=== PATIENT | female | born 1955 | race Caucasian/White ===

== ENCOUNTER 2018-06-09 14:01 | Outpatient (RCR) | payer OTHER, SELFPAY | END 2018-06-16 23:59 | LOC: NS 14:01 | PROVIDERS: Family Provider Family Medicine; PCP Family Medicine; Visit Provider Family Medicine | DX: E66.9 Obesity, unspecified (principal); Z68.33 Body mass index [BMI] 33.0-33.9, adult; Z71.3 Dietary counseling and surveillance | CPT/HCPCS: 97802 ==

== ENCOUNTER 2018-07-06 16:00 | Outpatient (RCR) | payer OTHER, SELFPAY ==
[2017-01-28 06:17] VITALS: BMI 34.3
== END 2018-07-14 23:59 ==
LOC: NS 16:00
PROVIDERS: Family Provider Family Medicine; PCP Family Medicine; Visit Provider Family Medicine
DX: E66.9 Obesity, unspecified (principal); Z68.33 Body mass index [BMI] 33.0-33.9, adult; Z71.3 Dietary counseling and surveillance
CPT/HCPCS: 97803

== ENCOUNTER → 2018-08-10 10:47 | Outpatient (CLI) | payer OTHER, SELFPAY ==
[2018-08-10 13:11] LABS: Vitamin B12 451 pg/mL (211-911); Vitamin D,25 Hydroxy 22.6 ng/mL (29.95-100.01)
[2018-08-10 13:13] LABS: Hemoglobin A1c 5.5 % (4.2-6.3)
== END ==
PROVIDERS: Family Provider Family Medicine; PCP Family Medicine; Referring Provider Family Medicine; Visit Provider Family Medicine
DX: E53.8 Deficiency of other specified B group vitamins (principal); E55.9 Vitamin D deficiency, unspecified; R73.9 Hyperglycemia, unspecified
CPT/HCPCS: 36415; 82306; 82607; 83036

== ENCOUNTER 2018-08-11 11:00 | Outpatient (RCR) | payer OTHER, SELFPAY ==
[2017-01-28 06:17] VITALS: BMI 34.3
== END 2018-08-14 23:59 ==
LOC: NS 11:00
PROVIDERS: Family Provider Family Medicine; PCP Family Medicine; Visit Provider Family Medicine
DX: E66.9 Obesity, unspecified (principal); Z68.33 Body mass index [BMI] 33.0-33.9, adult; Z71.3 Dietary counseling and surveillance
CPT/HCPCS: 97803

== ENCOUNTER 2018-08-31 10:02 | Outpatient (RCR) | payer OTHER, SELFPAY ==
[2017-01-28 06:17] VITALS: BMI 34.3
== END 2018-09-13 23:59 ==
LOC: NS 10:02
PROVIDERS: Family Provider Family Medicine; PCP Family Medicine; Visit Provider Family Medicine
DX: E66.9 Obesity, unspecified (principal); Z68.33 Body mass index [BMI] 33.0-33.9, adult; Z71.3 Dietary counseling and surveillance
CPT/HCPCS: 97803

== ENCOUNTER 2018-09-21 09:21 | Outpatient (RCR) | payer OTHER, SELFPAY ==
[2017-01-28 06:17] VITALS: BMI 34.3
== END 2018-10-14 23:59 ==
LOC: NS 09:21
PROVIDERS: Family Provider Family Medicine; PCP Family Medicine; Visit Provider Family Medicine
DX: E66.9 Obesity, unspecified (principal); Z68.33 Body mass index [BMI] 33.0-33.9, adult; Z71.3 Dietary counseling and surveillance
CPT/HCPCS: 97803

== ENCOUNTER 2018-10-26 09:27 | Outpatient (RCR) | payer OTHER, SELFPAY ==
[2017-01-28 06:17] VITALS: BMI 34.3
== END 2018-11-13 23:59 ==
LOC: NS 09:27
PROVIDERS: Family Provider Family Medicine; PCP Family Medicine; Visit Provider Family Medicine
DX: E66.9 Obesity, unspecified (principal); Z68.33 Body mass index [BMI] 33.0-33.9, adult; Z71.3 Dietary counseling and surveillance
CPT/HCPCS: 97803

== ENCOUNTER 2018-11-22 09:20 | Outpatient (RCR) | payer OTHER, SELFPAY ==
[2017-01-28 06:17] VITALS: BMI 34.3
== END 2018-12-14 23:59 ==
LOC: NS 09:20
PROVIDERS: Family Provider Family Medicine; PCP Family Medicine; Visit Provider Family Medicine
DX: E66.9 Obesity, unspecified (principal); Z68.33 Body mass index [BMI] 33.0-33.9, adult; Z71.3 Dietary counseling and surveillance
CPT/HCPCS: 97803

== ENCOUNTER 2018-12-20 08:57 | Outpatient (RCR) | payer OTHER, SELFPAY ==
[2017-01-28 06:17] VITALS: BMI 34.3
== END 2019-01-14 23:59 ==
LOC: NS 08:57
PROVIDERS: Family Provider Family Medicine; PCP Family Medicine; Visit Provider Family Medicine
DX: E66.9 Obesity, unspecified (principal); Z68.33 Body mass index [BMI] 33.0-33.9, adult; Z71.3 Dietary counseling and surveillance
CPT/HCPCS: 97803

== ENCOUNTER 2019-02-28 09:02 | Outpatient (RCR) | payer OTHER, SELFPAY ==
[2017-01-28 06:17] VITALS: BMI 34.3
== END 2019-02-28 23:59 | disposition home or self-care (01) ==
LOC: NS 09:02
PROVIDERS: Family Provider Family Medicine; PCP Family Medicine; Visit Provider Family Medicine
DX: Z71.3 Dietary counseling and surveillance (principal); E66.9 Obesity, unspecified; Z68.33 Body mass index [BMI] 33.0-33.9, adult
CPT/HCPCS: 97803

== ENCOUNTER → 2019-04-04 14:07 | Outpatient (CLI) | payer OTHER, SELFPAY ==
[2019-04-04 15:48] LABS: Vitamin D,25 Hydroxy 23.1 ng/mL (29.95-100.01)
== END ==
PROVIDERS: Family Provider Family Medicine; PCP Family Medicine; Visit Provider Family Medicine
DX: E55.9 Vitamin D deficiency, unspecified (principal)
CPT/HCPCS: 36415; 82306

== ENCOUNTER → 2020-02-07 13:21 | Outpatient (CLI) | payer OTHER, SELFPAY ==
--- NOTE | 2020-02-07 13:25 | BI_ITS ---
MAMMOGRAPHY - BILATERAL SCREENING REASON FOR EXAM: Female, 64 years old. Routine annual screening examination. PERTINENT HISTORY: Sister with breast cancer. Mother with breast cancer. TECHNIQUE: Digital bilateral breast erlinda (3D mammographic acquisition) in the CC and MLO projections. 2-D mediolateral oblique (MLO) and craniocaudad (CC) views of both breasts were obtained. CAD: Full Field Digital Mammography with Computer Added Detection was performed. COMPARISON: Comparison is made with prior outside examination dated 12/28/2016. FINDINGS: Breast Composition: There are scattered areas of fibroglandular density. There are no dominant masses or suspicious calcifications. Stable benign-appearing bilateral axillary lymph nodes. No other significant abnormalities are identified. There has been no significant change since the prior study. BI/SCREEN MAMM (CAD) W/ERLINDA BILAT IMPRESSION: Stable bilateral screening mammogram. Yearly follow-up mammogram recommended. (A) ASSESSMENT CATEGORY: BIRADS Category 2: Benign. A letter regarding these results will be sent to the patient by the facility within 30 days. Approximately 10% of breast cancers are not detected by mammography. A normal mammogram should not delay biopsy of a clinically suspicious abnormality. [id number] Electronically Signed: Conor Peacock, at 14:36 EDT , Service support ,
== END ==
PROVIDERS: PCP Family Medicine; Referring Provider Family Medicine; Visit Provider Family Medicine
DX: Z12.31 Encounter for screening mammogram for malignant neoplasm of breast (principal)
CPT/HCPCS: 77063; 77067

== ENCOUNTER → 2020-02-27 10:33 | Outpatient (CLI) | payer OTHER, SELFPAY ==
[2017-01-28 06:17] VITALS: BMI 34.3
[2020-02-27 12:41] LABS: Absolute Lymphocyte Count 1.45 X10^3/uL (0.83-4.51); Absolute Neutrophil Count 3.9 X10^3/uL (2.0-7.7); Basophil# 0.03 X10^3/uL; Basophil% 0.5 % (0-1); Eosinophil# 0.13 X10^3/uL; Eosinophils% 2.2 % (0-5); Hematocrit 46.7 % (37-47); Hemoglobin 14.8 g/dL (12.0-15.0); Lymphocyte # 1.45 X10^3/ul (4.0); Lymphocyte % 24.2 % (19-41); Mean Corp Hgb Conc 31.7 g/dL (32-36); Mean Corpuscular Hgb 29.6 pg (27.0-32.0); Mean Corpuscular Volume 93.4 fL (81-99); Mean Platelet Vol. 10.3 fl (6.2-12.0); Monocyte# 0.51 X10^3/uL; Monocyte% 8.5 % (0-10); NRBC Flagged by Analyzer 0 % (0-5); Neutrophil # 3.87 X10^3/uL (2.7-7.7); Neutrophil % 64.4 % (47-70); Platelet Count 243 K/mm3 (150-450); RBC Distribution Width CV 12.8 % (11.6-14.6); RBC Distribution Width SD 43.5 fl (35.1-43.9)
[2020-02-27 13:11] LABS: Vitamin B12 343 pg/mL (211-911); Vitamin D,25 Hydroxy 33.7 ng/mL
== END ==
PROVIDERS: PCP Family Medicine; Referring Provider Family Medicine; Visit Provider Family Medicine
DX: E55.9 Vitamin D deficiency, unspecified (principal); E53.8 Deficiency of other specified B group vitamins
CPT/HCPCS: 36415; 82306; 82607; 85025

== ENCOUNTER → 2020-05-21 10:24 | Outpatient (CLI) | payer BC, SELFPAY ==
[2017-01-28 06:17] VITALS: BMI 34.3
--- NOTE | 2020-05-21 10:27 | US_ITS ---
STUDY: THYROID ULTRASOUND REASON FOR EXAM: Female, 64 years old. NODULE FELT BY DOCTOR TECHNIQUE: Ultrasound evaluation of the thyroid was performed with real-time and static short-scale imaging. COMPARISON: None. FINDINGS: RIGHT LOBE: The right lobe of the thyroid gland measures 4.9 cm x 1.9 cm x 1.1 cm. There is a homogeneous echotexture. There is a 3 mm x 3 mm x 2 mm cyst in the lower pole of the right lobe. There are 3 hypoechoic solid nodules the largest measuring 8 mm x 8 mm x 10 mm. This is in the posterior lower pole. LEFT LOBE: The left lobe of the thyroid gland measures 4.6 cm x 1.5 cm x 1.1 cm. There is a homogeneous echotexture. 3 subcentimeters nodules are seen the largest measures 7 mm x 6 mm x 4 mm. There is also evidence of a 4 mm x 4 mm x 4 mm partially calcified nodule in the lower pole. ISTHMUS: The isthmus measures 3 mm. The regional lymph nodes are normal. US/Thyroid IMPRESSION: Several subcentimeter nodules in both lobes of the thyroid as described. Electronically Signed: Conor Peacock, at 15:09 EST , Service support ,
--- NOTE | 2020-05-21 10:30 | BD_ITS ---
STUDY: DUAL ENERGY X-RAY ABSORPTIOMETRY / DXA REASON FOR EXAM: Female, 64 years old. 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 COMPARISON: Comparison is made with prior study dated 09/09/2011. FINDINGS: Lumbar Spine (L1-L4): g/cm2 (1.231) / T-score (0.4) / Z-score (2.0) Findings are suggestive of normal bone density with a low fracture risk. Left Femur Total: g/cm2 (0.890) / T-score (-0.9) / Z-score (0.2) Left Femoral Neck: g/cm2 (0.930) / T-score (-0.8) / Z-score (0.7) Right Femur Total: g/cm2 (0.971) / T-score (-0.3) / Z-score (0.9) Right Femoral Neck: g/cm2 (1.017) / T-score (-0.1) / Z-score (1.3) The T-Scores on the most recent prior examination were: Lumbar Spine (L1-L4): There has been worsening of bone density since the previous examination. Left Femur Total: which represents a worsening of 10.8%. Right Femur Total: which represents a worsening of 14.1%. BD/Dexa Bone Density Study IMPRESSION: The patient is considered normal as outlined below according to World [employer] Organization (WHO) criteria with a low fracture risk. There has been worsening of bone density since the previous examination. Reference Information: The T-score is the number of standard deviations above or below the standard which is normal for young adults at their peak bone mineral density. The World Health Organization (WHO) interprets the T-scores as follows: Above -1 Normal bone density Between -1 and -2.5 Osteopenia Equal to / or below -2.5 Osteoporosis As a practical clinical guideline, osteopenia may be graded as follows: Mild -1 through -1.5 Moderate -1.6 through -2.0 Severe -2.1 through -2.4 The Z-score is the number of standard deviations above or below age-matched controls. A Z-score of less than -1.5 would be considered abnormal. References: 1. NIH Osteoporosis and Related Bone Diseases www osteo.org 2. International Society for Clinical Densitometry www iscd.org 3. National Osteoporosis Foundation www nof.org Electronically Signed: Conor Peacokc, at 15:01 EST , Service support ,
== END ==
PROVIDERS: PCP Family Medicine; Referring Provider Internal Medicine; Visit Provider Internal Medicine
DX: E04.1 Nontoxic single thyroid nodule (principal); Z78.0 Asymptomatic menopausal state
CPT/HCPCS: 76536; 77080

== ENCOUNTER → 2020-09-05 14:22 | Outpatient (CLI) | payer BC, SELFPAY ==
--- NOTE | 2020-09-05 14:25 | US_ITS ---
STUDY: ULTRASOUND BREAST - RIGHT REASON FOR EXAM: Female, 64 years old. Right axillary lump. The patient has had Covid vaccine. TECHNIQUE: Axial and longitudinal images of the RIGHT breast were performed with a high resolution ultrasound transducer. # OF IMAGES: 77 COMPARISON: Comparison is made with prior mammogram done earlier today. FINDINGS: RIGHT Breast: Multiple lymph nodes are seen in the right axilla. The largest measures 1.7 cm x 0.8 cm x 0.5 cm. US/Breast Limited Unilateral IMPRESSION: Multiple right axillary lymph nodes. The largest measures 1.7 cm x 0.8 cm x 0.5 cm. ASSESSMENT CATEGORY: BIRADS Category 2: Benign. A letter regarding these results will be sent to the patient by the facility within 30 days. Electronically Signed: Conor Peacock MD at 16:02 EDT , Service support ,
--- NOTE | 2020-09-05 14:25 | BI_ITS ---
MAMMOGRAPHY - UNILATERAL DIAGNOSTIC: RIGHT BREAST REASON FOR EXAM: Female, 64 years old. Six-month history of right axillary breast lump. PERTINENT HISTORY: Sister with breast cancer. Mother with breast cancer. Aunt with breast cancer. TECHNIQUE: Digital unilateral breast mallika (3D mammographic acquisition) in the CC and MLO projections. 2-D mediolateral oblique (MLO) and craniocaudad (CC) views of both breasts were obtained. CAD: Full Field Digital Mammography with Computer Added Detection was performed. COMPARISON: Comparison is made with prior study dated 02/07/2020. FINDINGS: Breast Composition: There are scattered areas of fibroglandular density. There are no dominant masses or suspicious calcifications. Stable small benign appearing bilateral axillary lymph nodes. No other significant abnormalities are identified. There has been no significant change since the prior study. BI/DIAG MAMM W/CAD, UNILAT IMPRESSION: Stable unilateral diagnostic mammogram. With the patient''s history of a palpable axillary lump, correlation with ultrasound is recommended. ASSESSMENT CATEGORY: BIRADS Category 0: Incomplete. Need additional imaging evaluation. A letter regarding these results will be sent to the patient by the facility within 30 days. Approximately 10% of breast cancers are not detected by mammography. A normal mammogram should not delay biopsy of a clinically suspicious abnormality. Electronically Signed: Conor Peacock MD at 15:11 EDT , Service support ,
== END ==
PROVIDERS: PCP Internal Medicine; Referring Provider Internal Medicine; Visit Provider Internal Medicine
DX: N63.15 Unspecified lump in the right breast, overlapping quadrants (principal)
CPT/HCPCS: 76642; 77061; 77065; G0279

== ENCOUNTER → 2021-01-08 07:56 | Outpatient (CLI) | payer MEDICARE, BC, SELFPAY ==
--- NOTE | 2021-01-08 08:02 | MRI_ITS ---
STUDY: BILATERAL BREAST MR WITHOUT AND WITH CONTRAST REASON FOR EXAM: Female, 65 years old. Family history of breast cancer. Right sided lump at 9 o''clock position. TECHNIQUE: Multi-sequence multi-echo imaging of both breasts was performed with a dedicated breast coil. T1-weighted and T2-weighted images were performed before the administration of contrast. T1-weighted images were also performed after the administration of 20ML IV DOTAREM without complications. COMPARISON: Unilateral ultrasound and unilateral diagnostic mammogram the 09/05/2020. FINDINGS: RIGHT BREAST: The breast tissue is fatty with moderate background enhancement. There are no abnormal enhancing masses or areas of non-mass enhancement in the right breast. LEFT BREAST: The breast tissue is fatty with moderate background enhancement. There are no abnormal enhancing masses or areas of non-mass enhancement in the left breast. There are no enlarged or abnormal lymph nodes. There is no abnormality in the visualized regions of the chest or liver. MRI/Breast Bilateral W/O and W IMPRESSION: No focal discrete mass in the right breast. No other abnormality. Yearly follow-up mammogram recommended. CATEGORY: BIRADS Category 2: Benign. A letter regarding these results will be sent to the patient by the facility within 30 days. Electronically Signed: William De La Torre MD at 9:13 EDT , Service support ,
== END ==
PROVIDERS: PCP Internal Medicine; Referring Provider Internal Medicine; Visit Provider Internal Medicine
DX: N63.15 Unspecified lump in the right breast, overlapping quadrants (principal)
CPT/HCPCS: 77049; A9575; A4216; C8908

== ENCOUNTER 2021-05-20 07:45 | Outpatient (CLI) | payer MEDICARE, BC, SELFPAY ==
--- NOTE | 2021-05-20 07:49 | US_ITS ---
STUDY: ULTRASOUND BREAST - RIGHT REASON FOR EXAM: Female, 65 years old. Follow-up for right axillary lymph nodes. TECHNIQUE: Axial and longitudinal images of the RIGHT breast were performed with a high resolution ultrasound transducer. # OF IMAGES: 37 COMPARISON: Comparison is made with prior ultrasound dated 09/05/2020. FINDINGS: RIGHT Breast: Once again, 3 lymph nodes are seen in the right axillary region. The largest lymph node measures 2.1 cm x 1.2 cm x 0.7 cm. US/Breast Limited Unilateral IMPRESSION: Essentially stable appearance of the right axillary lymph nodes. ASSESSMENT CATEGORY: BIRADS Category 2: Benign. A letter regarding these results will be sent to the patient by the facility within 30 days. Electronically Signed: Conor Peacock MD at 15:44 EST , Service support ,
--- NOTE | 2021-05-20 07:49 | US_ITS ---
STUDY: THYROID ULTRASOUND REASON FOR EXAM: Female, 65 years old. Thyroid nodules. TECHNIQUE: Ultrasound evaluation of the thyroid was performed with real-time and static short-scale imaging. COMPARISON: Comparison is made with prior study dated 05/21/2020. FINDINGS: RIGHT LOBE: The right lobe of the thyroid gland measures 4.8 cm x 1.7 cm x 1.2 cm. There is a homogeneous echotexture. Stable 4 mm x 3 mm x 2 mm cyst in the lower pole of the right lobe. Stable dominant 1.1 cm x 0.7 cm x 0.9 semi a solid nodule in the mid and lower pole. LEFT LOBE: The left lobe of the thyroid gland measures 4.2 cm x 1.5 cm x 1.2 cm. There is a homogeneous echotexture. There are 3 subcentimeter hypoechoic solid nodules. The largest measures 7 mm x 6 mm x 4 mm. ISTHMUS: The isthmus measures 3 mm. The regional lymph nodes are normal. US/Thyroid IMPRESSION: Stable examination. Bilateral thyroid nodules. Electronically Signed: Conor Peacock MD at 14:01 EST , Service support ,
== END 2021-05-20 23:59 | disposition short-term general hospital (02) ==
LOC: US 07:47
PROVIDERS: PCP Internal Medicine; Referring Provider Internal Medicine; Visit Provider Internal Medicine
DX: E04.1 Nontoxic single thyroid nodule (principal); R59.0 Localized enlarged lymph nodes
CPT/HCPCS: 76536; 76642

== ENCOUNTER → 2021-10-17 | Outpatient (CLI) | payer MEDICARE, BC, SELFPAY ==
--- NOTE | 2021-10-17 07:13 | BI_ITS ---
MAMMOGRAPHY - BILATERAL SCREENING REASON FOR EXAM: Female, 65 years old. Routine annual screening examination. PERTINENT HISTORY: Sister with breast cancer. Mother with breast cancer. Aunt with breast cancer. TECHNIQUE: Digital bilateral breast erlinda (3D mammographic acquisition) in the CC and MLO projections. 2-D mediolateral oblique (MLO) and craniocaudad (CC) views of both breasts were obtained. CAD: Full Field Digital Mammography with Computer Added Detection was performed. COMPARISON: Comparison is made with prior study dated 02/07/2020 and 09/05/2020. FINDINGS: Breast Composition: There are scattered areas of fibroglandular density. There are no dominant masses or suspicious calcifications. Stable small benign-appearing bilateral axillary lymph nodes. No other significant abnormalities are identified. There has been no significant change since the prior study. BI/SCRN MAMM (CAD)W/ERLINDA BILAT IMPRESSION: Stable bilateral screening mammogram. Yearly follow-up mammogram recommended. (A) ASSESSMENT CATEGORY: BIRADS Category 2: Benign. A letter regarding these results will be sent to the patient by the facility within 30 days. Approximately 10% of breast cancers are not detected by mammography. A normal mammogram should not delay biopsy of a clinically suspicious abnormality. [id number] Electronically Signed: Conor Peacock MD at 8:42 EDT ,
== END | disposition home or self-care (01) ==
PROVIDERS: PCP Internal Medicine; Referring Provider Internal Medicine; Visit Provider Internal Medicine
DX: Z12.31 Encounter for screening mammogram for malignant neoplasm of breast (principal)
CPT/HCPCS: 77063; 77067

== ENCOUNTER → 2021-11-24 | Outpatient (CLI) | payer MEDICARE, BC, SELFPAY ==
--- NOTE | 2021-11-24 07:15 | US_ITS ---
STUDY: ULTRASOUND BREAST - RIGHT REASON FOR EXAM: Female, 66 years old. Right axillary nodes. TECHNIQUE: Axial and longitudinal images of the RIGHT breast were performed with a high resolution ultrasound transducer. # OF IMAGES: 40 COMPARISON: Comparison is made with prior ultrasound of the right breast dated 05/20/2021. FINDINGS: RIGHT Breast: Once again, 3 lymph nodes are seen in the right axilla. The largest lymph node measures 2.6 times by 2.17 x 1.6 cm. This is increased slightly in size as compared to prior examination. The echotexture is slightly increased. Biopsy recommended. US/Breast Limited Unilateral IMPRESSION: Mild increase in size of the dominant lymph node in the right axilla. Biopsy recommended. ASSESSMENT CATEGORY: BIRADS Category 4: Suspicious - Biopsy Should Be Considered. A letter regarding these results will be sent to the patient by the facility within 30 days. Electronically Signed: Conor Peacock MD at 10:02 EDT ,
== END | disposition home or self-care (01) ==
LOC: US 07:12
PROVIDERS: PCP Internal Medicine; Referring Provider Internal Medicine; Visit Provider Internal Medicine
DX: R59.0 Localized enlarged lymph nodes (principal)
CPT/HCPCS: 76642; 76882

== ENCOUNTER 2021-12-12 19:27 | Emergency (ER) | payer MEDICARE, BC, SELFPAY ==
[2021-12-12 19:29] VITALS: BP 160/74; PULSE 89; RESP 16; TEMP 36.9; O2SAT 96; BMI 30.4
--- NOTE | 2021-12-12 19:33 | RAD_ITS ---
STUDY: X-RAY - RIGHT HAND, ATTENTION FOURTH FINGER REASON FOR EXAM: Female, 66 years old. Deformity after fall onto hand. TECHNIQUE: 3 view(s) of the finger were obtained. COMPARISON: None. FINDINGS: Normal metacarpal head. Normal metacarpophalangeal joint. Normal proximal phalanx. Normal middle phalanx. Normal distal phalanx. There is dorsal dislocation although the proximal interphalangeal joint. There is mild degenerative arthrosis of the distal interphalangeal joint. There is soft tissue swelling about the mid finger. RAD/Finger(s) Min 2 Views IMPRESSION: Dorsal dislocation of the proximal interphalangeal joint without visualized fracture. Electronically Signed: Jimmy Mendes DO at 19:56 EDT ,
[2021-12-12 20:06] VITALS: RESP 16
--- NOTE | 2021-12-12 21:21 | EX.ED.UPPERE ---
HPI History of Present Illness Chief Complaint: Upper Extremity Injury Narrative Narrative: Patient denies significant past medical history presents with injury to her right fourth digit on her hand. She states she was trying to save a baby bunny from a kitten. She had to crawl onto the deck. She fell onto her right hand and now has pain in her fourth finger. She is unsure if it is fractured or dislocated. She denies other injury. She does not take blood thinners. PFSH PFS Medical History Skin cancer Home Medications mometasone 200 mcg/actuation HFA aerosol inhaler (Asmanex HFA) 2 puff inhalation QHS 12/12/21 [History Last Taken Unknown] Allergy/AdvReac Type Severity Reaction Status Date / Time No Known Allergies Allergy Verified 06/27/13 16:07 Social History Smoking Status: Former smoker ROS ROS ED ROS Narrative Constitutional: No fever, no chills. HEENT: No sore throat. No neck pain. No loss of vision. No rhinorrhea. Cardiovascular: No chest pain. No palpitations. No pedal edema. Respiratory: No cough, no shortness of breath. Abdominal: No abdominal pain. No nausea. No vomiting. Genitourinary: No dysuria. No hematuria. Musculoskeletal: No myalgias. Right fourth digit pain at PIP. Neurologic: No headaches. No dizziness. No lightheadedness. Skin: No rash. No change in color. Psychiatric: No depression. No anxiety. EXAM Physical Exam Narrative Exam Narrative: Afebrile. Vital signs noted. HEENT: Normocephalic. Atraumatic. PERRL, EOMI. Neck soft and supple. No point tenderness or step off. Cardiovascular: Regular rate and rhythm. No murmurs, rubs, or gallops appreciated. Respiratory: No tachypnea. Lungs clear to auscultation bilaterally. Gastrointestinal: Abdomen soft, nontender, with normoactive bowel sounds. No rebound or guarding. Neurological: Awake. Alert. Nonfocal, nonlateralizing. Skin: No rash. Normal color. No pallor. Musculoskeletal: No pedal edema. Positive deformity at PIP of fourth digit right hand. Full range of motion right wrist. Palpable radial pulse. Good capillary refill all digits. Range of motion of fourth digit limited secondary to pain and deformity. Const Vital Signs: 12/12/21 19:29 12/12/21 20:06 Temperature 98.4 F Temperature Source Temporal Pulse Rate 89 Respiratory Rate 16 16 Blood Pressure 160/74 H Blood Pressure Mean 102 Pulse Ox 96 Oxygen Delivery Method Room Air MDM MDM MDM Narrative Medical decision making narrative: Patient was given an ice pack for comfort. X-rays were obtained of the fourth digit. I interpreted the x-ray and there is a dorsal dislocation at the PIP joint. No evidence of fracture. In discussion with the patient, closed reduction was performed without digital block. Patient tolerated procedure well. Postreduction x-ray will be obtained and interpreted by myself. She declined analgesics orally here in the emergency department. Postreduction x-ray interpreted by myself does show successful reduction of her closed finger dislocation. She will be placed in an aluminum foam splint and take [id number] analgesics as needed. She will continue ice and elevation at home and follow-up with the orthopedic surgeon within the next 5 to 7 days. Disposition is discharged home in improved and stable condition. Return instructions were reviewed. Radiography Diagnostic Testing: Clinical Impression(s) from Imaging Studies Finger X-Ray 12/12/21 19:33 IMPRESSION: Dorsal dislocation of the proximal interphalangeal joint without visualized fracture. Electronically Signed: Jimmy Mendes DO at 19:56 EDT Reading Location ID and State: [address] [place] [address] Tel [phone], Service support , Discharge Plan Triage Chief Complaint: Upper Extremity Injury ED Provider: Maikel Downs Dx/Rx/DC Orders Clinical Impression: Closed dislocation finger, proximal interphalangeal joint, traumatic, Finger pain, right Instructions: ED Finger Dislocation Prescriptions: No Action Asmanex HFA 200 mcg/actuation HFA aerosol inhaler 2 puff INHALATION QHS Label Comments: inhale 2 puffs by mouth and INTO THE LUNGS once daily WITH GOOD ORAL CARE AFTER USE Primary Care Provider: Maribell Ortiz Referrals: Maribell Ortiz DO [Primary Care Provider] - Meir Cannon MD [Med Staff - Active Staff] - 5-7 Days Disposition Disposition: Home, Self Care
--- NOTE | 2021-12-12 21:36 | RAD_ITS ---
STUDY: X-RAY - RIGHT HAND, ATTENTION FOURTH FINGER REASON FOR EXAM: Female, 66 years old. Post reduction. TECHNIQUE: 3 view(s) of the finger were obtained. COMPARISON: Right fourth finger, 12/12/2021 (1943) FINDINGS: Aspiration of the proximal interphalangeal joint which is dorsally dislocated on the previous study. There is no fracture. The finger is otherwise unremarkable. RAD/Finger(s) Min 2 Views IMPRESSION: Successful reduction of the dislocation of the proximal interphalangeal joint seen on the earlier study. Electronically Signed: Jimmy Mendes DO at 22:08 EDT ,
[2021-12-12 22:33] VITALS: RESP 16
--- NOTE | 2021-12-12 22:34 | ED.RN ---
REVIEWED D/C INSTRUCTIONS FOLLOW UP CARE, AND S/S THAT WOULD WARRANT A RETURN TO THE ED WITH PT. PT VERBALIZED AN UNDERSTANDING AND DENIES FURTHER QUESTIONS FOR THIS RN. PT SKIN P/W/D, RESP EVEN AND UNLABORED, PT A&O X 3, NO DISTRESS NOTED. PT AMBULATED OUT OF ED, GAIT STEADY.
== END 2021-12-12 22:35 | disposition home or self-care (01) ==
PROVIDERS: Emergency Provider Emergency Medicine; PCP Internal Medicine; Visit Provider Emergency Medicine
DX: S63.284A Dislocation of proximal interphalangeal joint of right ring finger, initial encounter (principal); W19.XXXA Unspecified fall, initial encounter; Z85.828 Personal history of other malignant neoplasm of skin; Z87.891 Personal history of nicotine dependence
CPT/HCPCS: 73140; 99283

== ENCOUNTER 2022-01-26 18:00 | Outpatient (RCR) | payer MEDICARE, BC, SELFPAY ==
--- NOTE | 2022-01-09 07:59 | HP.OTEVAL_ITS ---
Patient's Visit Information ANA MONTOYA is a 66 year old F, referred to Occupational Therapy by William Mendez PA-C, with a diagnosis of right RF dislocation. Date of Evaluation: 01/07/22 Occupational Therapist: Keyana Brar, ROBI/Grace, CHT - Subjective This 66 year old female was seen for OT eval with dx of right ring finger dislocation on 12/12/21- pt states she went to ER and was splinted for about 2.5 weeks- pt is retired- pt states her finger is moving better but still sore and and stiff limiting IND use of her right hand- pt would like to return to her PLOF with ADLs and IADls. - Pain right RF 0 Pain Intensity Range: 2 - ROM MP: right RF 0/80 left 0/80 PIP: right RF 0/90 left 0/100 DIP: right 0/35 left 0/45 - Strength Auto Glass Installer: right 40# left 70# Lateral Pinch: right 10# left 10# - Sensation Sensation Comments: denies - Quick DASH-Disab of Arm,Shoulder& Hand Quick DASH Score: 31.8175 - Goals Goal:: pt will demo increase in right assistant technician strength by 15# or greater to increase pts ind. with ADLs and IADLs by d/c Goal:: pt will demo a increase in right RF PIP and DIP flex cy 15* or greater to increase pts ind. with ADLs and IADLs. Goal:: pt will report pain no greater than 1/10 with use of right hand with ADLs and IADLs by d/c - Rehabilitation General Assessment: pt suffered dorsal dislocation of proximal interphalangeal joint 3 weeks and 5 days ago- pt demo with limited right RF motion, weakness and strength decreasing pts ind. with ADls and IADls. pt would benefit from skilled OT services 1x week for 3-4 weeks. Today therapist ed. pt on ROM, edema and protective bradley. while lifting and performing tasks. pt demo understanding and receptive to POC. Rehabilitation Potential: Good - Anticipated Interventions A/AAROM/PROM, Strengthening, Modalities, Orthoses, Joint Protection/Energy Conservation, Ergonomic Education, Fine Motor Coord/Octaviano, Education re assistive Equipment, Education re Diagnosis, Home Program - Visit Plan Frequency: 1-2x /Week Duration: 6 Weeks TEXT: Thank you for the opportunity to evaluate your patient. For Medicare and Medicare HMO plans, please review the plan of care and approve it. It will need to be FAXED BACK to us at [phone] for Medicare purposes. Please let me know if there are questions or concerns regarding this plan of care. Physician Signature: Date:
--- NOTE | 2022-04-28 14:23 | HP.OTDCSUM ---
It has been my pleasure to treat ANA MONTOYA under orders from William Mendez PA-C, for the diagnosis of right RF dislocation for a total of 2 visit(s). Please see the following information for a summary of their discharge status. Objective/Function: right PIP flexion 100 increase from 90*. right DIP flexion 40* increase from 35*. right kennel supervisor strength 55# increase from 40*. pt has met OT goals and is D/c at this time. Patient Goals: Regain Mobility, Regain Strength, Use Hand/Wrist/Arm Normally Again Goal:: pt will demo increase in right kennel supervisor strength by 15# or greater to increase pts ind. with ADLs and IADLs by d/c Goal:: pt will demo a increase in right RF PIP and DIP flex cy 15* or greater to increase pts ind. with ADLs and IADLs. Goal:: pt will report pain no greater than 1/10 with use of right hand with ADLs and IADLs by d/c Discharge Comments: Pt demo good functional ROM and strength is returning- If there are questions or concerns regarding this patient's occupational therapy, please fell free to call me at [phone]. Thank you for the referral of this patient. Sincerely, Keyana Brar, OTR/L, CHT
== END 2022-01-26 19:00 | disposition home or self-care (01) ==
LOC: OT 18:00
PROVIDERS: PCP Internal Medicine; Referring Provider Physician Assistant; Visit Provider Physician Assistant
DX: S63.29 Dislocation of distal interphalangeal joint of finger (principal); X58.XXXD Exposure to other specified factors, subsequent encounter
CPT/HCPCS: 97110; 97166; 97530

== ENCOUNTER → 2022-08-20 | Outpatient (CLI) | payer MEDICARE, BC, SELFPAY ==
--- NOTE | 2022-08-20 12:30 | US_ITS ---
INDICATION: NODULE EXAMINATION: Ultrasound US Thyroid (eg thyroid, parathyroid, parotid) TECHNIQUE: Fisher scale and color doppler imaging was performed of the thyroid gland. COMPARISON: 05/21/2020 ultrasound. FINDINGS: RIGHT THYROID LOBE: 4.9 x 1.5 x 1.3 cm. Homogeneous echotexture with normal vascularity. [Multiple nodules with a solid hypoechoic nodule measuring 4 mm, cysts cystic nodule measuring 3 mm, solid hypoechoic nodule measuring 4 mm and a mixed solid and cystic nodule measuring 9 mm. All nodules are wider than tall with smooth margins and no echogenic foci. LEFT THYROID LOBE: 4.0 x 1.3 x 1.3 cm. Homogeneous echotexture with normal vascularity. [Multiple nodules with a 5 mm solid hypoechoic nodule with a large coarse macrocalcification and a 7 mm solid nodule with no echogenic foci. Both nodules are wider than tall with smooth margins. ISTHMUS: 2 mm in AP diameter. No thyroid nodules are present. US/Thyroid IMPRESSION: Multiple bilateral thyroid nodules with no significant change as compared to the prior ultrasound. None of the nodules meet TI-RADS criteria for follow-up. Electronically Signed: Rogelio Juan DO at 0:33 EDT ,
--- NOTE | 2022-08-20 13:06 | BD_ITS ---
STUDY: DUAL ENERGY X-RAY ABSORPTIOMETRY / DXA REASON FOR EXAM: Female, 66 years old. Postmenopausal screening TECHNIQUE: Bone Mineral Density (BMD) measurements of lumbar spine and bilateral hips were obtained. COMPARISON: 2011 FINDINGS: Lumbar Spine (L1-L4): g/cm2 (1.063) / T-score (0.1) / Z-score (2.0) Findings are suggestive of normal bone density with a low fracture risk in the lumbar spine. Left Femur Total: g/cm2 (0.856) / T-score (-0.7) / Z-score (0.6) Left Femoral Neck: g/cm2 (0.679) / T-score (-1.5) / Z-score (0.1) Right Femur Total: g/cm2 (0.917) / T-score (-0.2) / Z-score (1.1) Right Femoral Neck: g/cm2 (0.781) / T-score (-0.6) / Z-score (1.0) The T-Scores on the most recent prior examination were: There has been a decrease of bone density in the lumbar spine, an increase in both femurs since the previous examination. BD/Dexa Bone Density Study IMPRESSION: The patient is considered osteopenic as outlined below according to World [employer] Organization (WHO) criteria with a moderate fracture risk. Reference Information: The T-score is the number of standard deviations above or below the standard which is normal for young adults at their peak bone mineral density. The World Health Organization (WHO) interprets the T-scores as follows: Above -1 Normal bone density Between -1 and -2.5 Osteopenia Equal to / or below -2.5 Osteoporosis As a practical clinical guideline, osteopenia may be graded as follows: Mild -1 through -1.5 Moderate -1.6 through -2.0 Severe -2.1 through -2.4 The Z-score is the number of standard deviations above or below age-matched controls. A Z-score of less than -1.5 would be considered abnormal. References: 1. NIH Osteoporosis and Related Bone Diseases www osteo.org 2. International Society for Clinical Densitometry www iscd.org 3. National Osteoporosis Foundation www nof.org Electronically Signed: Mikael Mcdonald MD at 9:04 EDT ,
== END | disposition home or self-care (01) ==
LOC: OPBD 12:27
PROVIDERS: PCP Internal Medicine; Visit Provider Internal Medicine
DX: Z78.0 Asymptomatic menopausal state (principal); E04.1 Nontoxic single thyroid nodule; R06.09 Other forms of dyspnea
CPT/HCPCS: 76536; 77080

== ENCOUNTER → 2022-08-26 | Outpatient (CLI) | payer MEDICARE, BC, SELFPAY ==
--- NOTE | 2022-08-26 09:45 | STRESSREP_ITS ---
Stress Test Report Date: 08/26/2022 Procedure: Exercise tolerance test/imaging study Indications: Dyspnea on exertion Consent: Per the patient Procedure: The patient exercised on a Nagi protocol for 6 achieving a peak heart rate of 140 bpm (92% predicted maximal heart rate) with a peak blood pressure 150/66 mmHg and a peak MET capacity of 7 METs. The baseline ECG demonstrated normal sinus rhythm. The peak exercise ECG demonstrated no ischemic changes. There were no cardiac dysrhythmias pretest, during exercise, or recovery. The functional capacity was considered mildly decreased. There was complaint of moderate shortness of breath at peak exercise. The examination was discontinued secondary to target heart rate being achieved. The patient was injected with 14 point mCi of technetium 99m Cardiolite and subsequently rest SPECT Cardiolite nuclear imaging was obtained in the horizontal long, vertical long, and short axis views. Post-exercise, the patient was injected with 44.4 mCi of technetium 99m Cardiolite and subsequently stress SPECT Cardiolite nuclear imaging was obtained in the horizontal long, vertical long, and short axis views. A gated Cardiolite study at peak stress was obtained. Rest and stress SPECT Cardiolite nuclear imaging status post realignment, normalization, and attenuation correction, demonstrates the appearance of relative uniform tracer uptake and myocardial perfusion appearing within normal limits. There is end systolic thickening and brightening. The gated Cardiolite study demonstrates myocardial thickening and inward wall motion. The reported LVEF is 75%. Impression: 1. Technically adequate (percent predicted maximal heart rate greater than 85%) exercise tolerance test 2. Peak exercise ECG no ischemic change 3. There were no cardiac dysrhythmias pretest, during exercise, or recovery 4. Rest and stress SPECT Cardiolite nuclear imaging demonstrate relative uniform tracer uptake and myocardial perfusion appearing within normal limits. 5. The gated Cardiolite study reports an LVEF of 75%. This note was generated with [employer]alando[employer] software. It may contain incorrect words, spelling, and punctuation that were not noted in checking the note before signing.
== END | disposition home or self-care (01) ==
LOC: CVS 06:19
PROVIDERS: PCP Internal Medicine; Visit Provider Internal Medicine
DX: R06.09 Other forms of dyspnea (principal)
CPT/HCPCS: 78452; 93017; A9500; A4216

== ENCOUNTER → 2022-10-20 | Outpatient (CLI) | payer MEDICARE, BC, SELFPAY ==
--- NOTE | 2022-10-20 08:12 | BI_ITS ---
MAMMOGRAPHY - BILATERAL SCREENING REASON FOR EXAM: Female, 66 years old. Routine annual screening examination. PERTINENT HISTORY: Sister with breast cancer. Mother with breast cancer. Aunt with breast cancer. Prior right excisional breast biopsy. TECHNIQUE: Digital bilateral breast erlinda (3D mammographic acquisition) in the CC and MLO projections. 2-D mediolateral oblique (MLO) and craniocaudad (CC) views of both breasts were obtained. CAD: Full Field Digital Mammography with Computer Added Detection was performed. COMPARISON: Comparison is made with prior study dated October 17, 2021 and September 05, 2020. FINDINGS: Breast Composition: There are scattered areas of fibroglandular density. There are no dominant masses or suspicious calcifications. Stable small benign appearing bilateral axillary lymph nodes. No other significant abnormalities are identified. There has been no significant change since the prior study. BI/SCRN MAMM (CAD)W/ERLINDA BILAT IMPRESSION: Stable bilateral screening mammogram. Yearly follow-up mammogram recommended. (A) ASSESSMENT CATEGORY: BIRADS Category 2: Benign. A letter regarding these results will be sent to the patient by the facility within 30 days. Approximately 10% of breast cancers are not detected by mammography. A normal mammogram should not delay biopsy of a clinically suspicious abnormality. [id number] Electronically Signed: Conor Peacock MD at 11:12 EDT ,
== END | disposition home or self-care (01) ==
LOC: OPBI 08:11
PROVIDERS: PCP Internal Medicine; Referring Provider Internal Medicine; Visit Provider Internal Medicine
DX: Z12.31 Encounter for screening mammogram for malignant neoplasm of breast (principal); Z80.3 Family history of malignant neoplasm of breast
CPT/HCPCS: 77063; 77067

== ENCOUNTER → 2023-09-29 | Outpatient (CLI) | payer MEDICARE, BC, SELFPAY ==
--- NOTE | 2023-09-29 13:16 | US_ITS ---
EXAM: US SOFT TISSUES HEAD AND NECK, THYROID CLINICAL INDICATION: thyroid nodule TECHNIQUE: Greyscale and color doppler imaging was performed of the thyroid gland. COMPARISON: No relevant prior studies available. FINDINGS: LEFT THYROID LOBE: 3.8 x 1.4 x 1.5 cm with heterogeneous echotexture. There are 2 nodules in the left thyroid lobe: 1) Nodule in the midportion which is calcified, measuring 5 x 4 x 4 mm. TI-RADS points: 3. TI-RADS category: TR3. This nodule is mildly suspicious but no FNA or follow-up is necessary given the small size of this nodule. 2) isoechoic nodule measuring 7 x 7 x 6 mm. TI-RADS points: 3. TI-RADS category: TR3. This nodule is mildly suspicious but no FNA or follow-up is necessary given the small size of this nodule. RIGHT THYROID LOBE: Right thyroid 4.8 x 1.2 x 1.4 cm with heterogeneous echotexture. There are 4 subcentimeter nodules in the right thyroid lobe: 1) Hypoechoic nodule superiorly measuring 6 x 5 x 3 mm, TI-RADS points: 4. TI-RADS category: TR4. This nodule is moderately suspicious but no FNA or follow-up is necessary given the small size of this nodule. 2) Cystic nodule in the midportion measuring 3 x 3 x 2 mm, TI-RADS points: 0. TI-RADS category: TR1. This nodule is benign and no FNA or follow-up is necessary. 3) Cystic nodule in the midportion measuring 5 x 4 x 3 mm, TI-RADS points: 0. TI-RADS category: TR1. This nodule is benign and no FNA or follow-up is necessary. 4) An isoechoic nodule inferiorly measuring 7 x 7 x 4 mm TI-RADS points: 3. TI-RADS category: TR3. This nodule is mildly suspicious but no FNA or follow-up is necessary given the small size of this nodule. ISTHMUS: The isthmus measures 2 mm in thickness. No thyroid nodules are present. US/Thyroid IMPRESSION: Multiple subcentimeter thyroid nodules as detailed above ranging from TI-RADS Category TR1 to TR 4, but no FNA or follow-up is necessary given the small size of the nodules. Electronically Signed: Mauricio Lino MD at 2:51 EDT ,
--- NOTE | 2023-09-29 13:16 | VDLE_ITS ---
Reason For Study: BLE Swelling RIGHT LEFT GSV is normal. GSV is normal. CFV is compressible, spontaneous, phasic, CFV is compressible, spontaneous, phasic, competent and demonstrates normal competent, and demonstrates normal augmentation. augmentation. FV is compressible, spontaneous, phasic, FV is compressible, spontaneous, phasic, competent and demonstrates normal competent and demonstrates normal augmentation. augmentation. POP V is compressible, spontaneous, phasic, POP V is compressible, spontaneous, phasic, competent and demonstrates normal competent and demonstrates normal augmentation. augmentation. T/P Trunk is compressible. T/P Trunk is compressible. PTV is compressible. PTV is compressible. RT PerV is compressible. LT PerV is compressible. Procedure This is a venous duplex using B-mode, color flow and spectral Doppler. Exam performed in department. The exam was diagnostic. VL/Venous Duplex US - Clint Extrem Interpretation Summary Deep veins of the lower extremities are bilaterally patent and compressible seg mentally. There is no evidence of deep vein thrombosis on either side. Valvular competence appears in tact within the proximal deep venous systems bilaterally. The great saphenous veins appear bila terally patent and compressible segmentally. Ordering Physician: Maribell Ortiz Referring Physician: Maribell Ortiz Performed By: Sampson Juarez RVT
== END | disposition home or self-care (01) ==
LOC: CVS 12:37
PROVIDERS: PCP Internal Medicine; Referring Provider Internal Medicine; Visit Provider Internal Medicine
DX: M79.89 Other specified soft tissue disorders (principal)
CPT/HCPCS: 76536; 93970

== ENCOUNTER → 2023-10-25 | Outpatient (CLI) | payer MEDICARE, BC, SELFPAY ==
--- NOTE | 2023-10-25 08:22 | BI_ITS ---
MAMMOGRAPHY - BILATERAL SCREENING REASON FOR EXAM: Female, 67 years old. Routine annual screening examination. PERTINENT HISTORY: Sister with breast cancer. Mother with breast cancer. Aunt with breast cancer. History of prior right excisional breast biopsy. TECHNIQUE: Digital bilateral breast erlinda (3D mammographic acquisition) in the CC and MLO projections. 2-D mediolateral oblique (MLO) and craniocaudad (CC) views of both breasts were obtained. CAD: Full Field Digital Mammography with Computer Added Detection was performed. COMPARISON: Comparison is made with prior study dated October 20, 2022 and October 17, 2021. FINDINGS: Breast Composition: There are scattered areas of fibroglandular density. There are no dominant masses or suspicious calcifications. Stable small benign-appearing bilateral axillary lymph nodes. No other significant abnormalities are identified. There has been no significant change since the prior study. BI/SCRN MAMM (CAD)W/ERLINDA BILAT IMPRESSION: Stable bilateral screening mammogram. Yearly follow-up mammogram recommended. (A) ASSESSMENT CATEGORY: BIRADS Category 2: Benign. A letter regarding these results will be sent to the patient by the facility within 30 days. Approximately 10% of breast cancers are not detected by mammography. A normal mammogram should not delay biopsy of a clinically suspicious abnormality. [id number] Electronically Signed: Conor Peacock MD at 9:27 EDT ,
== END | disposition home or self-care (01) ==
LOC: OPBI 08:22
PROVIDERS: PCP Internal Medicine; Referring Provider Internal Medicine; Visit Provider Internal Medicine
DX: Z12.31 Encounter for screening mammogram for malignant neoplasm of breast (principal); Z80.3 Family history of malignant neoplasm of breast
CPT/HCPCS: 77063; 77067

== ENCOUNTER → 2023-12-03 | Outpatient (CLI) | payer MEDICARE, BC, SELFPAY ==
--- NOTE | 2023-12-03 12:21 | MRI_ITS ---
STUDY: MRI RIGHT KNEE, WITHOUT AND WITH IV CONTRAST REASON FOR EXAM: Female, 68 years old. Right knee mass marked with BB. TECHNIQUE: Standardized fat and water weighted pulse sequences were obtained in all 3 orthogonal planes. Following the intravenous administration of 20 mL Clariscan contrast, additional postcontrast imaging was obtained. COMPARISON: Right knee radiographs dated 10/22/2023. FINDINGS: A skin marker was placed along the posterior aspect of the right upper knee. Subjacent to the skin marker, there is prominence of the subcutaneous fat, but no discrete soft tissue mass. An unencapsulated subcutaneous lipoma cannot be excluded. Normal medial meniscus. Normal hyaline cartilage of the medial femorotibial compartment. There is mild osteoarthritic spur formation of the medial knee compartment. Normal medial collateral ligamentous complex (MCL). Normal distal semimembranosus, gracilis and semitendinosus tendons. There is degenerative free edge tearing of the body and anterior horn of the lateral meniscus with peripheral extrusion. There is degenerative arthrosis of the lateral femorotibial compartment with joint space narrowing, marginal osteophyte formation, moderate to high-grade chondromalacia, and small foci of subchondral marrow edema in the lateral tibial plateau. Normal proximal tibiofibular articulation. Normal lateral collateral (fibular) ligament. Normal popliteus tendon. Normal biceps femoris tendon. There is a mild interstitial sprain of the ACL without focal tear or laxity (sagittal T2 series 4 image 14). Normal posterior cruciate ligament (PCL). There is moderate to high grade chondromalacia along the patellar apex and medial patellar facet Congruent patellofemoral articulation. Normal medial and lateral patellar retinaculum. Normal quadriceps tendon. Normal patellar tendon. Normal Hoffa''s fat pad. There is a small joint effusion. There is no popliteal cyst. The otherwise visualized osseous structures are unremarkable. Following IV contrast administration, there is no abnormal enhancing mass. MRI/Lower Ext Joint Only W/WO Cont IMPRESSION: Prominence of the subcutaneous fat in the posterior aspect of the right upper right knee, but no discrete soft tissue mass. An unencapsulated subcutaneous lipoma cannot be excluded. No abnormal enhancing mass. Degenerative free edge tearing of the body and anterior horn of the lateral meniscus with peripheral extrusion. Tricompartment degenerative arthrosis, most severe in the lateral femorotibial compartment. Mild interstitial sprain of the ACL without focal tear or laxity. Small joint effusion. Electronically Signed: Mars Barlow MD at 15:26 EDT ,
--- NOTE | 2023-12-03 12:21 | MRI_ITS ---
STUDY: MRI LEFT KNEE REASON FOR EXAM: Female, 68 years old. Left knee pain. No known injury. Unknown bruise posterior knees. TECHNIQUE: Standardized fat and water weighted pulse sequences were obtained in all 3 orthogonal planes. COMPARISON: None. FINDINGS: Normal medial meniscus. Normal hyaline cartilage of the medial femorotibial compartment. Normal medial femoral condyle and tibial plateau. There is ligamentous thickening of the MCL consistent with a remote MCL sprain. Normal distal semimembranosus, gracilis and semitendinosus tendons. Normal lateral meniscus. Normal hyaline cartilage of the lateral femorotibial compartment. Normal lateral femoral condyle and tibial plateau. Normal proximal tibiofibular articulation. Normal lateral collateral (fibular) ligament. Normal popliteus tendon. Normal biceps femoris tendon. Normal anterior cruciate ligament (ACL). Normal posterior cruciate ligament (PCL). There is moderate to high-grade chondromalacia along the patellar apex, with underlying subchondral marrow edema (axial T2 series 6 images 8-9). Congruent patellofemoral articulation. Normal medial and lateral patellar retinaculum. Normal quadriceps tendon. Normal patellar tendon. Normal Hoffa''s fat pad. There is a small joint effusion. There is a tiny popliteal cyst. There is mild subcutaneous soft tissue edema along the anterior aspect of the knee. The otherwise visualized osseous structures are unremarkable. MRI/Lower Ext Joint Only (Routine) IMPRESSION: Remote MCL sprain. 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 Small joint effusion with a tiny popliteal cyst. Mild subcutaneous soft tissue edema along the anterior aspect of the knee. Electronically Signed: Mars Barlow MD at 13:48 EDT ,
[2023-12-03 12:51] LABS: CREATININE FINGERSTICK < 1.0 mg/dL (0.55-1.02)
== END | disposition home or self-care (01) ==
LOC: MRI 12:16
PROVIDERS: PCP Internal Medicine; Referring Provider Internal Medicine; Visit Provider Internal Medicine
DX: Z01.812 Encounter for preprocedural laboratory examination (principal); M25.562 Pain in left knee; R22.41 Localized swelling, mass and lump, right lower limb
CPT/HCPCS: 73721; 73723; A9575

== ENCOUNTER 2024-01-12 12:36 | Outpatient (RCR) | payer MEDICARE, BC, SELFPAY | END 2024-01-15 23:59 | disposition home or self-care (01) | LOC: NS 12:36 | PROVIDERS: PCP Internal Medicine; Referring Provider Internal Medicine; Visit Provider Internal Medicine | DX: Z71.3 Dietary counseling and surveillance (principal); E78.00 Pure hypercholesterolemia, unspecified; R73.03 Prediabetes; I25.119 Atherosclerotic heart disease of native coronary artery with unspecified angina pectoris | CPT/HCPCS: 97802 ==

== ENCOUNTER 2024-02-21 10:20 | Outpatient (RCR) | payer MEDICARE, BC, SELFPAY | END 2024-03-16 23:59 | LOC: NS 10:20 | PROVIDERS: PCP Internal Medicine; Referring Provider Internal Medicine; Visit Provider Internal Medicine | DX: Z71.3 Dietary counseling and surveillance (principal); E78.00 Pure hypercholesterolemia, unspecified; R73.03 Prediabetes; I25.119 Atherosclerotic heart disease of native coronary artery with unspecified angina pectoris | CPT/HCPCS: 97803 ==

== ENCOUNTER 2024-04-24 10:20 | Outpatient (RCR) | payer MEDICARE, BC, SELFPAY | END 2024-05-16 23:59 | LOC: NS 10:20 | PROVIDERS: PCP Internal Medicine; Referring Provider Internal Medicine; Visit Provider Internal Medicine | DX: Z71.3 Dietary counseling and surveillance (principal); E78.00 Pure hypercholesterolemia, unspecified; R73.03 Prediabetes; I25.119 Atherosclerotic heart disease of native coronary artery with unspecified angina pectoris | CPT/HCPCS: 97803 ==

== ENCOUNTER 2024-07-07 10:00 | Outpatient (RCR) | payer MEDICARE, BC, SELFPAY ==
--- NOTE | 2024-05-30 13:47 | HP.PTEVAL ---
Patient's Visit Information Visit Information Visit Information: ANA MONTOYA is a 68 year old F referred to Physical Therapy by Dr. Ana Ortiz DO with a diagnosis of B knee pain. Date of Evaluation: 05/22/24 Physical Therapist: Jose Rousseau DPT Visit Plan Frequency: 2x /Week Duration: 6 Weeks Plan: 1) BLE ROM progression 2) quad strengthening, glute med strengthening 3) may use US as needed to reduce symptoms. Subjective Subjective: Pt. is here today for her initial evaluation with diagnosis of B knee pain. Pt. reports having pain in B knees, but L is worse than R. Pt. reports no N/T, reports most of her pain is at her lateral aspect of her L knee and medial aspect of her R knee. Pt. reports increased pain with walking and standing, squatting as well. Pt. reports no pain at rest. Pt. denies N/T in either LE. Pt. has not done exercises for her knee at this point in time. Pt. is hopeful to reduce symptoms in order to get back to all household and recreational activities. Pt. did have an xray and MRI of BLEs. Showing multiple degenerative changes. Pain R knee: Pain Intensity (Out of 10): 3 Pain Intensity Range: 0 and 4 L knee: Pain Intensity (Out of 10): 1 Pain Intensity Range: 0 and 4 Objective Objective: POSTURE: Pt. has increased B knee valgus in stance. PALPATION: Pt. has increased tenderness to palpation of lateral aspect of B knees. Pt. no pain with palpation of posterior aspect of B knees. NEURO: Pt. has normal sensation in BLEs. pt. has normal DTR of BLEs. She is able rise on heels and toes without LOB. ROM: Pt. is lacking 5 deg of extension bilaterally and decreased knee flexion to 105deg bilaterally. MMT: Pt. has some weakness in BLEs, knee: ex t Balance/Special Test Scores Lower Extremity Functional Score: 58 Goals Goal 1:: LTG: Pt. to be I with HEP. Goal Time Frame: 4-6 Weeks Goal 2:: LTG: Pt. to have increased B knee ROM increased to 0-0-120deg. Goal Time Frame: 4-6 Weeks Goal 3:: LTG: Pt. to have full symmetrical BLE strength. Goal Time Frame: 4-6 Weeks Goal 4:: LTG: Pt. to ambulate unlimited distances without increase in symptoms. Goal Time Frame: 4-6 Weeks Goal 5:: LTG: Pt. to have normalized gait pattern without increase in symptoms. Goal Time Frame: 6-8 Weeks Rehabilitation Potential Physical Therapy Diagnosis: Pt. has signs and symptoms consistent with B knee pain. Pt. has some marked loss of ROM and some loss in strength. She would benefit from PT to address the above limitations progressing back to all previous activities without limitations. Rehabilitation Potential: Good Anticipated Interventions Patient/Client Instruction: Educate patient on: Condition, Plan of Care, Risk Factors and Benefits of Fitness Program For the Purpose of:: To facilitate caregiver knowledge, To improve self management, To prevent re-injury, To improve ability to perform tasks related to life management and To improve tolerance to ADL's Therapeutic Exercise to Include: Strength training, Power training, Endurance training, Balance training, Flexibilty training, Gait and locomotor training, Passive ROM and Active ROM For the Purpose of:: To decrease pain, To increase ROM, To improve nutrient delivery to tissue, To increase oxygenation perfusion, To improve muscle performance and motor function, To improve ability to perform ADL's, To decrease level of supervision to perform tasks, To improve ability of physical actions for home/community/work/leisure and To improve gait and locomotor functions Cryotherapy (ice pack, ice massage): Yes Thermo therapy (hot pack): Yes Ultrasound (thermal/non thermal): Yes For the Purpose of:: To decrease pain, To increase ROM, To improve nutrient delivery to tissue and To increase oxygenation perfusion Text: Thank you for the opportunity to evaluate your patient. For Medicare and Medicare HMO plans, please review the plan of care and approve it. It will need to be FAXED BACK to us at [phone] for Medicare purposes. For Medicare only, by signing this I certify the plan of care. Please let me know if there are questions or concerns regarding this plan of care. Physician Signature: Date:
== END 2024-07-07 19:00 | disposition home or self-care (01) ==
LOC: PT 10:00
PROVIDERS: PCP Internal Medicine; Referring Provider Internal Medicine; Visit Provider Internal Medicine
DX: M25.561 Pain in right knee (principal); M25.562 Pain in left knee
CPT/HCPCS: 97110; 97161

== ENCOUNTER → 2024-10-30 | Outpatient (CLI) | payer MEDICARE, BC, SELFPAY ==
--- NOTE | 2024-10-30 12:17 | US_ITS ---
PROCEDURE: THYROID 10/30/2024 REASON FOR EXAM: THYROID NODULE TECHNIQUE: THYROID COMPARISON: Prior study dated September 29, 2023. FINDINGS: Right thyroid lobe size: 5.3 cm x 2 cm x 1.3 cm Left thyroid lobe size: 4.1 cm 1.6 cm 1.2 cm Isthmus: 0.21 cm Background parenchymal echotexture is homogeneous. Nodules: There are 4 subcentimeter hypoechoic well-defined nodules in the right lobe of the liver. These are unchanged. There is a 4 mm x 3 mm x 2 mm cyst as well. There is a 5 mm x 4 mm x 5 mm hypoechoic solid nodule with a calcific rim as well as a 6 mm x 6 mm x 5 mm hypoechoic solid nodule. These are unchanged as well. US/Thyroid IMPRESSION: Stable examination. Routine follow-up recommended. RECOMMENDATION: Based on most suspicious nodule. Nodule size = largest diameter Only evaluate nodule if =>5 mm. Growth > 20% in 2 dimensions = worsening. Follow up to 4 nodules. Recommend biopsy for no more than 2 nodules. Reading Location: [place] [id number]
== END | disposition home or self-care (01) ==
LOC: US 12:14
PROVIDERS: PCP Internal Medicine; Referring Provider Internal Medicine; Visit Provider Internal Medicine
DX: E04.1 Nontoxic single thyroid nodule (principal)
CPT/HCPCS: 76536

== ENCOUNTER → 2024-10-31 | Outpatient (CLI) | payer MEDICARE, BC, SELFPAY ==
--- NOTE | 2024-10-31 07:20 | BI_ITS ---
EXAM: SCRN MAMM (CAD)W/ERLINDA BILAT DATE: 10/31/2024 CLINICAL HISTORY: F, Age 68 y/o , SCREENING Sister with breast cancer. Mother with breast cancer. Aunt with breast cancer. History of prior right excisional breast biopsy. BREAST CANCER RISK ASSESSMENT: Not assessed. TECHNIQUE: Bilateral screening digital breast tomosynthesis with 2D and 3D images. Computer aided detection. COMPARISON: Prior exam(s) dated October 25, 2023.. FINDINGS: TISSUE DENSITY: The breast tissue is composed of scattered areas of fibroglandular density. Bilateral Breast Mammographic Findings: No significant masses, calcifications or other abnormalities are identified. Stable bilateral fat containing axillary lymph nodes. No suspicious masses, areas of developing architectural distortion, or suspicious calcifications. There has been no significant interval change. BI/SCRN MAMM (CAD)W/ERLINDA BILAT IMPRESSION: Stable examination. OVERALL FINAL ASSESSMENT BI-RADS 2: BENIGN RECOMMEND ANNUAL MAMMOGRAPHIC SCREENING. RECOMMENDATION: Routine annual follow-up in 1 Year A letter with findings and recommendations will be mailed to the patient. Reading Location: [place] [id number]
--- NOTE | 2024-10-31 07:23 | BD_ITS ---
PROCEDURE: DEXA BONE DENSITY STUDY 10/31/2024 REASON FOR EXAM: F, age 68 y/o . Postmenopausal. TECHNIQUE: DEXA BONE DENSITY STUDY COMPARISON: Comparison is made with prior study dated August 20, 2022. FINDINGS: BMD and T-SCORES Lumbar spine: 1.055 g/cm2, T-score 0.1 Levels: L1 through L4 Change from prior: Loss of 0.7%. Left femoral neck: 0.663 g/cm2, T-score -1.7 Femoral neck comparison data not recommended for monitoring change. Left total hip: 0.847 g/cm2, T-score -0.8 Change from prior: Loss of 1.1%. Right femoral neck: 0.823 g/cm2, T-score -0.2 Femoral neck comparison data not recommended for monitoring change. Right total hip: 0.896 g/cm2, T-score -0.4 Change from prior: Loss of 2.3%. The World Health Organization has defined the following categories based on bone density: Normal bone density: T-score equal to or greater than -1.0 Osteopenia: T-score between -1.0 and -2.5 Osteoporosis: T-score equal to or less than -2.5 The patient does meet the pharmacological treatment recommendations for prevention of osteoporosis. BD/Dexa Bone Density Study IMPRESSION: OSTEOPENIA. Recommend follow-up as clinically warranted. Reading Location: [place] [id number]
--- OUTSIDE RECORDS SUMMARY | 2024-10-31 07:42 | XMS RPT_ITS | CCD ---
Author Organization [facility] ion [facility] Care Team Providers Care Masonry Supervisor Name Role Phone Jose Luis Camacho Unavailable Unavailable Jose Luis Camacho Unavailable Unavailable Rogelio Garcia MD Unavailable Jose Luis Camacho Unavailable Unavailable Freida Omer Unavailable Unavailable Rogelio Garcia MD Unavailable Fast, Ana A Unavailable Jasmin Larry Unavailable Unavailable Unavailable Unavailable Rachel Abrams Unavailable Unavailable JACK Gale Unavailable Unavailable Slarb, Nancy Unavailable Unavailable Fast DO, Ana A Unavailable Kat Abrams CMAsea Unavailable Unavailable Alyssa Galan LPN Unavailable Unavailable Unavailable Unavailable Dr. Miguel Ware Unavailable Fast DO, Ana A Unavailable Brandyn Arroyo LPN Unavailable Unavailable Dr. Ana Jimenez Primary Care Provider [phone] Dr. Lawrence Nelson Attending Provider Rene Martin MD Unavailable Fast DO, Ana A Primary Care Provider Jennifer Jeong CMAyelcristal Unavailable Unavailable Fast DO, Ana A Primary Care Provider Fast DO, Ana A Primary Care Provider RENE PEÑALOZA Admitting Unavailable RENE PEÑALOZA Attending Unavailable FAST, ANA A Primary Care Unavailable Dr. Philip Kang Unavailable Margarita Bess LPN Unavailable Unavailable Fast DO, Ana A Primary Care Provider [phone] Fast DO, Ana A Attending Unavailable Fast DO, Ana A Referring Unavailable Fast DO, Ana A Consulting Unavailable Fast, Dr. Reyna Primary Care Provider Fast, Dr. Reyna Other Provider FuadDr. Kamilah guerrero Attending Provider Unavailable Unavailable JACK Gale LPN Unavailable Unavailable FAST, ANA A Primary Care Unavailable JH, RENE P Attending Unavailable FAST, ANA A Primary Care Unavailable JH, RENE P Attending Unavailable FAST, ANA A Primary Care Unavailable Fast DO, Ana A Primary Care Provider FAST, ANA A Referring Unavailable FAST, ANA A Primary Care Unavailable Fast, Ana Attending Unavailable Fast, Ana Referring Unavailable Fast, Ana Primary Care Unavailable Fast, Ana Attending Unavailable Fast, Ana Referring Unavailable Fast, Ana Primary Care Unavailable Fast, Ana Primary Care Unavailable Fast, Ana Attending Unavailable Fast, Ana Referring Unavailable Fast, Ana Attending Unavailable Fast, Ana Referring Unavailable Fast, Ana Primary Care Unavailable Fast, Ana Attending Unavailable Fast, Ana Referring Unavailable Fast, Ana Primary Care Unavailable Fast, Ana Attending Unavailable Fast, Ana Referring Unavailable Fast, Ana Primary Care Unavailable Fast, Ana Attending Unavailable Fast, Ana Referring Unavailable Fast, Ana Primary Care Unavailable Allergies Allergy Classification Reported Allergen(s) Allergy Type Date of Onset Reaction(s) Facility (10 sources) seasonal [Other] Propensity to adverse reactions [address] [place] [address] Work Phone: (2 sources) OTHER; Translations: [OTHER] Propensity to adverse reactions (disorder) [address] [place] [address] Repository (1 source) ALLERGIES NOT ON FILE; Translations: [ALLERGIES NOT ON FILE] Propensity to adverse reactions (disorder) [facility] 2 Repository Medications Current Medications Medication Drug Class(es) Dates Sig (Normalized) Sig (Original) acetaminophen 325 mg / oxyCODONE hydrochloride 5 mg oral tablet (2 sources) Opioid Agonist Start: 01-28-2017 take 1 tablet by mouth four times daily as needed Oxycodone-Acetami nophen Active 1 - 2 TABLET PO 4 TIMES DAILY NEEDED January 28, 2017 8:44am amoxicillin 875 mg / clavulanate 125 mg oral tablet (20 sources) Penicillin-class Antibacterial Start: 01-19-2023 End: 03-18-2023 take 1 tablet by mouth twice daily amoxicillin-pot clavulanate 875-125 mg oral tablet 1 (one) tablet bid for 0 days Quantity: 10 {Tablet} Refills: 0 Ordered: 18-Mar-2023 JACK Gale LPN Start : 25-Jan-2023 End : 18-Mar-2023 Inactive Start: 11-30-2022 End: 12-21-2022 take 1 tablet by mouth twice daily amoxicillin-pot clavulanate 875-125 mg oral tablet 1 (one) tablet bid for 0 days Quantity: 10 {Tablet} Refills: 0 Ordered: 21-Dec-2022 Fast DO, Ana A Fast DO, Ana A Start : 11-Dec-2022 End : 21-Dec-2022 Inactive Start: 04-30-2021 End: 09-16-2021 take 1 tablet by mouth twice daily Amoxicillin-Pot Clavulanate 875-125 MG Oral Tablet 1 (one) Tablet bid for 0 days Quantity: 20 {Tablet} Refills: 0 Ordered: 16-Sep-2021 Brandyn Arroyo LPN Start : 30-Apr-2021 End : 16-Sep-2021 Inactive clindamycin 300 mg oral capsule (2 sources) Lincosamide Antibacterial Start: 01-28-2017 take 1 capsule by mouth three times daily Clindamycin Hcl (Cleocin) 300 MG capsule Active 300 MG PO THREE TIMES A DAY January 28, 2017 8:44am lactobacillus acidophilus [id number] unt / pectin 100 mg oral tablet (2 sources) Start: 01-28-2017 Acidophilus-Pect in, [place] Active 1 EACH PO TWICE A DAY January 28, 2017 8:44am Mometasone (Asmanex Hfa) 200 mcg/actuation HFA aerosol inhaler (3 sources) Start: 12-12-2021 take 1 puff(s) by inhalation at bedtime Mometasone (Asmanex Hfa) 200 mcg/actuation HFA aerosol inhaler Active 2 PUFF INHALATION AT BEDTIME December 11, 2021 11:00pm Start: 12-12-2021 take 1 puff(s) by in halation at bedtime Mometasone (Asmanex Hfa) 200 mcg/actuation HFA aerosol inhaler Active 2 PUFF INHALATION AT BEDTIME December 12, 2021 12:00am valACYclovir 1000 mg oral tablet (20 sources) Herpesvirus Nucleoside Analog DNA Polymerase Inhibitor, Herpes Simplex Virus Nucleoside Analog DNA Polymerase Inhibitor, Herpes Zoster Virus Nucleoside Analog DNA Polymerase Inhibitor Start: 03-18-2023 take 1 tablet by mouth three times daily Valtrex 1 gram oral tablet 1 (one) Tablet tid for 7 days Quantity: 21 {Tablet} Refills: 0 Ordered: 18-Mar-2023 Start : 18-Mar-2023 Active Comments: generic okay Start: 07-03-2020 End: 01-07-2021 take 2 tablets by mouth twice daily Valtrex 1 GM Oral Tablet 2 (two) Tablet bid for 1 days Quantity: 4 {Tablet} Refills: 2 Ordered: 07-Jan-2021 Rachel Abrams CMA Start : 03-Jul-2020 End : 07-Jan-2021 Inactive Comments: generic okay Start: 10-12-2014 End: 01-11-2015 take 2 tablets by mouth once daily VALTREX, 1GM (Oral Tablet) 2 (two) Tablet 1 day for 0 days Quantity: 2 {Tablet} Refills: 2 Ordered: 11-Jan-2015 Jasmin Larry Start : 12-Oct-2014 End : 11-Jan-2015 Discontinued Comments: generic okay Comment on above: generic okay Completed/Discontinued Medications Medication Drug Class(es) Dates Sig (Normalized) Sig (Original) Ascorbic Acid (17 sources) Vitamin C Vitamin C Inacti ve Vitamin C Active bifidobacterium animalis [id number] unt / lactobacillus acidophilus [id number] unt oral capsule (20 sources) End: 04-29-2015 take 1 capsule by mouth once daily PROBIOTIC (Oral Capsule) 1 cap daily End : 29-Apr-2015 Discontinued cholecalciferol 0.025 mg oral tablet (20 sources) Vitamin D Start: 05-31-2020 take 5 tablets by mouth once daily Vitamin D3 25 MCG (1000 UT) Oral Tablet 5 Tablet qd for 0 days Quantity: 120 {Tablet} Refills: 0 Ordered: 31-May-2020 Fast DO, Ana A Fast DO, Ana A Start : 31-May-2020 Active Start: 04-10-2020 take 4 tablets by [facility] once daily Vitamin D3 25 MCG (1000 UT) Oral Tablet 4 Tablet qd for 0 days Quantity: 120 {Tablet} Refills: 0 Ordered: 10-Apr-2020 Fast DO, Ana A Fast DO, Ana A Start : 10-Apr-2020 Active cholecalciferol, vitamin D3, (VITAMIN D3 ORAL) (10 sources) take 1 tablet by mouth once daily cholecalciferol, vitamin D3, (VITAMIN D3 ORAL) Take 1 tablet by mouth once daily. 0 Active cholecalciferol, vitamin D3, (VITAMIN D3 ORAL) Take by mouth once daily. 0 Active Comment on above: Take by mouth once d aily. Take 1 tablet by [facility] once daily. DULoxetine 30 mg delayed release oral capsule (14 sources) Serotonin and Norepinephrine Reuptake Inhibitor Start: 3 End: 3 take 1 capsule by mouth once at mealtime DULoxetine 30 mg oral capsule,delayed release (enteric coated) 1 (one) capsule q am with food for 0 days Quantity: 30 {Capsule} Refills: 3 Ordered: 02-Sep-2022 Fast DO, Ana A Fast DO, Ana A Start : 02-Sep-2022 End : 02-Sep-2022 Inactive Start: 06-05-2022 take 1 capsule by [facility] once at mealtime DULoxetine 30 mg oral capsule,delayed release (enteric coated) 1 (one) capsule q am with food for 0 days Quantity: 30 {Capsule} Refills: 3 Ordered: 05-Jun-2022 Fast DO, Ana A Fast DO, Ana A Start : 05-Jun-2022 Active esomeprazole 40 mg delayed release oral capsule (20 sources) Proton Pump Inhibitor Start: 07-11-2012 End: 01-11-2015 take 1 capsule by mouth once daily NEXIUM, 40MG (Oral Capsule Delayed Release) 1 (one) Capsule DR qd for 0 days Quantity: 30 {Capsule_DR} Refills: 2 Ordered: 11-Jan-2015 Jasmin Larry Start : 11-Jul-2012 End : 11-Jan-2015 Discontinued 14 actuat fluticasone propionate 0.1 mg/actuat / salmeterol 0.05 mg/actuat dry powder inhaler (20 sources) Corticosteroid, beta2-Adrenergic Agonist Start: 04-10-2020 End: 09-03-2020 take 1 puff(s) by inhalation once daily Advair Diskus 100-50 MCG/DOSE Inhalation Aerosol Powder Breath Activated 1 (one) Puff puff qd for 0 days Quantity: 30 {Inhalation} Refills: 0 Ordered: 03-Sep-2020 Alyssa Galan LPN Start : 10-Apr-2020 End : 03-Sep-2020 Discontinued Start: 04-10-2020 End: 09-03-2020 take 1 puff(s) by inhalation once daily Advair Diskus 100-50 MCG/DOSE Inhalation Aerosol Powder Breath Activated 1 (one) Puff puff qd for 0 days Quantity: 30 {Inhalation} Refills: 0 Ordered: 03-Sep-2020 Alyssa Galan LPN Start : 10-Apr-2020 End : 03-Sep-2020 Discontinued ibuprofen 200 mg oral tablet (8 sources) Nonsteroidal Anti-inflammatory Drug take 2 tablets by mouth every eight hours as needed ibuprofen (MOTRIN) 200 mg tablet Take 400 mg by mouth every 8 hours as needed. 0 Active Comment on above: Take 400 mg by mouth every 8 hours as needed. 120 actuat mometasone furoate 0.2 mg/actuat metered dose inhaler (20 sources) Corticosteroid Start: 10-29-19 take 2 puff(s) by inhalation once daily ASMANEX HFA 200 mcg/actuation HFA Inhale 2 Puffs as instructed once daily. 0 10/28/2021 Active Start: 10-28-2021 ASMANEX HFA 20 0 mcg/actuation HFA take 2 puff(s) by in halation once daily Asmanex (30 Metered Doses) 110 MCG/INH Inhalation Aerosol Powder Breath Activated 2 puffs daily before bed (110 MCG/INH) Active End: 10-12-2014 take 2 spray(s) nasal route once daily as needed NASONEX, 50MCG/ACT (Nasal Suspension) 2 sprays each nostril qd, prn (50 MCG/ACT) End : 12-Oct-2014 Discontinued Comment on above: Inhale 2 Puffs as in structed once daily. montelukast 10 mg oral tablet (20 sources) Leukotriene Receptor Antagonist Start: 2 End: 5 take 1 tablet by mouth once daily SINGULAIR, 10MG (Oral Tablet) 1 Tablet qd for 0 days Quantity: 30 {Tablet} Refills: 3 Ordered: 11-Jan-2015 Jasmin Larry Start : 17-Aug-2011 End : 11-Jan-2015 Discontinued Multivitamin preparation (20 sources) End: 5 take 1 tablet by mouth once daily MULTIVITAMIN (PO Tab) 1 tab qd End : 11-Jan-2015 Discontinued No current meds at this time (20 sources) No current meds at this time Inactive No current meds at this time Active Drug Treatment Unknown - unknown (2 sources) No information available. PROBIOTIC (Oral Capsule) (10 sources) End: 04-29-2015 take 1 capsule by mouth once daily PROBIOTIC (Oral Capsule) 1 cap daily End : 29-Apr-2015 Discontinued vitamin b12 0.5 mg oral tablet (20 sources) Vitamin B12 Start: 09-02-2022 take 1 tablet by mouth every other day cyanocobalamin (vitamin B-12) 500 mcg oral tablet 1 (one) Tablet qod for 0 days Quantity: 30 {Tablet} Refills: 0 Ordered: 02-Sep-2022 Fast DO, Ana A Fast DO, Ana A Start : 02-Sep-2022 Active Comments: This order discontinued per -. Start: 05-31-2020 End: 10-03-2021 take 1 tablet by mouth every other day Vitamin B12 500 MCG Oral Tablet 1 (one) Tablet qod for 0 days Quantity: 30 {Tablet} Refills: 0 Ordered: 03-Oct-2021 Brandyn Arroyo LPN Start : 31-May-2020 End : 03-Oct-2021 Discontinued Comments: This order discontinued per -. Vitamin b12 Inac tive Vitamin b12 Acti ve Comment on above: This order discontin ued per -. Problems Active Problems Problem Classification Problem Date Documented Da te Episodic/Chronic Abdominal pain (20 sources) Epigastric pain; Translations: [Epigastric pain] 04-29-2015 Episodic Asthma (20 sources) Asthma; Translations: [Asthma] 04-10-2020 Chronic Comment on above: diagnosed by Ananda 2019- on advair chronic stable-denys nue present regimen use inhaler consiste ntly Diabetes mellitus without complication (20 sources) Impaired fasting glucose; Translations: [Impaired fasting glycaemia] Onset: 4 04-29-2015 Episodic Comment on above: diet and ex discusse d - she improving on weight discussed diet and e x in detail sugar up and so is c hol she feels she can do better wo discussed diet and ex controlled but want her to keep working on lowering into normal range so discussed diet and ex discussed diet and e x indetail chronic stable-denys nue present regimendiscussed diet and need for weight loss needs to routinely walk Disorders of lipid metabolism (20 sources) Hyperlipidemia; Translations: [Hyperlipidemia] 09-16-2021 Chronic Comment on above: discussed diet and e x she not want to take meds discussed diet and e x in detail improved continue wo rking on diet and ex Gout and other crystal arthropathies (20 sources) Gout; Translations: [Gout] Resolved: 1 04-29-2015 Chronic Comment on above: no issues Immunizations and screening for infectious disease (20 sources) Need for prophylactic vaccination and inoculation against influenza; Translations: [Needs influenza immunization] 04-10-2020 Episodic Intracranial injury (5 sources) Concussion injury of body structure; Translations: [Concussion with loss of consciousness of unspecified duration, initial encounter] 06-27-2013 Episodic Joint disorders and dislocations; trauma-related (20 sources) Closed traumatic dislocation of interphalangeal joint of finger; Translations: [Dislocation of proximal interphalangeal joint of unspecified finger, initial encounter] Resolved: 3 02-04-2022 Episodic Comment on above: she splinted she leonor l be seeing ortho Lymphadenitis (20 sources) Axillary lymphadenopathy; Translations: [Axillary lymphadenopathy] Onset: 2 Resolved: 3 05-06-2021 Episodic Comment on above: node removed negativ e- discussed local care including scar care and to decrease swelling biopsy neg strong fa vick history of cancer so send to [facility] see if need more workup lymph node biopsied removed and negative - healing well- will follow Mood disorders (20 sources) Depressive disorder; Translations: [Depression] 06-05-2022 Chronic Comment on above: side effects discuss ed Neoplasms of unspecified nature or uncertain behavior (1 source) Neoplasm of uncertain behavior of skin; Translations: [Neoplasm of uncertain behavior of skin] Onset: 4 Episodic Nonmalignant breast conditions (20 sources) Breast lump; Translations: [Breast lump on right side at 9 o'clock position] Resolved: 3 09-03-2020 Episodic Comment on above: getting mri- thought to be lymph node- test tomororw Nutritional deficiencies (20 sources) Vitamin D deficiency; Translations: [VITAMIN D DEFICIENCY] 04-29-2015 Chronic Comment on above: chronic stable-denys nue present regimen not taking routinely encourage Nutritional deficiencies (20 sources) Vitamin B12 deficiency (non anemic); Translations: [Cobalamin deficiency] 04-29-2015 Episodic Comment on above: hold b12 for now hold for now chronic stable-denys nue present regimen Other connective tissue disease (20 sources) Pain in right lower limb; Translations: [Leg pain, right] Resolved: 1 04-10-2020 Episodic Other connective tissue disease (20 sources) Pain in left thumb; Translations: [Thumb pain, left] Resolved: 3 10-03-2021 Episodic Other connective tissue disease (3 sources) Pain in finger; Translations: [Pain in right finger(s)] 12-20-2021 Episodic Other connective tissue disease (20 sources) Dupuytren's contracture; Translations: [Dupuytren contracture] 10-05-2022 Episodic Comment on above: keep mobile see note discussed ultimate t reatment options and to use ball to keep hand moving Other connective tissue disease (20 sources) Ganglion cyst of tendon sheath of right hand; Translations: [Ganglion cyst of tendon sheath of right hand] 10-05-2022 Episodic Comment on above: call painful or grow ing Other gastrointestinal disorders (20 sources) Constipation; Translations: [Constipation] 10-05-2022 Episodic Comment on above: fluid fiber set up c olonsocopy- miralax- exercise better but getting c olonsoocpy Other inflammatory condition of skin (20 sources) Rosacea; Translations: [Rosacea] 04-29-2015 Chronic Comment on above: Of eyes only Other injuries and conditions due to external causes (20 sources) Puncture wound - injury; Translations: [Puncture wound] Resolved: 3 12-01-2022 Episodic Comment on above: she had cleansed it out - tetanus up to date Other lower respiratory disease (20 sources) Wheezing; Translations: [Wheezing] 04-29-2015 Episodic Comment on above: she hasnt had routin e wheezing and doesnt want to take the meds Other lower respiratory disease (20 sources) Cough; Translations: [Cough] Resolved: 1 05-06-2021 Episodic Other lower respiratory disease (20 sources) Dyspnea on exertion; Translations: [CHAUDHARI (dyspnea on exertion)] 06-05-2022 Episodic Comment on above: get back with dr colette barraza and use inhaler rotuinely Other non-epithelial cancer of skin (20 sources) History of malignant neoplasm of skin; Translations: [Basal cell carcinoma of forehead] Onset: 5 12-22-2016 Episodic Comment on above: she will call and paulei hammond appt with [facility] times Other non-traumatic joint disorders (20 sources) Knee pain; Translations: [Knee Pain] 04-29-2015 Episodic Other non-traumatic joint disorders (20 sources) Arthralgia of the ankle and/or foot; Translations: [Pain in joint involving ankle and foot, unspecified laterality] 04-29-2015 Episodic Other non-traumatic joint disorders (4 sources) Pain in right knee; Translations: [Right knee pain] 05-31-2020 Episodic Other non-traumatic joint disorders (20 sources) Pain in unspecified knee; Translations: [Knee Pain] Resolved: 1 05-06-2021 Episodic Other non-traumatic joint disorders (20 sources) Pain in right knee; Translations: [Right knee pain] Resolved: 1 05-06-2021 Episodic Comment on above: doing ok right now Other non-traumatic joint disorders (20 sources) Pain of right wrist; Translations: [Right wrist pain] Resolved: 3 10-03-2021 Episodic Comment on above: feels better Other non-traumatic joint disorders (20 sources) Ankle pain; Translations: [Left ankle pain] Resolved: 3 12-24-2021 Episodic Other nutritional; endocrine; and metabolic disorders (20 sources) Obesity; Translations: [Body mass index 30+ - obesity] 04-29-2015 Chronic Comment on above: long discussion re d iet and ex Other nutritional; endocrine; and metabolic disorders (20 sources) Body mass index 30+ - obesity; Translations: [BMI 32.0-32.9,adult] Resolved: 3 04-10-2020 Chronic Other screening for suspected conditions (not mental disorders or infectious disease) (20 sources) Patient encounter status; Translations: [Encounter for screening mammogram for breast cancer (Renamed from Encounter for screening mammogram for malignant neoplasm of breast)] Onset: 5 Resolved: 3 04-30-2021 Episodic Comment on above: sept Other screening for suspected conditions (not mental disorders or infectious disease) (2 sources) No current problems or disability 11-24-2016 Other upper respiratory disease (20 sources) Allergic rhinitis, cause unspecified; Translations: [Allergic Rhinitis] 04-29-2015 Chronic Residual codes; unclassified (20 sources) Family history of ischemic heart disease; Translations: [Family history of ischemic heart disease] 04-29-2015 Episodic Residual codes; unclassified (20 sources) Forgetful; Translations: [Forgetfulness] 04-29-2015 Episodic Residual codes; unclassified (10 sources) Needs influenza immunization; Translations: [Need for prophylactic vaccination and inoculation against influenza] 04-29-2015 Episodic Residual codes; unclassified (20 sources) Postmenopausal state; Translations: [Postmenopausal (Renamed from Postmenopausal status)] 04-10-2020 Episodic Residual codes; unclassified (20 sources) Non-smoker; Translations: [Nonsmoker] 09-02-2020 Episodic Residual codes; unclassified (1 source) Asymptomatic menopausal state; Translations: [Asymptomatic menopausal state] Onset: 5 Episodic Skin and subcutaneous tissue infections (20 sources) Cellulitis; Translations: [Cellulitis] Resolved: 3 11-30-2022 Episodic Comment on above: improving just want to make bhat re resolves completey Thyroid disorders (20 sources) Thyroid nodule; Translations: [Thyroid nodule] 04-10-2020 Chronic Comment on above: right thyroid nodule recheck one year get us us no change due 09/07 Unclassified (3 sources) Aftercare ; Translations: [Encounter for other specified surgical aftercare] Onset: 7 02-17-2017 Unclassified (20 sources) Unclassified (20 sources) GOUT NOS (274.9) Unclassified (20 sources) Ankle/Foot Pain (719.47) Unclassified (20 sources) Basal Cell Carcinoma, Site Unspecified (173.9) Unclassified (20 sources) Forgetfulness Unclassified (20 sources) Non-smoker; Translations: [Nonsmoker] 04-10-2020 Unclassified (20 sources) BMI 34.0-34.9,adult Unclassified (20 sources) Breast lump on right side at 9 o'clock position Unclassified (20 sources) Encounter for screening mammogram for breast cancer (Renamed from Encounter for screening mammogram for malignant neoplasm of breast) Unclassified (10 sources) Right wrist pain Unclassified (1 source) BMI 35.0-35.9,adult Unclassified (1 source) Left ankle pain Viral infection (20 sources) Herpes labialis; Translations: [Cold sore] Resolved: 1 07-03-2020 Episodic Past or Other Problems Problem Classification Problem Date Documented Date Episodic/Chronic Influenza (10 sources) Influenza Other non-traumatic joint disorders (2 sources) Pain in right knee; Translations: [Right knee pain] 05-31-2020 Screening or history of mental health and substance abuse (6 sources) Ex-smoker; Translations: [Personal history of nicotine dependence] Onset: 11-25-2016 12-22-2016 Episodic Unclassified (6 sources) Family history of malignant neoplasm of skin; Translations: [Family history of malignant neoplasm of other organs or systems] Onset: 11-25-2016 12-22-2016 Episodic Unclassified (20 sources) postmenopausal without estrogen 04-29-2015 Unclassified (20 sources) family hx of thyroid disease 04-29-2015 Unclassified (20 sources) Pregnancies (); Translations: [Pregnancies ()] 04-29-2015 Comment on above: 2. Unclassified (20 sources) Unspecified Diagnosis 04-29-2015 Unclassified (20 sources) Deliveries (Parity); Translations: [Deliveries (Parity)] 04-29-2015 Comment on above: 2. Unclassified (20 sources) BMI 32.0-32.9,adult Unclassified (20 sources) Postmenopausal (Renamed from Postmenopausal status) Unclassified (20 sources) Leg pain, right Unclassified (20 sources) Patient encounter status; Translations: [Encounter for gynecological examination with abnormal finding] 05-31-2020 Comment on above: cervical stenosis Unclassified (20 sources) [facility] exam 05-31-2020 Comment on above: get colonsocopy and skin exam Unclassified (17 sources) Screening for HPV (human papillomavirus) (Renamed from Encounter for screening for human papillomavirus (HPV)) Unclassified (16 sources) Cold sore Unclassified (9 sources) Thumb pain, left Unclassified (7 sources) Abnormal mammogram Results Test Name Value Interpretation Reference Range Facility Inital Evaluation (1) - PTon 05-30-2024 Inital Evaluation (1) - PT [facility] [address] [place] [address] / REHABILITATION SERVICES INITIAL EVALUATION MR#: [id number] Acct: [id number] Name: ANA BROWN Rep #: [id number] : [id number] 68 From: Jose KEYST Referring Dr.: Dr. Ana Jimenez DO Status: REG R CR Insurance: MEDICARE PART A B [facility] Patient's Visit Information Visit Information Visit Information: ANA BROWN is a 68 year old F referred to Physical Therapy by Dr. Ana Jimenez DO with a diagnosis of B knee pain. Date of Evaluation: 05/22/24 Physical Therapist: Jose Rousseau DPT Visit Plan Frequency: 2x /Week Duration: 6 Weeks Plan: 1) BLE ROM progression 2) quad strengthening, glute med strengthening 3) may use US as needed to reduce symptoms. Subjective Subjective: Pt. is here today for her initial evaluation with diagnosis of B knee pain. Pt. reports having pain in B knees, but L is worse than R. Pt. reports no N/T, reports most of her pain is at her lateral aspect of her L knee and medial aspect of her R knee. Pt. reports increased pain with walking and standing, squatting as well. Pt. reports no pain at rest. Pt. denies N/T in either LE. Pt. has not done exercises for her knee at this point in time. Pt. is hopeful to reduce symptoms in order to get back to all household and recreational activities. Pt. did have an xray and MRI of BLEs. Showing multiple degenerative changes. Pain R knee: Pain Intensity (Out of 10): 3 Pain Intensity Range: 0 and 4 L knee: Pain Intensity (Out of 10): 1 Pain Intensity Range: 0 and 4 Objective Objective: POSTURE: Pt. has increased B knee valgus in stance. PALPATION: Pt. has increased tenderness to palpation of lateral aspect of B knees. Pt. no pain with palpation of posterior aspect of B knees. NEURO: Pt. has normal sensation in BLEs. pt. has normal DTR of BLEs. She is able rise on heels and toes without LOB. ROM: Pt. is lacking 5 deg of extension bilaterally and decreased knee flexion to 105deg bilaterally. MMT: Pt. has some weakness in BLEs, knee: ex t Balance/Special Test Scores Lower Extremity Functional Score: 58 Goals Goal 1:: LTG: Pt. to be I with HEP. Goal Time Frame: 4-6 Weeks Goal 2:: LTG: Pt. to have increased B knee ROM increased to 0-0-120deg. Goal Time Frame: 4-6 Weeks Goal 3:: LTG: Pt. to have full symmetrical BLE strength. Goal Time Frame: 4-6 Weeks Goal 4:: LTG: Pt. to ambulate unlimited distances without increase in symptoms. Goal Time Frame: 4-6 Weeks Goal 5:: LTG: Pt. to have normalized gait pattern without increase in symptoms. Goal Time Frame: 6-8 Weeks Rehabilitation Potential Physical Therapy Diagnosis: Pt. has signs and symptoms consistent with B knee pain. Pt. has some marked loss of ROM and some loss in strength. She would benefit from PT to address the above l imitations progressing back to all previous activities without limitations. Rehabilitation Potential: Good Anticipated Interventions Patient/Client Instruction: Educate patient on: Condition, Plan of Care, Risk Factors and Benefits of Fitness Program For the Purpose of:: To facilitate caregiver knowledge, To improve self management, To prevent re- injury, To improve ability to perform tasks related to life management and To improve tolerance to ADL's Therapeutic Exercise to Include: Strength training, Power training, Endurance training, Balance training, Flexibilty training, Gait and locomotor training, Passive ROM and Active ROM For the Purpose of:: To decrease pain, To increase ROM, To improve nutrient delivery to tissue, To increase oxygenation perfusion, To improve muscle performance and motor function, To improve ability to perform ADL's, To decrease level of supervision to perform tasks, To improve ability of physical actions for home/community/work/leisur e and To improve gait and locomotor functions Cryotherapy (ice pack, ice massage): Yes Thermo therapy (hot pack): Yes Ultrasound (thermal/non thermal): Yes For the Purpose of:: To decrease pain, To increase ROM, To improve nutrient delivery to tissue and To increase oxygenation perfusion Text: Thank you for the opportunity to evaluate your patient. For Medicare and Medicare HMO plans, please review the plan of care and approve it. It will need to be FAXED BACK to us at [phone] for Medicare purposes. For Medicare only, by signing this I certify the plan of care. Please let me know if there are questions or concerns regarding this plan of care. Physician Signature: Date: 05/30/24 1347 CC: Dr. Ana Jimenez DO CLS Signed Normal [facility] CREATININE FINGERSTICKon CREATININE WB < 1.0 Normal 0.55-1.02 [facility] Comment on above: Performed By: #### L 9100.0200 #### [facility] [address] [place], [place], [id number] (905) GFR/1.73 sq M.predicted among non-blacks MDRD (S/P/Bld) [Vol rate/Area] 57.0000 mL/min/{1.73_m2} Low >60 [facility] Comment on above: Performed By: #### L 9100.0200 #### [facility] [address] [place], [address] Lower Ext Joint Only (Routin e)on 12-03-2023 Lower Ext Joint Only (Routine) [facility] Services [address] [place] [address] Lower Ext Joint Only (Routine) MR#: [id number] Acct: [id number] Name: ANA BROWN Rep #: [id number] : 1955 F 68 From: Mars Barlow MD PCP: Dr. Ana Jimenez DO Status: REG CLI Study: Lower Ext Joint Only (Routine) Date of Exam: 0 12/03/23 Exam# [id number] Ordering Dr: Ana Jimenez DO [id number] STUDY: MRI LEFT KNEE REASON FOR EXAM: Female, 68 years old. Left knee pain. No known injury. Unknown bruise posterior knees. TECHNIQUE: Standardized fat and water weighted pulse sequences were obtained in all 3 orthogonal planes. COMPARISON: None. FINDINGS: Normal medial meniscus. Normal hyaline cartilage of the medial femorotibial compartment. Normal medial femoral condyle and tibial plateau. There is ligamentous thickening of the MCL consistent with a remote MCL sprain. Normal distal semimembranosus, gracilis and semitendinosus tendons. Normal lateral meniscus. Normal hyaline cartilage of the lateral femorotibial compartment. Normal lateral femoral condyle and tibial plateau. Normal proximal tibiofibular articulation. Normal lateral collateral (fibular) ligament. Normal popliteus tendon. Normal biceps femoris tendon. Normal anterior cruciate ligament (ACL). Normal posterior cruciate ligament (PCL). There is moderate to high-grade chondromalacia along the patellar apex, with underlying subchondral marrow edema (axial T2 series 6 images 8-9). Congruent patellofemoral articulation. Normal medial and lateral patellar retinaculum. Normal quadriceps tendon. Normal patellar tendon. Normal Hoffa''s fat pad. There is a small joint effusion. There is a tiny popliteal cyst. There is mild subcutaneous soft tissue edema along the anterior aspect of the knee. The otherwise visualized osseous structures are unremarkable. MRI/Lower Ext Joint Only (Routine) IMPRESSION: Remote MCL sprain. 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 Small joint effusion with a tiny popliteal cyst. Mild subcutaneous soft tissue edema along the anterior aspect of the knee. Electronically Signed: Mras Barlow MD at 13:48 EDT , CC: Dr. Ana Jimenez DO Pediatric Geneticist: Signed Normal [facility] Lower Ext Joint Only W/WO Co nton 12-03-2023 Lower Ext Joint Only W/WO Cont [facility] Services [address] [place] [address] Lower Ext Joint Only W/WO Cont MR#: [id number] Acct: [id number] Name: ANA BROWN Rep #: [id number] : 1955 F 68 From: Mars Barlow MD PCP: Dr. Ana Jimenez DO Status: REG CLI Study: Lower Ext Joint Only W/WO Cont Date of Exam: 0 12/03/23 Exam# [id number] Ordering Dr: Ana Jimenez DO [id number] STUDY: MRI RIGHT KNEE, WITHOUT AND WITH IV CONTRAST REASON FOR EXAM: Female, 68 years old. Right knee mass marked with BB. TECHNIQUE: Standardized fat and water weighted pulse sequences were obtained in all 3 orthogonal planes. Following the intravenous administration of 20 mL Clariscan contrast, additional postcontrast imaging was obtained. COMPARISON: Right knee radiographs dated 10/22/2023. FINDINGS: A skin marker was placed along the posterior aspect of the right upper knee. Subjacent to the skin marker, there is prominence of the subcutaneous fat, but no discrete soft tissue mass. An unencapsulated subcutaneous lipoma cannot be excluded. Normal medial meniscus. Normal hyaline cartilage of the medial femorotibial compartment. There is mild osteoarthritic spur formation of the medial knee compartment. Normal medial collateral ligamentous complex (MCL). Normal distal semimembranosus, gracilis and semitendinosus tendons. There is degenerative free edge tearing of the body and anterior horn of the lateral meniscus with peripheral extrusion. There is degenerative arthrosis of the lateral femorotibial compartment with joint space narrowing, marginal osteophyte formation, moderate to high-grade chondromalacia, and small foci of subchondral marrow edema in the lateral tibial plateau. Normal proximal tibiofibular articulation. Normal lateral collateral (fibular) ligament. Normal popliteus tendon. Normal biceps femoris tendon. There is a mild interstitial sprain of the ACL without focal tear or laxity (sagittal T2 series 4 image 14). Normal posterior cruciate ligament (PCL). There is moderate to high grade chondromalacia along the patellar apex and medial patellar facet Congruent patellofemoral articulation. Normal medial and lateral patellar retinaculum. Normal quadriceps tendon. Normal patellar tendon. Normal Hoffa''s fat pad. There is a small joint effusion. There is no popliteal cyst. The otherwise visualized osseous structures are unremarkable. Following IV contrast administration, there is no abnormal enhancing mass. MRI/Lower Ext Joint Only W/WO Cont IMPRESSION: Prominence of the subcutaneous fat in the posterior aspect of the right upper right knee, but no discrete soft tissue mass. An unencapsulated subcutaneous lipoma cannot be excluded. No abnormal enhancing mass. Degenerative free edge tearing of the body and anterior horn of the lateral meniscus with peripheral extrusion. Tricompartment degenerative arthrosis, most severe in the lateral femorotibial compartment. Mild interstitial sprain of the ACL without focal tear or laxity. Small joint effusion. Electronically Signed: Mars Barlow MD at 15:26 EDT , CC: Dr. Ana Jimenez DO Pediatric Geneticist: Signed Normal [facility] CT CARDIAC SCORING WO IV CON TRASTon 09-30-2023 CT CARDIAC SCORING WO IV CONTRAST Interpreted By: Alejandro Holm and Lee Gill STUDY: CT CARDIAC SCORING WO IV CONTRAST; 09/30/2023 10:02 am INDICATION: Signs/Symptoms:IMPAIRED FASTING GLUCOSE. COMPARISON: None. ACCESSION NUMBER(S): [id number] ORDERING CLINICIAN: ANA JIMENEZ TECHNIQUE: Using prospective ECG gating, limited CT scan of the chest for evaluation of coronary arteries was performed without intravenous contrast. Coronary calcium scoring was performed according to the method of Agatston. FINDINGS: The score and distribution of calcium in the coronary arteries is as follows: LM: 0. LAD: 244.8. LCx: 0. RCA: 0. Total: 244.8. The visualized segments of the lungs are normally expanded. There is a focus of linear atelectasis versus scarring in the right upper lobe and the lingula along the mediastinum. The visualized mid/lower ascending thoracic aorta measures 3.4 cm in diameter. The heart is borderline enlarged. Trace pericardial effusion is present. No gross evidence of mediastinal or hilar lymphadenopathy is identified. Small hiatal hernia noted. Otherwise, the visualized subdiaphragmatic structures appear grossly intact. IMPRESSION: 1. Coronary artery calcium score of 244.8*. 2. Additional findings as above. *Coronary artery calcium scoring may be helpful in predicting the risk for future coronary heart disease events. According to the [place] [employer] Clinical Expert Consensus Task Force, such testing provides important prognostic information in patients with more than one coronary heart disease risk factor. The coronary artery calcium score correlates with the annual risk of a non-fatal myocardial infarction or coronary heart disease . Coronary artery score Annual Risk 0-99 0.4% 100-399 1.3% >400 2.4% These three breakpoints correspond to lower, intermediate and high risk states for future coronary events. Such information should be used, along with appropriate clinical judgment, to make decisions regarding the intensity of risk factor management strategies to treat blood lipids and to modify other non-lipid coronary risk factors. Reference: [place] P et al. Circulation. 2007; 115:402-426 I personally reviewed the images/study and I agree with the findings as stated. This study was interpreted at [facility], [place], [place]. MACRO: None Signed by: Alejandro Holm 10/01/2023 6:08 PM Dictation workstation: [id number] [facility] CNNURSEon 07-20-2023 CNNURSE Nurse Visit (GENSWS) -- ANA BROWN ([id number]) 1955 Date Time Provider Department 07/20/23 1:30 PM NURSE [facility] GENSWS During your visit today, we recorded the following information about you: Jose Luis Garcia RN 07/20/2023 1:42 PM Signed The forearm (site) was assessed and sutures were removed as ordered. Dressing was applied. Patient instructed on wound care and verbalized understanding. Jose Luis Garcia RN Allergies As of Date: 07/20/2023 Noted Allergy Reaction seasonal [Other] 04/15/2005 Date Reviewed: 07/20/2023 Reviewed by: Jose Luis Garcia RN - Fully Assessed Reason for Visit: Nurse Visit [792] Cmt: Suture removal Primary Visit Diagnosis:Neoplasm of uncertain behavior of skin [D48.5] Prescriptions as of 07/20/2023 - amoxicillin-clavulanate potassium (AUGMENTIN) 875-125 mg per tablet Take 1 tablet by mouth two times a day. - CYANOCOBALAMIN, VITAMIN B-12, ORAL Take 500 mcg by mouth. - ibuprofen (MOTRIN) 200 mg tablet Take 400 mg by mouth every 8 hours as needed. - ASMANEX HFA 200 mcg/actuation HFA Inhale 2 Puffs as instructed once daily. - cholecalciferol, vitamin D3, (VITAMIN D3 ORAL) Take 1 tablet by mouth once daily. Problem List As Of Date 07/20/2023 Noted Resolved Basal cell carcinoma [C44.91] 09/17/2014 Lymph node enlargement [R59.9] 01/21/2022 01/21/2022 Encounter Status:Closed by JOSE LUIS GARCIA on 07/20/23 [facility] CNOVon 07-12-2023 CNOV Office Visit (ALEXAS ) -- ANA BROWN ([id number]) 1955 F Date Time Provider Department 07/12/23 2:45 PM RENE PEÑALOZA During your visit today, we recorded the following information about you: Mary Anne Jean LPN 07/12/2023 4:52 PM Signed UNIVERSAL PROTOCOL / SAFETY CHECKLIST Procedure to be Performed: Excision of uncertain Skin left forarm Sign In: A Moment of CARE was completed. Personnel directly involved with the procedure wore the appropriate PPE (Personal Protective Equipment). No special equipment needed. Patient/Surrogate Stated/Verified: PATIENT VERIFIED(optional for EMERGENT procedures): Patient name, Date of , Relevant allergies, and The intended procedure Time Out Communication: Intended patient and procedure match the source documents. Consent documented and matches the intended procedure. No correct side/site applicable for marking and visibility. Medications required for procedure verified. No fire risk assessment and interventions applicable. No implant(s) inserted. Sign Out: SIGN OUT (optional for EMERGENT procedures): All specimen containers correctly labeled. No instruments, equipment or retained foreign bodies applicable. AYLA Basilio Mary AnneAYLA 07/12/2023 2:47 PM Signed The following instructions are important for you related to your office visit today with the [facility] General Surgeons. Instructions After SKIN EXCISION-SUTURES You can remove the dressing in two days. If the dressing becomes soaked or had significant drainage, the dressing should be changed. If there is minor bleeding from this skin edge, you should hold pressure on the incision until the bleeding stops. If there is continued bleeding, you should contact our office immediately. You do not need to leave a dressing on the wound after two days. If the wound shows signs of redness, inflammation, or purulent drainage, you should contact our office immediately. You should keep the wound dry for the first two days. After that time, you may wash the wound with gentle soap and water. The wound should not be immersed in a pool, bathtub, or even hot tub. We prefer to check the incision and remove the stitches in our office when ready. Please make an appointment to return to our office in 1 week. Please do not remove the stitches yourself without approval from our office. If you note any additional difficulties, questions, or concerns, you should contact our office immediately @ [phone] and ask to be transferred to the General Surgery department. Rene Peñaloza MD 07/12/2023 4:52 PM Signed Preoperative diagnosis: 1.2 cm atypical skin lesion to left forearm Postoperative diagnosis: The same Procedure: Excision of a 1.2 cm atypical skin lesion of the left forearm Surgeon: Jh Procedure: Left forearm was sterilely prepped and draped in the usual fashion. 1% lidocaine plain was injected. 2 cm elliptical incision was made around this lesion. I brought the wound together with deep dermal stitches of 3-0 Vicryl then 3 interrupted sutures of 4-0 nylon sterile dressings were applied. Patient tolerated the procedure well. Allergies As of Date: 07/12/2023 Noted Allergy Reaction seasonal [Other] 04/15/2005 Date Reviewed: 07/12/2023 Reviewed by: Mary Anne Jean LPN - Fully Assessed Reason for Visit: Procedure [88] Cmt: Excision of uncertain Skin left forarm Primary Visit Diagnosis:Neoplasm of uncertain behavior of skin [D48.5] Order(s):SURGICAL PATHOLOGY [CXL1459] Order #: [id number]. #:[id number] Prescriptions as of 07/12/2023 - amoxicillin-clavulanate potassium (AUGMENTIN) 875-125 mg per tablet Take 1 tablet by mouth two times a day. - CYANOCOBALAMIN, VITAMIN B-12, ORAL Take 500 mcg by mouth. - ibuprofen (MOTRIN) 200 mg tablet Take 400 mg by mouth every 8 hours as needed. - ASMANEX HFA 200 mcg/actuation HFA Inhale 2 Puffs as instructed once daily. - cholecalciferol, vitamin D3, (VITAMIN D3 ORAL) Take 1 tablet by mouth once daily. Problem List As Of Date 07/12/2023 Noted Resolved Basal cell carcinoma [C44.91] 09/17/2014 Lymph node enlargement [R59.9] 01/21/2022 01/21/2022 Other instructions from your clinician: The following instructions are important for you related to your office visit today with the [facility] General Surgeons. Instructions After SKIN EXCISION-SUTURES You can remove the dressing in two days. If the dressing becomes soaked or had significant drainage, the dressing should be changed. If there is minor bleeding from this skin edge, you should hold pressure on the incision until the bleeding stops. If there is continued bleeding, you should contact our office immediately. You do not need to leave a dressing on the wound after two days. If the wound shows signs of redness, inflammation, or purulent dr (more content not included)... Normal [facility] SURGICAL PATHOLOGYon 024 CASE REPORT Normal [facility] Comment on above: Order Comment: Speci men Type: TISSUE SPECIMEN Ordering Facility: [facility] Address: [address] [place] [address] Result Comment: Surg [facility] Pathology Report Case: [id number] Authorizing Provider: Rene Peñaloza MD Collected: 07/12/2023 02:49 PM Ordering Location: General Surgery Received: 07/12/2023 03:33 PM Pathologist: Raghu Livingston MD Specimen: SKIN EXCISION, left forearm Performed By: #### S #### [facility] CLIA [id number] [address] [place] [address] [place] CLINICAL HISTORY skin mass[left forearm Normal [facility] Comment on above: Order Comment: Speci men Type: TISSUE SPECIMEN Ordering Facility: [facility] Address: [address] [place] [address] Performed By: #### S #### [facility] CLIA [id number] [address] [place] [address] [place] FINAL DIAGNOSIS Normal [facility] Comment on above: Order Comment: Speci men Type: TISSUE SPECIMEN Ordering Facility: [facility] Address: [address] [place] [address] Result Comment: Skin , left forearm, excision: - Scar with polarizable foreign material and granulomatous inflammation. Performed By: #### S #### [facility] CLIA [id number] [address] [place] [address] [place] FINAL PERFORMING LAB Normal [facility] Comment on above: Order Comment: Speci men Type: TISSUE SPECIMEN Ordering Facility: [facility] Address: [address] [place] [address] Result Comment: Diag nostic interpretation performed at [facility], [address] [place] [address] CLIA# [id number] Process Automation Engineer: Sourav Vazquez M.D. Performed By: #### S #### [facility] CLIA [id number] [address] [place] [address] [place] GROSS DESCRIPTION Normal [facility] Comment on above: Order Comment: Speci men Type: TISSUE SPECIMEN Ordering Facility: [facility] Address: [address] [place] [address] Result Comment: A. S KIN EXCISION Received in formalin is an elliptical shaped segment of skin and subcutaneous tissue measuring 1.2 x 0.7 x 0.6 cm. The skin surface demonstrates an irregular schmitz, slightly elevated and firm area measuring 0.6 x 0.5 cm, and extends to the nearest margin. The margins are inked black. The specimen is sectioned and totally submitted as follows: A1 tips, A2 body. SS July 12, 2023 10:29 PM Gross examination performed at [facility], [address] [place] [address] Performed By: #### S #### [facility] CLIA [id number] [address] [place] [address] [place] CNOVon 06-07-2023 CNOV Office Visit (GENSWS ) -- ANA BROWN ([id number]) 1955 F Date Time Provider Department 06/07/23 2:00 PM RENE PEÑALOZA During your visit today, we recorded the following information about you: Temperature Pulse Blood pressure Weight 97.7 degrees 85/minute 132/76 110.2 kg Height 1.702 m Mary Anne Jean LPN 06/07/2023 1:44 PM Signed REVIEW OF SYSTEMS: General: The patient notes fatigue, denies weight loss, notes weight gain, denies feeling hot, and denies feelings of cold. Eyes: The patient denies glaucoma, denies eye injury/surgery, does not wear glasses or contacts. Ear/Nose/Throat: The patient denies allergies, denies hayfever, denies ear infections, and denies bloody noses. Cardiovascular: The patient denies chest pain, denies heart disease, denies high blood pressure,denies cardiac stent, denies prior heart attack, denies irregular heart beat, denies high cholesterol, denies poor circulation, denies heart failure, other cardiac issues, denies claudication, denies cold feet, denies peripheral arterial stent. Respiratory: The patient denies tuberculosis, denies pneumonia, denies frequent cough, denies pulmonary embolism, denies shortness of breath, and denies coughing up blood, notes asthma Gastrointestinal: The patient denies difficulty swallowing, denies acid reflux, denies ulcers, denies vomiting, denies jaundice/hepatitis, denies gallbladder problems, denies black or tarry stools, denies hemorrhoids, denies bleeding from rectum, denies diverticulitis, denies constipation, denies diarrhea, denies loss of stool control, and denies hernias. Kidney/Bladder: The patient denies kidney stones, denies urine infections, and denies bloody urine. Skin: The patient notes a history of skin cancer, denies bleeding/changing moles, and denies a history of skin rash. Neurologic: The patient denies a history of epilepsy/convulsions, denies headaches, denies head/spinal injuries, and denies stroke/TIA. Psychiatric: The patient denies psychiatric medications, denies depression, and denies voices, denies substance abuse. Endocrine: The patient denies thyroid disorders, denies diabetes, and denies hormonal problems. Hematologic: The patient denies a history of bruising, denies bleeding, and denies anemia, denies blood clots. Infections: The patient denies a history of measles and mumps, denies rheumatic fever, and denies sexually transmitted diseases. Musculoskeletal: The patient denies back pain/injury, denies back problems, denies sciatica, denies knee/foot trouble, denies arthritis, or denies gout. When was patient's last Mammogram screening? 10/2022 Last Colonoscopy: 2022 AYLA Basilio Daniel P, MD 06/07/2023 2:05 PM Signed HISTORY AND PHYSICAL Ana Brown 1955 REFERRING PHYSICIAN: Ana Jimenez DO CHIEF COMPLAINT: Consult (Abscess on left forearm) HPI: The patient is a 67 year old female with a complaint of left forearm lesion. This past November the patient had a puncture wound to her left forearm she has been treated and placed on antibiotics healed up partially but over the last several weeks it has started to turn red scab in the center and has become more sore. She feels as if there is a lump in this area as well. The patient is being seen by me today at the request of Dr. Ana Jimenez DO for my opinion and advice regarding Neoplasm of uncertain behavior of skin (primary encounter diagnosis). PAST MEDICAL HISTORY Diagnosis Date Abscess of arm Allergic rhinitis Allergy, unspecified not elsewhere classified Asthma Basal cell carcinoma Cellulitis Constipation Depression CHAUDHARI (dyspnea on exertion) Dupuytren contracture Encounter for gynecological examination with abnormal finding cervical stenosis Enlarged lymph nodes in armpit 01/21/2022 right axillary/upper outer quadrant of right breast tail Epigastric pain Forgetfulness Ganglion cyst right hand Hyperlipidemia Impaired fasting glucose Joint pain ankle and feet Lymphadenopathy Obesity PMH - PAST MEDICAL HISTORY OF Irregular bowel movements Rosacea eyes only Shingles Solitary cyst of breast Squamous cell carcinoma of face Thyroid nodule Vitamin B 12 deficiency Vitamin D deficiency Wheezing PAST SURGICAL HISTORY Procedure Laterality Date BIOPSY/EXCISION OF LYMPH NODE OPEN Right 01/21/2022 right axillary/upper outer quadrant of right breast tail BREAST ASPIRATION Right breast COLONOSCOPY FLX DX W/COLLJ SPEC WHEN PFRMD Colonoscopy PAST SURGICAL HISTORY OF x 5-6 Basil Cell Removed from face PAST SURGICAL HISTORY OF 12/09/2021 Right axillary lymph node biopsy PAST SURGICAL HISTORY OF 01/21/2022 Excision of an enlarged lymph Node, Right Axilla Current Outpatient Medications Medication Sig CYANOCOBALAMIN, VITAMIN B-12, ORAL Ta (more content not included)... Normal [facility] Anaerobic & Aerobic Culture (51270)Ordered By: Vice President Payer on 01-19-2023 Bacteria identified Aer cx Nom (Unsp spec) Final report Normal [facility]; [facility] Work Phone: Comment on above: PERFORMED BY: [employer] [place] [id number] Information: SRC:WO Bacteria identified Anaer cx Nom (Unsp spec) Final report Normal [facility]; [facility] Work Phone: Comment on above: PERFORMED BY: [employer] [place] [id number] Information: SRC:WO Bacteria identified Cx Nom (Unsp spec) [id number] Normal [facility]; [facility] Work Phone: Comment on above: No anaerobic growth in 72 hours. PERFORMED BY: [employer] [place] [id number] Information: SRC:WO Bacteria identified Cx Nom (Unsp spec) Mixed skin daisy Normal Comprehensiv e [facility]; [facility] Work Phone: Comment on above: PERFORMED BY: [employer] [place] [id number] Information: SRC:WO CBC W/AUTO DIFF WBC (55838)O rdered By: Vice President Payer on 12-18-2022 Basophils (Bld) [#/Vol] 0.0 10*3/uL Normal 0.0-0.2 [facility]; [facility] Work Phone: Comment on above: PATIENT WAS FASTINGP ERFORMED BY: [employer] [place] [id number] Basophils/100 WBC (Bld) 1 % Normal [facility]; [facility] Work Phone: Comment on above: PATIENT WAS FASTINGP ERFORMED BY: [employer] [place] [id number] Eosinophils (Bld) [#/Vol] 0.2 10*3/uL Normal 0.0-0.4 [facility]; [facility] Work Phone: Comment on above: PATIENT WAS FASTINGP ERFORMED BY: MOMO Labcomega NguyễnKxyxgq9432 Davey RoadDublin [place] [id number] Eosinophils/100 WBC (Bld) 3 % Normal [facility]; [facility] Work Phone: Comment on above: PATIENT WAS FASTINGP ERFORMED BY: CB [facility] Njgukt2644 Davey RoadNovant Health Rehabilitation Hospitalin [place] [id number] Erythrocyte distribution width (RBC) [Ratio] 11.9 % Normal 11.7-15.4 [facility]; [facility] Work Phone: Comment on above: PATIENT WAS FASTINGP ERFORMED BY: MOMO [facility] Phaslx1196 [address] RoadNew [place] [id number] Hematocrit (Bld) [Volume fraction] 44.5 % Normal 34.0-46.6 [facility]; [facility] Work Phone: Comment on above: PATIENT WAS FASTINGP ERFORMED BY: [facility] Ezinxs8201 Davey RoadNovant Health Rehabilitation Hospitalin [place] [id number] Hemoglobin (Bld) [Mass/Vol] 14.7 g/dL Normal 11.1-15.9 [facility]; [facility] Work Phone: Comment on above: PATIENT WAS FASTINGP ERFORMED BY: [facility] Kfcidq2337 Davey RoadNovant Health Rehabilitation Hospitalin [place] [id number] Immature granulocytes (Bld) [#/Vol] 0.0 10*3/uL Normal 0.0-0.1 [facility]; [facility] Work Phone: Comment on above: PATIENT WAS FASTINGP ERFORMED BY: CB [facility] Eeikwk7373 Davey RoadDublin [place] [id number] Immature granulocytes/100 WBC (Bld) 0 % Normal [facility]; [facility] Work Phone: Comment on above: PATIENT WAS FASTINGP ERFORMED BY: CB [facility] Zfqbay2873 [address]y RoadDublin [place] [id number] Lymphocytes (Bld) [#/Vol] 1.6 10*3/uL Normal 0.7-3.1 [facility]; [facility] Work Phone: Comment on above: PATIENT WAS FASTINGP ERFORMED BY: MOMO Jordynpualette BarajasBgccmu3718 [address] [facility] [id number] Lymphocytes/100 WBC (Bld) 25 % Normal [facility]; [facility] Work Phone: Comment on above: PATIENT WAS FASTINGP ERFORMED BY: MOMO [facility] Tnolth6335 [facility] [id number] MCH (RBC) [Entitic mass] 28.9 pg Normal 26.6-33.0 [facility]; [facility] Work Phone: Comment on above: PATIENT WAS FASTINGP ERFORMED BY: MOMO [facility] Hfuyyi9992 [facility] [id number] MCHC (RBC) [Mass/Vol] 33.0 g/dL Normal 31.5-35.7 [facility]; [facility] Work Phone: Comment on above: PATIENT WAS FASTINGP ERFORMED BY: MOMO Barajaslin6370 [facility] [id number] MCV (RBC) [Entitic vol] 87 fL Normal 79-97 [facility]; [facility] Work Phone: Comment on above: PATIENT WAS FASTINGP ERFORMED BY: [facility] Vxmtjv1616 [facility] [id number] Monocytes (Bld) [#/Vol] 0.5 10*3/uL Normal 0.1-0.9 [facility]; [facility] Work Phone: Comment on above: PATIENT WAS FASTINGP ERFORMED BY: MOMO [facility] Jhposk76[address] [facility] [id number] Monocytes/100 WBC (Bld) 8 % Normal [facility]; [facility] Work Phone: Comment on above: PATIENT WAS FASTINGP ERFORMED BY: Labpaulette BarajasUrievt2459 [address] RoadDublin [place] [id number] Neutrophils (Bld) [#/Vol] 4.1 10*3/uL Normal 1.4-7.0 [facility]; [facility] Work Phone: Comment on above: PATIENT WAS FASTINGP ERFORMED BY: MOMO Labcomega Pxngsp5135 Davey RoadDublin [place] [id number] Neutrophils/100 WBC (Bld) 63 % Normal [facility]; [facility] Work Phone: Comment on above: PATIENT WAS FASTINGP ERFORMED BY: MOMO [facility] Fniwlj9066 Davey RoadDublin [place] [id number] Platelets (Bld) [#/Vol] 322 10*3/uL Normal 150-450 [facility]; [facility] Work Phone: Comment on above: PATIENT WAS FASTINGP ERFORMED BY: MOMO [facility] Wcwtrk9575 Davey RoadDublin [place] [id number] RBC (Bld) [#/Vol] 5.09 10*6/uL Normal 3.77-5.28 [facility]pr [facility]; [facility] Work Phone: Comment on above: PATIENT WAS FASTINGP ERFORMED BY: MOMO [facility] Ligacr7711 [address]y RoadDublin [place] [id number] WBC (Bld) [#/Vol] 6.5 10*3/uL Normal 3.4-10.8 Compre [facility]; [facility] Work Phone: Comment on above: PATIENT WAS FASTINGP ERFORMED BY: MOMO [facility] Gtzfga3881 Davey RoadDublin [place] [id number] HGB A1C (72132)Ordered By: S ystem Inventory Clerk on 12-18-2022 HbA1c (Bld) [Mass fraction] 5.6 % Normal 4.8-5.6 [facility]; [facility] Work Phone: Comment on above: . Prediabetes: 5.7 - 6.4 Diabetes: >6.4 Glycemic control for adults with diabetes: <7.0 PATIENT WAS FASTINGP ERFORMED BY: MOMO [facility] Ialoms7895 [address]y RoadDublin [place] [id number] LIPID PANEL (93056)Ordered B y: Vice President Payer on 12-18-2022 Cholesterol [Mass/Vol] 158 mg/dL Normal 100-199 [facility]; [facility] Work Phone: Comment on above: PATIENT WAS FASTINGP ERFORMED BY: MOMO Jordynpaulette BarajasAnjeke2403 [address]y RoadDublin [place] [id number] Cholesterol in HDL [Mass/Vol] 48 mg/dL Normal [facility]; [facility] Work Phone: Comment on above: PATIENT WAS FASTINGP ERFORMED BY: MOMO Labpaulette BarajasVhjmyg8300 Davey RoadDublin [place] [id number] Triglyceride [Mass/Vol] 66 mg/dL Normal 0-149 [facility]; [facility] Work Phone: Comment on above: PATIENT WAS FASTINGP ERFORMED BY: MOMO Barajaslin6370 [address] RoadDublin [place] [id number] LIPID PANEL (66745) 13 mg/dL Normal 5-40 Compr ehensive Internal Medicine; [facility] Work Phone: Comment on above: PATIENT WAS FASTINGP ERFORMED BY: MOMO Rubenmega BarajasOihwgr8126 [address]y RoadDublin [place] [id number] LIPID PANEL (18731) 97 mg/dL Normal 0-99 Compr ehensive Internal Medicine; [facility] Work Phone: Comment on above: PATIENT WAS FASTINGP ERFORMED BY: MOMO Labpaulette BarajasHuwmmd8148 Davey RoadDublin [place] [id number] LIPID PANEL (05986) 2.0 {ratio} Normal 0.0-3.2 Comp peoples hospitalensive [facility]; [facility] Work Phone: Comment on above: LDL/HDL Ratio Men Wo men 1/2 Avg.Risk 1.0 1.5 Avg.Risk 3.6 3.2 2X Avg.Risk 6.2 5.0 3X Avg.Risk 8.0 6.1 PATIENT WAS FASTINGP ERFORMED BY: MOMO Labpaulette Taisav5278 Dave[address] Roadblin [place] [id number] METABOLIC PANEL, COMPREHENSI VE (63631)Ordered By: Vice President Payer on 12-18-2022 Albumin [Mass/Vol] 4.0 g/dL Normal 3.9-4.9 [facility] Internal [facility]; [facility] Work Phone: Comment on above: PATIENT WAS FASTINGP ERFORMED BY: CB [facility] Rgcsls4972 [address]y RoadDublin [place] [id number] Albumin/Globulin [Mass ratio] 1.8 {ratio} Normal 1.2-2.2 [facility]; [facility] Work Phone: Comment on above: PATIENT WAS FASTINGP ERFORMED BY: CB [facility] Vyifbj1336 [address] RoadDublin [place] [id number] ALP [Catalytic activity/Vol] 71 U/L Normal 44-121 [facility]; [facility] Work Phone: Comment on above: PATIENT WAS FASTINGP ERFORMED BY: CB [facility] Oxkefh1889 [address]y RoadDublin [place] [id number] ALT [Catalytic activity/Vol] 14 U/L Normal 0-32 [facility]; [facility] Work Phone: Comment on above: PATIENT WAS FASTINGP ERFORMED BY: CB [facility] Dvwaaq2915 [address] RoadDublin [place] [id number] AST [Catalytic activity/Vol] 20 U/L Normal 0-40 [facility]; [facility] Work Phone: Comment on above: PATIENT WAS FASTINGP ERFORMED BY: CB [facility] Nduqxj2132 [address] RoadDublin [place] [id number] Bilirubin [Mass/Vol] 0.4 mg/dL Normal 0.0-1.2 [facility] Internal Medicine; [facility] Internal Medicine Work Phone: Comment on above: PATIENT WAS FASTINGP ERFORMED BY: CB [facility] Rxvqab4942 [address] RoadDublin [place] [id number] Calcium [Mass/Vol] 9.1 mg/dL Normal 8.7-10.3 [facility]; [facility] Work Phone: Comment on above: PATIENT WAS FASTINGP ERFORMED BY: MOMO [facility] Uzkamf9762 [address]y RoadDublin [place] [id number] Chloride [Moles/Vol] 104 mmol/L Normal 96-106 Comp rehensive Internal Medicine; [facility] Work Phone: Comment on above: PATIENT WAS FASTINGP ERFORMED BY: CB [facility] Wosxcm2421 [address]y RoadDublin [place] [id number] CO2 [Moles/Vol] 22 mmol/L Normal 20-29 Comprehen [facility]; [facility] Work Phone: Comment on above: PATIENT WAS FASTINGP ERFORMED BY: [facility] Hruupk4137 [address]y RoadDublin [place] [id number] Creatinine [Mass/Vol] 0.94 mg/dL Normal 0.57-1.00 [facility]; [facility] Work Phone: Comment on above: PATIENT WAS FASTINGP ERFORMED BY: [facility] Xojzbj2651 [address]y RoadDublin [place] [id number] GFR/1.73 sq M.predicted among non-blacks MDRD (S/P/Bld) [Vol rate/Area] 67 mL/min/{1.73_m2} Normal Comprehensiv e [facility]; [facility] Work Phone: Comment on above: PATIENT WAS FASTINGP ERFORMED BY: MOMO [facility] Dffymo8478 [address]y RoadDublin [place] [id number] Globulin (S) [Mass/Vol] 2.2 g/dL Normal 1.5-4.5 [facility]; [facility] Work Phone: Comment on above: PATIENT WAS FASTINGP ERFORMED BY: CB [facility] Qpzlta3486 [address]y RoadDublin [place] [id number] Glucose [Mass/Vol] 83 mg/dL Normal 70-99 Compre [facility] Internal [facility]; [facility] Work Phone: Comment on above: PATIENT WAS FASTINGP ERFORMED BY: [facility] Ffjomq5733 [address] RoadDublin [place] [id number] Potassium [Moles/Vol] 4.6 mmol/L Normal 3.5-5.2 [facility]; [facility] Work Phone: Comment on above: PATIENT WAS FASTINGP ERFORMED BY: MOMO [facility] Zbdhsm3095 [address] RoadDublin [place] [id number] Protein [Mass/Vol] 6.2 g/dL Normal 6.0-8.5 [facility]; [facility] Work Phone: Comment on above: PATIENT WAS FASTINGP ERFORMED BY: CB [facility] Rmwttz2672 [address] RoadDublin [place] [id number] Sodium [Moles/Vol] 140 mmol/L Normal 134-144 [facility]; [facility] Work Phone: Comment on above: PATIENT WAS FASTINGP ERFORMED BY: MOMO [facility] Efzirf3579 [address] RoadDublin [place] [id number] Urea nitrogen [Mass/Vol] 17 mg/dL Normal 8-27 [facility]; [facility] Work Phone: Comment on above: PATIENT WAS FASTINGP ERFORMED BY: [facility] Pbgpal9040 [address] RoadDublin [place] [id number] Urea nitrogen/Creatinine [Mass ratio] 18 mg/mg Normal 12-28 [facility]; [facility] Work Phone: Comment on above: PATIENT WAS FASTINGP ERFORMED BY: [facility] Ubshmy5387 [address] RoadDublin [place] [id number] MICROALBUMINOrdered By: Syst em Inventory Clerk on 12-18-2022 Albumin DL <= 20 mg/L (U) [Mass/Vol] 3.3 ug/mL Normal Comprehensiv e [facility]; [facility] Work Phone: Comment on above: PATIENT WAS FASTINGP ERFORMED BY: [facility] Znjwij0876 [address]y RoadDublin [place] [id number] Albumin/Creatinine (U) [Mass ratio] 2 {mg/g_creat} Normal 0-29 [facility]; [facility] Work Phone: Comment on above: Normal: 0 - 29 Moder ately increased: 30 - 300 Severely increased: >300 PATIENT WAS FASTINGP ERFORMED BY: [employer] Kokyfs9130 [address] RoadDublin [place] [id number] Creatinine (U) [Mass/Vol] 132.2 mg/dL Normal [facility]; [facility] Work Phone: Comment on above: PATIENT WAS FASTINGP ERFORMED BY: [employer] Rqgrnc1158 [address] RoadDublin [place] [id number] TSH (18367)Ordered By: [employer] Solution[employer] m Inventory Clerk on 12-18-2022 TSH Qn 1.300 {uIU/mL} Normal 0.450-4.50 0 [facility]; [facility] Work Phone: Comment on above: PATIENT WAS FASTINGP ERFORMED BY: [employer] DataSearch6370 [address] RoadDublin [place] [id number] VITAMIN B12 AND FOLATES (826 07)Ordered By: Vice President Payer on 12-18-2022 Cobalamin (Vitamin B12) [Mass/Vol] 653 pg/mL Normal 232-1245 [facility]; [facility] Work Phone: Comment on above: PATIENT WAS FASTINGP ERFORMED BY: [employer] Zmqrsm2917 [address] RoadDublin [place] [id number] Folate [Mass/Vol] 18.1 ng/mL Normal Compreh ensive Internal Medicine; [facility] Work Phone: Comment on above: A serum folate agueda ntration of less than 3.1 ng/mL isconsidered to represent clinical deficiency. PATIENT WAS FASTINGP ERFORMED BY: [employer] Qwmvfh6821 [address] [place] PharmaDublin [place] [id number] Vitamin D Hydroxy (96742)Ord ered By: Vice President Payer on 12-18-2022 25-hydroxyvitamin D [Mass/Vol] 42.3 ng/mL Normal 30.0-100.0 [facility]; [facility] Work Phone: Comment on above: Vitamin D deficiency has been defined by the [place] ofMedicine and an Endocrine Society practice guideline as alevel of serum 25-OH vitamin D less than 20 ng/mL (1,2).The Endocrine Society went on to further define vitamin Dinsufficiency as a level between 21 and 29 ng/mL (2).1. IOM ([place] of Medicine). 2010. Dietary reference intakes for calcium and D. [place]: The National Academies Press.2. Soledad MF, Romain MCCABE, Tom MOSS, et al. Evaluation, treatment, and prevention of vitamin D deficiency: an Endocrine Society clinical practice guideline. JCEM. 2010; 96(7):1911-30. PATIENT WAS FASTINGP ERFORMED BY: LabLegal Shine Hcifiv0251 [address] [facility] PharmaNovant Health Rehabilitation Hospitalin [place] [id number] CBC W/AUTO DIFF WBC (46506)O rdered By: Vice President Payer on 03-30-2022 Basophils (Bld) [#/Vol] 0.0 10*3/uL Normal 0.0-0.2 [facility]; [facility] Work Phone: Comment on above: PATIENT WAS FASTINGP ERFORMED BY: [employer] Wtohwh3819 [address] [facility] PharmaNovant Health Rehabilitation Hospitalin [place] [id number] Basophils/100 WBC (Bld) 0 % Normal [facility]; [facility] Work Phone: Comment on above: PATIENT WAS FASTINGP ERFORMED BY: [employer] Puljbb5764 [address] [place] Pharmablin [place] [id number] Eosinophils (Bld) [#/Vol] 0.2 10*3/uL Normal 0.0-0.4 [facility]; [facility] Work Phone: Comment on above: PATIENT WAS FASTINGP ERFORMED BY: [employer] Shine Dlskrm4898 [address] [place] Pharmablin [place] [id number] Eosinophils/100 WBC (Bld) 3 % Normal [facility]; [facility] Work Phone: Comment on above: PATIENT WAS FASTINGP ERFORMED BY: [employer] Bsfpof7260 [address] [place] PharmaNovant Health Rehabilitation Hospitalin [place] [id number] Erythrocyte distribution width (RBC) [Ratio] 12.3 % Normal 11.7-15.4 [facility]; [facility] Work Phone: Comment on above: PATIENT WAS FASTINGP ERFORMED BY: [facility]6370 [facility] [id number] Hematocrit (Bld) [Volume fraction] 45.5 % Normal 34.0-46.6 [facility]; [facility] Work Phone: Comment on above: PATIENT WAS FASTINGP ERFORMED BY: [facility] Zwuywj6543 [facility] [id number] Hemoglobin (Bld) [Mass/Vol] 15.1 g/dL Normal 11.1-15.9 [facility]; [facility] Work Phone: Comment on above: PATIENT WAS FASTINGP ERFORMED BY: [facility]6370 [address] [facility] [id number] Immature granulocytes (Bld) [#/Vol] 0.0 10*3/uL Normal 0.0-0.1 [facility]; [facility] Work Phone: Comment on above: PATIENT WAS FASTINGP ERFORMED BY: [facility]6370 [facility] [id number] Immature granulocytes/100 WBC (Bld) 0 % Normal [facility]; [facility] Work Phone: Comment on above: PATIENT WAS FASTINGP ERFORMED BY: [facility] Zbusxp8246 [facility] [id number] Lymphocytes (Bld) [#/Vol] 2.0 10*3/uL Normal 0.7-3.1 [facility]; [facility] Work Phone: Comment on above: PATIENT WAS FASTINGP ERFORMED BY: [facility]6370 [facility] [id number] Lymphocytes/100 WBC (Bld) 28 % Normal [facility]; [facility] Work Phone: Comment on above: PATIENT WAS FASTINGP ERFORMED BY: [facility]ynBr[facility]6[address] [facility] [id number] MCH (RBC) [Entitic mass] 30.0 pg Normal 26.6-33.0 [facility]; [facility] Work Phone: Comment on above: PATIENT WAS FASTINGP ERFORMED BY: MOMO Labcomega NguyễnCtubrx6015 Dave[address] Roadblin [place] [id number] MCHC (RBC) [Mass/Vol] 33.2 g/dL Normal 31.5-35.7 [facility]; [facility] Work Phone: Comment on above: PATIENT WAS FASTINGP ERFORMED BY: [facility] Xxjzrg7210 [address]y RoadDublin [place] [id number] MCV (RBC) [Entitic vol] 91 fL Normal 79-97 [facility]; [facility] Work Phone: Comment on above: PATIENT WAS FASTINGP ERFORMED BY: MOMO Labbijan Dhshuu1658 [address] Roadblin [place] [id number] Monocytes (Bld) [#/Vol] 0.6 10*3/uL Normal 0.1-0.9 [facility]; [facility] Work Phone: Comment on above: PATIENT WAS FASTINGP ERFORMED BY: [facility]outheast [facility] Rwnnlq7333 [address]y RoadDublin [place] [id number] Monocytes/100 WBC (Bld) 8 % Normal [facility]; [facility] Work Phone: Comment on above: PATIENT WAS FASTINGP ERFORMED BY: Judah Barajaslin6370 [address] [facility] Hospitalblin [place] [id number] Neutrophils (Bld) [#/Vol] 4.3 10*3/uL Normal 1.4-7.0 [facility]; [facility] Work Phone: Comment on above: PATIENT WAS FASTINGP ERFORMED BY: [facility] Ezezdp3588 [address] RoadDublin [place] [id number] Neutrophils/100 WBC (Bld) 61 % Normal [facility]; [facility] Work Phone: Comment on above: PATIENT WAS FASTINGP ERFORMED BY: MOMO [facility] Fgqqch4564 [address] RoadDublin [place] [id number] Platelets (Bld) [#/Vol] 237 10*3/uL Normal 150-450 [facility]; [facility] Work Phone: Comment on above: PATIENT WAS FASTINGP ERFORMED BY: MOMO [facility] Vozxii2018 [address]y RoadDublin [place] [id number] RBC (Bld) [#/Vol] 5.03 10*6/uL Normal 3.77-5.28 [facility] Internal Medicine; [facility] Work Phone: Comment on above: PATIENT WAS FASTINGP ERFORMED BY: MOMO [facility] Zismsw3584 [address] RoadDublin [place] [id number] WBC (Bld) [#/Vol] 7.1 10*3/uL Normal 3.4-10.8 [facility]; [facility] Work Phone: Comment on above: PATIENT WAS FASTINGP ERFORMED BY: MOMO [facility] Kbbibe1614 [address] [facility] Hospitalblin [place] [id number] METABOLIC PANEL, COMPREHENSI VE (58875)Ordered By: Vice President Payer on 03-30-2022 Albumin [Mass/Vol] 4.3 g/dL Normal 3.8-4.8 [facility] Internal Medicine; [facility] Work Phone: Comment on above: biopsy neg strong fa vick hx of cancer [place] [facility] [place] if need further followup; PATIENT WAS FASTINGPERFORMED BY: MOMO Labcomega Sfoama7889 [address] [facility] HospitalDublin [place] [id number] Albumin/Globulin [Mass ratio] 2.0 {ratio} Normal 1.2-2.2 [facility]; [facility] Work Phone: Comment on above: biopsy neg strong fa vick hx of cancer send to [facility] [place] if need further followup; PATIENT WAS FASTINGPERFORMED BY: MOMO Labco Nkbhty4414 [address]ye RoadDublin [place] [id number] ALP [Catalytic activity/Vol] 70 U/L Normal 44-121 [facility]; [facility] Work Phone: Comment on above: biopsy neg strong fa vick hx of cancer [place] [facility] [place] if need further followup; PATIENT WAS FASTINGPERFORMED BY: MOMO Labco [id number] Davey RoadDublin [place] [id number] ALT [Catalytic activity/Vol] 21 U/L Normal 0-32 [facility]; [facility] Work Phone: Comment on above: biopsy neg strong fa vick hx of cancer send to [facility] [place] if need further followup; PATIENT WAS FASTINGPERFORMED BY: Labco [id number] [address] [facility] [id number] AST [Catalytic activity/Vol] 21 U/L Normal 0-40 [facility]; [facility] Work Phone: Comment on above: biopsy neg strong fa vick hx of cancer send to [facility] [place] if need further followup; PATIENT WAS FASTINGPERFORMED BY: Labco Vqkgmk7012 [address] [facility] [id number] Bilirubin [Mass/Vol] 0.4 mg/dL Normal 0.0-1.2 Comp rehensive [facility]; [facility] Work Phone: Comment on above: biopsy neg strong fa vick hx of cancer send to [facility] [place] if need further followup; PATIENT WAS FASTINGPERFORMED BY: Labco Vufrhb6984 [facility] [id number] Calcium [Mass/Vol] 9.4 mg/dL Normal 8.7-10.3 [facility]; [facility] Work Phone: Comment on above: biopsy neg strong fa vick hx of cancer send to [facility] [place] if need further followup; PATIENT WAS FASTINGPERFORMED BY: Labco Chzwnx0713 [address] [facility] [id number] Chloride [Moles/Vol] 109 mmol/L Abnormal 96-106 Comp rehensive [facility]; [facility] Work Phone: Comment on above: biopsy neg strong fa vick hx of cancer send to [facility] [place] if need further followup; PATIENT WAS FASTINGPERFORMED BY: Labco Npkifz6096 [address] [facility] [id number] CO2 [Moles/Vol] 22 mmol/L Normal 20-29 [facility]; [facility] Work Phone: Comment on above: biopsy neg strong fa vick hx of cancer send to [facility] [place] if need further followup; PATIENT WAS FASTINGPERFORMED BY: M[facility]O [facility] [id number] [facility] [id number] Creatinine [Mass/Vol] 0.95 mg/dL Normal 0.57-1.00 [facility]; [facility] Work Phone: Comment on above: biopsy neg strong fa vick hx of cancer send to [facility] [place] if need further followup; PATIENT WAS FASTINGPERFORMED BY: [facility] Ycijla2714 [facility] [id number] GFR/1.73 sq M.predicted among non-blacks MDRD (S/P/Bld) [Vol rate/Area] 66 mL/min/{1.73_m2} Normal Comprehensiv e [facility]; [facility] Work Phone: Comment on above: biopsy neg strong fa vick hx of cancer send to [facility] [place] if need further followup; PATIENT WAS FASTINGPERFORMED BY: [facility] Ikmeqt4740 [facility] [id number] Globulin (S) [Mass/Vol] 2.1 g/dL Normal 1.5-4.5 [facility]; [facility] Work Phone: Comment on above: biopsy neg strong fa vick hx of cancer send to [facility] [place] if need further followup; PATIENT WAS FASTINGPERFORMED BY: Labco Pfqdes3553 [facility] [id number] Glucose [Mass/Vol] 93 mg/dL Normal 70-99 Compre [facility] Internal Medicine; [facility] Work Phone: Comment on above: biopsy neg strong fa vick hx of cancer send to [facility] [place] if need further followup; PATIENT WAS FASTINGPERFORMED BY: Labco Zdfiej3863 [facility] [id number] Potassium [Moles/Vol] 4.5 mmol/L Normal 3.5-5.2 [facility]; [facility] Work Phone: Comment on above: biopsy neg strong fa vick hx of cancer send to [facility] [place] if need further followup; PATIENT WAS FASTINGPERFORMED BY: [facility] Mukasv1093 [facility] [id number] Protein [Mass/Vol] 6.4 g/dL Normal 6.0-8.5 [facility] Internal [facility]; [facility] Work Phone: Comment on above: biopsy neg strong fa vick hx of cancer send to [facility] [place] if need further followup; PATIENT WAS FASTINGPERFORMED BY: [facility] Ynhqqe4688 [address] [facility] [id number] Sodium [Moles/Vol] 144 mmol/L Normal 134-144 [facility] Internal Medicine; [facility] Work Phone: Comment on above: biopsy neg strong fa vick hx of cancer send to [facility] [place] if need further followup; PATIENT WAS FASTINGPERFORMED BY: MOMO Labco Ahhnmi4848 [facility] [facility] [id number] Urea nitrogen [Mass/Vol] 17 mg/dL Normal 8-27 [facility]; [facility] Work Phone: Comment on above: biopsy neg strong fa vick hx of cancer send to [facility] [place] if need further followup; PATIENT WAS FASTINGPERFORMED BY: Labco Rmtvca1639 [facility] [facility] [id number] Urea nitrogen/Creatinine [Mass ratio] 18 mg/mg Normal 12-28 [facility]; [facility] Work Phone: Comment on above: biopsy neg strong fa vick hx of cancer send to [facility] [place] if need further followup; PATIENT WAS FASTINGPERFORMED BY: [facility] Tgfrip8409 [facility] [id number] MICROALBUMINOrdered By: Syst em Inventory Clerk on 03-30-2022 Albumin DL <= 20 mg/L (U) [Mass/Vol] mg/dL Normal Comprehensiv e [facility]; [facility] Work Phone: Comment on above: Verified by repeat analysis PATIENT WAS FASTINGP ERFORMED BY: Labco Julpbk2524 [facility] [id number] Albumin/Creatinine (U) [Mass ratio] <3 Normal 0-29 [facility]; [facility] Work Phone: Comment on above: Normal: 0 - 29 Moder ately increased: 30 - 300 Severely increased: >300 PATIENT WAS FASTINGP ERFORMED BY: MOMO Jordynpaulette BarajasPerqtu4978 Davey RoadDublin [place] [id number] Creatinine (U) [Mass/Vol] 110.6 mg/dL Normal [facility]; [facility] Work Phone: Comment on above: PATIENT WAS FASTINGP ERFORMED BY: MOMO Barajaslin6370 Davey RoadDublin [place] [id number] URINALYSIS, W/ MICRO ([id number]) Ordered By: Vice President Payer on 03-30-2022 Appearance (U) Clear Normal Comprehens say [facility]; [facility] Work Phone: Comment on above: PATIENT WAS FASTINGP ERFORMED BY: MOMO Nguyễn6370 Davey RoadDublin [place] [id number] Bilirubin Ql (U) Negative Normal Comprehe nsive Internal Medicine; [facility] Work Phone: Comment on above: PATIENT WAS FASTINGP ERFORMED BY: MOMO Nguyễn6370 [address]y RoadDublin [place] [id number] Color (U) Yellow Normal [facility]; [facility] Work Phone: Comment on above: PATIENT WAS FASTINGP ERFORMED BY: MOMO Nguyễn6370 Davey RoadDublin [place] [id number] Glucose Ql (U) Negative Normal Comprehens say [facility]; [facility] Work Phone: Comment on above: PATIENT WAS FASTINGP ERFORMED BY: MOMO Barajaslin6370 [address] RoadDublin [place] [id number] Hemoglobin Ql (U) Negative Normal Compreh ensive Internal Medicine; [facility] Work Phone: Comment on above: PATIENT WAS FASTINGP ERFORMED BY: MOMO Jordynpaulette BarajasHwuooi6566 Davey RoadDublin [place] [id number] Ketones Ql (U) Negative Normal Comprehens say [facility]; [facility] Work Phone: Comment on above: PATIENT WAS FASTINGP ERFORMED BY: MOMO Barajaslin6370 [address]y RoadDublin [place] [id number] Leukocyte esterase Test strip Ql (U) Negative Normal [facility]; [facility] Work Phone: Comment on above: PATIENT WAS FASTINGP ERFORMED BY: MOMO Nguyễn6370 Davey RoadDublin [place] [id number] Microscopic observation LM Nom (Urine sed) MICRON Normal [facility]; [facility] Work Phone: Comment on above: Microscopic follows if indicated. PATIENT WAS FASTINGP ERFORMED BY: MOMO Labcomega Blnsqh0920 Davey RoadDublin [place] [id number] Microscopic observation LM Nom (Urine sed) See below: Normal [facility]; [facility] Work Phone: Comment on above: Microscopic was shabbir cated and was performed. PATIENT WAS FASTINGP ERFORMED BY: MOMO Judah Barajaslin6370 [address]y RoadDublin [place] [id number] Nitrite Ql (U) Negative Normal Comprehens say [facility]; [facility] Work Phone: Comment on above: PATIENT WAS FASTINGP ERFORMED BY: MOMO [facility] Elqrpx0825 Davey RoadDublin [place] [id number] pH (U) 5.5 [pH] Normal 5.0-7.5 [facility]; [facility] Work Phone: Comment on above: PATIENT WAS FASTINGP ERFORMED BY: MOMO Labbijanrp Ihrdjv2391 Davey Roadblin [place] [id number] Protein Ql (U) Negative Normal Comprehens say [facility]; [facility] Work Phone: Comment on above: PATIENT WAS FASTINGP ERFORMED BY: MOMO [facility] Wbdbzm0482 Davey RoadDublin [place] [id number] Specific gravity (U) [Rel density] 1.020 1 Normal 1.005-1.03 0 [facility]; [facility] Work Phone: Comment on above: PATIENT WAS FASTINGP ERFORMED BY: MOMO [facility] Ymqzkk9502 Davey RoadDublin [place] [id number] Urobilinogen (U) [Mass/Vol] 0.2 mg/dL Normal 0.2-1.0 [facility]; [facility] Work Phone: Comment on above: PATIENT WAS FASTINGP ERFORMED BY: MOMO Stockr Lhezjp2536 [facility] [id number] VITAMIN B-12 (CYANOCOBALAMIN ) ([id number])Ordered By: Vice President Payer on 03-30-2022 Cobalamin (Vitamin B12) [Mass/Vol] 607 pg/mL Normal 232-1245 [facility]; [facility] Work Phone: Comment on above: PATIENT WAS FASTINGP ERFORMED BY: Stockr Xxbuir8701 Dave[address] [facility] [id number] ANES POSTPROC EVALon 022 ANES POSTPROC EVAL HNO ID: [id number] Author: Silvio Horvath MD Service: ? Author Type: Anesthesiologist Type: Anesthesia Postprocedure Evaluation Filed: 01/21/2022 10:27 AM Note Text: POST ANESTHESIA EVALUATION NOTE : 1955 Procedure Summary Date: 01/21/22 Room / Location: [place] OR01 [place] Anesthesia Start: 735 Anesthesia Stop: 847 Procedure: EXCISION LYMPH NODE OPEN DEEP AXILLARY NODE (Right: Axillary) Diagnosis: Lymph node enlargement (Lymph node enlargement [R59.9]) Surgeons: Rene Peñaloza MD Responsible Provider: Silvio Horvath MD Anesthesia Type: MAC, general ASA Status: 2 Anesthesia Type: MAC, general Airway Type: LMA Last Vitals Vitals Value Taken Time BP 138/67 01/21/22 0915 Temp 36.2 ?C (97.2 ?F) 01/21/2215 Pulse 44 01/21/2215 Resp 9 01/21/22 0915 SpO2 98 % 01/21/22914 Post Anesthesia Patient Status Patient Evaluation: bedside. Anticipated Disposition: phase 2 then home. Neurological Status: aware and responsive. Pulmonary Status: breathing comfortably on room air Airway Control: returned to baseline unsupported. Cardiovascular Status: stable. Pain Management: clinically adequate Postoperative Hydration: acceptable. Intraoperative Events: no significant anesthesia events Post Operative Nausea/Vomiting Status: no significant post operative nausea or vomiting Anesthetic Observations: Recommendation: continue current plan of care. Anesthesia Observations No Documentation SIGNATURE: Silvio Horvath MD PATIENT NAME: Ana Brown DATE: January 21, 2022 TIME: 10:27 AM CSN: [id number] [facility] ANES PRE-OPon 01-21-2022 ANES PRE-OP HNO ID: [id number] Author: Silvio Horvath MD Service: ? Author Type: Anesthesiologist Type: Anesthesia Preprocedure Evaluation Filed: 01/21/2022 7:31 AM Note Text: ANESTHESIOLOGY DAY OF SURGERY NOTE : 1955 Procedure Information Date/Time: 01/21/22729 Procedure: EXCISION LYMPH NODE OPEN DEEP AXILLARY NODE (Right) Location: [place] OR01 [place] Surgeons: Rene Peñaloza MD Estimated body mass index is 33.67 kg/m? as calculated from the following: Height as of this encounter: 170.2 cm (5' 7). Weight as of this encounter: 97.5 kg (215 lb). Most recent hematocrit and potassium results: No results found for this basename: HCT,HEMATOCRIT,K,POTASSIUM Relevant Problems ANESTHESIA (-) Sleep apnea CARDIO (-) Angina at rest (HCC) (-) Angina of effort (HCC) PULMONARY (-) Asthma (-) Sleep apnea I - PHYSICAL EVALUATION AIRWAY Patient intubated: No. Tracheostomy tube not present Mallampati: II. TM distance: >3 FB. Neck ROM: full ROM without neurological symptoms. Mouth opening: adequate. Short neck: no. Thick neck: no DENTAL Dental findings: teeth intact. Additional exam findings: no II - ANESTHESIA PLAN ASA Score: 2 Anesthetic Plan: MAC The patient is not a current smoker. NPO Status: adequate Beta Yasmine Administration of chronic beta yasmine medication not planned. Postoperative analgesic plan: multimodal analgesia. Informed Consent Anesthetic risks, benefits, alternatives, personnel and consent discussed: yes. Patient / Responsible Green Party agrees to proceed: yes Patient / Surrogate agrees to blood products: Yes DNR status not reviewed with patient and/or family prior to surgery. Significant changes in the patient condition since the History and Physical, not otherwise documented in primary service progress note: no. Potential Anesthesia issues that may suggest increased risk of complications or contraindication to planned procedure: none. Vitals Value Taken Time BP 132/82 09/07/22 0626 Pulse 59 01/21/22625 Resp 16 01/21/22625 Temp 36.6 ?C (97.9 ?F) 01/21/22625 SpO2 97 % 01/21/22625 Facility-Administered Medications as of 01/21/2022 Medication Dose Route Frequency - lactated ringers iv infusion 5-30 mL/hr INTRAVENOUS CONTINUOUS - ceFAZolin iv piggyback 2 g in D5W (iso-osmotic) 100 mL (ANCEF) 2 g INTRAVENOUS Pre-Op Once Outpatient Medications as of 01/21/2022 Medication Sig - ibuprofen (MOTRIN) 200 mg tablet Take 400 mg by mouth every 8 hours as needed. - ASMANEX HFA 200 mcg/actuation HFA Inhale 2 Puffs as instructed once daily. - cholecalciferol, vitamin D3, (VITAMIN D3 ORAL) Take 1 tablet by mouth once daily. I have interviewed and examined the patient. I have reviewed the medical record and/or the pre-anesthesia evaluation, pertinent labs, and test results. This contains updated information obtained within 48 hours of Surgery/Procedure. SIGNATURE: Silvio Horvath MD PATIENT NAME: Ana Brown DATE: January 21, 2022 TIME: 7:30 AM CSN: [id number] [facility] HISTORY PHYSICALon HISTORY PHYSICAL HNO ID: [id number] Author: Rene Peñaloza MD Service: General Surgery Author Type: Physician Type: HANDP Filed: 01/21/2022 7:19 AM Note Text: HISTORY AND PHYSICAL Ana Webster Kevin 1955 REFERRING PHYSICIAN: Ana Jimenez DO CHIEF COMPLAINT: Consult (abnormal ultrasound, family history of breast cancer) HPI: The patient is a 66 year old female with a complaint of enlarged lymph node of her right axilla. They have been following this for more than a year but it has increased in size and her most recent mammogram and ultrasound. It was recommended that a biopsy be done. Patient states that she cannot feel this when she is in the shower with a lot of soap to aid in the exam. The patient has not been experiencing any night sweats. She has no family history of lymphoma. She does have a history of breast cancer in the family mom was in her 60s and 70s her sister is 68 and actually undergoing treatment for breast cancer and she has had an aunt who has had breast cancer.. On 12/09/2021 the patient underwent an ultrasound-guided needle core biopsy of an enlarged lymph node in her right axilla. Pathology report came back showing focal lymphoid tissue negative for metastatic carcinoma. Patient was seen by Dr. Parker who recommended that the lymph node be excised for further work-up. 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 No current facility-administered medications for this visit. ALLERGIES: Seasonal [Other] PERSONAL HISTORY: SOCIAL HISTORY Social History Tobacco Use Smoking status: Former Smoker Packs/day: 1.00 Years: 15.00 Pack years: 15.00 Types: Cigarettes Smokeless tobacco: Never Used Tobacco comment: quit 11 years ago Vaping Use Vaping Use: Never used Substance Use Topics Alcohol use: Yes Comment: Very Rarely Drug use: No FAMILY HISTORY: FAMILY HISTORY FAMILY HISTORY Problem Relation Age of Onset Breast Cancer Mother Heart Mother Mitral Valve Breast Cancer Sister Thyroid Sister GI Sister Breast Cancer Maternal Aunt REVIEW OF SYSTEMS: General: The patient notes fatigue, denies weight loss, denies weight gain, denies feeling hot, and denies feelings of cold. Eyes: The patient denies glaucoma, denies eye injury/surgery, wears glasses or contacts. Ear/Nose/Throat: The patient notes allergies, denies hayfever, denies ear infections, and denies bloody noses. Cardiovascular: The patient denies chest pain, denies heart disease, denies high blood pressure,denies cardiac stent, denies prior heart attack, denies irregular heart beat, denies high cholesterol, denies poor circulation, denies heart failure, other cardiac issues, denies claudication, denies cold feet, denies peripheral arterial stent. Respiratory: The patient denies tuberculosis, denies pneumonia, denies frequent cough, denies pulmonary embolism, notes shortness of breath, and denies coughing up blood. Gastrointestinal: The patient denies difficulty swallowing, denies acid reflux, denies ulcers, denies vomiting, denies jaundice/hepatitis, denies gallbladder problems, denies black or tarry stools, notes hemorrhoids, denies bleeding from rectum, denies diverticulitis, notes constipation, notes diarrhea, denies loss of stool control, and denies hernias. Kidney/Bladder: The patient denies kidney stones, denies urine infections, and denies bloody urine. Skin: The patient notes a history of skin cancer, denies bleeding/changing moles, and denies a history of skin rash. Neurologic: The patient denies a history of epilepsy/convulsions, denies headaches, denies head/spinal injuries, and denies stroke/TIA. Psychiatric: The patient denies psychiatric medications, denies depression, and denies voices, denies substance abuse. Endocrine: The patient denies thyroid disorders, denies diabetes, and denies hormonal problems. Hematologic: The patient denies a history of bruising, denies bleeding, and denies anemia, denies blood clots. Infections: The patient denies a history of measles and mumps, denies rheumatic fever, and denies sexually transmitted diseases. Musculoskeletal: The patient denies back pain/injury, denies back problems, denies sciatica, notes knee/foot trouble, denies arthritis, or notes gout. When was patient's last Mammogram screening? 2021 Last Co (more content not included)... [facility] OPERATIVE NOon 01-21-2022 OPERATIVE NO HNO ID: [id number] Author: Rene Peñaloza MD Service: General Surgery Author Type: Physician Type: Operative Report Filed: 01/21/2022 8:40 AM Note Text: OPERATIVE/PROCEDURE REPORT LOG ID: [id number] SURGERY/PROCEDURE DATE: 01/21/2022 INCISION/PROCEDURE START TIME: 8:02 AM INCISION CLOSE/PROCEDURE END TIME: 8:36 AM SURGEON(S)/PROCEDURALIST(S ) AND RURAL ELECTRIFICATION ENGINEER(S): Surgeon(s) and Role: * Rene Peñaloza MD - Primary Nurse Practitioner: Patsy Rao APRN.MATERIALS DIRECTOR SURGERY/PROCEDURE(S): Excision of an enlarged lymph node right axilla ANESTHESIA: General SURGERY/PROCEDURE DETAILS: Patient was brought into the operating room. Placed in the supine position. Under excellent general anesthetic I ultrasound the right axilla and saw the enlarged lymph node in question. The right axilla was then sterilely prepped and draped in the usual fashion. Local was injected incision was made and dissection was carried down with the electrocautery to the clavipectoral fascia which was opened up I dissected down felt the enlarged lymph node used the Enseal to create good hemostasis from surrounding vessels around this I used the Enseal to remove the enlarged lymph node in question. They came out in 2 pieces. These were sent to pathology fresh. I irrigated out the wound as felt no other suspicious hard nodules. I saw nothing that looks suspicious. I dissected down posteriorly all the way to the latissimus dorsi muscle identified the long thoracic nerve. The lymph node that I took out felt fatty in nature. After this I injected local in the subcu and deep tissues. I brought the deep tissues together with 2-0 Vicryl subcu was brought together with 3-0 Vicryl deep dermals of 3-0 Vicryl then a running 4-0 Monocryl. Steri-Strips were applied sterile dressings were applied and the patient tolerated the procedure well. Patsy Rao APRN.MATERIALS DIRECTOR was my assistant teacher. She assisted with retraction, visualization and performed skin closure. No additional surgeons or qualified residents were available. PRE-OP/PRE-PROCEDURE DIAGNOSIS: Enlarged lymph node to right axilla POST-OP/POST-PROCEDURE DIAGNOSIS: Same as Preop ESTIMATED BLOOD LOSS: < 15 mls SPECIMENS: Enlarged lymph node to right axilla IMPLANTABLE DEVICES: None DRAINS: None COMPLICATIONS: None PARTICIPATION IN SURGERY/PROCEDURE: I/primary surgeon/proceduralist performed the procedure with assistance. SIGNATURE: Rene Peñaloza III, MD PATIENT NAME: Ana Brown DATE: January 21, 2022 TIME: 8:29 AM [facility] SURGICAL PATHOLOGYon 022 CASE REPORT [facility] Comment on above: Order Comment: Speci men Type: TISSUE SPECIMEN Ordering Facility: [facility] Address: [address] [place] [id number] Result Comment: Surg [facility] Pathology Report Case: [id number] Authorizing Provider: Rene Peñaloza MD Collected: 01/21/2022 08:19 AM Ordering Location: [facility] Surgery Received: 01/21/2022 09:24 AM Pathologist: Adela Toney MD Specimen: AXILLARY LYMPH NODES RIGHT Performed By: #### S #### [facility] CLIA [id number] [address] [place] [address] CLINICAL HISTORY Normal [facility] Comment on above: Order Comment: Speci men Type: TISSUE SPECIMEN Ordering Facility: [facility] Address: [address] [place] [address] Result Comment: Pre- op diagnosis: Lymph node enlargement [R59.9] Performed By: #### S #### [facility] CLIA [id number] [address] [place] [address] DIAGNOSIS COMMENT Normal [facility] Comment on above: Order Comment: Speci men Type: TISSUE SPECIMEN Ordering Facility: [facility] Address: [address] [place] [address] Result Comment: The histologic sections, together with the immunohistochemical/ in situ hybridization studies, demonstrate lymph node with large areas showing fatty placement and a peripheral rim of preserved lymph node tissue showing reactive changes. There is no diagnostic evidence of involvement by lymphoma. Correlation with clinical findings and other relevant findings is recommended. 01/28/2022 Laboratory Developed Test (LDT) Disclaimer: Performance characteristics of immunohistochemical, immunofluorescent and chromogenic in-situ hybridization tests have been determined by the performing laboratory within [facility] [place] ([facility], [facility], [facility] or [facility]) in a manner consistent with CLIA requirements. One or more of these tests have not been cleared or approved by the FDA. [facility] is regulated under CLIA as qualified to perform high-complexity testing. These tests are used for clinical purposes. They should not be regarded as investigational or for research. Positive and negative controls stain appropriately. Performed By: #### S #### [facility] CLIA [id number] [address] [place] [address] FINAL DIAGNOSIS [facility] Comment on above: Order Comment: Speci emily Type: TISSUE SPECIMEN Ordering Facility: [facility] Address: [address] [place] [address] Result Comment: A. L ymph nodes, right axillary, excisional biopsy: - Lymph node with fatty replacement and other reactive changes (see comment). SB/01/28/22 Performed By: #### S #### [facility] CLIA [id number] [address] [place] [address] FINAL PERFORMING LAB [facility] Comment on above: Order Comment: Thai diaz Type: TISSUE SPECIMEN Ordering Facility: [facility] Address: [address] [place] [address] Result Comment: Diag nostic interpretation performed at [facility], [address] [place] [address] CLIA# [id number] Process Automation Engineer: Sourav Vazquez M.D. Performed By: #### S #### [facility] CLIA [id number] [address] [place] [address] GROSS DESCRIPTION [facility] Comment on above: Order Comment: Thai diaz Type: TISSUE SPECIMEN Ordering Facility: [facility] Address: [address] [place] [address] Result Comment: A. A XILLARY LYMPH NODES RIGHT Received in formalin, labeled right axillary lymph nodes are two segments of yellow-schmitz fatty tissue aggregating to 5.2 x 4.0 x 1.8 cm. The specimen is imaged prior to dissection to reveal one biopsy clip marker. Dissecting demonstrates four schmitz fatty lymph nodes ranging in size from 0.2 to 3.7 cm in greatest dimension. The largest lymph node demonstrates fatty cut surfaces and contains a coil biopsy clip marker. The lymph nodes are entirely submitted as follows: A1 two intact lymph nodes, A2 one lymph node serially sectioned, A3-A9 one lymph node serially sectioned. TN/mm/01/21/2022 Gross examination performed at [facility], [address] [place] [id number] CLIA# [id number] Performed By: #### S #### [facility] CLIA [id number] [address] [place] [address] [place] MICROSCOPIC DESCRIPTION [facility] Comment on above: Order Comment: Speci men Type: TISSUE SPECIMEN Ordering Facility: [facility] Address: [address] [place] [address] Result Comment: The histologic sections demonstrate an enlarged lymph node largely replaced by adipose tissue showing a peripheral rim of preserved lymphoid architecture showing few follicles with reactive appearing germinal centers, paracortical areas with T-zone nodules and interfollicular small lymphocytes, plasma cells and few histiocytes. Immunohistochemical/ in situ hybridization stains were performed on sections from block A3 for further evaluation of the lymph node. CD20 shows numerous positive cells in the follicles and some scattered otherwise. CD3 shows moderately numerous positive small T cells predominantly outside the follicles. Cyclin D1 is negative in the lymphoid infiltrate. BCL6 highlights rare germinal center that are negative with BCL2. A multiplex, ultrasensitive in situ hybridization dual stain for kappa and lambda highlights the polytypic plasma cells and lymphoid cells. Performed By: #### S #### [facility] CLIA [id number] [address] [place] [address] [place] CBC with auto diff (62245)Or dered By: Vice President Payer on 12-23-2021 Basophils (Bld) [#/Vol] 0.0 10*3/uL Normal 0.0-0.2 [facility]; [facility] Work Phone: Comment on above: PATIENT WAS FASTINGP ERFORMED BY: [employer]70 InfoVistaKindred Hospital [facility] [id number] Basophils/100 WBC (Bld) 1 % Normal [facility]; [facility] Work Phone: Comment on above: PATIENT WAS FASTINGP ERFORMED BY: [employer]6370 InfoVistaKindred [facility] [id number] Eosinophils (Bld) [#/Vol] 0.2 10*3/uL Normal 0.0-0.4 [facility]; [facility] Work Phone: Comment on above: PATIENT WAS FASTINGP ERFORMED BY: CB [facility] Vvsyis9551 [address]y RoadDublin [place] [id number] Eosinophils/100 WBC (Bld) 3 % Normal [facility]; [facility] Work Phone: Comment on above: PATIENT WAS FASTINGP ERFORMED BY: CB [facility] Zydnnu2585 [address]y RoadDublin [place] [id number] Erythrocyte distribution width (RBC) [Ratio] 12.3 % Normal 11.7-15.4 [facility]; [facility] Work Phone: Comment on above: PATIENT WAS FASTINGP ERFORMED BY: CB [facility] Uvemyy3758 Davey Roadblin [place] [id number] Hematocrit (Bld) [Volume fraction] 45.1 % Normal 34.0-46.6 [facility]; [facility] Work Phone: Comment on above: PATIENT WAS FASTINGP ERFORMED BY: CB [facility] Ceceqs3345 [address] Roadblin [place] [id number] Hemoglobin (Bld) [Mass/Vol] 14.8 g/dL Normal 11.1-15.9 [facility]; [facility] Work Phone: Comment on above: PATIENT WAS FASTINGP ERFORMED BY: CB [facility] Nrumca7919 [address] RoadDublin [place] [id number] Immature granulocytes (Bld) [#/Vol] 0.0 10*3/uL Normal 0.0-0.1 [facility]; [facility] Work Phone: Comment on above: PATIENT WAS FASTINGP ERFORMED BY: CB [facility] Drgyya2788 [address]y RoadDublin [place] [id number] Immature granulocytes/100 WBC (Bld) 0 % Normal [facility]; [facility] Work Phone: Comment on above: PATIENT WAS FASTINGP ERFORMED BY: CB [facility] Rdmhxy1015 [address] RoadDublin [place] [id number] Lymphocytes (Bld) [#/Vol] 1.8 10*3/uL Normal 0.7-3.1 [facility]; [facility] Work Phone: Comment on above: PATIENT WAS FASTINGP ERFORMED BY: MOMO [facility] Ilhsfg3282 [address]y RoadDublin [place] [id number] Lymphocytes/100 WBC (Bld) 29 % Normal [facility]; [facility] Work Phone: Comment on above: PATIENT WAS FASTINGP ERFORMED BY: CB [facility] Ahuitl5612 [address] RoadDublin [place] [id number] MCH (RBC) [Entitic mass] 29.6 pg Normal 26.6-33.0 [facility]; [facility] Work Phone: Comment on above: PATIENT WAS FASTINGP ERFORMED BY: [facility] Bzzbey3223 [address] RoadDublin [place] [id number] MCHC (RBC) [Mass/Vol] 32.8 g/dL Normal 31.5-35.7 [facility]; [facility] Work Phone: Comment on above: PATIENT WAS FASTINGP ERFORMED BY: [facility] Ihfaiv6200 [address] RoadDublin [place] [id number] MCV (RBC) [Entitic vol] 90 fL Normal 79-97 [facility]; [facility] Work Phone: Comment on above: PATIENT WAS FASTINGP ERFORMED BY: [facility] Crahmq2367 [address] RoadDublin [place] [id number] Monocytes (Bld) [#/Vol] 0.5 10*3/uL Normal 0.1-0.9 [facility]; [facility] Work Phone: Comment on above: PATIENT WAS FASTINGP ERFORMED BY: [facility] Zbtvdv2410 [address] RoadDublin [place] [id number] Monocytes/100 WBC (Bld) 8 % Normal [facility]; [facility] Work Phone: Comment on above: PATIENT WAS FASTINGP ERFORMED BY: [facility] Idwwjf3683 [address] RoadDublin [place] [id number] Neutrophils (Bld) [#/Vol] 3.8 10*3/uL Normal 1.4-7.0 [facility]; [facility] Work Phone: Comment on above: PATIENT WAS FASTINGP ERFORMED BY: MOMO Judah Nguyễn6370 [address] RoadDublin [place] [id number] Neutrophils/100 WBC (Bld) 59 % Normal [facility]; [facility] Work Phone: Comment on above: PATIENT WAS FASTINGP ERFORMED BY: MOMO [facility] Eadmxv9061 [address] RoadDublin [place] [id number] Platelets (Bld) [#/Vol] 245 10*3/uL Normal 150-450 [facility]; [facility] Work Phone: Comment on above: PATIENT WAS FASTINGP ERFORMED BY: MOMO Labpaulette Nguyễn6370 [address] RoadDublin [place] [id number] RBC (Bld) [#/Vol] 5.00 10*6/uL Normal 3.77-5.28 Compr [facility] Internal [facility]; [facility] Work Phone: Comment on above: PATIENT WAS FASTINGP ERFORMED BY: MOMO Jordynpaulette Xltinj7959 [address] RoadDublin [place] [id number] WBC (Bld) [#/Vol] 6.3 10*3/uL Normal 3.4-10.8 [facility]; [facility] Work Phone: Comment on above: PATIENT WAS FASTINGP ERFORMED BY: MOMO Labcomega Hpsyqq[address] [facility]in [place] [id number] HGB A1C ([id number])Ordered By: S ystem Inventory Clerk on 12-23-2021 HbA1c (Bld) [Mass fraction] 5.7 % Abnormal 4.8-5.6 [facility]; [facility] Work Phone: Comment on above: . Prediabetes: 5.7 - 6.4 Diabetes: >6.4 Glycemic control for adults with diabetes: <7.0 PATIENT WAS FASTINGP ERFORMED BY: MOMO [facility] Zirdad9581 [address] RoadDublin [place] [id number] LIPID PANEL (47386)Ordered B y: Vice President Payer on 12-23-2021 Cholesterol [Mass/Vol] 193 mg/dL Normal 100-199 [facility]; [facility] Work Phone: Comment on above: PATIENT WAS FASTINGP ERFORMED BY: MOMO Labcomega Trhjbj2087 [address]y RoadDublin [place] [id number] Cholesterol in HDL [Mass/Vol] 55 mg/dL Normal [facility]; [facility] Work Phone: Comment on above: PATIENT WAS FASTINGP ERFORMED BY: MOMO [facility] Aozlbe2782 [address] RoadDublin [place] [id number] Triglyceride [Mass/Vol] 99 mg/dL Normal 0-149 [facility]; [facility] Work Phone: Comment on above: PATIENT WAS FASTINGP ERFORMED BY: MOMO [facility] Lhrbpn3839 [address] RoadDublin [place] [id number] LIPID PANEL (74711) 18 mg/dL Normal 5-40 Compr ensive [facility] Medicine; [facility] Work Phone: Comment on above: PATIENT WAS FASTINGP ERFORMED BY: MOMO [facility] Mtpzpd7487 [address] RoadDublin [place] [id number] LIPID PANEL (43294) 120 mg/dL Abnormal 0-99 [facility]; [facility] Work Phone: Comment on above: PATIENT WAS FASTINGP ERFORMED BY: MOMO [facility] Gijwyp0507 [address] RoadDublin [place] [id number] LIPID PANEL (44778) 2.2 {ratio} Normal 0.0-3.2 [facility]; [facility] Work Phone: Comment on above: LDL/HDL Ratio Men Wo men 1/2 Avg.Risk 1.0 1.5 Avg.Risk 3.6 3.2 2X Avg.Risk 6.2 5.0 3X Avg.Risk 8.0 6.1 PATIENT WAS FASTINGP ERFORMED BY: MOMO [facility] Gecxzy4718 [address] RoadDublin [place] [id number] METABOLIC PANEL, COMPREHENSI VE (85711)Ordered By: Vice President Payer on 12-23-2021 Albumin [Mass/Vol] 3.8 g/dL Normal 3.8-4.8 [facility]; [facility] Work Phone: Comment on above: PATIENT WAS FASTINGP ERFORMED BY: CB [facility] Grwzgd2703 [address] RoadDublin [place] [id number] Albumin/Globulin [Mass ratio] 1.6 {ratio} Normal 1.2-2.2 [facility]; [facility] Work Phone: Comment on above: PATIENT WAS FASTINGP ERFORMED BY: CB [facility] Uvnnfd8911 [address] RoadDublin [place] [id number] ALP [Catalytic activity/Vol] 70 U/L Normal 44-121 [facility]; [facility] Work Phone: Comment on above: PATIENT WAS FASTINGP ERFORMED BY: CB [facility] Qzsjsi6649 [address] RoadDublin [place] [id number] ALT [Catalytic activity/Vol] 12 U/L Normal 0-32 [facility]; [facility] Work Phone: Comment on above: PATIENT WAS FASTINGP ERFORMED BY: CB [facility] Ktoqfd1225 [address] RoadDublin [place] [id number] AST [Catalytic activity/Vol] 15 U/L Normal 0-40 [facility]; [facility] Work Phone: Comment on above: PATIENT WAS FASTINGP ERFORMED BY: CB [facility] Gpyqwy6539 [address] RoadDublin [place] [id number] Bilirubin [Mass/Vol] 0.3 mg/dL Normal 0.0-1.2 [facility] Internal Medicine; [facility] Work Phone: Comment on above: PATIENT WAS FASTINGP ERFORMED BY: CB [facility] Hlzjnk1723 [address] RoadDublin [place] [id number] Calcium [Mass/Vol] 9.1 mg/dL Normal 8.7-10.3 [facility] Internal [facility]; [facility] Work Phone: Comment on above: PATIENT WAS FASTINGP ERFORMED BY: CB [facility] Cgnbzr9350 [address] RoadDublin [place] [id number] Chloride [Moles/Vol] 107 mmol/L Abnormal 96-106 Comp rehensive Internal Medicine; [facility] Work Phone: Comment on above: PATIENT WAS FASTINGP ERFORMED BY: MOMO Nguyễn6370 [facility] [id number] CO2 [Moles/Vol] 23 mmol/L Normal 20-29 Comprehen [facility]; [facility] Work Phone: Comment on above: PATIENT WAS FASTINGP ERFORMED BY: [facility] Fbbgij7012 [facility] [id number] Creatinine [Mass/Vol] 1.00 mg/dL Normal 0.57-1.00 [facility]; [facility] Work Phone: Comment on above: PATIENT WAS FASTINGP ERFORMED BY: MOMO Jordynsoutheast [facility] Townhs8297 [facility] [id number] GFR/1.73 sq M.predicted among non-blacks MDRD (S/P/Bld) [Vol rate/Area] 62 mL/min/{1.73_m2} Normal Comprehensiv e Internal [facility]; [facility] Work Phone: Comment on above: PATIENT WAS FASTINGP ERFORMED BY: MOMO Ruben Pzpqfv6365 [facility] [id number] Globulin (S) [Mass/Vol] 2.4 g/dL Normal 1.5-4.5 [facility]; [facility] Work Phone: Comment on above: PATIENT WAS FASTINGP ERFORMED BY: JordynBronson [facility]View Hospital6370 [facility] [id number] Glucose [Mass/Vol] 93 mg/dL Normal 65-99 Compre [facility] Internal [facility]; [facility] Work Phone: Comment on above: PATIENT WAS FASTINGP ERFORMED BY: MOMO J[facility]yns[facility] Jvccru1200 [facility] [id number] Potassium [Moles/Vol] 4.6 mmol/L Normal 3.5-5.2 [facility]; [facility] Work Phone: Comment on above: PATIENT WAS FASTINGP ERFORMED BY: MOMO Labpaulette Cwedsl4441 [address]y RoadDublin [place] [id number] Protein [Mass/Vol] 6.2 g/dL Normal 6.0-8.5 [facility]; [facility] Work Phone: Comment on above: PATIENT WAS FASTINGP ERFORMED BY: MOMO Labpaulette BarajasEtggit3080 [address] RoadDublin [place] [id number] Sodium [Moles/Vol] 143 mmol/L Normal 134-144 [facility]; [facility] Work Phone: Comment on above: PATIENT WAS FASTINGP ERFORMED BY: MOMO Labpaulette BarajasIjdvrq8476 [address] RoadDublin [place] [id number] Urea nitrogen [Mass/Vol] 15 mg/dL Normal 8-27 [facility]; [facility] Work Phone: Comment on above: PATIENT WAS FASTINGP ERFORMED BY: MOMO Labbijanmega Mjbngs7381 [address] Roadblin [place] [id number] Urea nitrogen/Creatinine [Mass ratio] 15 mg/mg Normal 12-28 [facility]; [facility] Work Phone: Comment on above: PATIENT WAS FASTINGP ERFORMED BY: MOMO Jordynpaulette Njwmyr[address] [facility]in [place] [id number] HGB A1C ([id number])Ordered By: S ystem Inventory Clerk on 09-11-2021 HbA1c (Bld) [Mass fraction] 5.7 % Abnormal 4.8-5.6 [facility]; [facility] Work Phone: Comment on above: . Prediabetes: 5.7 - 6.4 Diabetes: >6.4 Glycemic control for adults with diabetes: <7.0 PATIENT WAS FASTINGP ERFORMED BY: MOMO [facility] Ujgluz[address] [facility] Hospitalblin [place] [id number] LIPID PANEL (33339)Ordered B y: Vice President Payer on 09-11-2021 Cholesterol [Mass/Vol] 204 mg/dL Abnormal 100-199 [facility]; [facility] Work Phone: Comment on above: PATIENT WAS FASTINGP ERFORMED BY: MOMO Labpaulette BarajasChdamt6068 [address] RoadDublin [place] [id number] Cholesterol in HDL [Mass/Vol] 62 mg/dL Normal [facility]; [facility] Work Phone: Comment on above: PATIENT WAS FASTINGP ERFORMED BY: MOMO Labpaulette BarajasHvdhiw0766 [address] RoadDublin [place] [id number] Triglyceride [Mass/Vol] 88 mg/dL Normal 0-149 [facility]; [facility] Work Phone: Comment on above: PATIENT WAS FASTINGP ERFORMED BY: MOMO Labpaulette BarajasZpoila[address] [facility] [id number] LIPID PANEL (86424) 2.0 {ratio} Normal 0.0-3.2 [facility]; [facility] Work Phone: Comment on above: LDL/HDL Ratio Men Wo men 1/2 Avg.Risk 1.0 1.5 Avg.Risk 3.6 3.2 2X Avg.Risk 6.2 5.0 3X Avg.Risk 8.0 6.1 PATIENT WAS FASTINGP ERFORMED BY: MOMO Labpaulette Bbffmj6787 Davey RoadDuin [place] [id number] LIPID PANEL (35392) 126 mg/dL Abnormal 0-99 [facility]; [facility] Work Phone: Comment on above: PATIENT WAS FASTINGP ERFORMED BY: MOMO Labpaulette Cebocb4315 [address] RoadDublin [place] [id number] LIPID PANEL (45835) 16 mg/dL Normal 5-40 [facility] Internal Medicine; [facility] Work Phone: Comment on above: PATIENT WAS FASTINGP ERFORMED BY: MOMO Labpaulette Ysatqk8202 [address] RoadDublin [place] [id number] METABOLIC PANEL, COMPREHENSI VE (36295)Ordered By: Vice President Payer on 09-11-2021 Albumin [Mass/Vol] 4.0 g/dL Normal 3.8-4.8 [facility]; [facility] Work Phone: Comment on above: PATIENT WAS FASTINGP ERFORMED BY: MOMO Mirandarp Jbhqqw0802 [address] RoadDublin [place] [id number] Albumin/Globulin [Mass ratio] 1.7 {ratio} Normal 1.2-2.2 [facility]; [facility] Work Phone: Comment on above: PATIENT WAS FASTINGP ERFORMED BY: MOMO Miranda Lufuvm2258 [address]y RoadDublin [place] [id number] ALP [Catalytic activity/Vol] 72 U/L Normal 44-121 [facility]; [facility] Work Phone: Comment on above: PATIENT WAS FASTINGP ERFORMED BY: MOMO [facility] Tavipb2695 [address] Roadblin [place] [id number] ALT [Catalytic activity/Vol] 15 U/L Normal 0-32 [facility]; [facility] Work Phone: Comment on above: PATIENT WAS FASTINGP ERFORMED BY: MOMO Miranda Cngtcl6035 [address] RoadDuin [place] [id number] AST [Catalytic activity/Vol] 17 U/L Normal 0-40 [facility]; [facility] Work Phone: Comment on above: PATIENT WAS FASTINGP ERFORMED BY: MOMO Nguyễn6370 Davey RoadNovant Health Rehabilitation Hospitalin [place] [id number] Bilirubin [Mass/Vol] 0.3 mg/dL Normal 0.0-1.2 [facility] rehensive Internal Medicine; [facility] Work Phone: Comment on above: PATIENT WAS FASTINGP ERFORMED BY: MOMO [facility] Eunici5992 Davey RoadNovant Health Rehabilitation Hospitalin [place] [id number] Calcium [Mass/Vol] 8.9 mg/dL Normal 8.7-10.3 [facility]; [facility] Work Phone: Comment on above: PATIENT WAS FASTINGP ERFORMED BY: MOMO Miranda Ejilnp7968 [address] RoadDublin [place] [id number] Chloride [Moles/Vol] 107 mmol/L Abnormal 96-106 Comp rehensive Internal Medicine; [facility] Work Phone: Comment on above: PATIENT WAS FASTINGP ERFORMED BY: MOMO So Zrqbig9163 [address] RoadDublin [place] [id number] CO2 [Moles/Vol] 21 mmol/L Normal 20-29 Comprehen [facility]; [facility] Work Phone: Comment on above: PATIENT WAS FASTINGP ERFORMED BY: CB [facility] Qoykzl3337 [address]y RoadDublin [place] [id number] Creatinine [Mass/Vol] 0.92 mg/dL Normal 0.57-1.00 [facility]; [facility] Work Phone: Comment on above: PATIENT WAS FASTINGP ERFORMED BY: CB [facility] Ybhkwf3318 [address] RoadDublin [place] [id number] GFR/1.73 sq M.predicted among non-blacks MDRD (S/P/Bld) [Vol rate/Area] 69 mL/min/{1.73_m2} Normal Comprehensiv e Internal Medicine; [facility] Work Phone: Comment on above: PATIENT WAS FASTINGP ERFORMED BY: [facility] Aluojf6518 [address]y RoadDublin [place] [id number] Globulin (S) [Mass/Vol] 2.3 g/dL Normal 1.5-4.5 [facility]; [facility] Work Phone: Comment on above: PATIENT WAS FASTINGP ERFORMED BY: [facility] Cvhjol4335 [address] RoadDublin [place] [id number] Glucose [Mass/Vol] 99 mg/dL Normal 65-99 [facility]; [facility] Work Phone: Comment on above: PATIENT WAS FASTINGP ERFORMED BY: CB [facility] Blskoi8891 [address]y RoadDublin [place] [id number] Potassium [Moles/Vol] 4.4 mmol/L Normal 3.5-5.2 [facility]; [facility] Work Phone: Comment on above: PATIENT WAS FASTINGP ERFORMED BY: CB [facility] Olbiql7719 [address] RoadDublin [place] [id number] Protein [Mass/Vol] 6.3 g/dL Normal 6.0-8.5 [facility]; [facility] Work Phone: Comment on above: PATIENT WAS FASTINGP ERFORMED BY: [facility] Dmiaqu6913 [facility] [id number] Sodium [Moles/Vol] 141 mmol/L Normal 134-144 [facility] Internal [facility]; [facility] Work Phone: Comment on above: PATIENT WAS FASTINGP ERFORMED BY: [place] 8491170 [facility] [id number] Urea nitrogen [Mass/Vol] 17 mg/dL Normal 8-27 [facility]; [facility] Work Phone: Comment on above: PATIENT WAS FASTINGP ERFORMED BY: [facility]6370 [facility] [id number] Urea nitrogen/Creatinine [Mass ratio] 18 mg/mg Normal 12- [facility]; [facility] Work Phone: Comment on above: PATIENT WAS FASTINGP ERFORMED BY: [facility]6[address] [facility] [id number] VITAMIN B-12 (CYANOCOBALAMIN ) (67256)Ordered By: Vice President Payer on 09-11-2021 Cobalamin (Vitamin B12) [Mass/Vol] 1605 pg/mL Abnormal 232-1245 [facility]; [facility] Work Phone: Comment on above: PATIENT WAS FASTINGP ERFORMED BY: [facility]6[address] [facility] [id number] 2019 Novel Coronavirus (COVI D-19), EDWIGE (47486)Ordered By: Vice President Payer on 04-30-2021 2019 Novel Coronavirus (COVID-19), EDWIGE (10076) Not detected Normal [facility]; [facility] Work Phone: Comment on above: This nucleic acid am plification test was developed and its performancecharacteristics determined by [employer]. Nucleic acidamplification tests include RT-PCR and TMA. This test has not beenFDA cleared or approved. This test has been authorized by FDA underan Emergency Use Authorization (EUA). This test is only authorizedfor the duration of time the declaration that circumstances existjustifying the authorization of the emergency use of in vitrodiagnostic tests for detection of SARS-CoV-2 virus and/or diagnosisof COVID-19 infection under section 564(b)(1) of the Act, 21 U.S.C.360bbb-3(b) (1), unless the authorization is terminated or revokedsooner.When diagnostic testing is negative, the possibility of a falsenegative result should be considered in the context of a patient'srecent exposures and the presence of clinical signs and symptomsconsistent with COVID-19. An individual without symptoms of COVID-19and who is not shedding SARS-CoV-2 virus would expect to have anegative (not detected) result in this assay. PATIENT NOT FASTINGP ERFORMED BY: [facility]EC[facility] [id number] CBC W/AUTO DIFF WBC (10196)O rdered By: Vice President Payer on 04-22-2021 Basophils (Bld) [#/Vol] 0.0 10*3/uL Normal 0.0-0.2 [facility]; [facility] Work Phone: Comment on above: PATIENT WAS FASTINGP ERFORMED BY: Enable HoldingsUNC Health Caldwell [id number] Information: NURSE DRAW Basophils/100 WBC (Bld) 1 % Normal [facility]; [facility] Work Phone: Comment on above: PATIENT WAS FASTINGP ERFORMED BY: [facility] PharmaUNC Health Caldwell [id number] Information: NURSE DRAW Eosinophils (Bld) [#/Vol] 0.1 10*3/uL Normal 0.0-0.4 [facility]; [facility] Work Phone: Comment on above: PATIENT WAS FASTINGP ERFORMED BY: Enable HoldingsUNC Health Caldwell [id number] Information: NURSE DRAW Eosinophils/100 WBC (Bld) 2 % Normal [facility]; [facility] Work Phone: Comment on above: PATIENT WAS FASTINGP ERFORMED BY: MOMO [facility] Rebnif1688 [facility] [id number] Information: NURSE DRAW Erythrocyte distribution width (RBC) [Ratio] 12.2 % Normal 11.7-15.4 [facility]; [facility] Work Phone: Comment on above: PATIENT WAS FASTINGP ERFORMED BY: Jordyn[address] [id number] Information: NURSE DRAW Hematocrit (Bld) [Volume fraction] 46.6 % Normal 34.0-46.6 [facility]; [facility] Work Phone: Comment on above: PATIENT WAS FASTINGP ERFORMED BY: MOMO [facility] Mrrmma[address] [id number] Information: NURSE DRAW Hemoglobin (Bld) [Mass/Vol] 15.2 g/dL Normal 11.1-15.9 [facility]; [facility] Work Phone: Comment on above: PATIENT WAS FASTINGP ERFORMED BY: JordynSharon [place] [id number] [facility] [id number] Information: NURSE DRAW Immature granulocytes (Bld) [#/Vol] 0.0 10*3/uL Normal 0.0-0.1 [facility]; [facility] Work Phone: Comment on above: PATIENT WAS FASTINGP ERFORMED BY: [place] 8491170 [facility] [id number] Information: NURSE DRAW Immature granulocytes/100 WBC (Bld) 0 % Normal [facility]; [facility] Work Phone: Comment on above: PATIENT WAS FASTINGP ERFORMED BY: [place] [id number] [facility] [id number] Information: NURSE DRAW Lymphocytes (Bld) [#/Vol] 1.7 10*3/uL Normal 0.7-3.1 [facility]; [facility] Work Phone: Comment on above: PATIENT WAS FASTINGP ERFORMED BY: MOMO JordynSh[place] 8111070 [facility] [id number] Information: NURSE DRAW Lymphocytes/100 WBC (Bld) 29 % Normal [facility]; [facility] Work Phone: Comment on above: PATIENT WAS FASTINGP ERFORMED BY: MOMO [address] [id number] Information: NURSE DRAW MCH (RBC) [Entitic mass] 29.0 pg Normal 26.6-33.0 [facility]; [facility] Work Phone: Comment on above: PATIENT WAS FASTINGP ERFORMED BY: MOMO [address] [id number] Information: NURSE DRAW MCHC (RBC) [Mass/Vol] 32.6 g/dL Normal 31.5-35.7 [facility]; [facility] Work Phone: Comment on above: PATIENT WAS FASTINGP ERFORMED BY: MOMO [address] [id number] Information: NURSE DRAW MCV (RBC) [Entitic vol] 89 fL Normal 79-97 [facility]; [facility] Work Phone: Comment on above: PATIENT WAS FASTINGP ERFORMED BY: MOMO [address] [id number] Information: NURSE DRAW Monocytes (Bld) [#/Vol] 0.4 10*3/uL Normal 0.1-0.9 [facility]; [facility] Work Phone: Comment on above: PATIENT WAS FASTINGP ERFORMED BY: MOMO [address] [id number] Information: NURSE DRAW Monocytes/100 WBC (Bld) 7 % Normal [facility]; [facility] Work Phone: Comment on above: PATIENT WAS FASTINGP ERFORMED BY: MOMO [address] [id number] Information: NURSE DRAW Neutrophils (Bld) [#/Vol] 3.7 10*3/uL Normal 1.4-7.0 [facility]; [facility] Work Phone: Comment on above: PATIENT WAS FASTINGP ERFORMED BY: MOMO [facility]leyM[facility] [id number] Information: NURSE DRAW Neutrophils/100 WBC (Bld) 61 % Normal [facility]; [facility] Work Phone: Comment on above: PATIENT WAS FASTINGP ERFORMED BY: MOMO Nguyễn6370 [facility] [id number] Information: NURSE DRAW Platelets (Bld) [#/Vol] 247 10*3/uL Normal 150-450 [facility]; [facility] Work Phone: Comment on above: PATIENT WAS FASTINGP ERFORMED BY: MOMO Miranda Wpedcn[address] [id number] Information: NURSE DRAW RBC (Bld) [#/Vol] 5.25 10*6/uL Normal 3.77-5.28 [facility] Internal [facility]; [facility] Work Phone: Comment on above: PATIENT WAS FASTINGP ERFORMED BY: MOMO Nguyễn6370 [facility] [id number] Information: NURSE DRAW WBC (Bld) [#/Vol] 6.0 10*3/uL Normal 3.4-10.8 [facility]; [facility] Work Phone: Comment on above: PATIENT WAS FASTINGP ERFORMED BY: MOMO Miranda Rgvmqu8561 [facility] [id number] Information: NURSE DRAW METABOLIC PANEL, ERIBERTO BROWN (90479)Ordered By: Vice President Payer on 04-22-2021 Albumin [Mass/Vol] 4.3 g/dL Normal 3.8-4.8 [facility]ive [facility]; [facility] Work Phone: Comment on above: PATIENT WAS FASTINGP ERFORMED BY: MOMO Miranda Bzksrq0071 [facility] [id number]; appt 05/06 Albumin/Globulin [Mass ratio] 1.9 {ratio} Normal 1.2-2.2 [facility]; [facility] Work Phone: Comment on above: PATIENT WAS FASTINGP ERFORMED BY: CB [facility] Rewkdg3457 Davey RoadDublin [place] [id number]; appt 05/06 ALP [Catalytic activity/Vol] 67 U/L Normal 44-121 [facility]; [facility] Work Phone: Comment on above: Please note refere nce interval change PATIENT WAS FASTINGP ERFORMED BY: CB [facility] Ekjaoc8817 [address]y RoadDublin [place] [id number]; appt 05/06 ALT [Catalytic activity/Vol] 17 U/L Normal 0-32 [facility]; [facility] Work Phone: Comment on above: PATIENT WAS FASTINGP ERFORMED BY: CB [facility] Jbejpg9357 [address]y RoadDublin [place] [id number]; appt 05/06 AST [Catalytic activity/Vol] 19 U/L Normal 0-40 [facility]; [facility] Work Phone: Comment on above: PATIENT WAS FASTINGP ERFORMED BY: CB [facility] Cqiyig5644 [address]y RoadDublin [place] [id number]; appt 05/06 Bilirubin [Mass/Vol] 0.6 mg/dL Normal 0.0-1.2 [facility] Hospitalensive [facility]; [facility] Work Phone: Comment on above: PATIENT WAS FASTINGP ERFORMED BY: CB [facility] Xonaye1289 [address] RoadDublin [place] [id number]; appt 05/06 Calcium [Mass/Vol] 9.3 mg/dL Normal 8.7-10.3 [facility]; [facility] Work Phone: Comment on above: PATIENT WAS FASTINGP ERFORMED BY: CB [facility] Bfrpzj1388 [address]y RoadDublin [place] [id number]; appt 05/06 Chloride [Moles/Vol] 108 mmol/L Abnormal 96-106 Comp rehensive Internal Medicine; [facility] Work Phone: Comment on above: PATIENT WAS FASTINGP ERFORMED BY: MOMO Nguyễn63Bar[address] [place] [id number]; appt 05/06 CO2 [Moles/Vol] 21 mmol/L Normal 20-29 Comprehen [facility]; [facility] Work Phone: Comment on above: PATIENT WAS FASTINGP ERFORMED BY: MOMO Crowleyox MabelECU Health [facility] Hospital [id number]; appt 05/06 Creatinine [Mass/Vol] 0.98 mg/dL Normal 0.57-1.00 [facility]; [facility] Work Phone: Comment on above: PATIENT WAS FASTINGP ERFORMED BY: MOMO Nguyễn63Barbara CrowleyMoberly [facility] Center [id number]; appt 05/06 GFR/1.73 sq M.predicted among blacks CKD-EPI (S/P/Bld) [Vol rate/Area] 70 mL/min/1.73 Normal [facility]; [facility] Work Phone: Comment on above: In accordance with recommendations from the NKF-ASN Task force, [facility] is in the process of updating its eGFR calculation to the 2020 CKD-EPI creatinine equation that estimates kidney function without a race variable. PATIENT WAS FASTINGP ERFORMED BY: MOMO Nguyễn6370 DaveyMoberly Regional [facility] Center [id number]; appt 05/06 GFR/1.73 sq M.predicted among non-blacks CKD-EPI (S/P/Bld) [Vol rate/Area] 61 mL/min/1.73 Normal [facility]; [facility] Work Phone: Comment on above: PATIENT WAS FASTINGP ERFORMED BY: MOMO Nguyễn6370 DaveyMoberly [facility] [id number]; appt 05/06 Globulin (S) [Mass/Vol] 2.3 g/dL Normal 1.5-4.5 [facility]; [facility] Work Phone: Comment on above: PATIENT WAS FASTINGP ERFORMED BY: MOMO [facility] Spmvjo7442 [address]y RoadDublin [place] [id number]; appt 12 Glucose [Mass/Vol] 92 mg/dL Normal 65-99 [facility] Internal [facility]; [facility] Work Phone: Comment on above: PATIENT WAS FASTINGP ERFORMED BY: MOMO [facility] Cqfesr2580 [address]y RoadDublin [place] [id number]; appt 05/06 Potassium [Moles/Vol] 4.5 mmol/L Normal 3.5-5.2 [facility]; [facility] Work Phone: Comment on above: PATIENT WAS FASTINGP ERFORMED BY: MOMO [facility] Ehvnme3811 [address]y RoadDublin [place] [id number]; appt 05/06 Protein [Mass/Vol] 6.6 g/dL Normal 6.0-8.5 [facility]; [facility] Work Phone: Comment on above: PATIENT WAS FASTINGP ERFORMED BY: MOMO [facility] Kfwtap9301 [address]y RoadDublin [place] [id number]; appt 05/06 Sodium [Moles/Vol] 140 mmol/L Normal 134-144 [facility]; [facility] Work Phone: Comment on above: PATIENT WAS FASTINGP ERFORMED BY: MOMO [facility] Yxtvuq3148 [address] RoadDublin [place] [id number]; appt 05/06 Urea nitrogen [Mass/Vol] 16 mg/dL Normal 8-27 [facility]; [facility] Work Phone: Comment on above: PATIENT WAS FASTINGP ERFORMED BY: MOMO [facility] Odbrms7562 [address] RoadDublin [place] [id number]; appt 12 Urea nitrogen/Creatinine [Mass ratio] 16 mg/mg Normal 12-28 [facility]; [facility] Work Phone: Comment on above: PATIENT WAS FASTINGP ERFORMED BY: MOMO [facility] Hmwgbn9982 Davey RoadDublin [place] [id number]; appt 05/06 MICROALBUMINOrdered By: Syst em Inventory Clerk on 04-22-2021 Albumin DL <= 20 mg/L (U) [Mass/Vol] mg/dL Normal Comprehensiv e Internal Medicine; [facility] Work Phone: Comment on above: Verified by repeat analysis PATIENT WAS FASTINGP ERFORMED BY: MOMO Labcomega Yazjmv4270 [address] RoadDublin [place] [id number] Albumin/Creatinine (U) [Mass ratio] <3 Normal 0-29 [facility]; [facility] Work Phone: Comment on above: Normal: 0 - 29 Moder ately increased: 30 - 300 Severely increased: >300 PATIENT WAS FASTINGP ERFORMED BY: MOMO Labc[facility] Fazing8414 [address] RoadDublin [place] [id number] Creatinine (U) [Mass/Vol] 110.1 mg/dL Normal [facility]; [facility] Work Phone: Comment on above: PATIENT WAS FASTINGP ERFORMED BY: MOMO Labcomega Uduplg9111 [address] RoadDublin [place] [id number] URINALYSIS, W/ MICRO ([id number]) Ordered By: Vice President Payer on 04-22-2021 Appearance (U) Clear Normal Comprehens say [facility]; [facility] Work Phone: Comment on above: PATIENT WAS FASTINGP ERFORMED BY: MOMO Labpaulette BarajasAkfbqq1228 [address] RoadDublin [place] [id number] Bilirubin Ql (U) Negative Normal Comprehe nsive Internal Medicine; [facility] Work Phone: Comment on above: PATIENT WAS FASTINGP ERFORMED BY: MOMO [facility] Xypiiu6992 [address] RoadDublin [place] [id number] Color (U) Yellow Normal [facility]; [facility] Work Phone: Comment on above: PATIENT WAS FASTINGP ERFORMED BY: MOMO [facility] Jlwcuv0064 [address] RoadDublin [place] [id number] Glucose Ql (U) Negative Normal Comprehens say [facility] Medicine; [facility] Work Phone: Comment on above: PATIENT WAS FASTINGP ERFORMED BY: MOMO Labpaulette Hhmbfc2398 [address] RoadDublin [place] [id number] Hemoglobin Ql (U) Negative Normal Compreh ensive Internal Medicine; [facility] Work Phone: Comment on above: PATIENT WAS FASTINGP ERFORMED BY: MOMO Labpaulette BarajasEfedld9415 [address] RoadDublin [place] [id number] Ketones Ql (U) Negative Normal Comprehens say [facility] Medicine; [facility] Work Phone: Comment on above: PATIENT WAS FASTINGP ERFORMED BY: MOMO Labcomega BarajasOoieux9454 [address] RoadDublin [place] [id number] Leukocyte esterase Test strip Ql (U) Negative Normal [facility]; [facility] Work Phone: Comment on above: PATIENT WAS FASTINGP ERFORMED BY: MOMO Barajaslin6370 [address]Dublin [place] [id number] Microscopic observation LM Nom (Urine sed) MICRON Normal [facility]; [facility] Work Phone: Comment on above: Microscopic follows if indicated. PATIENT WAS FASTINGP ERFORMED BY: MOMO Labcomega BarajasCuktpe8239 [address] RoadDublin [place] [id number] Microscopic observation LM Nom (Urine sed) See below: Normal [facility]; [facility] Work Phone: Comment on above: Microscopic was shabbir cated and was performed. PATIENT WAS FASTINGP ERFORMED BY: MOMO [facility] Fbodpb7781 [address]y RoadDublin [place] [id number] Nitrite Ql (U) Negative Normal Comprehens say Internal Medicine; [facility] Work Phone: Comment on above: PATIENT WAS FASTINGP ERFORMED BY: MOMO [facility] Uczlkf4803 [address] RoadDublin [place] [id number] pH (U) 5.0 [pH] Normal 5.0-7.5 [facility]; [facility] Work Phone: Comment on above: PATIENT WAS FASTINGP ERFORMED BY: MOMO [facility] Xqbiwf8442 [address] RoadDublin [place] [id number] Protein Ql (U) Negative Normal Comprehens say Internal Medicine; [facility] Work Phone: Comment on above: PATIENT WAS FASTINGP ERFORMED BY: MOMO Miranda Gbermu1113 [facility] [id number] Specific gravity (U) [Rel density] 1.021 1 Normal 1.005-1.03 0 [facility]; [facility] Work Phone: Comment on above: PATIENT WAS FASTINGP ERFORMED BY: [facility] Ebbowu4514 [facility] [id number] Urobilinogen (U) [Mass/Vol] 0.2 mg/dL Normal 0.2-1.0 [facility]; [facility] Work Phone: Comment on above: PATIENT WAS FASTINGP ERFORMED BY: [facility] Nzscrm5001 [facility] [id number] CBC W/AUTO DIFF WBC (46899)O rdered By: Vice President Payer on 12-31-2020 Basophils (Bld) [#/Vol] 0.0 10*3/uL Normal 0.0-0.2 [facility]; [facility] Work Phone: Comment on above: PATIENT WAS FASTINGP ERFORMED BY: Ruben Tnqaca3617 [facility] [id number] Basophils/100 WBC (Bld) 1 % Normal [facility]; [facility] Work Phone: Comment on above: PATIENT WAS FASTINGP ERFORMED BY: [facility]6370 [facility] [id number] Eosinophils (Bld) [#/Vol] 0.2 10*3/uL Normal 0.0-0.4 [facility]; [facility] Work Phone: Comment on above: PATIENT WAS FASTINGP ERFORMED BY: [facility]6370 [facility] [id number] Eosinophils/100 WBC (Bld) 3 % Normal [facility]; [facility] Work Phone: Comment on above: PATIENT WAS FASTINGP ERFORMED BY: MOMO [facility] Xugwgq4616 [address]y RoadDublin [place] [id number] Erythrocyte distribution width (RBC) [Ratio] 12.4 % Normal 11.7-15.4 [facility]; [facility] Work Phone: Comment on above: PATIENT WAS FASTINGP ERFORMED BY: [facility] Jpwiar5579 [address]y RoadDublin [place] [id number] Hematocrit (Bld) [Volume fraction] 46.5 % Normal 34.0-46.6 [facility]; [facility] Work Phone: Comment on above: PATIENT WAS FASTINGP ERFORMED BY: [facility] Lqiclw5065 [address]y RoadDublin [place] [id number] Hemoglobin (Bld) [Mass/Vol] 15.0 g/dL Normal 11.1-15.9 [facility]; [facility] Work Phone: Comment on above: PATIENT WAS FASTINGP ERFORMED BY: [facility] Xkxnlq2043 [address] RoadDublin [place] [id number] Immature granulocytes (Bld) [#/Vol] 0.0 10*3/uL Normal 0.0-0.1 [facility]; [facility] Work Phone: Comment on above: PATIENT WAS FASTINGP ERFORMED BY: [facility] Duelvg0411 [address] RoadDublin [place] [id number] Immature granulocytes/100 WBC (Bld) 0 % Normal [facility]; [facility] Work Phone: Comment on above: PATIENT WAS FASTINGP ERFORMED BY: [facility] Xxcpmr4700 [address] RoadDublin [place] [id number] Lymphocytes (Bld) [#/Vol] 1.8 10*3/uL Normal 0.7-3.1 [facility]; [facility] Work Phone: Comment on above: PATIENT WAS FASTINGP ERFORMED BY: CB [facility] Wmkxvr4256 [address] RoadDublin [place] [id number] Lymphocytes/100 WBC (Bld) 26 % Normal [facility]; [facility] Work Phone: Comment on above: PATIENT WAS FASTINGP ERFORMED BY: CB [facility] Suiaic4260 [address] RoadDublin [place] [id number] MCH (RBC) [Entitic mass] 28.9 pg Normal 26.6-33.0 [facility]; [facility] Work Phone: Comment on above: PATIENT WAS FASTINGP ERFORMED BY: CB [facility] Cjinke0433 [address]y RoadDublin [place] [id number] MCHC (RBC) [Mass/Vol] 32.3 g/dL Normal 31.5-35.7 [facility]; [facility] Work Phone: Comment on above: PATIENT WAS FASTINGP ERFORMED BY: CB [facility] Qhdawb1791 [address] RoadDublin [place] [id number] MCV (RBC) [Entitic vol] 90 fL Normal 79-97 [facility]; [facility] Work Phone: Comment on above: PATIENT WAS FASTINGP ERFORMED BY: [facility] Lioxwc8934 [address] RoadDublin [place] [id number] Monocytes (Bld) [#/Vol] 0.5 10*3/uL Normal 0.1-0.9 [facility]; [facility] Work Phone: Comment on above: PATIENT WAS FASTINGP ERFORMED BY: [facility] Sngbuy7776 [address] RoadDublin [place] [id number] Monocytes/100 WBC (Bld) 8 % Normal [facility]; [facility] Work Phone: Comment on above: PATIENT WAS FASTINGP ERFORMED BY: CB [facility] Elomqg7165 [address] RoadDublin [place] [id number] Neutrophils (Bld) [#/Vol] 4.2 10*3/uL Normal 1.4-7.0 [facility]; [facility] Work Phone: Comment on above: PATIENT WAS FASTINGP ERFORMED BY: CB [facility] Ghpxvz9556 [address]y RoadDublin [place] [id number] Neutrophils/100 WBC (Bld) 62 % Normal [facility]; [facility] Work Phone: Comment on above: PATIENT WAS FASTINGP ERFORMED BY: MOMO [facility] Yvsepo2927 [address] RoadDublin [place] [id number] Platelets (Bld) [#/Vol] 240 10*3/uL Normal 150-450 [facility]; [facility] Work Phone: Comment on above: PATIENT WAS FASTINGP ERFORMED BY: CB [facility] Ctieuj6106 [address] RoadDublin [place] [id number] RBC (Bld) [#/Vol] 5.19 10*6/uL Normal 3.77-5.28 Compr [facility] Internal [facility]; [facility] Work Phone: Comment on above: PATIENT WAS FASTINGP ERFORMED BY: CB [facility] Rxsbjb1774 [address] RoadDublin [place] [id number] WBC (Bld) [#/Vol] 6.8 10*3/uL Normal 3.4-10.8 Compre [facility] Internal Medicine; [facility] Work Phone: Comment on above: PATIENT WAS FASTINGP ERFORMED BY: MOMO [facility] Uzugmt0700 [address] RoadDublin [place] [id number] HGB A1C ([id number])Ordered By: S ystem Inventory Clerk on 12-31-2020 HbA1c (Bld) [Mass fraction] 5.6 % Normal 4.8-5.6 [facility]; [facility] Work Phone: Comment on above: . Prediabetes: 5.7 - 6.4 Diabetes: >6.4 Glycemic control for adults with diabetes: <7.0 PATIENT WAS FASTINGP ERFORMED BY: CB [facility] Jlvuov1688 [address]y RoadDublin [place] [id number] LIPID PANEL ([id number])Ordered B y: Vice President Payer on 12-31-2020 Cholesterol [Mass/Vol] 193 mg/dL Normal 100-199 [facility]; [facility] Work Phone: Comment on above: PATIENT WAS FASTINGP ERFORMED BY: CB [facility] Zdkzrj1391 [address] RoadDublin [place] [id number] Cholesterol in HDL [Mass/Vol] 63 mg/dL Normal [facility]; [facility] Work Phone: Comment on above: PATIENT WAS FASTINGP ERFORMED BY: MOMO Nguyễn[address] [facility] [id number] Triglyceride [Mass/Vol] 93 mg/dL Normal 0-149 [facility]; [facility] Work Phone: Comment on above: PATIENT WAS FASTINGP ERFORMED BY: MOMO LabComega Zfairz7041 [facility] [id number] LIPID PANEL (23019) 17 mg/dL Normal 5-40 [facility]; [facility] Work Phone: Comment on above: PATIENT WAS FASTINGP ERFORMED BY: MOMO LabPaulette BarajasRuqnfk8624 [facility] [id number] LIPID PANEL (88424) 113 mg/dL Abnormal 0-99 [facility] Work Phone: Comment on above: PATIENT WAS FASTINGP ERFORMED BY: MOMO LabBijan Kizfbr4729 [facility] [id number] LIPID PANEL (01224) 1.8 {ratio} Normal 0.0-3.2 [facility]; [facility] Work Phone: Comment on above: LDL/HDL Ratio Men Wo men 1/2 Avg.Risk 1.0 1.5 Avg.Risk 3.6 3.2 2X Avg.Risk 6.2 5.0 3X Avg.Risk 8.0 6.1 PATIENT WAS FASTINGP ERFORMED BY: [facility] Itqtzq5974 [facility] [id number] METABOLIC PANEL, COMPREHENSI VE (66996)Ordered By: Vice President Payer on 12-31-2020 Albumin [Mass/Vol] 4.2 g/dL Normal 3.8-4.8 [facility] Internal Medicine; [facility] Work Phone: Comment on above: PATIENT WAS FASTINGP ERFORMED BY: [facility] Aiohxe0921 [facility] [id number] Albumin/Globulin [Mass ratio] 1.8 {ratio} Normal 1.2-2.2 [facility]; [facility] Work Phone: Comment on above: PATIENT WAS FASTINGP ERFORMED BY: MOMO LabCo Koklfw4895 Davey RoadDublin [place] [id number] ALP [Catalytic activity/Vol] 71 U/L Normal 48-121 [facility]; [facility] Work Phone: Comment on above: PATIENT WAS FASTINGP ERFORMED BY: [facility] Musmoh2612 Davey RoadDublin [place] [id number] ALT [Catalytic activity/Vol] 17 U/L Normal 0-32 [facility]; [facility] Work Phone: Comment on above: PATIENT WAS FASTINGP ERFORMED BY: [facility] Mlylqj1319 Davey RoadDublin [place] [id number] AST [Catalytic activity/Vol] 19 U/L Normal 0-40 [facility]; [facility] Work Phone: Comment on above: PATIENT WAS FASTINGP ERFORMED BY: [facility] Jkhknm9003 Davey RoadDublin [place] [id number] Bilirubin [Mass/Vol] 0.4 mg/dL Normal 0.0-1.2 [facility]; [facility] Work Phone: Comment on above: PATIENT WAS FASTINGP ERFORMED BY: [facility] Riblcj0230 Davey RoadDublin [place] [id number] Calcium [Mass/Vol] 9.1 mg/dL Normal 8.7-10.3 [facility] Internal Medicine; [facility] Work Phone: Comment on above: PATIENT WAS FASTINGP ERFORMED BY: [facility] Oozxtd1749 Davey RoadDublin [place] [id number] Chloride [Moles/Vol] 106 mmol/L Normal 96-106 [facility]; [facility] Work Phone: Comment on above: PATIENT WAS FASTINGP ERFORMED BY: [facility] Cooqht1116 [address] RoadDublin [place] [id number] CO2 [Moles/Vol] 23 mmol/L Normal 20-29 [facility] Internal Medicine; [facility] Work Phone: Comment on above: PATIENT WAS FASTINGP ERFORMED BY: [facility] Libutu5638 [facility] [id number] Creatinine [Mass/Vol] 0.87 mg/dL Normal 0.57-1.00 [facility]; [facility] Work Phone: Comment on above: PATIENT WAS FASTINGP ERFORMED BY: [facility] Yzzqbg4860 [facility] [id number] GFR/1.73 sq M.predicted among blacks CKD-EPI (S/P/Bld) [Vol rate/Area] 81 mL/min/1.73 Normal [facility]; [facility] Work Phone: Comment on above: [facility] currently reports eGFR in compliance with the current recommendations of the National Kidney Foundation. [facility] will update reporting as new guidelines are published from the NKF-ASN Task force. PATIENT WAS FASTINGP ERFORMED BY: [facility] Gfmwkm2838 [facility] [id number] GFR/1.73 sq M.predicted among non-blacks CKD-EPI (S/P/Bld) [Vol rate/Area] 70 mL/min/1.73 Normal [facility]; [facility] Work Phone: Comment on above: PATIENT WAS FASTINGP ERFORMED BY: [facility] Tnfjlj3215 [facility] [id number] Globulin (S) [Mass/Vol] 2.3 g/dL Normal 1.5-4.5 [facility]; [facility] Work Phone: Comment on above: PATIENT WAS FASTINGP ERFORMED BY: [facility] Dbumwr5019 [facility] [id number] Glucose [Mass/Vol] 102 mg/dL Abnormal 65-99 [facility] Internal Medicine; [facility] Work Phone: Comment on above: PATIENT WAS FASTINGP ERFORMED BY: [facility] Oxbsap4256 [facility] [id number] Potassium [Moles/Vol] 4.6 mmol/L Normal 3.5-5.2 [facility]; [facility] Work Phone: Comment on above: PATIENT WAS FASTINGP ERFORMED BY: MOMO LabBijanmega Wtqpxd2046 Davey RoadDublin [place] [id number] Protein [Mass/Vol] 6.5 g/dL Normal 6.0-8.5 [facility] Internal Medicine; [facility] Work Phone: Comment on above: PATIENT WAS FASTINGP ERFORMED BY: MOMO LabPaulette BarajasIvutxe2385 Davey RoadDublin [place] [id number] Sodium [Moles/Vol] 141 mmol/L Normal 134-144 [facility] Internal Medicine; [facility] Work Phone: Comment on above: PATIENT WAS FASTINGP ERFORMED BY: MOMO Barajaslin6370 Davey RoadDuin [place] [id number] Urea nitrogen [Mass/Vol] 21 mg/dL Normal 8-27 [facility]; [facility] Work Phone: Comment on above: PATIENT WAS FASTINGP ERFORMED BY: MOMO LabPaulette BarajasHkjzqd6115 Davey RoadDublin [place] [id number] Urea nitrogen/Creatinine [Mass ratio] 24 mg/mg Normal 12-28 [facility]; [facility] Work Phone: Comment on above: PATIENT WAS FASTINGP ERFORMED BY: MOMO LabBijan Rxjimi9440 [facility] [facility]in [place] [id number] MICROALBUMINOrdered By: Syst em Inventory Clerk on 12-31-2020 Albumin DL <= 20 mg/L (U) [Mass/Vol] mg/dL Normal Comprehensiv e Internal Medicine; [facility] Work Phone: Comment on above: PATIENT WAS FASTINGP ERFORMED BY: MOMO LabPaulette BarajasYdfodk4178 Davey RoadDublin [place] [id number] Albumin/Creatinine (U) [Mass ratio] <7 Normal 0-29 [facility]; [facility] Work Phone: Comment on above: Normal: 0 - 29 Moder ately increased: 30 - 300 Severely increased: >300 PATIENT WAS FASTINGP ERFORMED BY: [facility] Gvwabm8844 Davey RoadDublin [place] [id number] Creatinine (U) [Mass/Vol] 43.7 mg/dL Normal [facility]; [facility] Work Phone: Comment on above: PATIENT WAS FASTINGP ERFORMED BY: [facility] Dejwdo5238 Davey RoadDublin [place] [id number] Vitamin B-12 (cyanocobalamin ) (93669)Ordered By: Vice President Payer on 12-31-2020 Cobalamin (Vitamin B12) [Mass/Vol] 965 pg/mL Normal 232-1245 [facility]; [facility] Work Phone: Comment on above: PATIENT WAS FASTINGP ERFORMED BY: [facility] Ysyuzi5436 Davey RoadDublin [place] [id number] Vitamin D Hydroxy (61617)Ord ered By: Vice President Payer on 12-31-2020 25-hydroxyvitamin D [Mass/Vol] 44.6 ng/mL Normal 30.0-100.0 [facility]; [facility] Work Phone: Comment on above: Vitamin D deficiency has been defined by the [place] of[place]icine and an Endocrine Society practice guideline as alevel of serum 25-OH vitamin D less than 20 ng/mL (1,2).The Endocrine Society went on to further define vitamin Dinsufficiency as a level between 21 and 29 ng/mL (2).1. IOM ([place] of Medicine). 2010. Dietary reference intakes for calcium and D. [place]: The National Academies Press.2. Soledad MF, Romain NC, Tom MOSS, et al. Evaluation, treatment, and prevention of vitamin D deficiency: an Endocrine Society clinical practice guideline. JCEM. 2010; 96(7):1911-30. PATIENT WAS FASTINGP ERFORMED BY: CB [facility] Akivbd5354 Davey RoadDublin [place] [id number]; appt 01/07 Blood Glucose , Office (8296 2)Ordered By: Alyssa Galan on 09-03-2020 Glucose Glucometer (BldC) [Moles/Vol] 94 1 Normal [facility]; [facility] Work Phone: HgA1C , Office (20004)Ordere d By: Alyssa Galan on 09-03-2020 HbA1c (Bld) [Mass fraction] 5.3 % Normal 4.6 - 7.1 [facility]; [facility] Work Phone: VITAMIN B12 AND FOLATES (826 07)Ordered By: Vice President Payer on 08-27-2020 Cobalamin (Vitamin B12) [Mass/Vol] 1266 pg/mL Abnormal 232-1245 [facility]; [facility] Work Phone: Comment on above: PATIENT NOT FASTINGP ERFORMED BY: MOMO [employer]6[address] RoadDublin [place] [id number] Folate [Mass/Vol] 14.4 ng/mL Normal Compreh ensive Internal Medicine; [facility] Work Phone: Comment on above: A serum folate agueda ntration of less than 3.1 ng/mL isconsidered to represent clinical deficiency. PATIENT NOT FASTINGP ERFORMED BY: MOMO Sojeansrp Tweqxj3797 Davey RoadDublin [place] [id number] Vitamin D Hydroxy (76062)Ord ered By: Vice President Payer on 08-27-2020 25-hydroxyvitamin D [Mass/Vol] 42.0 ng/mL Normal 30.0-100.0 [facility]; [facility] Work Phone: Comment on above: Vitamin D deficiency has been defined by the [place] ofMedicine and an Endocrine Society practice guideline as alevel of serum 25-OH vitamin D less than 20 ng/mL (1,2).The Endocrine Society went on to further define vitamin Dinsufficiency as a level between 21 and 29 ng/mL (2).1. IOM ([place] of Medicine). 2010. Dietary reference intakes for calcium and D. [place]: The National Academies Press.2. Soledad MARTI, Romain MCCABE, Tom MOSS, et al. Evaluation, treatment, and prevention of vitamin D deficiency: an Endocrine Society clinical practice guideline. JCEM. 2010; 96(7):1911-30. PATIENT NOT FASTINGP ERFORMED BY: [employer] X-ChangeMemorial Healthcare6370 [facility] [id number] HPV automatic (67911)Ordered By: Vice President Payer on 05-31-2020 HPV automatic (50292) Negative Normal [facility]; [facility] Work Phone: Comment on above: This nucleic acid am plification test detects fourteen high-riskHPV types (16,18,31,33,35,39,45,51,52,56,58,59,66,68) withoutdifferentiation. Source.............C ervix;EndocervixNo. of containers..01 ThinPrep VialPATIENT NOT FASTINGPERFORMED BY: [place] Craig HuddleCareParentUniversity of Utah Hospital [id number] BY: =G [facility]39 Gregory StreetCOUPIES GmbHWellSpan Good Samaritan Hospital [id number] Information: [id number] HPV automatic (88873) PAPSMR Normal [facility]; [facility] Work Phone: Comment on above: The Pap smear is a s creening test designed to aid in the detection ofpremalignant and malignant conditions of the uterine cervix. It is not adiagnostic procedure and should not be used as the sole means of detectingcervical cancer. Both false-positive and false-negative reports do occur. .This liquid based ThinPrep(R) pap test was screened with theuse of an image guided system. Source.............C ervix;EndocervixNo. of containers..01 ThinPrep VialPATIENT NOT FASTINGPERFORMED BY: [employer] X[address] [place], [place] [address]COUPIES GmbHCareParentUniversity of Utah Hospital [id number] BY: =G [facility] StreetCOUPIES GmbHrCareParentUniversity of Utah Hospital [id number] Information: [id number] HPV automatic (78765) . Normal [facility]; [facility] Work Phone: Comment on above: Source.............C ervix;EndocervixNo. of containers..01 ThinPrep VialPATIENT NOT FASTINGPERFORMED BY: WB [facility] Xpfjwjihvf633 [address] Aaronrgamaliel [place] [id number] BY: =G [facility] Htvlknhmow360 [address] Aaronrgamaliel [place] [id number] Information: [id number] HPV automatic (78700) [facility] Normal [facility]; [facility] Work Phone: Comment on above: NEGATIVE FOR INTRAEP ITHELIAL LESION OR MALIGNANCY.Satisfactory for evaluation. Endocervical and/or squamous metaplasticcells (endocervical component) are present.Z11.51Patrick Eagle Intranet Developer ([facility]) Source.............C ervix;EndocervixNo. of containers..01 ThinPrep VialPATIENT NOT FASTINGPERFORMED BY: WB [facility] Xxmuvcsoui166 [address] [place] [id number] BY: =G [facility] Xurixkyufg481 Craig Aaronrdmitrieast orange [facility] [place] [id number] Information: [id number] HPV automatic (54033) Negative Normal [facility]; [facility] Work Phone: Comment on above: This nucleic acid am plification test detects fourteen high-riskHPV types (16,18,31,33,35,39,45,51,52,56,58,59,66,68) withoutdifferentiation. Source.............C ervix;EndocervixNo. of containers..01 ThinPrep VialPATIENT NOT FASTINGPERFORMED BY: WB [facility] Slwoexvegt532 [address] Aaronrdmitriton [place] [id number] BY: =G [facility] Jtisblptly083 [address] PlaEstuardorleston [place] [id number] Information: [id number] METABOLIC PANEL, COMPREHENSI VE (89661)Ordered By: Vice President Payer on 05-21-2020 Albumin [Mass/Vol] 4.3 g/dL Normal 3.8-4.8 [facility] Internal Medicine; [facility] Work Phone: Comment on above: PATIENT WAS FASTINGP ERFORMED BY: MOMO JordynPaulette BarajasFpdbqt5716 [facility] [id number] Information: NURSE DRAW Albumin/Globulin [Mass ratio] 2.0 {ratio} Normal 1.2-2.2 [facility]; [facility] Work Phone: Comment on above: PATIENT WAS FASTINGP ERFORMED BY: MOMO JordynPaulette BarajasFohnky4429 [facility] [id number] Information: NURSE DRAW ALP [Catalytic activity/Vol] 73 [iU]/L Normal 39-117 [facility]; [facility] Work Phone: Comment on above: PATIENT WAS FASTINGP ERFORMED BY: MOMO JordynPaulette BarajasLovgiq4188 [facility] [id number] Information: NURSE DRAW ALP [Catalytic activity/Vol] 73 U/L Normal 39-117 [facility]; [facility] Work Phone: Comment on above: PATIENT WAS FASTINGP ERFORMED BY: MOMO Barajaslin6370 [facility] [id number] Information: NURSE DRAW ALT [Catalytic activity/Vol] 16 [iU]/L Normal 0-32 [facility]; [facility] Work Phone: Comment on above: PATIENT WAS FASTINGP ERFORMED BY: MOMO JordynBijan Fctwap2843 [facility] [id number] Information: NURSE DRAW ALT [Catalytic activity/Vol] 16 U/L Normal 0-32 [facility]; [facility] Work Phone: Comment on above: PATIENT WAS FASTINGP ERFORMED BY: MOMO JordynPaulette BarajasMsflbo4035 [facility] [id number] Information: NURSE DRAW AST [Catalytic activity/Vol] 18 [iU]/L Normal 0-40 [facility]; [facility] Work Phone: Comment on above: PATIENT WAS FASTINGP ERFORMED BY: CB [facility]6370 [facility] [id number] Information: NURSE DRAW AST [Catalytic activity/Vol] 18 U/L Normal 0-40 [facility]; [facility] Work Phone: Comment on above: PATIENT WAS FASTINGP ERFORMED BY: [place] 2400270 [facility] [id number] Information: NURSE DRAW Bilirubin [Mass/Vol] 0.4 mg/dL Normal 0.0-1.2 [facility]; [facility] Work Phone: Comment on above: PATIENT WAS FASTINGP ERFORMED BY: MOMO [place] 3310070 [facility] [id number] Information: NURSE DRAW Calcium [Mass/Vol] 9.0 mg/dL Normal 8.7-10.3 [facility] Internal Medicine; [facility] Work Phone: Comment on above: PATIENT WAS FASTINGP ERFORMED BY: [place] 2400270 [facility] [id number] Information: NURSE DRAW Chloride [Moles/Vol] 109 mmol/L Abnormal 96-106 [facility]; [facility] Work Phone: Comment on above: PATIENT WAS FASTINGP ERFORMED BY: MOMO [place] 3310070 [facility] [id number] Information: NURSE DRAW CO2 [Moles/Vol] 20 mmol/L Normal 20-29 [facility] Internal Medicine; [facility] Work Phone: Comment on above: PATIENT WAS FASTINGP ERFORMED BY: LabPatricia Ville 8389170 [facility] [id number] Information: NURSE DRAW Creatinine [Mass/Vol] 0.88 mg/dL Normal 0.57-1.00 [facility]; [facility] Work Phone: Comment on above: PATIENT WAS FASTINGP ERFORMED BY: LabPatricia Ville 8389170 [facility] [id number] Information: NURSE DRAW GFR/1.73 sq M predicted among blacks CKD-EPI (S/P/Bld) [Vol rate/Area] 80 mL/min/1.73 Normal [facility]; [facility] Work Phone: Comment on above: PATIENT WAS FASTINGP ERFORMED BY: MOMO [facility]ynCox South Xvcylv9713 [facility] [id number] Information: NURSE DRAW GFR/1.73 sq M predicted among non-blacks CKD-EPI (S/P/Bld) [Vol rate/Area] 70 mL/min/1.73 Normal [facility]; [facility] Work Phone: Comment on above: PATIENT WAS FASTINGP ERFORMED BY: MOMO LabPatricia Ville 8389170 [facility] [id number] Information: NURSE DRAW Globulin (S) [Mass/Vol] 2.2 g/dL Normal 1.5-4.5 [facility]; [facility] Work Phone: Comment on above: PATIENT WAS FASTINGP ERFORMED BY: [place] 2400270 [facility] [id number] Information: NURSE DRAW Glucose [Mass/Vol] 101 mg/dL Abnormal 65-99 [facility] Internal Medicine; [facility] Work Phone: Comment on above: PATIENT WAS FASTINGP ERFORMED BY: [place] 2400270 [facility] [id number] Information: NURSE DRAW Potassium [Moles/Vol] 4.6 mmol/L Normal 3.5-5.2 [facility]; [facility] Work Phone: Comment on above: PATIENT WAS FASTINGP ERFORMED BY: [facility] Tthmmj4946 [facility] [id number] Information: NURSE DRAW Protein [Mass/Vol] 6.5 g/dL Normal 6.0-8.5 [facility] Internal Medicine; [facility] Work Phone: Comment on above: PATIENT WAS FASTINGP ERFORMED BY: LabPatricia Ville 8389170 [facility] [id number] Information: NURSE DRAW Sodium [Moles/Vol] 142 mmol/L Normal 134-144 [facility] Internal Medicine; [facility] Work Phone: Comment on above: PATIENT WAS FASTINGP ERFORMED BY: MOMO [facility] Thagvm8321 Davey RoadDublin [place] [id number] Information: NURSE DRAW Urea nitrogen [Mass/Vol] 20 mg/dL Normal 8-27 [facility]; [facility] Work Phone: Comment on above: PATIENT WAS FASTINGP ERFORMED BY: MOMO [facility] Arcdww2713 Davey RoadDublin [place] [id number] Information: NURSE DRAW Urea nitrogen/Creatinine [Mass ratio] 23 mg/mg Normal 12- [facility]; [facility] Work Phone: Comment on above: PATIENT WAS FASTINGP ERFORMED BY: MOMO LabComega Kwxvax4786 Davey RoadDublin [place] [id number] Information: NURSE DRAW MICROALBUMINOrdered By: Syst em Inventory Clerk on 05-21-2020 Albumin DL <= 20 mg/L (U) [Mass/Vol] mg/dL Normal Comprehensiv e Internal Medicine; [facility] Work Phone: Comment on above: PATIENT NOT FASTINGP ERFORMED BY: MOMO [facility] Lprhou9035 Davey Roadblin [place] [id number] Albumin DL <= 20 mg/L (U) [Mass/Vol] mg/dL Normal Comprehensiv e Internal Medicine; [facility] Work Phone: Comment on above: PATIENT NOT FASTINGP ERFORMED BY: MOMO [facility] Nwjfrk4618 Davey RoadDublin [place] [id number] Albumin/Creatinine (U) [Mass ratio] <3 Normal 0-29 [facility]; [facility] Work Phone: Comment on above: Normal: 0 - 29 Moder ately increased: 30 - 300 Severely increased: >300 PATIENT NOT FASTINGP ERFORMED BY: MOMO [facility] Aewprf1115 Davey RoadDublin [place] [id number] Creatinine (U) [Mass/Vol] 98.4 mg/dL Normal [facility]; [facility] Work Phone: Comment on above: PATIENT NOT FASTINGP ERFORMED BY: MOMO Nguyễn6370 [address]y RoadDublin [place] [id number] URINALYSIS (48358)Ordered By : Vice President Payer on 05-21-2020 Appearance (U) Clear Normal Comprehens say Internal Medicine; [facility] Work Phone: Comment on above: PATIENT NOT FASTINGP ERFORMED BY: MOMO Judah Wdyqfm2113 Davey RoadDublin [place] [id number] Bilirubin Ql (U) Negative Normal Comprehe nsive Internal Medicine; [facility] Work Phone: Comment on above: PATIENT NOT FASTINGP ERFORMED BY: MOMO Judah Nzrusg5295 [address]y RoadDublin [place] [id number] Bilirubin Ql (U) Negative Normal Comprehe nsive Internal Medicine; [facility] Work Phone: Comment on above: PATIENT NOT FASTINGP ERFORMED BY: MOMO Rubenmega BarajasDbeial2590 [address]y RoadDublin [place] [id number] Color (U) Yellow Normal [facility]; [facility] Work Phone: Comment on above: PATIENT NOT FASTINGP ERFORMED BY: MOMO Rubenmega BarajasFazbel0816 [address]y RoadDublin [place] [id number] Glucose Ql (U) Negative Normal Comprehens say Internal Medicine; [facility] Work Phone: Comment on above: PATIENT NOT FASTINGP ERFORMED BY: MOMO Judah Ggmxru6276 [address]y RoadDublin [place] [id number] Glucose Ql (U) Negative Normal Comprehens say [facility] Medicine; [facility] Work Phone: Comment on above: PATIENT NOT FASTINGP ERFORMED BY: MOMO Judah Brvivz0261 [address]y RoadDublin [place] [id number] Hemoglobin Ql (U) Negative Normal Compreh ensive Internal Medicine; [facility] Work Phone: Comment on above: PATIENT NOT FASTINGP ERFORMED BY: MOMO Rubenmega BarajasJydilc0181 [address]y RoadDublin [place] [id number] Hemoglobin Ql (U) Negative Normal Compreh ensive Internal Medicine; [facility] Work Phone: Comment on above: PATIENT NOT FASTINGP ERFORMED BY: MOMO Nguyễn6370 [address] RoadDublin [place] [id number] Ketones Ql (U) Negative Normal Comprehens say Internal Medicine; [facility] Work Phone: Comment on above: PATIENT NOT FASTINGP ERFORMED BY: MOMO Judah Nguyễn6370 [address] RoadDublin [place] [id number] Ketones Ql (U) Negative Normal Comprehens say [facility] Medicine; [facility] Work Phone: Comment on above: PATIENT NOT FASTINGP ERFORMED BY: MOMO Judah Nguyễn6370 [address] RoadDublin [place] [id number] Leukocyte esterase Test strip Ql (U) Trace Abnormal [facility]; [facility] Work Phone: Comment on above: PATIENT NOT FASTINGP ERFORMED BY: MOMO Judah Vgjgoy1149 Davey RoadDublin [place] [id number] Microscopic observation LM Nom (Urine sed) See below: Normal [facility]; [facility] Work Phone: Comment on above: Microscopic was shabbir cated and was performed. PATIENT NOT FASTINGP ERFORMED BY: MOMO Judah Barajaslin6[address]y RoadDublin [place] [id number] Nitrite Ql (U) Negative Normal Comprehens [facility]; [facility] Work Phone: Comment on above: PATIENT NOT FASTINGP ERFORMED BY: MOMO Ruben Cxrchw8132 Davey RoadDublin [place] [id number] Nitrite Ql (U) Negative Normal Comprehens [facility]; [facility] Work Phone: Comment on above: PATIENT NOT FASTINGP ERFORMED BY: MOMO Judah Lyxluj4365 Davey RoadDublin [place] [id number] pH (U) 5.5 [pH] Normal 5.0-7.5 [facility]; [facility] Work Phone: Comment on above: PATIENT NOT FASTINGP ERFORMED BY: MOMO [facility] Lpfwpv1505 Davey RoadDublin [place] [id number] Protein Ql (U) Negative Normal Comprehens [facility]; [facility] Work Phone: Comment on above: PATIENT NOT FASTINGP ERFORMED BY: MOMO [facility] Plkrjm4506 Davey RoadDublin [place] [id number] Protein Ql (U) Negative Normal Comprehens [facility]; [facility] Work Phone: Comment on above: PATIENT NOT FASTINGP ERFORMED BY: MOMO [facility] Laohqe3357 [address]y RoadDublin [place] [id number] Specific gravity (U) [Rel density] 1.021 1 Normal 1.005-1.03 0 [facility]; [facility] Work Phone: Comment on above: PATIENT NOT FASTINGP ERFORMED BY: MOMO [facility] Bwhnhy3527 Davey RoadDublin [place] [id number] Urobilinogen (U) [Mass/Vol] 0.2 mg/dL Normal 0.2-1.0 [facility]; [facility] Work Phone: Comment on above: PATIENT NOT FASTINGP ERFORMED BY: MOMO [facility] Bdixzj0049 Davey RoadDublin [place] [id number] Urobilinogen Test strip (U) [Mass/Vol] 0.2 mg/dL Normal 0.2-1.0 Comprehensi Internal Medicine; [facility] Work Phone: Comment on above: PATIENT NOT FASTINGP ERFORMED BY: MOMO [facility] Uerwfr5878 [address]y RoadDublin [place] [id number] Vitamin B-12 (cyanocobalamin ) (26304)Ordered By: Vice President Payer on 05-21-2020 Cobalamin (Vitamin B12) [Mass/Vol] 1662 pg/mL Abnormal 232-1245 [facility]; [facility] Work Phone: Comment on above: PATIENT WAS FASTINGP ERFORMED BY: MOMO [facility] Zttbst1354 [address] RoadDublin [place] [id number] Office Visit: postop surgery 01/28/1702-17-2017 Alcoholism counseling (procedure) no Invalid Interpretation Code [facility] Work Phone: Dietary management education, guidance, and counseling (procedure) yes Invalid Interpretation Code [facility] Work Phone: Documentation of current medications (procedure) T Invalid Interpretation Code [facility] Work Phone: Documentation of current medications (procedure) Done Invalid Interpretation Code [facility] Work Phone: Fall risk assessment No Invalid Interpretation Code [facility] Work Phone: Tobacco smoking status NHIS Never Invalid Interpretation Code [facility] Work Phone: Tobacco use CPHS Former smoker Invalid Interpretation Code [facility] Work Phone: Office Visit: postop surgery 01/28/1702-03-2017 Protein mass conc Done Invalid Interpretation Code [facility] Work Phone: Protein mass conc T Invalid Interpretation Code [facility] Work Phone: Protein mass conc no Invalid Interpretation Code [facility] Work Phone: Tobacco smoking status NHIS Never Invalid Interpretation Code [facility] Work Phone: Tobacco smoking status NHIS Former smoker Invalid Interpretation Code [facility] Work Phone: 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 Tobacco smoking status NHIS Never smoker [facility] Work Phone: Office Visit: 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 11-25-2016 Alcoholism counseling (procedure) no Invalid Interpretation Code [facility] Work Phone: Dietary management education, guidance, and counseling (procedure) yes Invalid Interpretation Code [facility] Work Phone: Documentation of current medications (procedure) Done Invalid Interpretation Code [facility] Work Phone: Documentation of current medications (procedure) T Invalid Interpretation Code [facility] Work Phone: Fall risk assessment No Invalid Interpretation Code [facility] Work Phone: Tobacco smoking status NHIS Never Invalid Interpretation Code [facility] Work Phone: Tobacco use CPHS Former smoker Invalid Interpretation Code [facility] Work Phone: INTRINSIC FACTOR ANTBDY ([phone])Ordered By: Vice President Payer on 05-24-2015 Intrinsic factor blocking Ab Qn (S) 1.1 AU/mL Normal 0.0-1.1 [facility] Work Phone: Comment on above: PATIENT NOT FASTINGP ERFORMED BY: Presage Bioscienceston1447 [facility] [id number] BY: Ebix70 [facility] [id number] Information: [id number] Vitamin B-12 (cyanocobalamin ) (52564)Ordered By: Vice President Payer on 05-24-2015 Cobalamin (Vitamin B12) [Mass/Vol] pg/mL Abnormal 211-946 [facility] Work Phone: Comment on above: PATIENT NOT FASTINGP ERFORMED BY: SkySQL1447 [facility] [id number] BY: [employer] [place]6370 [facility] [id number] Vitamin D Hydroxy (38373)Ord ered By: Vice President Payer on 05-24-2015 25-Hydroxyvitamin D2+25-Hydroxyvitamin D3 [Mass/Vol] 28.4 ng/mL Abnormal 30.0-100.0 [facility] Work Phone: Comment on above: Vitamin D deficiency has been defined by the [place] of[place]icine and an Endocrine Society practice guideline as alevel of serum 25-OH vitamin D less than 20 ng/mL (1,2).The Endocrine Society went on to further define vitamin Dinsufficiency as a level between 21 and 29 ng/mL (2).1. IOM ([place] of Medicine). 2010. Dietary reference intakes for calcium and D. [place]: The National Academies Press.2. Soledad MF, Romain MCCABE, Tom MOSS, et al. Evaluation, treatment, and prevention of vitamin D deficiency: an Endocrine Society clinical practice guideline. JCEM. 2010; 96(7):1911-30. PATIENT NOT FASTINGP ERFORMED BY: [facility]1447 [facility] [id number] BY: [facility]Dublin [place] [id number] Hemoglobin Glyclated (HGB A1 C) (93104)Ordered By: Vice President Payer on 01-07-2015 HbA1c (Bld) [Mass fraction] 5.5 % Normal 4.8-5.6 [facility] Work Phone: Comment on above: . Increased risk for diabetes: 5.7 - 6.4 Diabetes: >6.4 Glycemic control for adults with diabetes: <7.0 PATIENT WAS FASTINGP ERFORMED BY: [facility] RoadNovant Health Rehabilitation Hospitalin [place] [id number]; apt. 01-11 will review then METABOLIC PANEL, KAVONI KEVIN (27717)Ordered By: Vice President Payer on 01-07-2015 Albumin [Mass/Vol] 4.1 g/dL Normal 3.5-5.5 [facility] Internal Medicine Work Phone: Comment on above: PATIENT WAS FASTINGP ERFORMED BY: [facility]6370 [facility] Centerblin [place] [id number] Information: 698594,[id number] Albumin/Globulin [Mass ratio] 1.9 {ratio} Normal 1.1-2.5 [facility] Work Phone: Comment on above: PATIENT WAS FASTINGP ERFORMED BY: [facility] Xwgtxb5607 Davey RoadDublin [place] [id number] Information: 090376,[id number] ALP [Catalytic activity/Vol] 68 [iU]/L Normal 39-117 [facility] Work Phone: Comment on above: PATIENT WAS FASTINGP ERFORMED BY: [facility] Wqmjre[address] [facility] Hospitalblin [place] [id number] Information: 662601,I48837 ALP [Catalytic activity/Vol] 68 U/L Normal 39-117 [facility]; [facility] Work Phone: Comment on above: PATIENT WAS FASTINGP ERFORMED BY: MOMO Nguyễn[address] [facility] [id number] Information: 255123,H81827 ALT [Catalytic activity/Vol] 14 [iU]/L Normal 0-32 [facility] Work Phone: Comment on above: PATIENT WAS FASTINGP ERFORMED BY: MOMO LabComega BarajasRjvbuh2903 [address] [facility] [id number] Information: [id number] ALT [Catalytic activity/Vol] 14 U/L Normal 0-32 [facility]; [facility] Work Phone: Comment on above: PATIENT WAS FASTINGP ERFORMED BY: MOMO Nguyễn6370 [facility] [id number] Information: [id number] AST [Catalytic activity/Vol] 18 [iU]/L Normal 0-40 [facility] Work Phone: Comment on above: PATIENT WAS FASTINGP ERFORMED BY: MOMO Barajaslin[address] [facility] [id number] Information: [id number],[id number] AST [Catalytic activity/Vol] 18 U/L Normal 0-40 [facility]; [facility] Work Phone: Comment on above: PATIENT WAS FASTINGP ERFORMED BY: MOMO Ruben Opwvbz6748 [facility] [id number] Information: 664513,[id number] Bilirubin [Mass/Vol] 0.4 mg/dL Normal 0.0-1.2 Comp [facility] hospitalensive [facility] Work Phone: Comment on above: PATIENT WAS FASTINGP ERFORMED BY: MOMO LabComega Oeqmui6996 [facility] [id number] Information: 325903,[id number] Calcium [Mass/Vol] 9.0 mg/dL Normal 8.7-10.2 Compre [facility] Internal Medicine Work Phone: Comment on above: PATIENT WAS FASTINGP ERFORMED BY: CB [facility] Hrfjem46[address] [facility] [id number] Information: 821340,M11768 Chloride [Moles/Vol] 105 mmol/L Normal 97-108 Comp rehensive Internal Medicine Work Phone: Comment on above: PATIENT WAS FASTINGP ERFORMED BY: CB [facility] Pixivt14[address] [facility] [id number] Information: 634823,C19501 CO2 [Moles/Vol] 22 mmol/L Normal 18-29 [facility] Internal Medicine Work Phone: Comment on above: PATIENT WAS FASTINGP ERFORMED BY: [facility] Chjugo3355 [facility] [id number] Information: 084581,[id number] Creatinine [Mass/Vol] 1.00 mg/dL Normal 0.57-1.00 [facility] Work Phone: Comment on above: PATIENT WAS FASTINGP ERFORMED BY: [facility] Fkqnxk9242 [facility] [id number] Information: 656895,X26702 GFR/1.73 sq M predicted among blacks CKD-EPI (S/P/Bld) [Vol rate/Area] 71 mL/min/1.73 Normal [facility] Work Phone: Comment on above: PATIENT WAS FASTINGP ERFORMED BY: [facility] Sjwpli5374 [facility] [id number] Information: 145071,V87166 GFR/1.73 sq M predicted among non-blacks CKD-EPI (S/P/Bld) [Vol rate/Area] 62 mL/min/1.73 Normal [facility] Work Phone: Comment on above: PATIENT WAS FASTINGP ERFORMED BY: CB [facility] Gpvlea7155 [address] [facility] [id number] Information: 549512,[id number] Globulin (S) [Mass/Vol] 2.2 g/dL Normal 1.5-4.5 [facility] Work Phone: Comment on above: PATIENT WAS FASTINGP ERFORMED BY: MOMO Rubenmega BarajasOzuxup1488 [facility] [id number] Information: 475945,[id number] Glucose [Mass/Vol] 95 mg/dL Normal 65-99 [facility] Internal Medicine Work Phone: Comment on above: PATIENT WAS FASTINGP ERFORMED BY: MOMO JordynCox South Tdzryx[address] [id number] Information: 905305,Q79653 Potassium [Moles/Vol] 4.7 mmol/L Normal 3.5-5.2 [facility] Work Phone: Comment on above: PATIENT WAS FASTINGP ERFORMED BY: MOMO JordynCox South Vmpahl68[address] [id number] Information: 081847,[id number] Protein [Mass/Vol] 6.3 g/dL Normal 6.0-8.5 [facility] Internal Medicine Work Phone: Comment on above: PATIENT WAS FASTINGP ERFORMED BY: MOMO CobbNcmega BarajasVdvthz4828 [facility] [id number] Information: 410580,[id number] Sodium [Moles/Vol] 142 mmol/L Normal 134-144 [facility] Internal Medicine Work Phone: Comment on above: PATIENT WAS FASTINGP ERFORMED BY: MOMO [facility] Mskrit3031 [facility] [id number] Information: 406364,[id number] Urea nitrogen [Mass/Vol] 13 mg/dL Normal 6-24 [facility] Work Phone: Comment on above: PATIENT WAS FASTINGP ERFORMED BY: MOMO JordynCox South Owfzus3992 [facility] [id number] Information: 375005,[id number] Urea nitrogen/Creatinine [Mass ratio] 13 mg/mg Normal 9-23 [facility] Work Phone: Comment on above: PATIENT WAS FASTINGP ERFORMED BY: LabCoSaint Clare's Hospital at DoverVagoly1232 [facility] [id number] Information: 173103,[id number] HgA1C , Office (35891)Ordere d By: Rachel Abrams on 10-17-2012 HbA1c (Bld) [Mass fraction] 5.7 % Normal 4.6 - 7.1 [facility] Work Phone: CBC WITH MANUAL DIFF (01934) Ordered By: Vice President Payer on 10-07-2012 Basophils (Bld) [#/Vol] 0.0 {x10E3/uL} Normal 0.0-0.2 [facility] Work Phone: Comment on above: PATIENT WAS FASTINGP ERFORMED BY: LabPatricia Ville 8389170 [facility] [id number] Information: [id number],Q09686 Basophils (Bld) [#/Vol] 0.0 10*3/uL Normal 0.0-0.2 [facility]; [facility] Work Phone: Comment on above: PATIENT WAS FASTINGP ERFORMED BY: LabCoLaura Ville 2828470 [facility] [id number] Information: 590829,[id number] Basophils/100 WBC (Bld) 0 % Normal 0-3 [facility] Work Phone: Comment on above: PATIENT WAS FASTINGP ERFORMED BY: LabCoSaint Clare's Hospital at DoverSfspfy[address] [place] [address] [id number] Information: 240213,Z48112 Eosinophils (Bld) [#/Vol] 0.3 {x10E3/uL} Normal 0.0-0.4 [facility] Work Phone: Comment on above: PATIENT WAS FASTINGP ERFORMED BY: LabCoSaint Clare's Hospital at DoverEzsntd0368 [facility] [id number] Information: 459729,D03153 Eosinophils (Bld) [#/Vol] 0.3 10*3/uL Normal 0.0-0.4 [facility]; [facility] Work Phone: Comment on above: PATIENT WAS FASTINGP ERFORMED BY: [address] [id number] Information: [id number] Eosinophils/100 WBC (Bld) 4 % Normal 0-7 [facility] Work Phone: Comment on above: PATIENT WAS FASTINGP ERFORMED BY: [address] [id number] Information: [id number] Erythrocyte distribution width (RBC) [Ratio] 13.0 % Normal 12.3-15.4 [facility] Work Phone: Comment on above: PATIENT WAS FASTINGP ERFORMED BY: [address] [id number] Information: [id number] Hematocrit (Bld) [Volume fraction] 45.5 % Normal 34.0-46.6 [facility] Work Phone: Comment on above: PATIENT WAS FASTINGP ERFORMED BY: [address] [id number] Information: [id number] Hemoglobin (Bld) [Mass/Vol] 15.3 g/dL Normal 11.1-15.9 [facility] Work Phone: Comment on above: PATIENT WAS FASTINGP ERFORMED BY: [address] [id number] Information: [id number] Immature granulocytes (Bld) [#/Vol] 0.0 {x10E3/uL} Normal 0.0-0.1 [facility] Work Phone: Comment on above: PATIENT WAS FASTINGP ERFORMED BY: [address] [id number] Information: [id number] Immature granulocytes (Bld) [#/Vol] 0.0 10*3/uL Normal 0.0-0.1 [facility]; [facility] Work Phone: Comment on above: PATIENT WAS FASTINGP ERFORMED BY: MOMO Miranda Brrufe5075 [facility] [id number] Information: 629621,[id number] Immature granulocytes/100 WBC (Bld) 0 % Normal 0-2 [facility] Work Phone: Comment on above: PATIENT WAS FASTINGP ERFORMED BY: [address] [id number] Information: 325506,[id number] Lymphocytes (Bld) [#/Vol] 2.4 {x10E3/uL} Normal 0.7-4.5 [facility] Work Phone: Comment on above: PATIENT WAS FASTINGP ERFORMED BY: Jordyn[address] [id number] Information: 521243,[id number] Lymphocytes (Bld) [#/Vol] 2.4 10*3/uL Normal 0.7-4.5 [facility]; [facility] Work Phone: Comment on above: PATIENT WAS FASTINGP ERFORMED BY: MOMO Miranda Wjpgue82[address] [id number] Information: [id number] Lymphocytes/100 WBC (Bld) 31 % Normal 14-46 [facility] Work Phone: Comment on above: PATIENT WAS FASTINGP ERFORMED BY: [place] 2400270 [facility] [id number] Information: 217010,[id number] MCH (RBC) [Entitic mass] 29.3 pg Normal 26.6-33.0 [facility] Work Phone: Comment on above: PATIENT WAS FASTINGP ERFORMED BY: [place] 2400270 [facility] [id number] Information: 385852,[id number] MCHC (RBC) [Mass/Vol] 33.6 g/dL Normal 31.5-35.7 [facility] Work Phone: Comment on above: PATIENT WAS FASTINGP ERFORMED BY: MOMO Nguyễn6370 [facility] [id number] Information: [id number] MCV (RBC) [Entitic vol] 87 fL Normal 79-97 [facility] Work Phone: Comment on above: PATIENT WAS FASTINGP ERFORMED BY: J[facility]ynCox South Iwksnb45[address] [id number] Information: [id number] Monocytes (Bld) [#/Vol] 0.6 {x10E3/uL} Normal 0.1-1.0 [facility] Work Phone: Comment on above: PATIENT WAS FASTINGP ERFORMED BY: MOMO JordynCox South Sgsuqp6[address] [id number] Information: [id number] Monocytes (Bld) [#/Vol] 0.6 10*3/uL Normal 0.1-1.0 [facility]; [facility] Work Phone: Comment on above: PATIENT WAS FASTINGP ERFORMED BY: MOMO Ruben Mwfhik[address] [id number] Information: [id number] Monocytes/100 WBC (Bld) 8 % Normal 4-13 [facility] Work Phone: Comment on above: PATIENT WAS FASTINGP ERFORMED BY: Jordyn[address] [id number] Information: [id number] Neutrophils (Bld) [#/Vol] 4.5 {x10E3/uL} Normal 1.8-7.8 [facility] Work Phone: Comment on above: PATIENT WAS FASTINGP ERFORMED BY: [facility] Rdewly4433 [facility] [id number] Information: 646092,[id number] Neutrophils (Bld) [#/Vol] 4.5 10*3/uL Normal 1.8-7.8 [facility] Internal Medicine; [facility] Work Phone: Comment on above: PATIENT WAS FASTINGP ERFORMED BY: MOMO [place] [id number] Information: [id number],[id number] Neutrophils/100 WBC (Bld) 57 % Normal 40-74 [facility] Work Phone: Comment on above: PATIENT WAS FASTINGP ERFORMED BY: MOMO Nguyễn6[address] [facility] [id number] Information: [id number] Platelets (Bld) [#/Vol] 228 {x10E3/uL} Normal 140-415 [facility] Internal Medicine Work Phone: Comment on above: PATIENT WAS FASTINGP ERFORMED BY: MOMO Nguyễn6370 [facility] [id number] Information: [id number] Platelets (Bld) [#/Vol] 228 10*3/uL Normal 140-415 [facility] Internal [facility]; [facility] Work Phone: Comment on above: PATIENT WAS FASTINGP ERFORMED BY: MOMO Nguyễn63Barbara CrowleyMoberly Regional Medical Center [id number] Information: [id number],[id number] RBC (Bld) [#/Vol] 5.22 {x10E6/uL} Normal 3.77-5.28 [facility] Internal Medicine Work Phone: Comment on above: PATIENT WAS FASTINGP ERFORMED BY: MOMO Miranda Tbijmc2564 [facility] [id number] Information: [id number],[id number] RBC (Bld) [#/Vol] 5.22 10*6/uL Normal 3.77-5.28 [facility] Internal Medicine; [facility] Work Phone: Comment on above: PATIENT WAS FASTINGP ERFORMED BY: MOMO Nguyễn[address] [facility] Centerin [place] [id number] Information: [id number] WBC (Bld) [#/Vol] 7.9 {x10E3/uL} Normal 4.0-10.5 [facility] prehensive Internal Medicine Work Phone: Comment on above: PATIENT WAS FASTINGP ERFORMED BY: MOMO Nguyễn[address] [facility] Hospitalblin [place] [id number] Information: [id number],[id number] WBC (Bld) [#/Vol] 7.9 10*3/uL Normal 4.0-10.5 [facility] Internal [facility]; [facility] Work Phone: Comment on above: PATIENT WAS FASTINGP ERFORMED BY: MOMO LabComega Zbsviv2806 [address] [facility] Centerin [place] [id number] Information: 963931,[id number] LIPID PANEL (71306)Ordered B y: Vice President Payer on 10-07-2012 Cholesterol [Mass/Vol] 180 mg/dL Normal 100-199 [facility] Work Phone: Comment on above: PATIENT WAS FASTINGP ERFORMED BY: MOMO [facility] Eslllf9773 [address] [facility] [place] [id number] Cholesterol in HDL [Mass/Vol] 78 mg/dL Normal [facility] Work Phone: Comment on above: According to ATP-III Guidelines, HDL-C >59 mg/dL is considered anegative risk factor for CHD. PATIENT WAS FASTINGP ERFORMED BY: MOMO [facility] Pxxrta6176 [address] [facility] Hospitalbl[facility] [place] [id number] Cholesterol in LDL [Mass/Vol] 92 mg/dL Normal 0-99 [facility] Work Phone: Comment on above: PATIENT WAS FASTINGP ERFORMED BY: [facility] Pgfett6652 [address] [facility] HospitalD[facility] [place] [id number] Cholesterol in LDL/Cholesterol in HDL [Mass ratio] 1.2 {ratio_units} Normal 0.0-3.2 [facility] Work Phone: Comment on above: PATIENT WAS FASTINGP ERFORMED BY: [facility] Ogqutr3613 Davey RoadDublin [place] [id number] Cholesterol in VLDL [Mass/Vol] 10 mg/dL Normal 5-40 [facility] Work Phone: Comment on above: PATIENT WAS FASTINGP ERFORMED BY: MOMO [facility] Oanlml6318 Davey RoadDublin [place] [id number] Triglyceride [Mass/Vol] 51 mg/dL Normal 0-149 [facility] Work Phone: Comment on above: PATIENT WAS FASTINGP ERFORMED BY: MOMO [facility] Htqbkt9215 Davey RoadDublin [place] [id number] METABOLIC PANEL, COMPREHENSI VE (85927)Ordered By: Vice President Payer on 10-07-2012 Albumin [Mass/Vol] 4.0 g/dL Normal 3.5-5.5 [facility] Internal Medicine Work Phone: Comment on above: PATIENT WAS FASTINGP ERFORMED BY: MOMO [facility] Vmbazx6145 Davey RoadDublin [place] [id number] Albumin/Globulin [Mass ratio] 1.7 {ratio} Normal 1.1-2.5 [facility] Work Phone: Comment on above: PATIENT WAS FASTINGP ERFORMED BY: MOMO [facility] Gccvse8709 Davey RoadDublin [place] [id number] ALP [Catalytic activity/Vol] 69 [iU]/L Normal 25-150 [facility] Work Phone: Comment on above: PATIENT WAS FASTINGP ERFORMED BY: MOMO [facility] Cmfsgn6293 Davey RoadDublin [place] [id number] ALP [Catalytic activity/Vol] 69 U/L Normal 25-150 [facility]; [facility] Work Phone: Comment on above: PATIENT WAS FASTINGP ERFORMED BY: MOMO [facility] Cfdgss1137 Davey RoadDublin [place] [id number] ALT [Catalytic activity/Vol] 16 [iU]/L Normal 0-32 [facility] Work Phone: Comment on above: PATIENT WAS FASTINGP ERFORMED BY: MOMO [facility] Hdubhi0505 Davey RoadDublin [place] [id number] ALT [Catalytic activity/Vol] 16 U/L Normal 0-32 [facility]; [facility] Work Phone: Comment on above: PATIENT WAS FASTINGP ERFORMED BY: CB [facility] Btijhz4510 Davey RoadDublin [place] [id number] AST [Catalytic activity/Vol] 19 [iU]/L Normal 0-40 [facility] Work Phone: Comment on above: PATIENT WAS FASTINGP ERFORMED BY: CB [facility] Qhcwdg8450 Davey RoadDublin [place] [id number] AST [Catalytic activity/Vol] 19 U/L Normal 0-40 [facility]; [facility] Work Phone: Comment on above: PATIENT WAS FASTINGP ERFORMED BY: [facility] Joowue7526 Davey RoadDublin [place] [id number] Bilirubin [Mass/Vol] 0.4 mg/dL Normal 0.0-1.2 [facility] Work Phone: Comment on above: PATIENT WAS FASTINGP ERFORMED BY: [facility] Kjgfvt4375 Davey RoadDublin [place] [id number] Calcium [Mass/Vol] 8.8 mg/dL Normal 8.7-10.2 [facility] Internal Medicine Work Phone: Comment on above: PATIENT WAS FASTINGP ERFORMED BY: [facility] Uulmim6184 Davey RoadDublin [place] [id number] Chloride [Moles/Vol] 106 mmol/L Normal 97-108 [facility] Internal Medicine Work Phone: Comment on above: PATIENT WAS FASTINGP ERFORMED BY: [facility] Jhwgkk5852 [address] RoadDublin [place] [id number] CO2 [Moles/Vol] 20 mmol/L Normal 20-32 [facility] Internal Medicine Work Phone: Comment on above: PATIENT WAS FASTINGP ERFORMED BY: [facility] Ahbpsu9296 [address] RoadDublin [place] [id number] Creatinine [Mass/Vol] 0.88 mg/dL Normal 0.57-1.00 [facility] Internal Medicine Work Phone: Comment on above: PATIENT WAS FASTINGP ERFORMED BY: [facility] Foccym9780 [address] RoadDublin [place] [id number] GFR/1.73 sq M predicted among blacks CKD-EPI (S/P/Bld) [Vol rate/Area] 85 mL/min/1.73 Normal [facility] Work Phone: Comment on above: PATIENT WAS FASTINGP ERFORMED BY: CB [facility] Nbtyxr0212 [address] RoadDublin [place] [id number] GFR/1.73 sq M predicted among non-blacks CKD-EPI (S/P/Bld) [Vol rate/Area] 74 mL/min/1.73 Normal [facility] Work Phone: Comment on above: PATIENT WAS FASTINGP ERFORMED BY: [facility] Vaedmz0224 [address]y RoadDublin [place] [id number] Globulin (S) [Mass/Vol] 2.4 g/dL Normal 1.5-4.5 [facility] Work Phone: Comment on above: PATIENT WAS FASTINGP ERFORMED BY: [facility] Tknhdr0603 [address]y RoadDublin [place] [id number] Glucose [Mass/Vol] 110 mg/dL Abnormal 65-99 [facility] Internal Medicine Work Phone: Comment on above: PATIENT WAS FASTINGP ERFORMED BY: [facility] Olybgt0660 Davey RoadDublin [place] [id number] Potassium [Moles/Vol] 4.4 mmol/L Normal 3.5-5.2 [facility] Work Phone: Comment on above: PATIENT WAS FASTINGP ERFORMED BY: [facility] Egozaw9616 [address] RoadDublin [place] [id number] Protein [Mass/Vol] 6.4 g/dL Normal 6.0-8.5 [facility] Internal Medicine Work Phone: Comment on above: PATIENT WAS FASTINGP ERFORMED BY: [facility] Iabltg5744 Davey RoadDublin [place] [id number] Sodium [Moles/Vol] 140 mmol/L Normal 134-144 [facility] Internal Medicine Work Phone: Comment on above: PATIENT WAS FASTINGP ERFORMED BY: MOMO LabFLS Energymega Gnbyhb0590 HyperinkECU [facility] [id number] Urea nitrogen [Mass/Vol] 19 mg/dL Normal 6-24 [facility] Work Phone: Comment on above: PATIENT WAS FASTINGP ERFORMED BY: MOMO [facility] Xwmhbj7036 HyperinkECU [facility] [id number] Urea nitrogen/Creatinine [Mass ratio] 22 mg/mg Normal 9-23 [facility] Work Phone: Comment on above: PATIENT WAS FASTINGP ERFORMED BY: MOMO LabComega Fbuywj4[address] [place] PharmaUNC Health Caldwell [id number] Uric Acid Blood (16063)Order ed By: Vice President Payer on 10-07-2012 Urate [Mass/Vol] 3.3 mg/dL Normal 2.5-7.1 [facility] Internal [facility] Work Phone: Comment on above: Therapeutic target f or gout patients: <6.0 PATIENT WAS FASTINGP ERFORMED BY: MOMO LabPirq70 HyperinkECU [facility] [id number] Blood Glucose , Office ([phone])Ordered By: Britney Henderson on 02-29-2012 Glucose Glucometer (BldC) [Moles/Vol] 96 1 Normal [facility] Work Phone: HgA1C , Office ([phone])Ordere d By: Britney Henderson on 02-29-2012 HbA1c (Bld) [Mass fraction] 5.5 % Normal 4.6 - 7.1 [facility] Work Phone: Hemoglobin Glyclated (HGB A1 C) (00208)on 09-28-2011 HbA1c (Bld) [Mass fraction] 5.6 % Normal 4.6 - 7.1 [facility] Work Phone: CBC WITH MANUAL DIFF (70061) Ordered By: Vice President Payer on 08-24-2011 Basophils (Bld) [#/Vol] 0.0 {x10E3/uL} Normal 0.0-0.2 [facility] Work Phone: Comment on above: PATIENT WAS FASTINGP ERFORMED BY: [place] [address]00270 [facility] [id number] Information: [id number],[id number] Basophils (Bld) [#/Vol] 0.0 10*3/uL Normal 0.0-0.2 [facility]; [facility] Work Phone: Comment on above: PATIENT WAS FASTINGP ERFORMED BY: [address] [id number] Information: 089103,Q88054 Basophils/100 WBC (Bld) 1 % Normal 0-3 [facility] Work Phone: Comment on above: PATIENT WAS FASTINGP ERFORMED BY: [address] [id number] Information: 130028,[id number] Eosinophils (Bld) [#/Vol] 0.3 {x10E3/uL} Normal 0.0-0.4 [facility] Work Phone: Comment on above: PATIENT WAS FASTINGP ERFORMED BY: [address] [id number] Information: 085785,L34517 Eosinophils (Bld) [#/Vol] 0.3 10*3/uL Normal 0.0-0.4 [facility]; [facility] Work Phone: Comment on above: PATIENT WAS FASTINGP ERFORMED BY: [place] [address]270 [facility] [id number] Information: 856032,G51409 Eosinophils/100 WBC (Bld) 4 % Normal 0-7 [facility] Work Phone: Comment on above: PATIENT WAS FASTINGP ERFORMED BY: [place] [address] [facility] [id number] Information: 031530,Z38219 Erythrocyte distribution width (RBC) [Ratio] 13.7 % Normal 11.7-15.0 [facility] Work Phone: Comment on above: PATIENT WAS FASTINGP ERFORMED BY: MOMO Miranda Rvbiwb2981 [facility] [id number] Information: 736462,L70071 Hematocrit (Bld) [Volume fraction] 45.5 % Abnormal 34.0-44.0 [facility] Work Phone: Comment on above: PATIENT WAS FASTINGP ERFORMED BY: [address] [id number] Information: 936208,Q25815 Hemoglobin (Bld) [Mass/Vol] 14.7 g/dL Normal 11.5-15.0 [facility] Work Phone: Comment on above: PATIENT WAS FASTINGP ERFORMED BY: MOMO Jordyn[address] [id number] Information: [id number] Immature granulocytes (Bld) [#/Vol] 0.0 {x10E3/uL} Normal 0.0-0.1 [facility] Work Phone: Comment on above: PATIENT WAS FASTINGP ERFORMED BY: MOMO Miranda Ulwmac1947 [facility] [id number] Information: 843448,E09056 Immature granulocytes (Bld) [#/Vol] 0.0 10*3/uL Normal 0.0-0.1 [facility]; [facility] Work Phone: Comment on above: PATIENT WAS FASTINGP ERFORMED BY: [place] [address] [facility] [id number] Information: [id number] Immature granulocytes/100 WBC (Bld) 0 % Normal 0-2 [facility] Work Phone: Comment on above: PATIENT WAS FASTINGP ERFORMED BY: [facility]6370 [facility] [id number] Information: [id number] Lymphocytes (Bld) [#/Vol] 1.9 {x10E3/uL} Normal 0.7-4.5 [facility] Work Phone: Comment on above: PATIENT WAS FASTINGP ERFORMED BY: [address] [id number] Information: 115398,[id number] Lymphocytes (Bld) [#/Vol] 1.9 10*3/uL Normal 0.7-4.5 [facility]; [facility] Work Phone: Comment on above: PATIENT WAS FASTINGP ERFORMED BY: [address] [id number] Information: 760080,P44600 Lymphocytes/100 WBC (Bld) 29 % Normal 14-46 [facility] Work Phone: Comment on above: PATIENT WAS FASTINGP ERFORMED BY: [address] [id number] Information: 647412,[id number] MCH (RBC) [Entitic mass] 29.1 pg Normal 27.0-34.0 [facility] Work Phone: Comment on above: PATIENT WAS FASTINGP ERFORMED BY: [address] [id number] Information: 268237,R03535 MCHC (RBC) [Mass/Vol] 32.3 g/dL Normal 32.0-36.0 [facility] Work Phone: Comment on above: PATIENT WAS FASTINGP ERFORMED BY: [place] [address] [facility] [id number] Information: 867576,Y68078 MCV (RBC) [Entitic vol] 90 fL Normal 80-98 [facility] Work Phone: Comment on above: PATIENT WAS FASTINGP ERFORMED BY: [address] [id number] Information: 646801,Q79879 Monocytes (Bld) [#/Vol] 0.5 {x10E3/uL} Normal 0.1-1.0 [facility] Work Phone: Comment on above: PATIENT WAS FASTINGP ERFORMED BY: MOMO Nguyễn[address] [facility] [id number] Information: 722013,[id number] Monocytes (Bld) [#/Vol] 0.5 10*3/uL Normal 0.1-1.0 [facility]; [facility] Work Phone: Comment on above: PATIENT WAS FASTINGP ERFORMED BY: MOMO [facility] Gxuuws[address] [facility] [id number] Information: 599635,G07941 Monocytes/100 WBC (Bld) 8 % Normal 4-13 [facility] Work Phone: Comment on above: PATIENT WAS FASTINGP ERFORMED BY: MOMO Ruben Wfqjsp6939 [facility] [id number] Information: 989160,X58500 Neutrophils (Bld) [#/Vol] 3.7 {x10E3/uL} Normal 1.8-7.8 [facility] Work Phone: Comment on above: PATIENT WAS FASTINGP ERFORMED BY: MOMO Judah Nguyễn6370 [facility] [id number] Information: 628524,E53464 Neutrophils (Bld) [#/Vol] 3.7 10*3/uL Normal 1.8-7.8 [facility]; [facility] Work Phone: Comment on above: PATIENT WAS FASTINGP ERFORMED BY: MOMO [facility] Hkzfzn9362 [facility] [id number] Information: 094662,[id number] Neutrophils/100 WBC (Bld) 58 % Normal 40-74 [facility] Work Phone: Comment on above: PATIENT WAS FASTINGP ERFORMED BY: MOMO [facility] Umpvzm0087 [facility] [id number] Information: 684696,K45675 Platelets (Bld) [#/Vol] 219 {x10E3/uL} Normal 140-415 [facility] Work Phone: Comment on above: PATIENT WAS FASTINGP ERFORMED BY: MOMO JordynPaulette BarajasHajsko1275 [facility] [id number] Information: 907982,B24721 Platelets (Bld) [#/Vol] 219 10*3/uL Normal 140-415 [facility] Internal Medicine; [facility] Work Phone: Comment on above: PATIENT WAS FASTINGP ERFORMED BY: MOMO Barajaslin6370 [facility] [id number] Information: 025520,[id number] RBC (Bld) [#/Vol] 5.06 {x10E6/uL} Normal 3.80-5.10 [facility] Internal Medicine Work Phone: Comment on above: PATIENT WAS FASTINGP ERFORMED BY: MOMO Barajaslin6370 [facility] [id number] Information: 554462,N16469 RBC (Bld) [#/Vol] 5.06 10*6/uL Normal 3.80-5.10 [facility] Internal Medicine; [facility] Work Phone: Comment on above: PATIENT WAS FASTINGP ERFORMED BY: MOMO Nguyễn6370 [facility] [id number] Information: 964205,V16962 WBC (Bld) [#/Vol] 6.5 {x10E3/uL} Normal 4.0-10.5 [facility] Internal Medicine Work Phone: Comment on above: PATIENT WAS FASTINGP ERFORMED BY: MOMO JordynPaulette BarajasAhsppq1087 [facility] [id number] Information: 682528,[id number] WBC (Bld) [#/Vol] 6.5 10*3/uL Normal 4.0-10.5 [facility] Internal Medicine; [facility] Work Phone: Comment on above: PATIENT WAS FASTINGP ERFORMED BY: CB [facility] Egvxeo3009 Davey RoadDublin [place] [id number] Information: 885368,T55732 LIPID PANEL (36647)Ordered B y: Vice President Payer on 08-24-2011 Cholesterol [Mass/Vol] 157 mg/dL Normal 100-199 [facility] Work Phone: Comment on above: PATIENT WAS FASTINGP ERFORMED BY: MOMO [facility] Tnpbdj5877 Davey RoadDublin [place] [id number] Cholesterol in HDL [Mass/Vol] 58 mg/dL Normal [facility] Work Phone: Comment on above: According to ATP-III Guidelines, HDL-C >59 mg/dL is considered anegative risk factor for CHD. PATIENT WAS FASTINGP ERFORMED BY: MOMO LabPaulette Lwbqav3508 Davey RoadDublin [place] [id number] Cholesterol in LDL [Mass/Vol] 86 mg/dL Normal 0-99 [facility] Work Phone: Comment on above: PATIENT WAS FASTINGP ERFORMED BY: MOMO [facility] Hzldtg2156 Davey RoadDublin [place] [id number] Cholesterol in LDL/Cholesterol in HDL [Mass ratio] 1.5 {ratio_units} Normal 0.0-3.2 [facility] Work Phone: Comment on above: PATIENT WAS FASTINGP ERFORMED BY: MOMO [facility] Sgocfu4101 Davey RoadDublin [place] [id number] Cholesterol in VLDL [Mass/Vol] 13 mg/dL Normal 5-40 [facility] Work Phone: Comment on above: PATIENT WAS FASTINGP ERFORMED BY: MOMO [facility] Wqokxj4513 Davey RoadDublin [place] [id number] Triglyceride [Mass/Vol] 63 mg/dL Normal 0-149 [facility] Work Phone: Comment on above: PATIENT WAS FASTINGP ERFORMED BY: CB [facility] Hdjjaz7717 [address] RoadDublin [place] [id number] METABOLIC PANEL, COMPREHENSI VE (57234)Ordered By: Vice President Payer on 08-24-2011 Albumin [Mass/Vol] 3.9 g/dL Normal 3.5-5.5 [facility] Internal Medicine Work Phone: Comment on above: PATIENT WAS FASTINGP ERFORMED BY: MOMO [facility] Dihocq7490 Davey RoadDublin [place] [id number] Albumin/Globulin [Mass ratio] 1.6 {ratio} Normal 1.1-2.5 [facility] Work Phone: Comment on above: PATIENT WAS FASTINGP ERFORMED BY: CB [facility] Rikcul6413 Davey RoadDublin [place] [id number] ALP [Catalytic activity/Vol] 66 [iU]/L Normal 25-150 [facility] Work Phone: Comment on above: PATIENT WAS FASTINGP ERFORMED BY: CB [facility] Jlhufr2934 Davey RoadDublin [place] [id number] ALP [Catalytic activity/Vol] 66 U/L Normal 25-150 [facility]; [facility] Work Phone: Comment on above: PATIENT WAS FASTINGP ERFORMED BY: [facility] Bfsnot1077 Davey RoadDublin [place] [id number] ALT [Catalytic activity/Vol] 19 [iU]/L Normal 0-40 [facility] Work Phone: Comment on above: PATIENT WAS FASTINGP ERFORMED BY: MOMO [facility] Adrkpm9375 Davey RoadDublin [place] [id number] ALT [Catalytic activity/Vol] 19 U/L Normal 0-40 [facility]; [facility] Work Phone: Comment on above: PATIENT WAS FASTINGP ERFORMED BY: CB [facility] Mbvjiz4008 Davey RoadDublin [place] [id number] AST [Catalytic activity/Vol] 24 [iU]/L Normal 0-40 [facility] Work Phone: Comment on above: PATIENT WAS FASTINGP ERFORMED BY: CB [facility] Yyiwwx3312 Davey RoadDublin [place] [id number] AST [Catalytic activity/Vol] 24 U/L Normal 0-40 [facility]; [facility] Work Phone: Comment on above: PATIENT WAS FASTINGP ERFORMED BY: CB [facility] Hdimqd3591 Davey RoadDublin [place] [id number] Bilirubin [Mass/Vol] 0.4 mg/dL Normal 0.0-1.2 [facility] Work Phone: Comment on above: PATIENT WAS FASTINGP ERFORMED BY: CB [facility] Qdabww7527 Davey RoadDublin [place] [id number] Calcium [Mass/Vol] 9.0 mg/dL Normal 8.7-10.2 [facility] Internal Medicine Work Phone: Comment on above: PATIENT WAS FASTINGP ERFORMED BY: CB [facility] Kscxxf8533 Davey RoadDublin [place] [id number] Chloride [Moles/Vol] 106 mmol/L Normal 97-108 [facility] Work Phone: Comment on above: PATIENT WAS FASTINGP ERFORMED BY: CB [facility] Dwkogs9827 Davey RoadDublin [place] [id number] CO2 [Moles/Vol] 22 mmol/L Normal 20-32 [facility] Internal [facility] Work Phone: Comment on above: PATIENT WAS FASTINGP ERFORMED BY: CB [facility] Vpribp2421 Davey RoadDublin [place] [id number] Creatinine [Mass/Vol] 0.88 mg/dL Normal 0.57-1.00 [facility] Internal Medicine Work Phone: Comment on above: PATIENT WAS FASTINGP ERFORMED BY: CB [facility] Uavxcd1775 Davey RoadDublin [place] [id number] GFR/1.73 sq M predicted among blacks MDRD (S/P/Bld) [Vol rate/Area] 86 mL/min/{1.73_m2} Normal Comprehensiv e Internal Medicine Work Phone: Comment on above: Note: A persistent e GFR <60 mL/min/1.73 m2 (3 months or more) mayindicate chronic kidney disease. An eGFR >59 mL/min/1.73 m2 with anelevated urine protein also may indicate chronic kidney disease.Calculated using CKD-EPI formula. PATIENT WAS FASTINGP ERFORMED BY: CB [facility] Fdqgka7368 Davey RoadDublin [place] [id number] GFR/1.73 sq M predicted among non-blacks CKD-EPI (S/P/Bld) [Vol rate/Area] 74 mL/min/1.73 Normal [facility] Work Phone: Comment on above: PATIENT WAS FASTINGP ERFORMED BY: [facility] Fazfxp5427 Davey Roadblin [place] [id number] Globulin (S) [Mass/Vol] 2.5 g/dL Normal 1.5-4.5 [facility] Work Phone: Comment on above: PATIENT WAS FASTINGP ERFORMED BY: [facility] Jbzofh0408 Davey RoadDublin [place] [id number] Glucose [Mass/Vol] 105 mg/dL Abnormal 65-99 [facility] Internal Medicine Work Phone: Comment on above: PATIENT WAS FASTINGP ERFORMED BY: [facility] Widudr6806 Davey RoadNovant Health Rehabilitation Hospitalin [place] [id number] Potassium [Moles/Vol] 4.4 mmol/L Normal 3.5-5.2 [facility] Work Phone: Comment on above: PATIENT WAS FASTINGP ERFORMED BY: [facility] Evtxgv1919 Davey RoadDublin [place] [id number] Protein [Mass/Vol] 6.4 g/dL Normal 6.0-8.5 [facility] Internal Medicine Work Phone: Comment on above: PATIENT WAS FASTINGP ERFORMED BY: [facility] Zfjxqr4139 Dave[address] RoadDublin [place] [id number] Sodium [Moles/Vol] 143 mmol/L Normal 134-144 [facility] Internal Medicine Work Phone: Comment on above: PATIENT WAS FASTINGP ERFORMED BY: [facility] Hfekhz9384 Davey RoadDublin [place] [id number] Urea nitrogen [Mass/Vol] 14 mg/dL Normal 6-24 [facility] Work Phone: Comment on above: PATIENT WAS FASTINGP ERFORMED BY: MOMO LabComega BarajasAouccu1388 Davey Roadblin [place] [id number] Urea nitrogen/Creatinine [Mass ratio] 16 mg/mg Normal 9-23 [facility] Internal Medicine Work Phone: Comment on above: PATIENT WAS FASTINGP ERFORMED BY: MOMO [facility] Ybvzcw3715 [address] RoadDublin [place] [id number] T3, FREE (TRIDOTHYRONINE) (8 6305)Ordered By: Vice President Payer on 08-24-2011 Free T3 [Mass/Vol] 2.9 pg/mL Normal 2.0-4.4 [facility] Internal Medicine Work Phone: Comment on above: PATIENT WAS FASTINGP ERFORMED BY: MOMO LabBijan Cacxic1242 [address] Roadblin [place] [id number] T4, FREE (THYROXINE) (45730) Ordered By: Vice President Payer on 08-24-2011 Free T4 [Mass/Vol] 1.16 ng/dL Normal 0.82-1.77 [facility] Internal Medicine Work Phone: Comment on above: PATIENT WAS FASTINGP ERFORMED BY: MOMO [facility] Hqfsfj07[address] [facility]in [place] [id number] TSH (08018)Ordered By: Anthology Solutionse m Inventory Clerk on 08-24-2011 TSH Qn 1.480 {uIU/mL} Normal 0.450-4.50 0 [facility] Internal Medicine Work Phone: Comment on above: PATIENT WAS FASTINGP ERFORMED BY: MOMO LabCox South Blzjrx3[address] [facility]in [place] [id number] URINALYSIS, W/ MICRO (57916) Ordered By: Vice President Payer on 08-24-2011 Appearance (U) Clear Normal Comprehens say Internal Medicine Work Phone: Comment on above: PATIENT WAS FASTINGP ERFORMED BY: MOMO [facility] Tdxpjm7672 [address] RoadDublin [place] [id number] Bilirubin Ql (U) Negative Normal Comprehe nsive Internal Medicine Work Phone: Comment on above: PATIENT WAS FASTINGP ERFORMED BY: MOMO LabCoSaint Clare's Hospital at DoverIfjiik4674 [address] RoadDublin [place] [id number] Bilirubin Ql (U) Negative Normal Comprehe nsive Internal Medicine; [facility] Work Phone: Comment on above: PATIENT WAS FASTINGP ERFORMED BY: MOMO Judah Buojot7852 [address] RoadDublin [place] [id number] Color (U) Yellow Normal [facility] Work Phone: Comment on above: PATIENT WAS FASTINGP ERFORMED BY: MOMO Rubenmega BarajasOrlbrs3678 [address] RoadDublin [place] [id number] Glucose Ql (U) Negative Normal Comprehens say Internal Medicine Work Phone: Comment on above: PATIENT WAS FASTINGP ERFORMED BY: MOMO Barajaslin6370 [address] RoadDublin [place] [id number] Glucose Ql (U) Negative Normal Comprehens say Internal Medicine; [facility] Work Phone: Comment on above: PATIENT WAS FASTINGP ERFORMED BY: MOMO Barajaslin6370 [address] RoadDublin [place] [id number] Hemoglobin Ql (U) Negative Normal Compreh ensive Internal Medicine Work Phone: Comment on above: PATIENT WAS FASTINGP ERFORMED BY: MOMO Barajaslin6370 Daevy RoadDublin [place] [id number] Hemoglobin Ql (U) Negative Normal Compreh ensive Internal Medicine; [facility] Work Phone: Comment on above: PATIENT WAS FASTINGP ERFORMED BY: MOMO Barajaslin6370 [address] RoadDublin [place] [id number] Ketones Ql (U) Negative Normal Comprehens say Internal Medicine Work Phone: Comment on above: PATIENT WAS FASTINGP ERFORMED BY: MOMO Rubenmega BarajasEzkrou9768 [address] RoadDublin [place] [id number] Ketones Ql (U) Negative Normal Comprehens say Internal Medicine; [facility] Work Phone: Comment on above: PATIENT WAS FASTINGP ERFORMED BY: MOMO Barajaslin6370 [address] RoadDublin [place] [id number] Leukocyte esterase Test strip Ql (U) Negative Normal [facility] Work Phone: Comment on above: PATIENT WAS FASTINGP ERFORMED BY: MOMO Nguyễn6370 [address] RoadDublin [place] [id number] Leukocyte esterase Test strip Ql (U) Negative Normal [facility]; [facility] Work Phone: Comment on above: PATIENT WAS FASTINGP ERFORMED BY: MOMO Garcia70 [address] RoadDublin [place] [id number] Microscopic observation LM Nom (Urine sed) See below: Normal [facility] Work Phone: Comment on above: PATIENT WAS FASTINGP ERFORMED BY: MOMO Nguyễn6370 [address] RoadDublin [place] [id number] Microscopic observation LM Nom (Urine sed) MICRON Normal [facility] Work Phone: Comment on above: Microscopic follows if indicated. PATIENT WAS FASTINGP ERFORMED BY: MOMO Nguyễn6370 [address] RoadDublin [place] [id number] Nitrite Ql (U) Negative Normal Comprehens say Internal Medicine Work Phone: Comment on above: PATIENT WAS FASTINGP ERFORMED BY: MOMO Nguyễn6370 [address] RoadDublin [place] [id number] Nitrite Ql (U) Negative Normal Comprehens say Internal Medicine; [facility] Work Phone: Comment on above: PATIENT WAS FASTINGP ERFORMED BY: MOMO Nguyễn6370 [address] RoadDublin [place] [id number] pH (U) 6.0 [pH] Normal 5.0-7.5 [facility] Work Phone: Comment on above: PATIENT WAS FASTINGP ERFORMED BY: MOMO Nguyễn6370 [address] RoadDublin [place] [id number] Protein Ql (U) Negative Normal Comprehens say Internal Medicine Work Phone: Comment on above: PATIENT WAS FASTINGP ERFORMED BY: MOMO Barajaslin6370 [address] RoadDublin [place] [id number] Protein Ql (U) Negative Normal Comprehens say Internal Medicine; [facility] Medicine Work Phone: Comment on above: PATIENT WAS FASTINGP ERFORMED BY: [facility] [id number] Davey [facility] [id number] Specific gravity (U) [Rel density] 1.024 1 Normal 1.005-1.03 0 [facility] Work Phone: Comment on above: PATIENT WAS FASTINGP ERFORMED BY: CB [facility] [id number] Davey [facility] [id number] Urobilinogen (U) [Mass/Vol] 0.2 mg/dL Normal 0.0-1.9 [facility]; [facility] Work Phone: Comment on above: PATIENT WAS FASTINGP ERFORMED BY: [facility] [id number] Davey [facility] [id number] Urobilinogen Test strip (U) [Mass/Vol] 0.2 mg/dL Normal 0.0-1.9 [facility] Work Phone: Comment on above: PATIENT WAS FASTINGP ERFORMED BY: [facility] [id number] [facility] [id number] Vital Signs Date Time Vital Sign Value Performing Clinician Facility 03-18-2023 08:33-0400 Body height 168.91 cm JACK Gale LPN [facility]; [facility] Work Phone: 03-18-2023 08:33-0400 Body mass index (BMI) [Ratio] 36.73 kg/m2 JACK Gale LPN [facility]; [facility] Work Phone: 03-18-2023 08:33-0400 Body surface area Derived from formula 2.14 m2 JACK Gale LPN [facility]; [facility] Work Phone: 03-18-2023 08:33-0400 Body temperature 97.9 [degF] JACK Gale LPN [facility]; [facility] Work Phone: Comment on above: Method: Temporal 03-18-2023 08:33-0400 Body weight 104.78 kg JACK Gale AYLA [facility]; [facility] Work Phone: 03-18-2023 08:33-0400 Diastolic blood pressure 72 mm[Hg] JACK Gale AYLA [facility]; [facility] Work Phone: Comment on above: Patient Position: Sitting; Cuff Location : Left Arm; Cuff Size: Large 03-18-2023 08:33-0400 Heart rate 74 /min JACK Gale AYLA [facility]; [facility] Work Phone: Comment on above: Pattern: Regular 03-18-2023 08:33-0400 Respiratory rate 18 /min JACK Gale [facility]; [facility] Work Phone: Comment on above: Pattern: Unlabored 03-18-2023 08:33-0400 SaO2% (BldA) [Mass fraction] 98 % JACK Gale AYLA [facility]; [facility] Work Phone: Comment on above: Room air 03-18-2023 08:33-0400 Systolic blood pressure 114 mm[Hg] JACK Gale AYLA [facility]; [facility] Work Phone: Comment on above: Patient Position: Sitting; Cuff Location : Left Arm; Cuff Size: Large 01-25-2023 10:29-0400 Body height 168.91 cm Rachel Abrams [facility]; [facility] Work Phone: 01-25-2023 10:29-0400 Body mass index (BMI) [Ratio] 36.79 kg/m2 Rachel Abrams [facility]; [facility] Work Phone: 01-25-2023 10:29-0400 Body surface area Derived from formula 2.14 m2 Rachel Abrams [facility]; [facility] Work Phone: 01-25-2023 10:29-0400 Body temperature 97.1 [degF] Rachel Abrams [facility]; [facility] Work Phone: Comment on above: Method: Thermal Scan 01-25-2023 10:29-0400 Body weight 104.95 kg Rachel Abrams [facility]; [facility] Work Phone: 01-25-2023 10:29-0400 Diastolic blood pressure 70 mm[Hg] Rachel Abrams [facility]; [facility] Work Phone: Comment on above: Patient Position: Sitting; Cuff Location : Left Arm; Cuff Size: Standard 01-25-2023 10:29-0400 Heart rate 67 /min Rachel Abrams [facility]; [facility] Work Phone: Comment on above: Pattern: Regular 01-25-2023 10:29-0400 Respiratory rate 16 /min Rachel Abrams [facility]; [facility] Work Phone: Comment on above: Pattern: Unlabored 01-25-2023 10:29-0400 Systolic blood pressure 116 mm[Hg] Rachel Abrams [facility]; [facility] Work Phone: Comment on above: Patient Position: Sitting; Cuff Location : Left Arm; Cuff Size: Standard 01-19-2023 13:54-0400 Body height 168.91 cm Rachel Abrams [facility]; [facility] Work Phone: 01-19-2023 13:54-0400 Body mass index (BMI) [Ratio] 36.79 kg/m2 Rachel Abrams [facility]; [facility] Work Phone: 01-19-2023 13:54-0400 Body surface area Derived from formula 2.14 m2 Rachel Abrams [facility]; [facility] Work Phone: 01-19-2023 13:54-0400 Body temperature 97.1 [degF] Rachel Abrams [facility]; [facility] Work Phone: Comment on above: Method: Thermal Scan 01-19-2023 13:54-0400 Body weight 104.95 kg Rachel Abrams [facility]; [facility] Work Phone: 01-19-2023 13:54-0400 Diastolic blood pressure 78 mm[Hg] Rachel Abrams [facility]; [facility] Work Phone: Comment on above: Patient Position: Sitting; Cuff Location : Left Arm; Cuff Size: Standard 01-19-2023 13:54-0400 Heart rate 74 /min Rachel Abrams [facility]; [facility] Work Phone: Comment on above: Pattern: Regular 01-19-2023 13:54-0400 Respiratory rate 16 /min Rachel Abrams [facility]; [facility] Work Phone: Comment on above: Pattern: Unlabored 01-19-2023 13:54-0400 Systolic blood pressure 132 mm[Hg] Rachel Abrams [facility]; [facility] Work Phone: Comment on above: Patient Position: Sitting; Cuff Location : Left Arm; Cuff Size: Standard 12-21-2022 10:22-0400 Body height 168.91 cm Rachel Abrams [facility]; [facility] Work Phone: 12-21-2022 10:22-0400 Body mass index (BMI) [Ratio] 36.79 kg/m2 Rachel Abrams [facility]; [facility] Work Phone: 12-21-2022 10:22-0400 Body surface area Derived from formula 2.14 m2 Rahcel Abrams [facility]; [facility] Work Phone: 12-21-2022 10:22-0400 Body temperature 98.9 [degF] Rachel Abrams [facility]; [facility] Work Phone: Comment on above: Method: Thermal Scan 12-21-2022 10:22-0400 Body weight 104.95 kg Rachel Abrams [facility] Work Phone: 12-21-2022 10:22-0400 Diastolic blood pressure 78 mm[Hg] Rachel Abrams [facility]; [facility] Work Phone: Comment on above: Patient Position: Sitting; Cuff Location : Left Arm; Cuff Size: Standard 12-21-2022 10:22-0400 Heart rate 64 /min Rachel Abrams [facility]; [facility] Work Phone: Comment on above: Pattern: Regular 12-21-2022 10:22-0400 Respiratory rate 16 /min Rachel Abrams [facility]; [facility] Work Phone: Comment on above: Pattern: Unlabored 12-21-2022 10:22-0400 Systolic blood pressure 122 mm[Hg] Rachel Abrams [facility]; [facility] Work Phone: Comment on above: Patient Position: Sitting; Cuff Location : Left Arm; Cuff Size: Standard 12-11-2022 07:04-0400 Body height 168.91 cm Rachel Abrams [facility]; [facility] Work Phone: 12-11-2022 07:04-0400 Body mass index (BMI) [Ratio] 36.47 kg/m2 Rachel Abrams [facility]; [facility] Work Phone: 12-11-2022 07:04-0400 Body surface area Derived from formula 2.13 m2 Rachel Abrams [facility]; [facility] Work Phone: 12-11-2022 07:04-0400 Body temperature 98 [degF] Rachel Abrams [facility]; [facility] Work Phone: Comment on above: Method: Thermal Scan 12-11-2022 07:04-0400 Body weight 104.04 kg Rachel Abrams [facility]; [facility] Work Phone: 12-11-2022 07:04-0400 Diastolic blood pressure 70 mm[Hg] Rachel Abrams [facility]; [facility] Work Phone: Comment on above: Patient Position: Sitting; Cuff Location : Left Arm; Cuff Size: Standard 12-11-2022 07:04-0400 Heart rate 53 /min Rachel Abrams [facility]; [facility] Work Phone: Comment on above: Pattern: Regular 12-11-2022 07:04-0400 Respiratory rate 16 /min Rachel Abrams [facility]; [facility] Work Phone: Comment on above: Pattern: Unlabored 12-11-2022 07:04-0400 Systolic blood pressure 118 mm[Hg] Rachel Abrams [facility]; [facility] Work Phone: Comment on above: Patient Position: Sitting; Cuff Location : Left Arm; Cuff Size: Standard 12-08-2022 13:32-0400 Body height 168.91 cm Rachel Abrams [facility]; [facility] Work Phone: 12-08-2022 13:32-0400 Body mass index (BMI) [Ratio] 36.47 kg/m2 Rachel Abrams [facility]; [facility] Work Phone: 12-08-2022 13:32-0400 Body surface area Derived from formula 2.13 m2 Rachel Abrams [facility]; [facility] Work Phone: 12-08-2022 13:32-0400 Body temperature 97 [degF] Rachel Abrams [facility]; [facility] Work Phone: Comment on above: Method: Thermal Scan 12-08-2022 13:32-0400 Body weight 104.04 kg Rachel Abrams [facility]; [facility] Work Phone: 12-08-2022 13:32-0400 Diastolic blood pressure 78 mm[Hg] Rachel Abrams [facility]; [facility] Work Phone: Comment on above: Patient Position: Sitting; Cuff Location : Left Arm; Cuff Size: Standard 12-08-2022 13:32-0400 Heart rate 67 /min Rachel Abrams [facility]; [facility] Work Phone: Comment on above: Pattern: Regular 12-08-2022 13:32-0400 Respiratory rate 16 /min Rachel Abrams [facility]; [facility] Work Phone: Comment on above: Pattern: Unlabored 12-08-2022 13:32-0400 Systolic blood pressure 122 mm[Hg] Rachel Abrams [facility]; [facility] Work Phone: Comment on above: Patient Position: Sitting; Cuff Location : Left Arm; Cuff Size: Standard 11-30-2022 12:33-0400 Body height 168.91 cm Rachel Abrams [facility] Work Phone: 11-30-2022 12:33-0400 Body mass index (BMI) [Ratio] 36.47 kg/m2 Rachel Abrams [facility]; [facility] Work Phone: 11-30-2022 12:33-0400 Body surface area Derived from formula 2.13 m2 Rachel Abrams [facility]; [facility] Work Phone: 11-30-2022 12:33-0400 Body temperature 98.8 [degF] Rachel Abrams [facility]; [facility] Work Phone: Comment on above: Method: Thermal Scan 11-30-2022 12:33-0400 Body weight 104.04 kg Rachel Abrams [facility]; [facility] Work Phone: 11-30-2022 12:33-0400 Diastolic blood pressure 62 mm[Hg] Rachel Abrams [facility] Work Phone: Comment on above: Patient Position: Sitting; Cuff Location : Left Arm; Cuff Size: Standard 11-30-2022 12:33-0400 Heart rate 70 /min Rachel Abrams [facility]; [facility] Work Phone: Comment on above: Pattern: Regular 11-30-2022 12:33-0400 Respiratory rate 16 /min Rachel Abrams [facility]; [facility] Work Phone: Comment on above: Pattern: Unlabored 11-30-2022 12:33-0400 Systolic blood pressure 124 mm[Hg] Rachel Abrams [facility]; [facility] Work Phone: Comment on above: Patient Position: Sitting; Cuff Location : Left Arm; Cuff Size: Standard 10-02-2022 09:17-0400 Body height 168.91 cm Rachel Abrams [facility] Work Phone: 10-02-2022 09:17-0400 Body mass index (BMI) [Ratio] 36.47 kg/m2 Rachel Abrams [facility]; [facility] Work Phone: 10-02-2022 09:17-0400 Body surface area Derived from formula 2.13 m2 Rachel Abrams [facility]; [facility] Work Phone: 10-02-2022 09:17-0400 Body temperature 98.1 [degF] Rachel Abrams [facility]; [facility] Work Phone: Comment on above: Method: Thermal Scan 10-02-2022 09:17-0400 Body weight 104.04 kg Rachel Abrams [facility] Work Phone: 10-02-2022 09:17-0400 Diastolic blood pressure 70 mm[Hg] Rachel Abrams [facility]; [facility] Work Phone: Comment on above: Patient Position: Sitting; Cuff Location : Left Arm; Cuff Size: Standard 10-02-2022 09:17-0400 Heart rate 62 /min [facility]; [facility] Work Phone: Comment on above: Pattern: Regular 10-02-2022 09:17-0400 Respiratory rate 16 /min Rachel Abrams [facility]; [facility] Work Phone: Comment on above: Pattern: Unlabored 10-02-2022 09:17-0400 Systolic blood pressure 120 mm[Hg] Rachel Aliza [facility]; [facility] Work Phone: Comment on above: Patient Position: Sitting; Cuff Location : Left Arm; Cuff Size: Standard 09-02-2022 08:09-0400 Body height 168.91 cm Rachel [facility]; [facility] Work Phone: 09-02-2022 08:09-0400 Body mass index (BMI) [Ratio] 36.47 kg/m2 Rachel [facility]; [facility] Work Phone: 09-02-2022 08:09-0400 Body surface area Derived from formula 2.13 m2 [facility]; [facility] Work Phone: 09-02-2022 08:09-0400 Body temperature 98.3 [degF] [facility]; [facility] Work Phone: Comment on above: Method: Thermal Scan 09-02-2022 08:09-0400 Body weight 104.04 kg Rachel [facility]; [facility] Work Phone: 09-02-2022 08:09-0400 Diastolic blood pressure 72 mm[Hg] Rachel [facility]; [facility] Work Phone: Comment on above: Patient Position: Sitting; Cuff Location : Left Arm; Cuff Size: Standard 09-02-2022 08:09-0400 Heart rate 62 /min Rachel [facility]; [facility] Work Phone: Comment on above: Pattern: Regular 09-02-2022 08:09-0400 Respiratory rate 16 /min [facility]; [facility] Work Phone: Comment on above: Pattern: Unlabored 09-02-2022 08:09-0400 Systolic blood pressure 122 mm[Hg] [facility]; [facility] Work Phone: Comment on above: Patient Position: Sitting; Cuff Location : Left Arm; Cuff Size: Standard 06-05-2022 10:29-0500 Body height 168.91 cm Ana A Fast DO Work Phone: [facility]; [facility] Work Phone: 06-05-2022 10:29-0500 Body mass index (BMI) [Ratio] 33.92 kg/m2 Ana A Fast DO Work Phone: [facility]; [facility] Work Phone: 06-05-2022 10:29-0500 Body surface area Derived from formula 2.07 m2 Ana A Fast DO Work Phone: [facility]; [facility] Work Phone: 06-05-2022 10:29-0500 Body temperature 99 [degF] Ana A Fast DO Work Phone: [facility]; [facility] Work Phone: Comment on above: Method: Thermal Scan 06-05-2022 10:29-0500 Body weight 96.79 kg Ana A Fast DO Work Phone: [facility]; [facility] Work Phone: 06-05-2022 10:29-0500 Diastolic blood pressure 70 mm[Hg] Ana A Fast DO Work Phone: [facility]; [facility] Work Phone: Comment on above: Patient Position: Sitting; Cuff Location : Left Arm; Cuff Size: Standard 06-05-2022 10:29-0500 Heart rate 71 /min Ana A Fast DO Work Phone: [facility]; [facility] Work Phone: Comment on above: Pattern: Regular 06-05-2022 10:29-0500 Respiratory rate 16 /min Ana A Fast DO Work Phone: [facility]; [facility] Work Phone: Comment on above: Pattern: Unlabored 06-05-2022 10:29-0500 Systolic blood pressure 112 mm[Hg] Ana Bee Fast DO Work Phone: [facility]; [facility] Work Phone: Comment on above: Patient Position: Sitting; Cuff Location : Left Arm; Cuff Size: Standard 03-17-2022 10:18-0400 Body height 170.2 cm Mary Kate [place] PA-C Work Phone: [facility] 03-17-2022 10:18-0400 Body temperature 97.9 [degF] Mary Kate [place] PA-C Work Phone: [facility] 03-17-2022 10:18-0400 Body weight 97.52 kg Mary Kate Brock PA-C Work Phone: [facility] 03-17-2022 10:18-0400 Diastolic blood pressure 82 mm[Hg] Mary Kate Brock PA-C Work Phone: [facility] 03-17-2022 10:18-0400 Heart rate 96 /min Mary Kate [place] PA-C Work Phone: [facility] 03-17-2022 10:18-0400 SaO2% (BldA) [Mass fraction] 96 % Mary Kate Brock PA-C Work Phone: [facility] 03-17-2022 10:18-0400 Systolic blood pressure 136 mm[Hg] Mary Kate [place] PA-C Work Phone: [facility] 02-18-2022 09:02-0400 Body height 168.91 cm Margarita Bess LPN [facility]; [facility] Work Phone: 02-18-2022 09:02-0400 Body mass index (BMI) [Ratio] 33.61 kg/m2 Margarita Bess LPN [facility]; [facility] Work Phone: 02-18-2022 09:02-0400 Body surface area Derived from formula 2.06 m2 Margarita Bess LPN [facility]; [facility] Work Phone: 02-18-2022 09:02-0400 Body temperature 97.6 [degF] Margarita Bess LPN [facility]; [facility] Work Phone: 02-18-2022 09:02-0400 Body weight 95.88 kg Margarita Bess LPN [facility]; [facility] Work Phone: 02-18-2022 09:02-0400 Diastolic blood pressure 70 mm[Hg] Margarita Bess [employer] [facility]; [facility] Work Phone: Comment on above: Patient Position: Sitting; Cuff Location : Left Arm; Cuff Size: Standard 02-18-2022 09:02-0400 Heart rate 68 /min Margarita Bess AYLA [facility]; [facility] Work Phone: Comment on above: Pattern: Regular 02-18-2022 09:02-0400 Respiratory rate 16 /min Margarita Bess AYLA [facility]; [facility] Work Phone: Comment on above: Pattern: Unlabored 02-18-2022 09:02-0400 SaO2% (BldA) [Mass fraction] 97 % Margarita Bess AYLA [facility]; [facility] Work Phone: Comment on above: Room air 02-18-2022 09:02-0400 Systolic blood pressure 112 mm[Hg] Margarita Bess AYLA [facility]; [facility] Work Phone: Comment on above: Patient Position: Sitting; Cuff Location : Left Arm; Cuff Size: Standard 02-04-2022 11:05-0400 Body height 168.91 cm Rachel [facility]; [facility] Work Phone: 02-04-2022 11:05-0400 Body mass index (BMI) [Ratio] 33.61 kg/m2 Rachel [facility]; [facility] Work Phone: 02-04-2022 11:05-0400 Body surface area Derived from formula 2.06 m2 Rachel [facility]; [facility] Work Phone: 02-04-2022 11:05-0400 Body temperature 99.2 [degF] Rachel Abrams [facility]; [facility] Work Phone: Comment on above: Method: Thermal Scan 02-04-2022 11:05-0400 Body weight 95.88 kg Rachel Abrams [facility]; [facility] Work Phone: 02-04-2022 11:05-0400 Diastolic blood pressure 74 mm[Hg] Rachel Abrams [facility]; [facility] Work Phone: Comment on above: Patient Position: Sitting; Cuff Location : Left Arm; Cuff Size: Standard 02-04-2022 11:05-0400 Heart rate 72 /min Rachel Abrams [facility]; [facility] Work Phone: Comment on above: Pattern: Regular 02-04-2022 11:05-0400 Respiratory rate 16 /min Rachel Abrams [facility]; [facility] Work Phone: Comment on above: Pattern: Unlabored 02-04-2022 11:05-0400 Systolic blood pressure 122 mm[Hg] Rachel Abrams [facility]; [facility] Work Phone: Comment on above: Patient Position: Sitting; Cuff Location : Left Arm; Cuff Size: Standard 01-30-2022 09:27-0400 Body temperature 98.01 [degF] Mary Kate Brock PA-C Work Phone: [facility] 01-30-2022 09:27-0400 Body weight 97.07 kg Mary Kate [place] PA-C Work Phone: [facility] 01-30-2022 09:27-0400 Diastolic blood pressure 80 mm[Hg] Mary Kate Brock PA-C Work Phone: [facility] 01-30-2022 09:27-0400 Heart rate 95 /min Mary Kate Brock PA-C Work Phone: [facility] 01-30-2022 09:27-0400 SaO2% (BldA) [Mass fraction] 97 % Mary Kate [place] PA-C Work Phone: [facility] 01-30-2022 09:27-0400 Systolic blood pressure 137 mm[Hg] Mary Kate Brock PA-C Work Phone: [facility] 01-28-2022 09:06-0400 Body height 171.5 cm Mary Kate Brock PA-C Work Phone: [facility] 01-28-2022 09:06-0400 Body temperature 98.4 [degF] Mary Kate [place] PA-C Work Phone: [facility] 01-28-2022 09:06-0400 Body weight 97.52 kg Mary Kate Brock PA-C Work Phone: [facility] 01-28-2022 09:06-0400 Diastolic blood pressure 81 mm[Hg] Mary Kate Brock PA-C Work Phone: [facility] 01-28-2022 09:06-0400 Heart rate 98 /min Mary Kate [place] PA-C Work Phone: [facility] 01-28-2022 09:06-0400 SaO2% (BldA) [Mass fraction] 96 % Mary Kate Brock PA-C Work Phone: [facility] 01-28-2022 09:06-0400 Systolic blood pressure 120 mm[Hg] Mary Kate Brock PA-C Work Phone: [facility] 01-16-2022 07:57-0400 Body height 170.2 cm Rene Peñaloza MD Work Phone: [facility] 01-16-2022 07:57-0400 Body temperature 98.01 [degF] Rene Peñaloza MD Work Phone: [facility] 01-16-2022 07:57-0400 Body weight 99.79 kg Rene Peñaloza MD Work Phone: [facility] 01-16-2022 07:57-0400 Diastolic blood pressure 88 mm[Hg] Rene Peñaloza MD Work Phone: [facility] 01-16-2022 07:57-0400 Heart rate 71 /min Rene Peñaloza MD Work Phone: [facility] 01-16-2022 07:57-0400 SaO2% (BldA) [Mass fraction] 94 % Rene Peñaloza MD Work Phone: [facility] 01-16-2022 07:57-0400 Systolic blood pressure 130 mm[Hg] Rene Peñaloza MD Work Phone: [facility] 01-09-2022 13:30-0400 Body height 170.2 cm Philip Masci DO Work Phone: [facility] 01-09-2022 13:30-0400 Body temperature 98.4 [degF] Philip Masci DO Work Phone: [facility] 01-09-2022 13:30-0400 Body weight 100.7 kg Philip Masci DO Work Phone: [facility] 01-09-2022 13:30-0400 Diastolic blood pressure 63 mm[Hg] Philip Masci DO Work Phone: [facility] 01-09-2022 13:30-0400 Heart rate 68 /min Philip Masci DO Work Phone: [facility] 01-09-2022 13:30-0400 Systolic blood pressure 122 mm[Hg] Philip Masci DO Work Phone: [facility] 12-24-2021 09:27-0400 Body height 168.91 cm [facility]; [facility] Work Phone: 12-24-2021 09:27-0400 Body mass index (BMI) [Ratio] 35.04 kg/m2 [facility]; [facility] Work Phone: 12-24-2021 09:27-0400 Body surface area Derived from formula 2.1 m2 [facility]; [facility] Work Phone: 12-24-2021 09:27-0400 Body temperature 97.3 [degF] Anirudh Rodriges [facility]; [facility] Work Phone: 12-24-2021 09:27-0400 Body weight 99.96 kg Anirudh Rodriges [facility]; [facility] Work Phone: 12-24-2021 09:27-0400 Diastolic blood pressure 82 mm[Hg] Anirudh Rodriges [facility]; [facility] Work Phone: Comment on above: Patient Position: Sitting; Cuff Location : Left Arm; Cuff Size: Standard 12-24-2021 09:27-0400 Heart rate 58 /min Anirudh Rodriges [facility]; [facility] Work Phone: Comment on above: Pattern: Regular 12-24-2021 09:27-0400 Respiratory rate 16 /min Anirudh Rodrigesford [facility]; [facility] Work Phone: Comment on above: Pattern: Unlabored 12-24-2021 09:27-0400 SaO2% (BldA) [Mass fraction] 98 % Anirudh Rodriges [facility]; [facility] Work Phone: Comment on above: Room air 12-24-2021 09:27-0400 Systolic blood pressure 122 mm[Hg] Anirudh Rodriges [facility]; [facility] Work Phone: Comment on above: Patient Position: Sitting; Cuff Location : Left Arm; Cuff Size: Standard 12-12-2021 22:33-0400 Respiratory rate 16 /min Dr. Ana Jimenez Work Phone: [facility] Work Phone: 12-12-2021 19:29-0400 Body height 172.[address] Ana Jimenez Work Phone: [facility] Work Phone: 12-12-2021 19:29-0400 Body mass index (BMI) [Ratio] 30.4 kg/m2 Dr. Ana Jimenez Work Phone: [facility] Work Phone: 12-12-2021 19:29-0400 Body temperature 98.4 [degF] Dr. Ana Jimenez Work Phone: [facility] Work Phone: 12-12-2021 19:29-0400 Body weight 90.[address] Ana Jimenez Work Phone: [facility] Work Phone: 12-12-2021 19:29-0400 Diastolic blood pressure 74 mm[Hg] Dr. Ana Jimenez Work Phone: [facility] Work Phone: 12-12-2021 19:29-0400 Heart rate 89 /min Dr. Ana Jimenez Work Phone: [facility] Work Phone: 12-12-2021 19:29-0400 SaO2% (BldA) [Mass fraction] 96 % Dr. Ana Jimenez Work Phone: [facility] Work Phone: 12-12-2021 19:29-0400 Systolic blood pressure 160 mm[Hg] Dr. Ana Jimenez Work Phone: [facility] Work Phone: 12-02-2021 08:27-0400 Body height 172.7 cm Rene Peñaloza MD Work Phone: [facility] 12-02-2021 08:27-0400 Body temperature 97.81 [degF] Rene Peñaloza MD Work Phone: [facility] 12-02-2021 08:27-0400 Body weight 100.25 kg Rene Peñaloza MD Work Phone: [facility] 12-02-2021 08:27-0400 Diastolic blood pressure 84 mm[Hg] Rene Peñaloza MD Work Phone: [facility] 12-02-2021 08:27-0400 Heart rate 97 /min Rene Peñaloza MD Work Phone: [facility] 12-02-2021 08:27-0400 SaO2% (BldA) [Mass fraction] 97 % Rene Peñaloza MD Work Phone: [facility] 12-02-2021 08:27-0400 Systolic blood pressure 132 mm[Hg] Rene Peñaloza MD Work Phone: [facility] 10-03-2021 07:29-0400 Body height 168.91 cm Brandyn Arroyo LPN [facility]; [facility] Work Phone: 10-03-2021 07:29-0400 Body mass index (BMI) [Ratio] 34.47 kg/m2 Brandyn Arroyo LPN [facility]; [facility] Work Phone: 10-03-2021 07:29-0400 Body surface area Derived from formula 2.08 m2 Brandyn Arroyo LPN [facility]; [facility] Work Phone: 10-03-2021 07:29-0400 Body temperature 98.7 [degF] Brandyn Arroyo LPN [facility]; [facility] Work Phone: Comment on above: Method: Infrared 10-03-2021 07:29-0400 Body weight 98.34 kg Brandyn Arroyo LPN [facility]; [facility] Work Phone: 10-03-2021 07:29-0400 Diastolic blood pressure 72 mm[Hg] Brandyn Arroyo LPN [facility]; [facility] Work Phone: Comment on above: Patient Position: Sitting; Cuff Location : Left Arm; Cuff Size: Standard 10-03-2021 07:29-0400 Heart rate 76 /min Brandyn Arroyo LPN [facility]; [facility] Work Phone: Comment on above: Pattern: Regular 10-03-2021 07:29-0400 Respiratory rate 16 /min Brandyn Arroyo LPN [facility]; [facility] Work Phone: Comment on above: Pattern: Unlabored 10-03-2021 07:29-0400 Systolic blood pressure 118 mm[Hg] Brandyn Arroyo LPN [facility]; [facility] Work Phone: Comment on above: Patient Position: Sitting; Cuff Location : Left Arm; Cuff Size: Standard 09-16-2021 08:27-0400 Body height 168.91 cm Brandyn Arroyo LPN [facility]; [facility] Work Phone: 09-16-2021 08:27-0400 Body mass index (BMI) [Ratio] 34.47 kg/m2 Brandyn Arroyo LPN [facility]; [facility] Work Phone: 09-16-2021 08:27-0400 Body surface area Derived from formula 2.08 m2 Brandyn Arroyo LPN [facility]; [facility] Work Phone: 09-16-2021 08:27-040 Body temperature 97.7 [degF] Brandyn Arroyo LPN [facility]; [facility] Work Phone: Comment on above: Method: Infrared 09-16-2021 08:27-0400 Body weight 98.34 kg Brandyn Arroyo LPN [facility]; [facility] Work Phone: 09-16-2021 08:27-0400 Diastolic blood pressure 76 mm[Hg] Brandyn Arroyo LPN [facility]; [facility] Work Phone: Comment on above: Patient Position: Sitting; Cuff Location : Left Arm; Cuff Size: Standard 09-16-2021 08:27-0400 Heart rate 57 /min Brandyn Arroyo LPN [facility]; [facility] Work Phone: Comment on above: Pattern: Regular 09-16-2021 08:27-0400 Respiratory rate 16 /min Brandyn Arroyo LPN [facility]; [facility] Work Phone: Comment on above: Pattern: Unlabored 09-16-2021 08:27-0400 SaO2% (BldA) [Mass fraction] 96 % Brandyn Arroyo LPN [facility]; [facility] Work Phone: Comment on above: Room air 09-16-2021 08:27-0400 Systolic blood pressure 126 mm[Hg] Brandyn Arroyo LPN [facility]; [facility] Work Phone: Comment on above: Patient Position: Sitting; Cuff Location : Left Arm; Cuff Size: Standard 05-06-2021 08:55-0500 Body height 168.91 cm Rachel Abrams [facility]; [facility] Work Phone: 05-06-2021 08:55-0500 Body mass index (BMI) [Ratio] 32.75 kg/m2 Rachel Abrams [facility]; [facility] Work Phone: 05-06-2021 08:55-0500 Body surface area Derived from formula 2.04 m2 Rachel Abrams [facility]; [facility] Work Phone: 05-06-2021 08:55-0500 Body temperature 97.1 [degF] Rachel Abrams [facility]; [facility] Work Phone: Comment on above: Method: Thermal Scan 05-06-2021 08:55-0500 Body weight 93.44 kg Rachel Abrams [facility]; [facility] Work Phone: 05-06-2021 08:55-0500 Diastolic blood pressure 70 mm[Hg] Rachel Abrams [facility]; [facility] Work Phone: Comment on above: Patient Position: Sitting; Cuff Location : Left Arm; Cuff Size: Standard 05-06-2021 08:55-0500 Heart rate 68 /min Rachel Abrams [facility]; [facility] Work Phone: Comment on above: Pattern: Regular 05-06-2021 08:55-0500 Respiratory rate 16 /min Rachel Abrams [facility]; [facility] Work Phone: Comment on above: Pattern: Unlabored 05-06-2021 08:55-0500 SaO2% (BldA) [Mass fraction] 98 % Rachel Abrams [facility]; [facility] Work Phone: Comment on above: Room air 05-06-2021 08:55-0500 Systolic blood pressure 110 mm[Hg] Rachel Abrams [facility]; [facility] Work Phone: Comment on above: Patient Position: Sitting; Cuff Location : Left Arm; Cuff Size: Standard 04-30-2021 12:03-0500 Body height 168.91 cm Rachel Abrams [facility]; [facility] Work Phone: 04-30-2021 12:03-0500 Body mass index (BMI) [Ratio] 35.14 kg/m2 [facility]; [facility] Work Phone: 04-30-2021 12:03-0500 Body surface area Derived from formula 2.1 m2 [facility] Work Phone: 04-30-2021 12:03-0500 Body temperature 97.3 [degF] [facility]; [facility] Work Phone: Comment on above: Method: Thermal Scan 04-30-2021 12:03-0500 Body weight 100.25 kg [facility]; [facility] Work Phone: 04-30-2021 12:03-0500 Diastolic blood pressure 72 mm[Hg] Rachel Abrams [facility]; [facility] Work Phone: Comment on above: Patient Position: Sitting; Cuff Location : Left Arm; Cuff Size: Standard 04-30-2021 12:03-0500 Heart rate 80 /min Rachelcarlos alberto Abrams [facility]; [facility] Work Phone: Comment on above: Pattern: Regular 04-30-2021 12:03-0500 Respiratory rate 16 /min [facility]; [facility] Work Phone: Comment on above: Pattern: Unlabored 04-30-2021 12:03-0500 SaO2% (BldA) [Mass fraction] 99 % [facility]; [facility] Work Phone: Comment on above: Room air 04-30-2021 12:03-0500 Systolic blood pressure 112 mm[Hg] Rachel Abrams [employer] [facility]; [facility] Work Phone: Comment on above: Patient Position: Sitting; Cuff Location : Left Arm; Cuff Size: Standard 01-07-2021 08:28-0400 Body height 168.91 cm Ana A Fast DO Work Phone: [facility]; [facility] Work Phone: 01-07-2021 08:28-0400 Body mass index (BMI) [Ratio] 35.14 kg/m2 Ana A Fast DO Work Phone: [facility]; [facility] Work Phone: 01-07-2021 08:28-0400 Body surface area Derived from formula 2.1 m2 Ana A Fast DO Work Phone: [facility]; [facility] Work Phone: 01-07-2021 08:28-0400 Body temperature 97.1 [degF] Ana A Fast DO Work Phone: [facility]; [facility] Work Phone: Comment on above: Method: Thermal Scan 01-07-2021 08:28-0400 Body weight 100.25 kg Ana A Fast DO Work Phone: [facility]; [facility] Work Phone: 01-07-2021 08:28-0400 Diastolic blood pressure 70 mm[Hg] Ana A Fast DO Work Phone: [facility]; [facility] Work Phone: Comment on above: Patient Position: Sitting; Cuff Location : Left Arm; Cuff Size: Standard 01-07-2021 08:28-0400 Heart rate 65 /min Ana A Fast DO Work Phone: [facility]; [facility] Work Phone: Comment on above: Pattern: Regular 01-07-2021 08:28-0400 Respiratory rate 16 /min Ana A Fast DO Work Phone: [facility]; [facility] Work Phone: Comment on above: Pattern: Unlabored 01-07-2021 08:28-0400 Systolic blood pressure 118 mm[Hg] Ana A Fast DO Work Phone: [facility]; [facility] Work Phone: Comment on above: Patient Position: Sitting; Cuff Location : Left Arm; Cuff Size: Standard 09-02-2020 15:50-0400 Body height 168.91 cm [facility]; [facility] Work Phone: 09-02-2020 15:50-0400 Body mass index (BMI) [Ratio] 34.82 kg/m2 [facility]; [facility] Work Phone: 09-02-2020 15:50-0400 Body surface area Derived from formula 2.09 m2 [facility]; [facility] Work Phone: 09-02-2020 15:50-0400 Body temperature 96.9 [degF] [facility]; [facility] Work Phone: Comment on above: Method: Thermal Scan 09-02-2020 15:50-0400 Body weight 99.34 kg [facility]; [facility] Work Phone: 09-02-2020 15:50-0400 Diastolic blood pressure 74 mm[Hg] [facility]; [facility] Work Phone: Comment on above: Patient Position: Sitting; Cuff Location : Left Arm; Cuff Size: Standard 09-02-2020 15:50-0400 Heart rate 74 /min [facility]; [facility] Work Phone: Comment on above: Pattern: Regular 09-02-2020 15:50-0400 Respiratory rate 16 /min [facility]; [facility] Work Phone: Comment on above: Pattern: Unlabored 09-02-2020 15:50-0400 SaO2% (BldA) [Mass fraction] 96 % [facility]; [facility] Work Phone: Comment on above: Room air 09-02-2020 15:50-0400 Systolic blood pressure 120 mm[Hg] [facility]; [facility] Work Phone: Comment on above: Patient Position: Sitting; Cuff Location : Left Arm; Cuff Size: Standard 05-31-2020 07:38-0500 BMI (Body Mass Index) 32.75 kg/m2 Ana A Fast DO Work Phone: [facility]; [facility] Work Phone: 05-31-2020 07:38-0500 Body Temperature 97.1 [degF] Ana A Fast DO Work Phone: [facility]; [facility] Work Phone: Comment on above: Method: Oral 05-31-2020 07:38-0500 Body weight 93.44 kg Ana A Fast DO Work Phone: [facility]; [facility] Work Phone: 05-31-2020 07:38-0500 BP Diastolic 68 mm[Hg] Ana A Fast DO Work Phone: [facility]; [facility] Work Phone: Comment on above: Patient Position: Sitting; Cuff Location : Left Arm; Cuff Size: Standard 05-31-2020 07:38-0500 BP Systolic 112 mm[Hg] Ana A Fast DO Work Phone: [facility]; [facility] Work Phone: Comment on above: Patient Position: Sitting; Cuff Location : Left Arm; Cuff Size: Standard 05-31-2020 07:38-0500 BSA (Body Surface Area) 2.04 m2 Ana A Fast DO Work Phone: [facility]; [facility] Work Phone: 05-31-2020 07:38-0500 Height 168.91 cm Ana A Fast DO Work Phone: [facility]; [facility] Work Phone: 05-31-2020 07:38-0500 Pulse (Heart Rate) 87 /min Ana A Fast DO Work Phone: [facility]; [facility] Work Phone: Comment on above: Pattern: Regular 05-31-2020 07:38-0500 Pulse Oximetry 96 % Ana Fast [facility]; [facility] Work Phone: Comment on above: Room air 05-31-2020 07:38-0500 Respiratory Rate 16 /min Ana A Fast DO Work Phone: [facility]; [facility] Work Phone: 05-31-2020 07:38-0500 SaO2% (BldA) [Mass fraction] 96 % Ana A Fast DO Work Phone: [facility]; [facility] Work Phone: Comment on above: Room air 04-10-2020 10:06-0500 BMI (Body Mass Index) 32.75 kg/m2 Rachel Abrams [facility] Work Phone: 04-10-2020 10:06-0500 Body Temperature 97 [degF] Rachel Abrams [facility] Work Phone: Comment on above: Method: Thermal Scan 04-10-2020 10:06-0500 Body weight 93.44 kg Rachel Abrams [facility] Work Phone: 04-10-2020 10:06-0500 BP Diastolic 70 mm[Hg] Rachel Abrams [facility] Work Phone: Comment on above: Patient Position: Sitting; Cuff Location : Left Arm; Cuff Size: Standard 04-10-2020 10:06-0500 BP Systolic 112 mm[Hg] Rachel Abrams [facility] Work Phone: Comment on above: Patient Position: Sitting; Cuff Location : Left Arm; Cuff Size: Standard 04-10-2020 10:06-0500 BSA (Body Surface Area) 2.04 m2 Rachel Abrams [facility] Work Phone: 04-10-2020 10:06-0500 Height 168.91 cm Rachel Abrams [facility] Work Phone: 04-10-2020 10:06-0500 Pulse (Heart Rate) 60 /min Rachel Abrams [facility] Work Phone: Comment on above: Pattern: Regular 04-10-2020 10:06-0500 Respiratory Rate 16 /min Rachel Abrams [facility] Work Phone: Comment on above: Pattern: Unlabored 02-17-2017 09:50-0400 BMI (Body Mass Index) 32.81 kg/m2 Rogelio [facility] Work Phone: 02-17-2017 09:50-0400 Body Temperature 97.9 [degF] [facility]io [facility] Work Phone: 02-17-2017 09:50-0400 BP Diastolic 80 mm[Hg] Rogelio Garcia MD [facility] Work Phone: 02-17-2017 09:50-0400 BP Systolic 142 mm[Hg] Rogelio Garcia MD [facility] Work Phone: 02-17-2017 09:50-0400 BSA (Body Surface Area) 2.14 m2 [facility] Work Phone: 02-17-2017 09:50-0400 Height 173.99 cm Rogelio [facility] Work Phone: 02-17-2017 09:50-0400 Pulse (Heart Rate) 62 /min Rogelio [facility] Work Phone: 02-17-2017 09:50-0400 Respiratory Rate 16 /min Rogelio [facility] Work Phone: 02-17-2017 09:50-0400 Weight 99.34 kg Rogelio Garcia MD [facility] Work Phone: 02-03-2017 17:02-0400 BMI (Body Mass Index) 33.08 kg/m2 Jose Luis Camacho [facility] Work Phone: 02-03-2017 17:02-0400 Body Temperature 98.9 [degF] Jose Luis Camacho [facility] Work Phone: 02-03-2017 17:02-0400 BP Diastolic 86 mm[Hg] Jose Luis Camacho [facility] Work Phone: 02-03-2017 17:02-0400 BP Systolic 142 mm[Hg] Jose Luis Camacho [facility] Work Phone: 02-03-2017 17:02-0400 Height 173.99 cm Jose Luisjim Camacho [facility] Work Phone: 02-03-2017 17:02-0400 Pulse (Heart Rate) 62 /min Jose Luis [facility] Work Phone: 02-03-2017 17:02-0400 Respiratory Rate 14 /min Jose Luis Camacho [facility] Work Phone: 02-03-2017 17:02-0400 Weight 100.15 kg Jose Luis Camacho [facility] Work Phone: 11-25-2016 11:51-0400 BMI (Body Mass Index) 32.63 kg/m2 Rogelio Garcia MD [facility] Work Phone: 11-25-2016 11:51-0400 Body Temperature 98.2 [degF] Rogelio Garcia MD [facility] Work Phone: 11-25-2016 11:51-0400 BP Diastolic 88 mm[Hg] Rogelio Garcia MD [facility] Work Phone: 11-25-2016 11:51-0400 BP Systolic 153 mm[Hg] Rogelio Garcia MD [facility] Work Phone: 11-25-2016 11:51-0400 Height 173.99 cm Rogelio Garcia MD [facility] Work Phone: 11-25-2016 11:51-0400 Pulse (Heart Rate) 64 /min Rogelio [facility] Work Phone: 11-25-2016 11:51-0400 Respiratory Rate 16 /min Rogelio Garcia MD [facility] Work Phone: 11-25-2016 11:51-0400 Weight 98.79 kg Rogelio Garcia MD [facility] Work Phone: 04-29-2015 11:13-0500 BMI (Body Mass Index) 31.32 kg/m2 Jasmin Larry [facility] Work Phone: 04-29-2015 11:13-0500 Body Temperature 98.1 [degF] Jasmin Larry [facility] Work Phone: Comment on above: Method: Temporal 04-29-2015 11:13-0500 Body weight 89.36 kg Jasmin Larry [facility] Work Phone: 04-29-2015 11:13-0500 BP Diastolic 82 mm[Hg] Jasmin Larry [facility] Work Phone: Comment on above: Patient Position: Sitting; Cuff Location : Left Arm; Cuff Size: Standard 04-29-2015 11:13-0500 BP Systolic 120 mm[Hg] Jasmin Larry [facility] Work Phone: Comment on above: Patient Position: Sitting; Cuff Location : Left Arm; Cuff Size: Standard 04-29-2015 11:13-0500 BSA (Body Surface Area) 2 m2 Jasmin Larry [facility] Work Phone: 04-29-2015 11:13-0500 Height 168.91 cm Jasmin Larry [facility] Work Phone: 04-29-2015 11:13-0500 Pulse (Heart Rate) 56 /min Jasmin Larry [facility] Work Phone: Comment on above: Pattern: Regular 04-29-2015 11:13-0500 Pulse Oximetry 97 % Ana Jimenez [facility] Work Phone: Comment on above: Room air 04-29-2015 11:13-0500 Respiratory Rate 16 /min Jasmin Laron [facility] Work Phone: Comment on above: Pattern: Unlabored 04-29-2015 11:13-0500 SaO2% (BldA) [Mass fraction] 97 % Jasmin Larry [facility]; [facility] Work Phone: Comment on above: Room air 01-11-2015 09:09-0400 BMI (Body Mass Index) 32.75 kg/m2 Jasmin Larry [facility] Work Phone: 01-11-2015 09:09-0400 Body Temperature 97.6 [degF] Jasmin Larry [facility] Work Phone: Comment on above: Method: Oral 01-11-2015 09:09-0400 Body weight 93.44 kg Jasmin Larry [facility] Work Phone: 01-11-2015 09:09-0400 BP Diastolic 70 mm[Hg] Jasmin Larry [facility] Work Phone: Comment on above: Patient Position: Sitting; Cuff Location : Left Arm; Cuff Size: Large 01-11-2015 09:09-0400 BP Systolic 104 mm[Hg] Jasmin Larry [facility] Work Phone: Comment on above: Patient Position: Sitting; Cuff Location : Left Arm; Cuff Size: Large 01-11-2015 09:09-0400 BSA (Body Surface Area) 2.04 m2 Jasmin Larry [facility] Internal Medicine Work Phone: 01-11-2015 09:09-0400 Height 168.91 cm Jasmin Larry [facility] Work Phone: 01-11-2015 09:09-0400 Pulse (Heart Rate) 60 /min [facility] Work Phone: Comment on above: Pattern: Regular 01-11-2015 09:09-0400 Respiratory Rate 16 /min Jasmin Larry [facility] Internal [facility] Work Phone: Comment on above: Pattern: Unlabored 10-12-2014 11:30-0400 BMI (Body Mass Index) 35.45 kg/m2 Jasmin Larry [facility] Work Phone: 10-12-2014 11:30-0400 Body Temperature 98.4 [degF] Jasmin Larry [facility] Internal [facility] Work Phone: Comment on above: Method: Oral 10-12-2014 11:30-0400 Body weight 101.15 kg Jasmin Larry [facility] Work Phone: 10-12-2014 11:30-0400 BP Diastolic 80 mm[Hg] Jasmin Larry [facility] Work Phone: Comment on above: Patient Position: Sitting; Cuff Location : Left Arm; Cuff Size: Large 10-12-2014 11:30-0400 BP Systolic 106 mm[Hg] Jasmin Larry [facility] Work Phone: Comment on above: Patient Position: Sitting; Cuff Location : Left Arm; Cuff Size: Large 10-12-2014 11:30-0400 BSA (Body Surface Area) 2.11 m2 Jasmin Larry [facility] Work Phone: 10-12-2014 11:30-0400 Height 168.91 cm Jasmin Marrerokaleb [facility] Work Phone: 10-12-2014 11:30-0400 Pulse (Heart Rate) 50 /min Jasmin Larry [facility] Internal Medicine Work Phone: Comment on above: Pattern: Regular 10-12-2014 11:30-0400 Respiratory Rate 16 /min Jasmin Larry [facility] Work Phone: Comment on above: Pattern: Unlabored 10-17-2012 11:58-0400 BMI (Body Mass Index) 31.78 kg/m2 Rachel Abrams CMA [facility] Internal Medicine Work Phone: 10-17-2012 11:58-0400 Body Temperature 97.4 [degF] Rachel Abrams [facility] Internal Medicine Work Phone: Comment on above: Method: Oral 10-17-2012 11:58-0400 Body weight 91.36 kg Rachel Abrams [facility] Internal Medicine Work Phone: 10-17-2012 11:58-0400 BP Diastolic 82 mm[Hg] Rachel Abrams [facility] Internal Medicine Work Phone: Comment on above: Patient Position: Sitting; Cuff Location : Left Arm; Cuff Size: Standard 10-17-2012 11:58-0400 BP Systolic 120 mm[Hg] Rachel Abrams [facility] Internal Medicine Work Phone: Comment on above: Patient Position: Sitting; Cuff Location : Left Arm; Cuff Size: Standard 10-17-2012 11:58-0400 BSA (Body Surface Area) 2.02 m2 Rachel Abrams [facility] Internal Medicine Work Phone: 10-17-2012 11:58-0400 Height 169.55 cm Rachel Abrams [facility] Internal Medicine Work Phone: 10-17-2012 11:58-0400 Pulse (Heart Rate) 62 /min Rachel Abrams [facility] Internal Medicine Work Phone: Comment on above: Pattern: Regular 10-17-2012 11:58-0400 Pulse Oximetry 98 % Ana Fast [facility] Work Phone: Comment on above: Room air 10-17-2012 11:58-0400 Respiratory Rate 16 /min Rachel Abrams [facility] Internal Medicine Work Phone: Comment on above: Pattern: Unlabored 10-17-2012 11:58-0400 SaO2% (BldA) [Mass fraction] 98 % Rachel Abrams [facility]; [facility] Work Phone: Comment on above: Room air 02-29-2012 10:38-0400 BMI (Body Mass Index) 29.26 kg/m2 Britney Henderson RN [facility] Work Phone: 02-29-2012 10:38-0400 Body Temperature 98.5 [degF] Britney Grace Santiago AGUILAR [facility] Work Phone: Comment on above: Method: Oral 02-29-2012 10:38-0400 Body weight 84.1 kg Britneykenisha Henderson RN [facility] Work Phone: 02-29-2012 10:38-0400 BP Diastolic 76 mm[Hg] Britney Henderson RN [facility] Work Phone: Comment on above: Patient Position: Sitting; Cuff Location : Left Arm; Cuff Size: Standard 02-29-2012 10:38-0400 BP Systolic 108 mm[Hg] Britney Grace Santiago AGUILAR [facility] Work Phone: Comment on above: Patient Position: Sitting; Cuff Location : Left Arm; Cuff Size: Standard 02-29-2012 10:38-0400 BSA (Body Surface Area) 1.95 m2 Britney Henderson RN [facility] Work Phone: 02-29-2012 10:38-0400 Height 169.55 cm Britney Henderson RN [facility] Work Phone: 02-29-2012 10:38-0400 Pulse (Heart Rate) 60 /min Britney Henderson RN [facility] Work Phone: Comment on above: Pattern: Regular 02-29-2012 10:38-0400 Respiratory Rate 16 /min Britney Henderson RN [facility] Work Phone: Comment on above: Pattern: Unlabored 09-28-2011 11:20-0400 BMI (Body Mass Index) 34.24 kg/m2 Jasmin Larry [facility] Work Phone: 09-28-2011 11:20-0400 Body Temperature 97.6 [degF] Jasmin Larry [facility] Work Phone: 09-28-2011 11:20-0400 Body weight 98.43 kg Jasmin Larry [facility] Work Phone: 09-28-2011 11:20-0400 BP Diastolic 76 mm[Hg] Jasmin Larry [facility] Work Phone: Comment on above: Patient Position: Sitting; Cuff Location : Left Arm; Cuff Size: Standard 09-28-2011 11:20-0400 BP Systolic 110 mm[Hg] Jasmin Larry [facility] Work Phone: Comment on above: Patient Position: Sitting; Cuff Location : Left Arm; Cuff Size: Standard 09-28-2011 11:20-0400 BSA (Body Surface Area) 2.09 m2 Jasmin Larry [facility] Work Phone: 09-28-2011 11:20-0400 Height 169.55 cm Jasmin Larry [facility] Work Phone: 09-28-2011 11:20-0400 Pulse (Heart Rate) 64 /min Jasmin Larry [facility] Internal Medicine Work Phone: Comment on above: Pattern: Regular 09-28-2011 11:20-0400 Respiratory Rate 16 /min Jasmin Larry [facility] Work Phone: Comment on above: Pattern: Unlabored 08-17-2011 12:01-0400 BMI (Body Mass Index) 33.77 kg/m2 Jasmin Larry [facility] Work Phone: 08-17-2011 12:01-0400 Body Temperature 97.7 [degF] Jasmin Marrerokaleb [facility] Work Phone: 08-17-2011 12:01-0400 Body weight 97.07 kg Jasmin Larry [facility] Work Phone: 08-17-2011 12:01-0400 BP Diastolic 78 mm[Hg] Jasmin Larry [facility] Work Phone: Comment on above: Patient Position: Sitting; Cuff Location : Left Arm; Cuff Size: Standard 08-17-2011 12:01-0400 BP Systolic 114 mm[Hg] Jasmin Larry [facility] Work Phone: Comment on above: Patient Position: Sitting; Cuff Location : Left Arm; Cuff Size: Standard 08-17-2011 12:01-0400 BSA (Body Surface Area) 2.08 m2 Jasmin Laron [facility] Work Phone: 08-17-2011 12:01-0400 Height 169.55 cm Jasmin Laron [facility] Work Phone: 08-17-2011 12:01-0400 Pulse (Heart Rate) 76 /min Jasmin Laron [facility] Work Phone: Comment on above: Pattern: Regular 08-17-2011 12:01-0400 Respiratory Rate 16 /min Jasmin Laron [facility] Work Phone: Comment on above: Pattern: Unlabored Encounters Encounter Date Encounter Type Care Provider Facility Start: 10-31-2024 ambulatory Ana Fast Facility:[facility] Start: 07-07-2024 ambulatory Ana Fast Facility:[facility] Start: 05-27-2024 ambulatory Ana Fast Facility:[facility] Start: 04-24-2024 End: 05-16-2024 ambulatory Ana Fast Facility:[facility] Start: 02-21-2024 End: 03-16-2024 ambulatory Ana Fast Facility:[facility] Start: 01-12-2024 End: 01-15-2024 ambulatory Ana Fast Facility:[facility] Start: 12-16-2023 Encounter for preprocedural laboratory examination Ana Fast [facility] Start: 12-03-2023 End: 12-03-2023 ambulatory Ana Fast Facility:[facility] Start: 09-30-2023 End: 09-30-2023 ambulatory ANA A FAST [facility] Start: 09-30-2023 End: 09-30-2023 Subsequent hospital visit by physician [address] Comment on above: Impaired fasting glu cose Start: 07-20-2023 End: 07-21-2023 ambulatory ANA A FAST Facility:[facility] Start: 07-12-2023 End: 07-12-2023 ambulatory RENE PEÑALOZA Facility:[facility] Start: 06-07-2023 End: 06-07-2023 ambulatory ANA A FAST Facility:[facility] Start: 03-18-2023 End: 03-18-2023 Office outpatient visit 10 minutes Ana Fast DO Work Phone: [facility] Start: 01-25-2023 End: 02-07-2023 Office outpatient visit 10 minutes Ana Fast DO Work Phone: [facility] Start: 01-25-2023 Review Ana Fast DO Work Phone: [facility] Start: 01-19-2023 End: 01-19-2023 Office outpatient visit 15 minutes Ana Fast DO Work Phone: [facility] Start: 12-21-2022 End: 12-21-2022 Office outpatient visit 15 minutes Ana Fast DO Work Phone: [facility] Start: 12-11-2022 End: 12-21-2022 Office outpatient visit 10 minutes Ana Fast DO Work Phone: [facility] Start: 12-08-2022 End: 12-10-2022 Office outpatient visit 15 minutes Ana Fast DO Work Phone: [facility] Start: 12-08-2022 Review Ana Fast DO Work Phone: [facility] Start: 11-30-2022 End: 12-01-2022 Office outpatient visit 10 minutes Ana Fast DO Work Phone: [facility] Start: 11-02-2022 End: 11-02-2022 Phone Encounter Ana Fast DO Work Phone: [facility] Start: 10-02-2022 End: 10-05-2022 Office outpatient visit 15 minutes Ana Fast DO Work Phone: [facility] Start: 09-02-2022 End: 09-02-2022 Office outpatient visit 25 minutes Ana Fast DO Work Phone: [facility] Start: 08-26-2022 Non-patient / Non-visit Dr. Navas Fast Work Phone: [facility] Start: 08-26-[address] Ana Jimenez Work Phone: [facility]-Cardiovascular Services Start: 08-24-2022 ambulatory Ana Cristal Fast DO [facility] Start: 08-20-2022 End: 08-20-[address] Ana Jimenez Work Phone: [facility] Work Phone: Start: 08-20-2022 End: 08-20-[address] Ana Jimenez Work Phone: [facility]-Outpatient Bone Densitometry Start: 06-05-2022 End: 09-02-2022 Patient encounter procedure Ana Fast DO Work Phone: [facility] Start: 06-05-2022 Review Ana Fast DO Work Phone: [facility] Start: 04-01-2022 End: 04-01-2022 Office outpatient visit 5 minutes Ana Fast DO Work Phone: [facility] Start: 03-17-2022 End: 03-17-2022 Patient encounter procedure Mary Kate Gutiérrez PA-C Work Phone: General Surgery Comment on above: Enlarged lymph nodes (Primary Dx) Start: 02-18-2022 End: 02-18-2022 Office outpatient visit 15 minutes Ana Fast DO Work Phone: [facility] Start: 02-04-2022 End: 02-05-2022 Office outpatient visit 15 minutes Ana Fast DO Work Phone: [facility] Start: 01-30-2022 End: 01-30-2022 Patient encounter procedure Mary Kate Gutiérrez PA-C Work Phone: General Surgery Comment on above: Enlarged lymph nodes (Primary Dx) Start: 01-29-2022 Telephone encounter Rene valdes MD Work Phone: General Surgery Comment on above: Results Start: 01-28-2022 End: 01-28-2022 Patient encounter procedure Mary Kate Gutiérrez PA-C Work Phone: General Surgery Comment on above: Enlarged lymph nodes (Primary Dx) Start: 01-26-2022 End: 01-26-2022 ambulatory [facility] Work Phone: Start: 01-26-2022 End: 01-26-2022 Discharged Recurring [facility]-Occupational Therapy Start: 01-21-2022 End: 01-21-2022 ambulatory RENE PEÑALOZA Facility:[facility] Start: 01-16-2022 Telephone encounter Rene valdes MD Work Phone: General Surgery Comment on above: 01/21/22 Dr. Jh Cornejo xcision of Right Axillary lymph node Start: 01-16-2022 End: 01-16-2022 Patient encounter procedure Rene Peñaloza MD Work Phone: General Surgery Comment on above: Enlarged lymph nodes (Primary Dx) Start: 01-12-2022 Telephone encounter Philip hall DO Work Phone: Hematology/Oncology Comment on above: Patient Question Start: 01-09-2022 End: 01-09-2022 ambulatory Philip Tayi DO Work Phone: Hematology/Oncology Comment on above: Axillary lymphadenop athy (Primary Dx) Start: 01-09-2022 End: 01-09-2022 Patient encounter procedure Philip Tayi DO Work Phone: [facility] Start: 01-01-2022 Telephone encounter Philip Parker ci DO Work Phone: Hematology/Oncology Comment on above: Appointment Start: 12-29-2021 End: 12-29-2021 Phone Encounter Ana Fast DO Work Phone: [facility] Start: 12-24-2021 End: 12-30-2021 Office outpatient visit 25 minutes Ana Fast DO Work Phone: [facility] Start: 12-24-2021 Review Ana Fast DO Work Phone: [facility] Start: 12-12-2021 End: 12-12-2021 Emergency department patient visit Dr. Ana Jimenez Work Phone: [facility]-Emergency Department Start: 12-02-2021 End: 12-02-2021 Patient encounter procedure Rene Peñaloza MD Work Phone: General Surgery Comment on above: Enlarged lymph nodes (Primary Dx) Start: 11-24-2021 End: 11-24-2021 Phone Encounter Ana Fast DO Work Phone: [facility] Start: 11-24-2021 End: 11-24-[address] Ana Jimenez Work Phone: [facility]-Ultrasound, [facility] Start: 10-17-2021 End: 10-17-[address] Ana Jimenez Work Phone: [facility]-Outpatient Breast Imaging Start: 10-03-2021 End: 10-03-[address] Ana Jimenez Work Phone: [facility] Radiology Start: 10-03-2021 End: 10-13-2021 Office outpatient visit 25 minutes Ana Fast DO Work Phone: [facility] Start: 10-03-2021 Review Ana Fast DO Work Phone: [facility] Start: 09-16-2021 End: 09-16-2021 Office outpatient visit 25 minutes Ana Fast DO Work Phone: [facility] Start: 09-11-2021 End: 09-11-2021 Lab Order Ana Fast DO Work Phone: [facility] Start: 05-06-2021 End: 09-16-2021 Office outpatient visit 25 minutes Ana Fast DO Work Phone: [facility] Start: 05-06-2021 Review Ana Fast DO Work Phone: [facility] Start: 04-30-2021 End: 05-04-2021 Office outpatient visit 5 minutes Ana Fast DO Work Phone: [facility] Start: 03-04-2021 End: 03-04-2021 Office outpatient visit 5 minutes Ana Fast DO Work Phone: [facility] Start: 01-07-2021 End: 01-20-2021 Office outpatient visit 25 minutes Ana Fast DO Work Phone: [facility] Start: 12-27-2020 End: 12-27-2020 Phone Encounter Ana Fast DO Work Phone: [facility] Start: 12-27-2020 End: 12-27-2020 Phone Encounter Ana Fast DO Work Phone: [facility] Start: 09-03-2020 End: 09-08-2020 Office outpatient visit 25 minutes Ana Fast DO Work Phone: [facility] Start: 09-03-2020 Review Ana Fast DO Work Phone: [facility] Start: 07-03-2020 End: 07-03-2020 Phone Encounter Ana Fast [facility] Start: 05-31-2020 End: 09-16-2021 Office outpatient visit 25 minutes Ana Fast DO Work Phone: [facility] Start: 05-31-2020 End: 09-16-2021 Patient encounter status Ana Fast DO Work Phone: [facility] Start: 05-31-2020 Review Ana Fast [facility] Start: 05-21-2020 End: 05-21-2020 Lab Order Ana Fast [facility] Start: 04-10-2020 End: 04-14-2020 Office outpatient visit 15 minutes Ana Fast [facility] Start: 04-29-2015 End: 04-29-2015 Office outpatient visit 25 minutes Ana Fast [facility] Start: 02-22-2015 End: 02-22-2015 Office outpatient visit 5 minutes Ana Fast [facility] Start: 01-11-2015 End: 01-11-2015 Office outpatient visit 15 minutes Ana Fast [facility] Start: 10-12-2014 End: 10-12-2014 Office outpatient visit 25 minutes Ana Fast [facility] Start: 09-17-2014 End: 09-17-2014 Phone Encounter Ana Fast [facility] Start: 04-16-2014 End: 04-16-2014 Phone Encounter Ana Fast [facility] Start: 02-26-2014 End: 02-26-2014 Office outpatient visit 5 minutes Ana Fast [facility] Start: 02-27-2013 End: 02-27-2013 Patient encounter procedure Ana Jimenez [facility] Start: 10-17-2012 End: 10-17-2012 Patient encounter procedure Ana Jimenez [facility] Start: 02-29-2012 End: 02-29-2012 Patient encounter procedure Ana Jimenez [facility] Start: 09-28-2011 End: 09-28-2011 Patient encounter procedure Ana Jimenez [facility] Start: 08-17-2011 End: 08-18-2011 Patient encounter procedure Ana Jimenez [facility] Patient encounter status Alyssa Galan [facility]; [facility] Work Phone: Comment on above: cervical stenosis Patient encounter status Brandyn Arroyo [employer] [facility]; [facility] Work Phone: Comment on above: cervical stenosis Patient encounter status Brandyn Arroyo [facility]; [facility] Work Phone: Comment on above: cervical stenosis Patient encounter status Rachel Abrams [facility]; [facility] Work Phone: Comment on above: cervical stenosis Patient encounter status Margarita Maria Alejandra [facility]; [facility] Work Phone: Comment on above: cervical stenosis Patient encounter status Rachel Abrams [facility]; [facility] Work Phone: Comment on above: cervical stenosis Patient encounter status Rachel Abrams [facility]; [facility] Work Phone: Comment on above: cervical stenosis Patient encounter status Rachel Abrams [facility]; [facility] Work Phone: Comment on above: cervical stenosis Patient encounter status Rachel Abrams [facility]; [facility] Work Phone: Comment on above: cervical stenosis Patient encounter status Rachel Abrams [facility]; [facility] Work Phone: Comment on above: cervical stenosis Patient encounter status Rachel Abrams [facility]; [facility] Work Phone: Comment on above: cervical stenosis Procedures Date Procedure Procedure Detail Performing Clinician Start: 09-30-2023 CT CARDIAC SCORING WO IV CONTRAST ANA JIMENEZ Start: 09-30-2023 Ct heart no contrast quant eval coronry calcium Ana Jimenez DO Work Phone: Start: 10-20-2022 End: 10-20-2022 SCRN MAMM (CAD)W/ERLINDA BILAT Procedure Note: See Note; NOTES: [facility] Imaging Services [address] [place] [address] SCRN MAMM (CAD)W/ERLINDA BILAT MR#: [id number] Acct: [id number] Name: ANA BROWN Rep #: [id number] : 1955 F 66 From: Conor martin MD PCP: Dr. Ana Jimenez DO Status: [facility] Study: SCRN MAMM (CAD)W/ERLINDA BILAT Date of Exam: 11/06 Exam# [id number] Ordering Dr: Ana Jimenez DO MAMMOGRAPHY - BILATERAL SCREENING REASON FOR EXAM: Female, 66 years old. Routine annual screening examination. PERTINENT HISTORY: Sister with breast cancer. Mother with breast cancer. Aunt with breast cancer. Prior right excisional breast biopsy. TECHNIQUE: Digital bilateral breast erlinda (3D mammographic acquisition) in the CC and MLO projections. 2-D mediolateral oblique (MLO) and craniocaudad (CC) views of both breasts were obtained. CAD: Full Field Digital Mammography with Computer Added Detection was performed. COMPARISON: Comparison is made with prior study dated October 17, 2021 and September 05, 2020. FINDINGS: Breast Composition: There are scattered areas of fibroglandular density. There are no dominant masses or suspicious calcifications. Stable small benign appearing bilateral axillary lymph nodes. No other significant abnormalities are identified. There has been no significant change since the prior study. BI/SCRN MAMM (CAD)W/ERLINDA BILAT IMPRESSION: Stable bilateral screening mammogram. Yearly follow-up mammogram recommended. (A) ASSESSMENT CATEGORY: BIRADS Category 2: Benign. A letter regarding these results will be sent to the patient by the facility within 30 days. Approximately 10% of breast cancers are not detected by mammography. A normal mammogram should not delay biopsy of a clinically suspicious abnormality. [id number] Electronically Signed: Conor Peacock MD at 11:12 EDT , CC: Dr. Ana Jimenez DO Pediatric Geneticist: Signed Ana Jimenez DO Work Phone: Start: 08-26-2022 End: 08-26-2022 Stress Report Procedure Note: See Note; NOTES: [facility] Cardiovascular Services [address] [place] [id number] MR#: [id number] Acct: [id number] Name: ANA BROWN Rep #: [id number] : [id number] From: Kamilah Merida MD Primary Care: Dr. Ana Jimenez, DO Status: R EG CLI Referring Dr: Sex: F C Stress Test Report Date: 08/26/2022 Procedure: Exercise tolerance test/imaging study Indications: Dyspnea on exertion Consent: Per the patient Procedure: The patient exercised on a Nagi protocol for 6 achieving a peak heart rate of 140 bpm (92% predicted maximal heart rate) with a peak blood pressure 150/66 mmHg and a peak MET capacity of 7 METs. The baseline ECG demonstrated normal sinus rhythm. The peak exercise ECG demonstrated no ischemic changes. There were no cardiac dysrhythmias pretest, during exercise, or recovery. The functional capacity was considered mildly decreased. There was complaint of moderate shortness of breath at peak exercise. The examination was discontinued secondary to target heart rate being achieved. The patient was injected with 14 point mCi of technetium 99m Cardiolite and subsequently rest SPECT Cardiolite nuclear imaging was obtained in the horizontal long, vertical long, and short axis views. Post-exercise, the patient was injected with 44.4 mCi of technetium 99m Cardiolite and subsequently stress SPECT Cardiolite nuclear imaging was obtained in the horizontal long, vertical long, and short axis views. A gated Cardiolite study at peak stress was obtained. Rest and stress SPECT Cardiolite nuclear imaging status post realignment, normalization, and attenuation correction, demonstrates the appearance of relative uniform tracer uptake and myocardial perfusion appearing within normal limits. There is end systolic thickening and brightening. The gated Cardiolite study demonstrates myocardial thickening and inward wall motion. The reported LVEF is 75%. Impression: 1. Technically adequate (percent predicted maximal heart rate greater than 85%) exercise tolerance test 2. Peak exercise ECG no ischemic change 3. There were no cardiac dysrhythmias pretest, during exercise, or recovery 4. Rest and stress SPECT Cardiolite nuclear imaging demonstrate relative uniform tracer uptake and myocardial perfusion appearing within normal limits. 5. The gated Cardiolite study reports an LVEF of 75%. This note was generated with [employer] software. It may contain incorrect words, spelling, and punctuation that were not noted in checking the note before signing. 08/26/2247 <Electronically signed by Kamilah eMrida MD> Date Kamilah Merida MD CC: Dr. Ana Jimenez DO Date Dictated: 08/26/22944 Date Transcribed: 08/26/22944 Pediatric Geneticist: [facility] Signed Ana Jimenez DO Work Phone: Start: 08-26-2022 Radionuclide imaging of perfusion of myocardium under exercise stress Dr. Ana Jimenez Work Phone: Start: 08-20-2022 End: 08-22-2022 Dexa Bone Density Study Procedure Note: See Note; NOTES: [facility] Imaging Services [address] [place] [address] Dexa Bone Density Study MR#: [id number] Acct: [id number] Name: KEVINANA BRIGID Rep #: [id number] : 1955 F 66 From: Cristopher Mcdonald MD PCP: Dr. Ana Jimenez DO Status: [facility] Study: Dexa Bone Density Study Date of Exam: 08/20/22 Exam# [id number] Ordering Dr: Ana Jimenez DO STUDY: DUAL ENERGY X-RAY ABSORPTIOMETRY / DXA REASON FOR EXAM: Female, 66 years old. Postmenopausal screening TECHNIQUE: Bone Mineral Density (BMD) measurements of lumbar spine and bilateral hips were obtained. COMPARISON: 2011 FINDINGS: Lumbar Spine (L1-L4): g/cm2 (1.063) / T-score (0.1) / Z-score (2.0) Findings are suggestive of normal bone density with a low fracture risk in the lumbar spine. Left Femur Total: g/cm2 (0.856) / T-score (-0.7) / Z-score (0.6) Left Femoral Neck: g/cm2 (0.679) / T-score (-1.5) / Z-score (0.1) Right Femur Total: g/cm2 (0.917) / T-score (-0.2) / Z-score (1.1) Right Femoral Neck: g/cm2 (0.781) / T-score (-0.6) / Z-score (1.0) The T-Scores on the most recent prior examination were: There has been a decrease of bone density in the lumbar spine, an increase in both femurs since the previous examination. BD/Dexa Bone Density Study IMPRESSION: The patient is considered osteopenic as outlined below according to World [employer] Organization (WHO) criteria with a moderate fracture risk. Reference Information: The T-score is the number of standard deviations above or below the standard which is normal for young adults at their peak bone mineral density. The World Health Organization (WHO) interprets the T-scores as follows: Above -1 Normal bone density Between -1 and -2.5 Osteopenia Equal to / or below -2.5 Osteoporosis As a practical clinical guideline, osteopenia may be graded as follows: Mild -1 through -1.5 Moderate -1.6 through -2.0 Severe -2.1 through -2.4 The Z-score is the number of standard deviations above or below age-matched controls. A Z-score of less than -1.5 would be considered abnormal. References: 1. NIH Osteoporosis and Related Bone Diseases www osteo.org 2. International Society for Clinical Densitometry www iscd.org 3. National Osteoporosis Foundation www nof.org Electronically Signed: Mikael Mcdonald MD at 9:04 EDT , CC: Dr. Ana Jimenez DO Pediatric Geneticist: Signed Ana Jimenez DO Work Phone: Start: 08-20-2022 Dual energy X-ray absorptiometry Dr. Ana Jimenez Work Phone: Start: 08-20-2022 End: 08-22-2022 Thyroid Procedure Note: See Note; NOTES: [facility] Imaging Services [address] [place] [address] Thyroid MR#: [id number] Acct: [id number] Name: ANA BROWN Rep #: [id number] : 1955 F 66 From: Rogelio Juan MD PCP: Dr. Ana Jimenez DO Status: REG CLI Study: Thyroid Date of Exam: 08/20/22 Exam# [id number] Ordering Dr: Ana Jimeenz DO INDICATION: NODULE EXAMINATION: Ultrasound US Thyroid (eg thyroid, parathyroid, parotid) TECHNIQUE: Fisher scale and color doppler imaging was performed of the thyroid gland. COMPARISON: 05/21/2020 ultrasound. FINDINGS: RIGHT THYROID LOBE: 4.9 x 1.5 x 1.3 cm. Homogeneous echotexture with normal vascularity. [Multiple nodules with a solid hypoechoic nodule measuring 4 mm, cysts cystic nodule measuring 3 mm, solid hypoechoic nodule measuring 4 mm and a mixed solid and cystic nodule measuring 9 mm. All nodules are wider than tall with smooth margins and no echogenic foci. LEFT THYROID LOBE: 4.0 x 1.3 x 1.3 cm. Homogeneous echotexture with normal vascularity. [Multiple nodules with a 5 mm solid hypoechoic nodule with a large coarse macrocalcification and a 7 mm solid nodule with no echogenic foci. Both nodules are wider than tall with smooth margins. ISTHMUS: 2 mm in AP diameter. No thyroid nodules are present. US/Thyroid IMPRESSION: Multiple bilateral thyroid nodules with no significant change as compared to the prior ultrasound. None of the nodules meet TI-RADS criteria for follow-up. Electronically Signed: Rogelio Juan DO at 0:33 EDT , CC: Dr. Ana Jimenez DO Pediatric Geneticist: Signed Ana Jimenez DO Work Phone: Start: 08-20-2022 US scan of thyroid Dr. Ana Jimenez Work Phone: Start: 04-28-2022 End: 04-28-2022 OT D/C Summary Procedure Note: See Note; NOTES: [facility] Occupational Therapy [facility] [address] [place] [address] [address] [place] [address] / REHABILITATION SERVICES DISCHARGE SUMMARY MR#: [id number] Acct: [id number] Name: ANA BROWN Rep #: [id number] : 1955 66 From: Keyana Brar OTR/L, CHT Referring DrPedro Pablo: KAYLA Mendez Status: REG R CR Eval Date: Discharge Date: It has been my pleasure to treat ANA BROWN under orders from William Mendez PA-C, for the diagnosis of right RF dislocation for a total of 2 visit(s). Please see the following information for a summary of their discharge status. Objective/Function: right PIP flexion 100 increase from 90*. right DIP flexion 40* increase from 35*. right palliative care coordinator strength 55# increase from 40*. pt has met OT goals and is D/c at this time. Patient Goals: Regain Mobility, Regain Strength, Use Hand/Wrist/Arm Normally Again Goal:: pt will demo increase in right palliative care coordinator strength by 15# or greater to increase pts ind. with ADLs and IADLs by d/c Goal:: pt will demo a increase in right RF PIP and DIP flex cy 15* or greater to increase pts ind. with ADLs and IADLs. Goal:: pt will report pain no greater than 1/10 with use of right hand with ADLs and IADLs by d/c Discharge Comments: Pt demo good functional ROM and strength is returning- If there are questions or concerns regarding this patient's occupational therapy, please fell free to call me at [phone]. Thank you for the referral of this patient. Sincerely, DOMINICK Tim CHT <Electronically signed by Keyana TAN CHT> 04/28/22 1423 CC: KAYLA Mendez; Dr. Ana Jimenez DO MK Signed Ana Jimenez DO Work Phone: Start: 01-09-2022 End: 01-09-2022 OT General Evaluation Comments: See Note; NOTES: [facility] Occupational Therapy [facility] [address] [place] [address] [address] [place] [address] / REHABILITATION SERVICES INITIAL EVALUATION MR#: [id number] Acct: [id number] Name: ANA BROWN Rep #: [id number] : 1955 66 From: Keyana TAN CHT Referring Dr.: KAYLA Mendez Status: REG R CR Insurance: MEDICARE PART A B Eval Date: ANTHEM Patient's Visit Information ANA BROWN is a 66 year old F, referred to Occupational Therapy by William Mendez PA-C, with a diagnosis of right RF dislocation. Date of Evaluation: 01/07/22 Occupational Therapist: Keyana Brar, ROBI/Grace, CHT - Subjective This 66 year old female was seen for OT eval with dx of right ring finger dislocation on 12/12/21- pt states she went to ER and was splinted for about 2.5 weeks- pt is retired- pt states her finger is moving better but still sore and and stiff limiting IND use of her right hand- pt would like to return to her PLOF with ADLs and IADls. - Pain right RF 0 Pain Intensity Range: 2 - ROM MP: right RF 0/80 left 0/80 PIP: right RF 0/90 left 0/100 DIP: right 0/35 left 0/45 - Strength [employer] Designer: right 40# left 70# Lateral Pinch: right 10# left 10# - Sensation Sensation Comments: denies - Quick DASH-Disab of Arm,Shoulder Hand Quick DASH Score: 31.8175 - Goals Goal:: pt will demo increase in right palliative care coordinator strength by 15# or greater to increase pts ind. with ADLs and IADLs by d/c Goal:: pt will demo a increase in right RF PIP and DIP flex cy 15* or greater to increase pts ind. with ADLs and IADLs. Goal:: pt will report pain no greater than 1/10 with use of right hand with ADLs and IADLs by d/c - Rehabilitation General Assessment: pt suffered dorsal dislocation of proximal interphalangeal joint 3 weeks and 5 days ago- pt demo with limited right RF motion, weakness and strength decreasing pts ind. with ADls and IADls. pt would benefit from skilled OT services 1x week for 3-4 weeks. Today therapist ed. pt on ROM, edema and protective bradley. while lifting and performing tasks. pt demo understanding and receptive to POC. Rehabilitation Potential: Good - Anticipated Interventions A/AAROM/PROM, Strengthening, Modalities, Orthoses, Joint Protection/Energy Conservation, Ergonomic Education, Fine Motor Coord/Octaviano, Education re assistive Equipment, Education re Diagnosis, Home Program - Visit Plan Frequency: 1-2x /Week Duration: 6 Weeks TEXT: Thank you for the opportunity to evaluate your patient. For Medicare and Medicare HMO plans, please review the plan of care and approve it. It will need to be FAXED BACK to us at [phone] for Medicare purposes. Please let me know if there are questions or concerns regarding this plan of care. Physician Signature: ___Date: <Electronically signed by Keyana ROSENBAUM/Grace, CHT> 01/09/22 075 CC: KAYLA Mendez; Dr. Ana Jimenez DO MK Signed For Medicare only, by signing this I certify the plan of care. Physicians Signature Date Ana Jimenez DO Work Phone: Start: 12-24-2021 End: 12-24-2021 Ankle min 3 Views Comments: See Note; NOTES: [facility] Radiology [address] [place] [address] Ankle min 3 Views MR#: [id number] Acct: [id number] Name: ANA BROWN Rep #: [id number] : 1955 F 66 From: Den Ugarte PCP: Dr. Ana Jimenez DO Status: DEP AMB Study: Ankle min 3 Views Date of Exam: 12/24/21 Exam# [id number] Ordering Dr: Ana Jimenez DO STUDY: X-RAY - LEFT ANKLE REASON FOR EXAM: Chronic left ankle pain. TECHNIQUE: 3 view(s) of the ankle. COMPARISON: None. FINDINGS: Normal visualized distal tibia and fibula. Normal medial and lateral malleoli. Normal tibiotalar articulation and ankle mortise. There is a plantar calcaneal enthesophyte. Otherwise, unremarkable visualized talus and calcaneus. The visualized subtalar, talonavicular, calcaneocuboid and tarsal articulations are normal. The soft tissue structures are unremarkable. RAD/Ankle min 3 Views IMPRESSION: Plantar calcaneal enthesophyte. Otherwise, unremarkable x-ray examination of the left ankle. Electronically Signed: Den Davey MD at 15:00 EDT , CC: Dr. Ana Jimenez DO Pediatric Geneticist: Signed Ana Jimenez DO Work Phone: Start: 12-12-2021 Diagnostic radiography of finger Dr. Ana Jimenez Work Phone: Start: 12-12-2021 End: 12-12-2021 Finger(s) Min 2 Views Comments: See Note; NOTES: [facility] Imaging Services [address] [place] [address] Finger(s) Min 2 Views MR#: [id number] Acct: [id number] Name: ANA BROWN Rep #: [id number] : 1955 F 66 From: Jimmy Mendes DO PCP: Dr. Ana Jimenez, DO Status: REG ER Study: Finger(s) Min 2 Views Date of Exam: 12/12/21 Exam# [id number] Ordering Dr: Maikel Downs MD STUDY: X-RAY - RIGHT HAND, ATTENTION FOURTH FINGER REASON FOR EXAM: Female, 66 years old. Post reduction. TECHNIQUE: 3 view(s) of the finger were obtained. COMPARISON: Right fourth finger, 12/12/2021 (194) FINDINGS: Aspiration of the proximal interphalangeal joint which is dorsally dislocated on the previous study. There is no fracture. The finger is otherwise unremarkable. RAD/Finger(s) Min 2 Views IMPRESSION: Successful reduction of the dislocation of the proximal interphalangeal joint seen on the earlier study. Electronically Signed: Jimmy Mendes DO at 22:08 EDT Reading Location ID and State: [address] [place] [address] Tel [phone], Service support , CC: Dr. Maikel Downs MD; Dr. Ana Jimenez DO Pediatric Geneticist: Signed Ana Jimenez DO Work Phone: Start: 12-12-2021 End: 12-12-2021 Emergency Department Summary Comments: See Note; NOTES: [facility] Medical Records Department [address] [place] [address] Emergency Department Summary 12/12/21 MR#: [id number] Acct: [id number] Name: ANA BROWN Rep #: [id number] : 1955 66 From: Maikel Downs MD PCP: Dr. Ana Jimenez DO Status:REG ER Location: ED HPI History of Present Illness Chief Complaint: Upper Extremity Injury Narrative Narrative: Patient denies significant past medical history presents with injury to her right fourth digit on her hand. She states she was trying to save a baby bunny from a kitten. She had to crawl onto the deck. She fell onto her right hand and now has pain in her fourth finger. She is unsure if it is fractured or dislocated. She denies other injury. She does not take blood thinners. [facility] Medical History Skin cancer Home Medications mometasone 200 mcg/actuation HFA aerosol inhaler (Asmanex HFA) 2 puff inhalation QHS 12/12/21 [History Last Taken Unknown] Allergy/AdvReac Type Severity Reaction Status Date / Time No Known Allergies Allergy Verified 06/27/13 16:07 Social History Smoking Status: Former smoker ROS ROS ED ROS Narrative Constitutional: No fever, no chills. HEENT: No sore throat. No neck pain. No loss of vision. No rhinorrhea. Cardiovascular: No chest pain. No palpitations. No pedal edema. Respiratory: No cough, no shortness of breath. Abdominal: No abdominal pain. No nausea. No vomiting. Genitourinary: No dysuria. No hematuria. Musculoskeletal: No myalgias. Right fourth digit pain at PIP. Neurologic: No headaches. No dizziness. No lightheadedness. Skin: No rash. No change in color. Psychiatric: No depression. No anxiety. EXAM Physical Exam Narrative Exam Narrative: Afebrile. Vital signs noted. HEENT: Normocephalic. Atraumatic. PERRL, EOMI. Neck soft and supple. No point tenderness or step off. Cardiovascular: Regular rate and rhythm. No murmurs, rubs, or gallops appreciated. Respiratory: No tachypnea. Lungs clear to auscultation bilaterally. Gastrointestinal: Abdomen soft, nontender, with normoactive bowel sounds. No rebound or guarding. Neurological: Awake. Alert. Nonfocal, nonlateralizing. Skin: No rash. Normal color. No pallor. Musculoskeletal: No pedal edema. Positive deformity at PIP of fourth digit right hand. Full range of motion right wrist. Palpable radial pulse. Good capillary refill all digits. Range of motion of fourth digit limited secondary to pain and deformity. Const Vital Signs: 12/12/21 19:29 12/12/21 20:06 Temperature 98.4 F Temperature Source Temporal Pulse Rate 89 Respiratory Rate 16 16 Blood Pressure 160/74 H Blood Pressure Mean 102 Pulse Ox 96 Oxygen Delivery Method Room Air MDM MDM MDM Narrative Medical decision making narrative: Patient was given an ice pack for comfort. X-rays were obtained of the fourth digit. I interpreted the x-ray and there is a dorsal dislocation at the PIP joint. No evidence of fracture. In discussion with the patient, closed reduction was performed without digital block. Patient tolerated procedure well. Postreduction x-ray will be obtained and interpreted by myself. She declined analgesics orally here in the emergency department. Postreduction x-ray interpreted by myself does show successful reduction of her closed finger dislocation. She will be placed in an aluminum foam splint and take [id number] analgesics as needed. She will continue ice and elevation at home and follow-up with the orthopedic surgeon within the next 5 to 7 days. Disposition is discharged home in improved and stable condition. Return instructions were reviewed. Radiography Diagnostic Testing: Clinical Impression(s) from Imaging Studies Finger X-Ray 12/12/21 19:33 IMPRESSION: Dorsal dislocation of the proximal interphalangeal joint without visualized fracture. Electronically Signed: Jimmy Mendes DO at 19:56 EDT Reading Location ID and State: [address] [place] [address] Tel [phone], Service support , Discharge Plan Triage Chief Complaint: Upper Extremity Injury ED Provider: Maikel Downs Dx/Rx/DC Orders Clinical Impression: Closed dislocation finger, proximal interphalangeal joint, traumatic, Finger pain, right Instructions: ED Finger Dislocation Prescriptions: No Action Asmanex HFA 200 mcg/actuation HFA aerosol inhaler 2 puff INHALATION QHS Label Comments: inhale 2 puffs by mouth and INTO THE LUNGS once daily WITH GOOD ORAL CARE AFTER USE Primary Care Provider: Ana Jimneez Referrals: Ana Jimenez DO [Primary Care Provider] - Meir Cannon MD [Med Staff - Active Staff] - 5-7 Days Disposition Disposition: Home, Self Care What to do if you have Problems For any increased pain, shortness of breath, bleeding, nausea or vomiting, chest pain, or any unexpected problems, contact your Primary Care Provider. Call [facility] ([phone]) or report to the closest Emergency Room. Call 911 if necessary. 12/12/212217 <Electronically signed by Maikel Downs MD> Cosigner Signature (if applicable): CC: Dr. Ana Jimenez DO Signed Ana Jimenez DO Work Phone: Start: 12-12-2021 Diagnostic radiography of finger Dr. Ana Jimenez Work Phone: Start: 12-12-2021 End: 12-12-2021 Finger(s) Min 2 Views Comments: See Note; NOTES: [facility] Imaging Services [address] [place] [address] Finger(s) Min 2 Views MR#: [id number] Acct: [id number] Name: ANA BROWN Rep #: [id number] : 1955 F 66 From: Jimmy Mendes DO PCP: Dr. Ana Jimenez DO Status: PRE ER Study: Finger(s) Min 2 Views Date of Exam: 12/12/21 Exam# [id number] Ordering Dr: Provider,Ed P. STUDY: X-RAY - RIGHT HAND, ATTENTION FOURTH FINGER REASON FOR EXAM: Female, 66 years old. Deformity after fall onto hand. TECHNIQUE: 3 view(s) of the finger were obtained. COMPARISON: None. FINDINGS: Normal metacarpal head. Normal metacarpophalangeal joint. Normal proximal phalanx. Normal middle phalanx. Normal distal phalanx. There is dorsal dislocation although the proximal interphalangeal joint. There is mild degenerative arthrosis of the distal interphalangeal joint. There is soft tissue swelling about the mid finger. RAD/Finger(s) Min 2 Views IMPRESSION: Dorsal dislocation of the proximal interphalangeal joint without visualized fracture. Electronically Signed: Jimmy Mendes DO at 19:56 EDT Reading Location ID and State: [address] [place] [address] Tel [phone], Service support , CC: Dr. Ana Jimenez DO; ED PHYSICIAN PROVIDER Pediatric Geneticist: Signed Ana Jimenez DO Work Phone: Start: 11-24-2021 End: 11-24-2021 Breast Limited Unilateral Comments: See Note; NOTES: [facility] Imaging Services [address] [place] [address] Breast Limited Unilateral MR#: [id number] Acct: [id number] Name: ANA BROWN Rep #: [id number] : 1955 F 66 From: Conor martin MD PCP: Dr. Ana Jimenez DO Status: REG CLI Study: Breast Limited Unilateral Date of Exam: Exam# [id number] Ordering Dr: Ana Jimenez DO STUDY: ULTRASOUND BREAST - RIGHT REASON FOR EXAM: Female, 66 years old. Right axillary nodes. TECHNIQUE: Axial and longitudinal images of the RIGHT breast were performed with a high resolution ultrasound transducer. # OF IMAGES: 40 COMPARISON: Comparison is made with prior ultrasound of the right breast dated 05/20/2021. FINDINGS: RIGHT Breast: Once again, 3 lymph nodes are seen in the right axilla. The largest lymph node measures 2.6 times by 2.17 x 1.6 cm. This is increased slightly in size as compared to prior examination. The echotexture is slightly increased. Biopsy recommended. US/Breast Limited Unilateral IMPRESSION: Mild increase in size of the dominant lymph node in the right axilla. Biopsy recommended. ASSESSMENT CATEGORY: BIRADS Category 4: Suspicious - Biopsy Should Be Considered. A letter regarding these results will be sent to the patient by the facility within 30 days. Electronically Signed: Conor Peacock MD at 10:02 EDT , CC: Dr. Ana Jimenez DO Pediatric Geneticist: Signed Ana Jimenez DO Work Phone: Start: 11-24-[address] Ana Jimenez Work Phone: Start: 10-17-2021 End: 10-17-[address] Ana Jimenez Work Phone: Start: 10-17-2021 End: 10-17-2021 SCRN MAMM (CAD)W/ERLINDA BILAT Comments: See Note; NOTES: [facility] Imaging Services [address] [place] [address] SCRN MAMM (CAD)W/ERLINDA BILAT MR#: [id number] Acct: [id number] Name: ANA BROWN Rep #: [id number] : 1955 F 65 From: Conor martin MD PCP: Dr. Ana Jimenez, Status: [facility] Study: SCRN MAMM (CAD)W/ERLINDA BILAT Date of Exam: 08/05 Exam# [id number] Ordering Dr: Ana Jimenez DO MAMMOGRAPHY - BILATERAL SCREENING REASON FOR EXAM: Female, 65 years old. Routine annual screening examination. PERTINENT HISTORY: Sister with breast cancer. Mother with breast cancer. Aunt with breast cancer. TECHNIQUE: Digital bilateral breast erlinda (3D mammographic acquisition) in the CC and MLO projections. 2-D mediolateral oblique (MLO) and craniocaudad (CC) views of both breasts were obtained. CAD: Full Field Digital Mammography with Computer Added Detection was performed. COMPARISON: Comparison is made with prior study dated 02/07/2020 and 09/05/2020. FINDINGS: Breast Composition: There are scattered areas of fibroglandular density. There are no dominant masses or suspicious calcifications. Stable small benign-appearing bilateral axillary lymph nodes. No other significant abnormalities are identified. There has been no significant change since the prior study. BI/SCRN MAMM (CAD)W/ERLINDA BILAT IMPRESSION: Stable bilateral screening mammogram. Yearly follow-up mammogram recommended. (A) ASSESSMENT CATEGORY: BIRADS Category 2: Benign. A letter regarding these results will be sent to the patient by the facility within 30 days. Approximately 10% of breast cancers are not detected by mammography. A normal mammogram should not delay biopsy of a clinically suspicious abnormality. [id number] Electronically Signed: Conor Peacock MD at 8:42 EDT , CC: Dr. Ana Jimenez DO Pediatric Geneticist: Signed Ana Jimenez DO Work Phone: Start: 10-03-2021 Plain x-ray of wrist Dr. Ana Jimenez Work Phone: Start: 10-03-2021 End: 10-03-2021 Wrist min 3 Views Comments: See Note; NOTES: [facility] Radiology [address] [place] [address] Wrist min 3 Views MR#: [id number] Acct: [id number] Name: ANA BROWN Rep #: [id number] : 1955 F 65 From: William De La Torre MD PCP: Dr. Ana Jimenez DO Status: DEP AMB Study: Wrist min 3 Views Date of Exam: 10/03/21 Exam# [id number] Ordering Dr: Ana Jimenez DO STUDY: X-RAY - RIGHT WRIST REASON FOR EXAM: Female, 65 years old. Pain. TECHNIQUE: 3 view(s) of the wrist were obtained. COMPARISON: None. FINDINGS: Osteopenia. Mild arthrosis of the radiocarpal articulation. Mild arthrosis of the distal radioulnar joint. Moderate to marked arthrosis of the radiocarpal row of the wrist. Moderate arthrosis of the first CMC joint. The soft tissue structures are unremarkable. RAD/Wrist min 3 Views IMPRESSION: Osteopenia with osteoarthritic changes as described. No acute abnormality, chondrocalcinosis, erosive changes or periostitis. Electronically Signed: William De La Torre MD at 10:10 EDT , CC: Dr. Ana Jimenez DO Pediatric Geneticist: Signed Ana Jimenez DO Work Phone: Start: 10-03-2021 End: 10-03-2021 Hand Min 3 Views Comments: See Note; NOTES: [facility] Radiology [address] [place] [address] Hand Min 3 Views MR#: [id number] Acct: [id number] Name: ANA BROWN Rep #: [id number] : 1955 F 65 From: William De La Torre MD PCP: Dr. Ana Jimenez DO Status: DEP AMB Study: Hand Min 3 Views Date of Exam: 10/03/21 Exam# [id number] Ordering Dr: Ana Jimenez DO STUDY: X-RAY - LEFT HAND REASON FOR EXAM: Female, 65 years old. Left thumb pain. TECHNIQUE: 3 view(s) of the hand. COMPARISON: None. FINDINGS: Osteopenia. Negative ulnar variance. Moderate arthrosis of the radiocarpal articulation. Mild arthrosis of the distal radioulnar joint. Moderate arthrosis of the radiocarpal row of the wrist. Moderate arthrosis of the first CMC joint. Moderate arthrosis of the MCP and IP joints. Soft tissue ossicle distal to the ulnar styloid, likely representing normal variation. RAD/Hand Min 3 Views IMPRESSION: Osteopenia with negative ulnar variance and diffuse osteoarthritic changes as described. No acute abnormality, chondrocalcinosis, erosive changes or periostitis. Electronically Signed: William De La Torre MD at 10:12 EDT , CC: Dr. Ana Jimenez DO Pediatric Geneticist: Signed Ana Jimenez DO Work Phone: Start: 10-03-2021 Plain x-ray of hand Dr. Ana Jimenez Work Phone: Start: 05-20-2021 End: 05-20-2021 Breast Limited Unilateral Comments: See Note; NOTES: [facility] Imaging Services [address] [place] [address] Breast Limited Unilateral MR#: [id number] Acct: [id number] Name: ANA BROWN Rep #: [id number] : 1955 F 65 From: Conor martin MD PCP: Dr. Ana Jimenez DO Status: REG CLI Study: Breast Limited Unilateral Date of Exam: Exam# [id number] Ordering Dr: Ana Jimenez DO STUDY: ULTRASOUND BREAST - RIGHT REASON FOR EXAM: Female, 65 years old. Follow-up for right axillary lymph nodes. TECHNIQUE: Axial and longitudinal images of the RIGHT breast were performed with a high resolution ultrasound transducer. # OF IMAGES: 37 COMPARISON: Comparison is made with prior ultrasound dated 09/05/2020. FINDINGS: RIGHT Breast: Once again, 3 lymph nodes are seen in the right axillary region. The largest lymph node measures 2.1 cm x 1.2 cm x 0.7 cm. US/Breast Limited Unilateral IMPRESSION: Essentially stable appearance of the right axillary lymph nodes. ASSESSMENT CATEGORY: BIRADS Category 2: Benign. A letter regarding these results will be sent to the patient by the facility within 30 days. Electronically Signed: Conor Peacock MD at 15:44 EST , Service support , CC: Dr. Ana Jimenez DO Pediatric Geneticist: Signed Ana Jimenez DO Work Phone: Start: 05-20-2021 End: 05-21-2021 Thyroid Comments: See Note; NOTES: [facility] Imaging Services [address] [place] [address] Thyroid MR#: [id number] Acct: [id number] Name: ANA BROWN Rep #: [id number] : 1955 F 65 From: Conor martin MD PCP: Dr. Ana Jimenez DO Status: REG CLI Study: Thyroid Date of Exam: 05/20/21 Exam# [id number] Ordering Dr: Ana Jimenez DO STUDY: THYROID ULTRASOUND REASON FOR EXAM: Female, 65 years old. Thyroid nodules. TECHNIQUE: Ultrasound evaluation of the thyroid was performed with real-time and static short-scale imaging. COMPARISON: Comparison is made with prior study dated 05/21/2020. FINDINGS: RIGHT LOBE: The right lobe of the thyroid gland measures 4.8 cm x 1.7 cm x 1.2 cm. There is a homogeneous echotexture. Stable 4 mm x 3 mm x 2 mm cyst in the lower pole of the right lobe. Stable dominant 1.1 cm x 0.7 cm x 0.9 semi a solid nodule in the mid and lower pole. LEFT LOBE: The left lobe of the thyroid gland measures 4.2 cm x 1.5 cm x 1.2 cm. There is a homogeneous echotexture. There are 3 subcentimeter hypoechoic solid nodules. The largest measures 7 mm x 6 mm x 4 mm. ISTHMUS: The isthmus measures 3 mm. The regional lymph nodes are normal. US/Thyroid IMPRESSION: Stable examination. Bilateral thyroid nodules. Electronically Signed: Conor Peacock MD at 14:01 EST , Service support , CC: Dr. Ana Jimenez DO Pediatric Geneticist: Signed Ana Jimenez DO Work Phone: Start: 01-08-2021 End: 01-10-2021 Breast Bilateral W/O and W Comments: See Note; NOTES: [facility] Imaging Services [address] [place] [address] Breast Bilateral W/O and W MR#: [id number] Acct: [id number] Name: ANA BROWN Rep #: [id number] : 1955 F 65 From: William De La Torre MD PCP: Dr. Ana Jimenez DO Status: REG CLI Study: Breast Bilateral W/O and W Date of Exam: 01/08 Exam# [id number] Ordering Dr: Ana Jimenez DO STUDY: BILATERAL BREAST MR WITHOUT AND WITH CONTRAST REASON FOR EXAM: Female, 65 years old. Family history of breast cancer. Right sided lump at 9 o''clock position. TECHNIQUE: Multi-sequence multi-echo imaging of both breasts was performed with a dedicated breast coil. T1-weighted and T2-weighted images were performed before the administration of contrast. T1-weighted images were also performed after the administration of 20ML IV DOTAREM without complications. COMPARISON: Unilateral ultrasound and unilateral diagnostic mammogram the 09/05/2020. FINDINGS: RIGHT BREAST: The breast tissue is fatty with moderate background enhancement. There are no abnormal enhancing masses or areas of non-mass enhancement in the right breast. LEFT BREAST: The breast tissue is fatty with moderate background enhancement. There are no abnormal enhancing masses or areas of non-mass enhancement in the left breast. There are no enlarged or abnormal lymph nodes. There is no abnormality in the visualized regions of the chest or liver. MRI/Breast Bilateral W/O and W IMPRESSION: No focal discrete mass in the right breast. No other abnormality. Yearly follow-up mammogram recommended. CATEGORY: BIRADS Category 2: Benign. A letter regarding these results will be sent to the patient by the facility within 30 days. Electronically Signed: William De La Torre MD at 9:13 EDT , Service support , CC: Dr. Ana Jimenez DO Pediatric Geneticist: Signed Ana Jimenez DO Work Phone: Start: 09-05-2020 End: 09-05-2020 Breast Limited Unilateral Comments: See Note; NOTES: [facility] Imaging Services [address] [place] [address] Breast Limited Unilateral MR#: [id number] Acct: [id number] Name: ANA BROWN Rep #: [id number] : 1955 F 64 From: Conor martin MD PCP: Dr. Ana Jimenez DO Status: REG CLI Study: Breast Limited Unilateral Date of Exam: Exam# [id number] Ordering Dr: Ana Jimenez DO STUDY: ULTRASOUND BREAST - RIGHT REASON FOR EXAM: Female, 64 years old. Right axillary lump. The patient has had Covid vaccine. TECHNIQUE: Axial and longitudinal images of the RIGHT breast were performed with a high resolution ultrasound transducer. # OF IMAGES: 77 COMPARISON: Comparison is made with prior mammogram done earlier today. FINDINGS: RIGHT Breast: Multiple lymph nodes are seen in the right axilla. The largest measures 1.7 cm x 0.8 cm x 0.5 cm. US/Breast Limited Unilateral IMPRESSION: Multiple right axillary lymph nodes. The largest measures 1.7 cm x 0.8 cm x 0.5 cm. ASSESSMENT CATEGORY: BIRADS Category 2: Benign. A letter regarding these results will be sent to the patient by the facility within 30 days. Electronically Signed: Conor Peacock MD at 16:02 EDT , Service support , CC: Dr. Ana Jimenez DO Pediatric Geneticist: Signed Ana Jimenez DO Work Phone: Start: 09-05-2020 End: 10-23-2020 DIAG MAMM W/CAD, UNILAT Comments: See Note; NOTES: [facility] Imaging Services [address] [place] [address] DIAG MAMM W/CAD, UNILAT MR#: [id number] Acct: [id number] Name: ANA BROWN Rep #: [id number] : 1955 F 64 From: Conor martin MD PCP: Dr. Ana Jimenez DO Status: REG CL Study: DIAG MAMM W/CAD, UNILAT Date of Exam: 09/05/20 Exam# [id number] Ordering Dr: Ana Jimenez DO MAMMOGRAPHY - UNILATERAL DIAGNOSTIC: RIGHT BREAST REASON FOR EXAM: Female, 64 years old. Six-month history of right axillary breast lump. PERTINENT HISTORY: Sister with breast cancer. Mother with breast cancer. Aunt with breast cancer. TECHNIQUE: Digital unilateral breast erlinda (3D mammographic acquisition) in the CC and MLO projections. 2-D mediolateral oblique (MLO) and craniocaudad (CC) views of both breasts were obtained. CAD: Full Field Digital Mammography with Computer Added Detection was performed. COMPARISON: Comparison is made with prior study dated 02/07/2020. FINDINGS: Breast Composition: There are scattered areas of fibroglandular density. There are no dominant masses or suspicious calcifications. Stable small benign appearing bilateral axillary lymph nodes. No other significant abnormalities are identified. There has been no significant change since the prior study. BI/DIAG MAMM W/CAD, UNILAT IMPRESSION: Stable unilateral diagnostic mammogram. With the patient''s history of a palpable axillary lump, correlation with ultrasound is recommended. ASSESSMENT CATEGORY: BIRADS Category 0: Incomplete. Need additional imaging evaluation. A letter regarding these results will be sent to the patient by the facility within 30 days. Approximately 10% of breast cancers are not detected by mammography. A normal mammogram should not delay biopsy of a clinically suspicious abnormality. Electronically Signed: Conor Peacock MD at 15:11 EDT , Service support , CC: Dr. Ana Jimenez DO Pediatric Geneticist: Signed Ana Jimenez DO Work Phone: Start: 06-04-2020 End: 06-05-2020 Knee 4 or More Views Comments: See Note; NOTES: [facility] Radiology [address] [place] [address] Knee 4 or More Views MR#: [id number] Acct: [id number] Name: ANA BROWN Rep #: [id number] : 1955 F 64 From: Den Ugarte PCP: Dr. Natalie Howard MD Status: DEP AMB Study: Knee 4 or More Views Date of Exam: 06/04/20 Exam# [id number] Ordering Dr: Ana Jimenez DO STUDY: X-RAY - RIGHT KNEE REASON FOR EXAM: Chronic right knee pain, no recent injury. TECHNIQUE: 4 view(s) of the knee. COMPARISON: Radiographs 10/17/2012. FINDINGS: Normal visualized distal femur. Normal visualized proximal tibia and fibula. Normal proximal tibiofibular articulation. Normal medial femorotibial compartment. There is moderate joint space narrowing of the lateral femorotibial compartment, increased since the prior study. There is moderate joint space narrowing of the patellofemoral articulation, increased since the prior study. There is a small soft tissue calcification at the medial aspect of the proximal tibial diaphysis, unchanged since the prior study. RAD/Knee 4 or More Views IMPRESSION: Arthrosis of the lateral femorotibial and patellofemoral compartments. Electronically Signed: Den Davey MD at 11:10 EST Tel , Service support , CC: Dr. Natalie Howard MD; Dr. Ana Jimenez DO Pediatric Geneticist: Signed Ana Jimenez Work Phone: Start: 05-21-2020 End: 05-22-2020 Dexa Bone Density Study Comments: See Note; NOTES: [facility] Imaging Services [address] [place] [address] Dexa Bone Density Study MR#: [id number] Acct: [id number] Name: ANA BROWN Rep #: [id number] : 1955 F 64 From: Conor martin MD PCP: Dr. Natalie Howard MD Status: [facility] Study: Dexa Bone Density Study Date of Exam: 05/21/20 Exam# [id number] Ordering Dr: Ana Jimenez DO STUDY: DUAL ENERGY X-RAY ABSORPTIOMETRY / DXA REASON FOR EXAM: Female, 64 years old. 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 COMPARISON: Comparison is made with prior study dated 09/09/2011. FINDINGS: Lumbar Spine (L1-L4): g/cm2 (1.231) / T-score (0.4) / Z-score (2.0) Findings are suggestive of normal bone density with a low fracture risk. Left Femur Total: g/cm2 (0.890) / T-score (-0.9) / Z-score (0.2) Left Femoral Neck: g/cm2 (0.930) / T-score (-0.8) / Z-score (0.7) Right Femur Total: g/cm2 (0.971) / T-score (-0.3) / Z-score (0.9) Right Femoral Neck: g/cm2 (1.017) / T-score (-0.1) / Z-score (1.3) The T-Scores on the most recent prior examination were: Lumbar Spine (L1-L4): There has been worsening of bone density since the previous examination. Left Femur Total: which represents a worsening of 10.8%. Right Femur Total: which represents a worsening of 14.1%. BD/Dexa Bone Density Study IMPRESSION: The patient is considered normal as outlined below according to World Shahram Organization (WHO) criteria with a low fracture risk. There has been worsening of bone density since the previous examination. Reference Information: The T-score is the number of standard deviations above or below the standard which is normal for young adults at their peak bone mineral density. The World Health Organization (WHO) interprets the T-scores as follows: Above -1 Normal bone density Between -1 and -2.5 Osteopenia Equal to / or below -2.5 Osteoporosis As a practical clinical guideline, osteopenia may be graded as follows: Mild -1 through -1.5 Moderate -1.6 through -2.0 Severe -2.1 through -2.4 The Z-score is the number of standard deviations above or below age-matched controls. A Z-score of less than -1.5 would be considered abnormal. References: 1. NIH Osteoporosis and Related Bone Diseases www osteo.org 2. International Society for Clinical Densitometry www iscd.org 3. National Osteoporosis Foundation www nof.org Electronically Signed: Conor Peacock, at 15:01 EST , Service support , CC: Dr. Natalie Howard MD; Dr. Ana Jimenez DO Pediatric Geneticist: Signed Ana Jimenez Work Phone: Start: 05-21-2020 End: 05-22-2020 Thyroid Comments: See Note; NOTES: [facility] Imaging Services [address] [place] [address] Thyroid MR#: [id number] Acct: [id number] Name: ANA BROWN Rep #: [id number] : 1955 F 64 From: Conor martin MD PCP: Dr. Natalie Howard MD Status: [facility] Study: Thyroid Date of Exam: 05/21/20 Exam# [id number] Ordering Dr: Ana Jimenez DO STUDY: THYROID ULTRASOUND REASON FOR EXAM: Female, 64 years old. NODULE FELT BY DOCTOR TECHNIQUE: Ultrasound evaluation of the thyroid was performed with real-time and static short-scale imaging. COMPARISON: None. FINDINGS: RIGHT LOBE: The right lobe of the thyroid gland measures 4.9 cm x 1.9 cm x 1.1 cm. There is a homogeneous echotexture. There is a 3 mm x 3 mm x 2 mm cyst in the lower pole of the right lobe. There are 3 hypoechoic solid nodules the largest measuring 8 mm x 8 mm x 10 mm. This is in the posterior lower pole. LEFT LOBE: The left lobe of the thyroid gland measures 4.6 cm x 1.5 cm x 1.1 cm. There is a homogeneous echotexture. 3 subcentimeters nodules are seen the largest measures 7 mm x 6 mm x 4 mm. There is also evidence of a 4 mm x 4 mm x 4 mm partially calcified nodule in the lower pole. ISTHMUS: The isthmus measures 3 mm. The regional lymph nodes are normal. US/Thyroid IMPRESSION: Several subcentimeter nodules in both lobes of the thyroid as described. Electronically Signed: Conor Ayush, at 15:09 EST , Service support , CC: Dr. Natalie Howard MD; Dr. Ana Jimenez DO Pediatric Geneticist: Signed Ana Jimenez Work Phone: Start: 04-10-2020 End: 04-11-2020 L/S Spine Min 4 Views Comments: See Note; NOTES: [facility] Radiology [address] [place] [address] L/S Spine Min 4 Views MR#: [id number] Acct: [id number] Name: ANA BROWN Rep #: [id number] : 1955 F 64 From: Hiram Cooley DO PCP: Dr. Natalie Howard MD Status: DEP AMB Study: L/S Spine Min 4 Views Date of Exam: 04/10/20 Exam# [id number] Ordering Dr: Ana Jimenez DO INDICATION: Pain radiating into right leg, NKI EXAMINATION/TECHNIQUE: X-RAY - XR Spine Lumbar Min 4 Views COMPARISON: None. FINDINGS: Studies of the lumbar spine in 5 projections including obliques shows all lumbar vertebral bodies pedicles lamina and spinous processes to be intact and in good position and alignment. Intervertebral disc spaces are all well-maintained. RAD/L/S Spine Min 4 Views IMPRESSION: Normal lumbar spine with obliques. Electronically Signed: Hiram Cooley, at 12:26 EST Tel , Service support , CC: Dr. Natalie Howard MD; Dr. Ana Jimenez DO Pediatric Geneticist: Signed Ana Jimenez Work Phone: Start: 08-18-2018 [facility] Rene Peñaloza MD Work Phone: Start: 02-03-2017 End: 02-03-2017 Dietary management education, guidance, and counseling Jose Luis Camacho Start: 11-25-2016 End: 01-28-2017 Follow Up Appt Other Rogelio Garcia MD Start: 11-25-2016 End: 01-28-2017 Follow Up Appt Other Rogelio Garcia MD Start: 02-15-2012 [facility] Rene Peñaloza MD Work Phone: [employer] Jasmin Larry [employer] Rachel Manchak [employer] Nancy Coello [employer] Alyssa Galan FASHION PATTERNMAKER [employer] Rachel Manchak CLINICAL NURSE LEADER [employer]als Brandyn Arroyo FASHION PATTERNMAKER [employer]als Brandyn Arroyo FASHION PATTERNMAKER [employer] Anirudh Jeong CLINICAL NURSE LEADER [employer] Rachel Manchak CLINICAL NURSE LEADER [employer] Margarita Bess FASHION PATTERNMAKER [employer] Rachel Manchak CLINICAL NURSE LEADER [employer] Rachel Manchak CLINICAL NURSE LEADER [employer] Rachel Manchak CLINICAL NURSE LEADER [employer] Rachel Manchak CLINICAL NURSE LEADER [employer] Rachel Manchak CLINICAL NURSE LEADER [employer] Rachel Manchak CLINICAL NURSE LEADER [employer] Rachel Abrams [facility] [employer] JACK Gale LPN Plan of Treatment Date Care Activity Detail Author Start: 03-18-2023 Procedure Education Eprescribed prescriptions (G8553) [facility]; [facility] Work Phone: Start: 01-25-2023 Procedure Education Eprescribed prescriptions (G8553) [facility]; [facility] Work Phone: Start: 01-19-2023 Procedure Education Eprescribed prescriptions (G8553) [facility]; [facility] Work Phone: Start: 01-19-2023 Cul bact xcpt urine blood/stool aerobic isol Anaerobic & Aerobic Culture (15263) [facility]; [facility] Work Phone: Start: 01-15-2023 COVID-19 Vaccine () COVID-19 Vaccine () [facility] Start: 12-21-2022 Procedure Education Eprescribed prescriptions (G8553) [facility]; [facility] Work Phone: Start: 12-21-2022 Cyanocobalamin vitamin b-12 VITAMIN B12 AND FOLATES (30717) [facility]; [facility] Work Phone: Start: 12-21-2022 Urine albumin quantitative MICROALBUMIN: CREATININE RATIO (66869) AND (95767) [facility]; [facility] Work Phone: Start: 12-21-2022 Blood count complete auto&auto difrntl wbc CBC with auto diff (53855) [facility]; [facility] Work Phone: Start: 12-21-2022 Comprehensive metabolic panel METABOLIC PANEL, COMPREHENSIVE (47196) [facility]; [facility] Work Phone: Start: 12-11-2022 Procedure Education Eprescribed prescriptions (G8553) [facility]; [facility] Work Phone: Start: 12-08-2022 Procedure Education Eprescribed prescriptions (G8553) [facility]; [facility] Work Phone: Start: 11-30-2022 Procedure Education Eprescribed prescriptions (G8553) [facility]; [facility] Work Phone: Start: 10-17-2022 Screening for malignant neoplasm of breast Mammogram [facility] Start: 10-02-2022 Procedure Education Eprescribed prescriptions (G8553) [facility]; [facility] Work Phone: Start: 09-02-2022 Procedure Education Eprescribed prescriptions (G8553) [facility]; [facility] Work Phone: Start: 09-02-2022 Assay of thyroid stimulating hormone tsh TSH (19901) [facility]; [facility] Work Phone: Start: 09-02-2022 Cyanocobalamin vitamin b-12 VITAMIN B12 AND FOLATES (48419) [facility]; [facility] Work Phone: Start: 09-02-2022 Blood count complete auto&auto difrntl wbc CBC W/AUTO DIFF WBC (84858) [facility]; [facility] Work Phone: Start: 09-02-2022 25 hydroxy includes fractions if performed Vitamin D Hydroxy (07377) [facility]; [facility] Work Phone: Start: 09-02-2022 Lipid panel LIPID PANEL (34479) [facility] Work Phone: Start: 09-02-2022 Urine albumin quantitative MICROALBUMIN: CREATININE RATIO (99326) AND (53808) [facility]; [facility] Work Phone: Start: 09-02-2022 Comprehensive metabolic panel METABOLIC PANEL, COMPREHENSIVE (26995) [facility]; [facility] Work Phone: Start: 09-02-2022 Hemoglobin glycosylated a1c HGB A1C (57780) [facility]; [facility] Work Phone: Start: 06-05-2022 Procedure Education Eprescribed prescriptions (G8553) [facility]; [facility] Work Phone: Start: 02-18-2022 Procedure Education Eprescribed prescriptions (G8553) [facility]; [facility] Work Phone: Start: 02-04-2022 Procedure Education Eprescribed prescriptions (G8553) [facility]; [facility] Work Phone: Start: 01-15-2022 Influenza vaccination INFLUENZA (#1) [facility] Start: 01-09-2022 End: 03-11-2022 CBC W Auto Differential panel - Blood CBC + DIFF Lab Routine Axillary lymphadenopathy Expected: 01/09/2022, Expires: 03/11/2022 [facility] Work Phone: Comment on above: Expected: 01/09/2022, Expires: 2 Start: 01-09-2022 End: 03-11-2022 Comprehensive metabolic 2000 panel - Serum or Plasma COMP METABOLIC PANEL Lab Routine Axillary lymphadenopathy Expected: 01/09/2022, Expires: 03/11/2022 [facility] Work Phone: Comment on above: Expected: 01/09/2022, Expires: 2 Start: 01-09-2022 End: 03-11-2022 Lactate dehydrogenase [Enzymatic activity/volume] in Serum or Plasma LD LACTATE DEHYDRO Lab Routine Axillary lymphadenopathy Expected: 01/09/2022, Expires: 03/11/2022 [facility] Work Phone: Comment on above: Expected: 01/09/2022, Expires: 2 Start: 12-24-2021 Procedure Education Eprescribed prescriptions (G8553) [facility]; [facility] Work Phone: Start: 12-24-2021 Cyanocobalamin vitamin b-12 VITAMIN B-12 (CYANOCOBALAMIN) (28634) [facility]; [facility] Work Phone: Start: 12-24-2021 Urine albumin quantitative MICROALBUMIN: CREATININE RATIO (59300) AND (97560) [facility]; [facility] Work Phone: Start: 12-24-2021 Urnls dip stick/tablet reagent auto microscopy URINALYSIS, W/ MICRO (41823) [facility]; [facility] Work Phone: Start: 12-24-2021 Blood count complete auto&auto difrntl wbc CBC W/AUTO DIFF WBC (90458) [facility]; [facility] Work Phone: Start: 12-24-2021 Comprehensive metabolic panel METABOLIC PANEL, COMPREHENSIVE (50965) [facility]; [facility] Work Phone: Comment on above: biopsy neg strong family hx of cancer se nd to masci see if need further followup Start: 10-03-2021 Procedure Education Eprescribed prescriptions (G8553) [facility]; [facility] Work Phone: Start: 09-16-2021 Procedure Education Eprescribed prescriptions (G8553) [facility]; [facility] Work Phone: Start: 09-16-2021 Blood count complete auto&auto difrntl wbc CBC with auto diff (19259) [facility]; [facility] Work Phone: Start: 09-16-2021 Comprehensive metabolic panel METABOLIC PANEL, COMPREHENSIVE (03476) [facility]; [facility] Work Phone: Start: 09-16-2021 Lipid panel LIPID PANEL (22502) [facility] Work Phone: Start: 09-16-2021 Hemoglobin glycosylated a1c HGB A1C (48301) [facility]; [facility] Work Phone: Start: 09-11-2021 Lipid panel LIPID PANEL (07586) [facility] Work Phone: Start: 05-17-2021 ADVANCE DIRECTIVE DISCUSSION ADVANCE DIRECTIVE DISCUSSION [facility] Start: 05-17-2021 DEPRESSION ASSESSMENT DEPRESSION ASSESSMENT [facility] Start: 05-06-2021 Procedure Education Eprescribed prescriptions (G8553) [facility]; [facility] Work Phone: Start: 05-06-2021 Cyanocobalamin vitamin b-12 VITAMIN B-12 (CYANOCOBALAMIN) (14745) [facility]; [facility] Work Phone: Start: 05-06-2021 Comprehensive metabolic panel METABOLIC PANEL, COMPREHENSIVE (63038) [facility]; [facility] Work Phone: Start: 05-06-2021 Hemoglobin glycosylated a1c HGB A1C (55799) [facility] Work Phone: Start: 05-06-2021 Lipid panel LIPID PANEL (54470) [facility] Work Phone: Start: 04-30-2021 Procedure Education Eprescribed prescriptions (G8553) [facility] Work Phone: Start: 04-30-2021 [place] influenza INHOUSE Rapid Covid/ Flu A/ Flu B [facility]; [facility] Work Phone: Start: 03-28-2021 Pneumococcal Vaccine: 65+ Years (2 of 2 - PCV) Pneumococcal Vaccine: 65+ Years (2 of 2 - PCV) [facility] Start: 02-05-2021 COVID-19 VACCINE (3 - Booster for Moderna series) COVID-19 VACCINE (3 - Booster for Moderna series) [facility] Start: 01-07-2021 Procedure Education Eprescribed prescriptions (G8553) [facility]; [facility] Work Phone: Start: 11-07-2020 BONE DENSITY BONE DENSITY [facility] Start: 11-07-2020 PNEUMOCOCCAL: 65+ (1 - PCV) PNEUMOCOCCAL: 65+ (1 - PCV) [facility] Start: 10-31-2020 COVID-19 VACCINE (3 - Booster for Moderna series) COVID-19 VACCINE (3 - Booster for Moderna series) [facility] Start: 09-03-2020 Procedure Education Eprescribed prescriptions (G8553) [facility]; [facility] Work Phone: Start: 09-03-2020 Provider Instructions for Treatment COVID SCREENING FORM [facility]; [facility] Work Phone: Start: 09-03-2020 Cyanocobalamin vitamin b-12 Vitamin B-12 (cyanocobalamin) (14484) [facility]; [facility] Work Phone: Start: 09-03-2020 Hemoglobin glycosylated a1c HGB A1C (70272) [facility]; [facility] Work Phone: Start: 09-03-2020 Lipid panel LIPID PANEL (55652) [facility] Work Phone: Start: 09-03-2020 Urine albumin quantitative MICROALBUMIN: CREATININE RATIO (07962) AND (60652) [facility]; [facility] Work Phone: Start: 09-03-2020 Blood count complete auto&auto difrntl wbc CBC W/AUTO DIFF WBC (02984) [facility]; [facility] Work Phone: Start: 09-03-2020 Comprehensive metabolic panel METABOLIC PANEL, COMPREHENSIVE (17459) [facility]; [facility] Work Phone: Start: 09-03-2020 25 hydroxy includes fractions if performed Vitamin D Hydroxy (33028) [facility]; [facility] Work Phone: Start: 05-31-2020 Procedure Education Eprescribed prescriptions (G8553) [facility]; [facility] Work Phone: Start: 05-31-2020 Provider Instructions for Treatment Pap/Pelvic/Bimanual/Rect al/Breast Exam was done. [facility]; [facility] Work Phone: Start: 05-31-2020 Cobalamin (Vitamin B12) [Mass/Vol] VITAMIN B12 AND FOLATES (39440) [facility]; [facility] Work Phone: Start: 05-31-2020 25 hydroxy includes fractions if performed Vitamin D Hydroxy (97312) [facility]; [facility] Work Phone: Start: 05-31-2020 Hpv, dna, amp probe HPV automatic (92201) [facility]; [facility] Work Phone: Start: 04-10-2020 Procedure Education Eprescribed prescriptions (G8553) [facility] Work Phone: Start: 04-10-2020 Cobalamin (Vitamin B12) [Mass/Vol] Vitamin B-12 (cyanocobalamin) (90392) [facility] Work Phone: Start: 04-10-2020 Comprehensive metabolic panel METABOLIC PANEL, COMPREHENSIVE (59870) [facility] Work Phone: Start: 09-18-2019 LIPID SCREEN LIPID SCREEN [facility] Start: 08-19-2019 Mammography MAMMOGRAM [facility] Start: 02-17-2017 End: 04-03-2017 Follow Up Appt 6 months Follow Up Appt 6 months [facility] Work Phone: Start: 02-17-2017 End: 02-17-2017 Appointment Appointment [facility] Work Phone: Start: 02-14-2017 Colonoscopy COLONOSCOPY [facility] Start: 02-14-2017 COLORECTAL CANCER SCREENING COLORECTAL CANCER SCREENING [facility] Start: 02-03-2017 End: 02-03-2017 Appointment Appointment [facility] Work Phone: Start: 02-03-2017 End: 02-16-2017 Follow Up Appt 2 weeks Follow Up Appt 2 weeks [facility] Work Phone: Start: 01-28-2017 End: 01-28-2017 Appointment Appointment [facility] Work Phone: Start: 01-28-2017 End: 01-28-2017 Appointment Appointment [facility] Work Phone: Start: 11-25-2016 End: 01-28-2017 Follow Up Appt Other Follow Up Appt Other [facility] Work Phone: Start: 11-25-2016 End: 11-25-2016 Appointment Appointment [facility] Work Phone: Start: 11-25-2016 End: 01-28-2017 Follow Up Appt Other Follow Up Appt Other [facility] Work Phone: Start: 2015 RSV patients and/or patients aged 60+ years (1 - 1-dose 60+ series) RSV patients and/or patients aged 60+ years (1 - 1-dose 60+ series) [facility] Start: 08-16-2015 Cobalamin (Vitamin B12) [Mass/Vol] VITAMIN B-12 (CYANOCOBALAMIN) (83569) [facility] Work Phone: Start: 08-16-2015 Cyanocobalamin vitamin b-12 VITAMIN B-12 (CYANOCOBALAMIN) (88242) [facility]; [facility] Work Phone: Start: 08-16-2015 Comprehensive metabolic panel METABOLIC PANEL, COMPREHENSIVE (22347) [facility] Work Phone: Start: 08-16-2015 HbA1c (Bld) [Mass fraction] Hemoglobin Glyclated (HGB A1C) (92428) [facility] Work Phone: Start: 08-16-2015 Hemoglobin glycosylated a1c Hemoglobin Glyclated (HGB A1C) (20512) [facility]; [facility] Work Phone: Start: 07-04-2015 DIABETES SCREEN DIABETES SCREEN [facility] Start: 04-29-2015 Procedure Education Eprescribed prescriptions (G8553) [facility] Work Phone: Start: 01-11-2015 Patient Education Alzheimer's Disease *: forgetfulness [facility] Work Phone: Start: 01-11-2015 Procedure Education Eprescribed prescriptions (G8553) [facility] Work Phone: Start: 01-11-2015 Blood count complete auto&auto difrntl wbc CBC with auto diff (49502) [facility] Work Phone: Start: 01-11-2015 Lipid panel LIPID PANEL (95286) [facility] Work Phone: Start: 01-11-2015 Urine albumin quantitative MICROALBUMIN: CREATININE RATIO (79298) AND (91176) [facility] Work Phone: Start: 01-11-2015 HbA1c (Bld) [Mass fraction] Hemoglobin Glyclated (HGB A1C) (29603) [facility] Work Phone: Start: 01-11-2015 Hemoglobin glycosylated a1c Hemoglobin Glyclated (HGB A1C) (97482) [facility]; [facility] Work Phone: Start: 01-11-2015 25 hydroxy includes fractions if performed Vitamin D Hydroxy (56800) [facility] Work Phone: Start: 01-11-2015 Assay of thyroid stimulating hormone tsh TSH (55494) [facility]; [facility] Work Phone: Start: 01-11-2015 TSH Qn TSH (01552) [facility] Work Phone: Start: 01-11-2015 Cobalamin (Vitamin B12) [Mass/Vol] VITAMIN B-12 (CYANOCOBALAMIN) (96603) [facility] Work Phone: Start: 01-11-2015 Cyanocobalamin vitamin b-12 VITAMIN B-12 (CYANOCOBALAMIN) (19170) [facility]; [facility] Work Phone: Start: 10-12-2014 Procedure Education Eprescribed prescriptions (G8553) [facility] Work Phone: Start: 09-17-2014 HbA1c (Bld) [Mass fraction] HEMOGLOBIN GLYCLATED (HGB A1C) (31779) [facility] Work Phone: Start: 09-17-2014 Hemoglobin glycosylated a1c HEMOGLOBIN GLYCLATED (HGB A1C) (95720) [facility]; [facility] Work Phone: Start: 09-17-2014 Urine albumin quantitative MICROALBUMIN: CREATININE RATIO (80708) AND (65913) [facility] Work Phone: Start: 09-17-2014 Assay of thyroid stimulating hormone tsh TSH (81734) [facility]; [facility] Work Phone: Start: 09-17-2014 TSH Qn TSH (43008) [facility] Work Phone: Start: 09-17-2014 Blood count manual cell count each CBC WITH MANUAL DIFF (37690) [facility] Work Phone: Start: 09-17-2014 Comprehensive metabolic panel Metabolic Panel, Comprehensive (25279) [facility] Work Phone: Start: 09-17-2014 Lipid panel Lipid Panel (26186) [facility] Work Phone: Start: 02-26-2014 Patient Education Flu (Influenza) *: flu shot [facility] Work Phone: Start: 02-27-2013 Patient Education Flu (Influenza) *: flu shot [facility] Work Phone: Start: 10-17-2012 Provider Instructions for Treatment Diet, Exercise, and Wt loss [facility] Work Phone: Start: 02-29-2012 Patient Education Flu (Influenza) *: flu shot [facility] Work Phone: Start: 09-28-2011 Provider Instructions for Treatment [facility] Work Phone: Start: 02-12-2006 FECAL OCCULT BLOOD FECAL OCCULT BLOOD [facility] Start: 11-07-2005 SHINGRIX VACCINE (1 of 2) SHINGRIX VACCINE (1 of 2) [facility] Start: 11-07-2005 Zoster Vaccines (1 of 2) Zoster Vaccines (1 of 2) [facility] Start: 11-07-2000 COLOGUARD (FIT-DNA) COLOGUARD (FIT-DNA) [facility] Start: 11-07-[address] COLONOGRAPHY [facility] Start: 11-07-2000 SIGMOIDOSCOPY SIGMOIDOSCOPY [facility] Start: 11-07-1977 DTaP/Tdap/Td Vaccines (1 - Tdap) DTaP/Tdap/Td Vaccines (1 - Tdap) [facility] Start: 11-07-1974 Urine microalbumin profile DTAP,TDAP,TD (1 - Tdap) [facility] Start: 11-07-1973 Diabetes mellitus screening Diabetes Screening [facility] Start: 11-07-1973 HEPATITIS C SCREENING HEPATITIS C SCREENING [facility] Start: 11-07-1973 Hepatitis C screening Hepatitis C Screening [facility] Start: 1967 Adult depression screening assessment DEPRESSION SCREENING [facility] Start: 1955 Lipid panel Lipid Panel [facility] Start: 1955 Medicare Annual Wellness Visit Medicare Annual Wellness Visit (AWV) [facility] Start: 1955 Screening for malignant neoplasm of colon [facility] Start: 1955 Screening for osteoporosis Bone Density Scan [facility] CT for calcium scori ng WO contrast and CTA W contrast IV Heart and coronary arteries CT cardiac scoring wo IV contrast Imaging Routine Impaired fasting glucose 09/30/2023 10:02 AM EDT [facility] Service Area Work Phone: Patient Education ED Finger Dislocation [facility] Work Phone: Patient referral [facility] Work Phone: [facility] Work Phone: [facility] Work Phone: [facility] Work Phone: [facility] Work Phone: [facility] Work Phone: [facility] Work Phone[facility] Work [facility] Work Phone[facility] Work Phone[facility] Work Phone: [facility] Work Phone: [facility] Work Phone: [facility] Work Phone: [facility] Work Phone: [facility] Work Phone: [facility] Work Phone: [facility] Work Phone: [facility] Work Phone: [facility] Work Phone: [facility]; [facility] Work Phone: [facility] Work Phone: [facility] Work Phone: [facility] Work Phone: [facility] Work Phone: [facility] Work Phone: [facility] Work Phone: [facility] Work Phone: [facility] Work Phone: [facility] Work Phone: Immunizations Immunization Date Immunization Notes Care Provider [facility] 08-15-2020 COVID-Moderna (100 MCG/0.5 ML) Ana Fast DO Work Phone: [facility]; [facility] Work Phone: 07-15-2020 COVID-Moderna (100 MCG/0.5 ML) Ana Fast DO Work Phone: [facility]; [facility] Work Phone: 05-17-2019 influenza, injectabl e, quadrivalent, preservative free Ana Fast [facility]; [facility] Work Phone: 05-17-2019 pneumococcal polysaccharide vaccine, 23 valent Ana Fast [facility]; [facility] Work Phone: 03-07-2011 influenza virus vaccine, unspecified formulation Rene Peñaloza MD Work Phone: [facility] Work Phone: 03-28-2010 influenza virus vaccine, unspecified formulation Rene Peñaloza MD Work Phone: [facility] 04-05-2009 influenza virus vaccine, unspecified formulation Rene Peñaloza MD Work Phone: [facility] 04-04-2008 influenza virus vaccine, unspecified formulation Rene Peñaloza MD Work Phone: [facility] Work Phone: 03-28-2007 influenza virus vaccine, whole virus Rene Peñaloza MD Work Phone: [facility] Work Phone: 04-16-2005 influenza virus vaccine, whole virus Rene Peñaloza MD Work Phone: [facility] Payers Date Payer Category Payer Self-pay [id number] 2021 Medicare [id number] 2020 Medicare MEDICARE MEDICAR E A AND B [id number] 2020-Present [phone] [place] [address] Medicare [id number] 2020 Medicare [id number] 2020 Medicare [id number] 2020 Unknown 2020 Unknown BRIANA WARREN BC BS FEP PPO [id number] 2020-Present [phone] [address] [place] [address] PPO [id number] 2019 Private Health Insurance [id number] 2014 Unknown [id number] 2007 Unknown OB [id number] 1955 Unknown [id number] 1955 Unknown [id number] Private Health Insurance [id number] Unknown [id number] Unknown [id number] Unknown [id number] Unknown [id number] Unknown [id number] Unknown [id number] Unknown [id number] Social History Date Type Detail Facility Alcohol Use: Alcohol Use: [facility] Work Phone: Start: 11-20-2015 End: 01-09-2022 Caffeine Use Caffeine Use [facility] Work Phone: Tobacco use: Tobacco use: [facility] Work Phone: Alcohol Use: Alcohol Use: [facility] Work Phone: Tobacco use: Tobacco use: [facility] Work Phone: Start: 09-03-2020 End: 12-12-2021 Tobacco smoking status NHIS Unknown if ever smoked [facility] Start: 1955 Sex Assigned At Female [facility] Start: 11-20-2015 End: 01-09-2022 Tobacco smoking status NHIS Ex-smoker [facility] End: 05-17-1986 History of tobacco use Cigarette Smoker [facility] Work Phone: Start: 12-02-2021 End: 01-16-2022 Alcohol intake Current drinker of alcohol (finding) [facility] Start: 11-20-2015 History SDOH Alcohol Comment Very Rarely [facility] Start: 1955 Sex Assigned At Not on file [facility] Start: 11-22-2021 End: 09-30-2023 Exposure to SARS-CoV-2 (event) Not sure [facility] End: 05-17-1986 History of tobacco use Current smoker [facility] Work Phone: Start: 11-20-2015 End: 01-09-2022 Tobacco use and exposure Smokeless tobacco non-user [facility] Work Phone: Gender identity Not on file [facility] Work Phone: Clinical Notes 05-31-2020 to 07-20-2023 Mary Kate Gutiérrez PA-C - 03/17/2022 12:06 PM Kay Gutiérrez PA-C - 01/30/2022 9:59 AM EDTPatient InstructionsTelephone Encounter - Mary Anne Rosa IselaAYLA - 01/29/2022 8:56 AM EDTPatient Instructions Note Date & Type Note Facility 07-20-2023 Note HNO ID: [id number] Author: JOSE LUIS GARCIA RN Service: ? Author Type: Registered Nurse Type: Progress Notes Filed: 07/20/2023 13:42 Note Text: The forearm (site) was assessed and sutures were removed as ordered. Dressing was applied. Patient instructed on wound care and verbalized understanding. Jose Luis Garcia RN [facility] 07-12-2023 Note HNO ID: [id number] Author: RENE PEÑALOZA MD Service: ? Author Type: Physician Type: Progress Notes Filed: 07/12/2023 16:52 Note Text: Preoperative diagnosis: 1.2 cm atypical skin lesion to left forearm Postoperative diagnosis: The same Procedure: Excision of a 1.2 cm atypical skin lesion of the left forearm Surgeon: Jh Procedure: Left forearm was sterilely prepped and draped in the usual fashion. 1% lidocaine plain was injected. 2 cm elliptical incision was made around this lesion. I brought the wound together with deep dermal stitches of 3-0 Vicryl then 3 interrupted sutures of 4-0 nylon sterile dressings were applied. Patient tolerated the procedure well. [facility] 07-12-2023 Note HNO ID: [id number] Author: MARY ANNE JEAN LPN Service: ? Author Type: LICENSED NURSE Type: Progress Notes Filed: 07/12/2023 16:52 Note Text: UNIVERSAL PROTOCOL / SAFETY CHECKLIST Procedure to be Performed: Excision of uncertain Skin left forarm Sign In: A Moment of CARE was completed. Personnel directly involved with the procedure wore the appropriate PPE (Personal Protective Equipment). No special equipment needed. Patient/Surrogate Stated/Verified: PATIENT VERIFIED(optional for EMERGENT procedures): Patient name, Date of , Relevant allergies, and The intended procedure Time Out Communication: Intended patient and procedure match the source documents. Consent documented and matches the intended procedure. No correct side/site applicable for marking and visibility. Medications required for procedure verified. No fire risk assessment and interventions applicable. No implant(s) inserted. Sign Out: SIGN OUT (optional for EMERGENT procedures): All specimen containers correctly labeled. No instruments, equipment or retained foreign bodies applicable. Mary Anne Jean LPN [facility] 06-07-2023 Note HNO ID: [id number] Author: RENE PEÑALOZA MD Service: ? Author Type: Physician Type: Progress Notes Filed: 06/07/2023 14:05 Note Text: HISTORY AND PHYSICAL Ana Brown 1955 REFERRING PHYSICIAN: Ana Jimenez DO CHIEF COMPLAINT: Consult (Abscess on left forearm) HPI: The patient is a 67 year old female with a complaint of left forearm lesion. This past November the patient had a puncture wound to her left forearm she has been treated and placed on antibiotics healed up partially but over the last several weeks it has started to turn red scab in the center and has become more sore. She feels as if there is a lump in this area as well. The patient is being seen by me today at the request of Dr. Ana Jimenez DO for my opinion and advice regarding Neoplasm of uncertain behavior of skin (primary encounter diagnosis). PAST MEDICAL HISTORY Diagnosis Date Abscess of arm Allergic rhinitis Allergy, unspecified not elsewhere classified Asthma Basal cell carcinoma Cellulitis Constipation Depression CHAUDHARI (dyspnea on exertion) Dupuytren contracture Encounter for gynecological examination with abnormal finding cervical stenosis Enlarged lymph nodes in armpit 01/21/2022 right axillary/upper outer quadrant of right breast tail Epigastric pain Forgetfulness Ganglion cyst right hand Hyperlipidemia Impaired fasting glucose Joint pain ankle and feet Lymphadenopathy Obesity PMH - PAST MEDICAL HISTORY OF Irregular bowel movements Rosacea eyes only Shingles Solitary cyst of breast Squamous cell carcinoma of face Thyroid nodule Vitamin B 12 deficiency Vitamin D deficiency Wheezing PAST SURGICAL HISTORY Procedure Laterality Date BIOPSY/EXCISION OF LYMPH NODE OPEN Right 01/21/2022 right axillary/upper outer quadrant of right breast tail BREAST ASPIRATION Right breast COLONOSCOPY FLX DX W/COLLJ SPEC WHEN PFRMD Colonoscopy PAST SURGICAL HISTORY OF x 5-6 Basil Cell Removed from face PAST SURGICAL HISTORY OF 12/09/2021 Right axillary lymph node biopsy PAST SURGICAL HISTORY OF 01/21/2022 Excision of an enlarged lymph Node, Right Axilla Current Outpatient Medications Medication Sig CYANOCOBALAMIN, VITAMIN B-12, ORAL Take 500 mcg by mouth. ASMANEX HFA 200 mcg/actuation HFA Inhale 2 Puffs as instructed once daily. cholecalciferol, vitamin D3, (VITAMIN D3 ORAL) Take 1 tablet by mouth once daily. amoxicillin-clavulanate potassium (AUGMENTIN) 875-125 mg per tablet Take 1 tablet by mouth two times a day. (Patient not taking: Reported on 06/07/2023) ibuprofen (MOTRIN) 200 mg tablet Take 400 mg by mouth every 8 hours as needed. (Patient not taking: Reported on 06/07/2023) No current facility-administered medications for this visit. ALLERGIES: Seasonal [Other] PERSONAL HISTORY: Social History Tobacco Use Smoking status: Former Packs/day: 1.00 Years: 10.00 Additional pack years: 0.00 Total pack years: 10.00 Types: Cigarettes Quit date: 1986 Years since quittin.0 Smokeless tobacco: Never Vaping Use Vaping Use: Never used Substance Use Topics Alcohol use: Yes Comment: Very Rarely Drug use: No FAMILY HISTORY: FAMILY HISTORY Problem Relation Age of Onset Breast Cancer Mother Heart Mother Mitral Valve Skin Cancer Father Stroke Father Heart Failure Father Breast Cancer Sister Thyroid Sister GI Sister Breast Cancer Maternal Aunt REVIEW OF SYMPTOMS: The review of systems data was entered by the nurse and reviewed by me Nursing Notes: Mary Anne JeanAYLA 06/07/2023 1:44 PM Signed REVIEW OF SYSTEMS: General: The patient notes fatigue, denies weight loss, notes weight gain, denies feeling hot, and denies feelings of cold. Eyes: The patient denies glaucoma, denies eye injury/surgery, does not wear glasses or contacts. Ear/Nose/Throat: The patient denies allergies, denies hayfever, denies ear infections, and denies bloody noses. Cardiovascular: The patient denies chest pain, denies heart disease, denies high blood pressure,denies cardiac stent, denies prior heart attack, denies irregular heart beat, denies high cholesterol, denies poor circulation, denies heart failure, other cardiac issues, denies claudication, denies cold feet, denies peripheral arterial stent. Respiratory: The patient denies tuberculosis, denies pneumonia, denies frequent cough, denies pulmonary embolism, denies shortness of breath, and denies coughing up blood, notes asthma Gastrointestinal: The patient denies difficulty swallowing, denies acid reflux, denies ulcers, denies vomiting, denies jaundice/hepatitis, denies gallbladder problems, denies black or tarry stools, denies hemorrhoids, denies bleeding from rectum, denies diverticulitis, denies constipation, denies diarrhea, denies loss of stool control, and denies hernias. Kidney/Bladder: The patient denies kidney stones, denies urine infections, an (more content not included)... [facility] 03-17-2022 History of Presen t illness Narrative FOLLOW UP VISIT NAME: Ana Webster Kevin [facility] NO.: [id number] DATE OF SERVICE: 03/17/2022 : 1955 REFERRING PHYSICIAN: Ana Jimenez DO Ana is a patient I am following with Dr. Peñaloza. Per Dr. Peñaloza's office note from 01/16/22: The patient is a 66 year old female with a complaint of enlarged lymph node of her right axilla. They have been following this for more than a year but it has increased in size and her most recent mammogram and ultrasound. It was recommended that a biopsy be done. Patient states that she cannot feel this when she is in the shower with a lot of soap to aid in the exam. The patient has not been experiencing any night sweats. She has no family history of lymphoma. She does have a history of breast cancer in the family mom was in her 60s and 70s her sister is 68 and actually undergoing treatment for breast cancer and she has had an aunt who has had breast cancer.. On 12/09/2021 the patient underwent an ultrasound-guided needle core biopsy of an enlarged lymph node in her right axilla. Pathology report came back showing focal lymphoid tissue negative for metastatic carcinoma. Patient was seen by Dr. Parker who recommended that the lymph node be excised for further work-up. Dr. Peñaloza has previously performed excision of right axillary lymph node 01/21/22. Patient had post-op visit with me on 01/28/22 and then a recheck on 01/30/22/. Pathology had demonstrated: FINAL DIAGNOSIS A. Lymph nodes, right axillary, excisional biopsy: - Lymph node with fatty replacement and other reactive changes (see comment). 01/28/22 Diagnosis Comment The histologic sections, together with the immunohistochemical/ in situ hybridization studies, demonstrate lymph node with large areas showing fatty placement and a peripheral rim of preserved lymph node tissue showing reactive changes. There is no diagnostic evidence of involvement by lymphoma. Correlation with clinical findings and other relevant findings is recommended. 01/28/2022 Laboratory Developed Test (LDT) Disclaimer: Performance characteristics of immunohistochemical, immunofluorescent and chromogenic in-situ hybridization tests have been determined by the performing laboratory within [facility] [place] ([facility], [facility], [facility] or [facility]) in a manner consistent with CLIA requirements. One or more of these tests have not been cleared or approved by the FDA. [facility] is regulated under CLIA as qualified to perform high-complexity testing. These tests are used for clinical purposes. They should not be regarded as investigational or for research. Positive and negative controls stain appropriately. Microscopic Description The histologic sections demonstrate an enlarged lymph node largely replaced by adipose tissue showing a peripheral rim of preserved lymphoid architecture showing few follicles with reactive appearing germinal centers, paracortical areas with T-zone nodules and interfollicular small lymphocytes, plasma cells and few histiocytes. Immunohistochemical/ in situ hybridization stains were performed on sections from block A3 for further evaluation of the lymph node. CD20 shows numerous positive cells in the follicles and some scattered otherwise. CD3 shows moderately numerous positive small T cells predominantly outside the follicles. Cyclin D1 is negative in the lymphoid infiltrate. BCL6 highlights rare germinal center that are negative with BCL2. A multiplex, ultrasensitive in situ hybridization dual stain for kappa and lambda highlights the polytypic plasma cells and lymphoid cells. Gross Description A. AXILLARY LYMPH NODES RIGHT Received in formalin, labeled right axillary lymph nodes are two segments of yellow-schmitz fatty tissue aggregating to 5.2 x 4.0 x 1.8 cm. The specimen is imaged prior to dissection to reveal one biopsy clip marker. Dissecting demonstrates four schmitz fatty lymph nodes ranging in size from 0.2 to 3.7 cm in greatest dimension. The largest lymph node demonstrates fatty cut surfaces and contains a coil biopsy clip marker. The lymph nodes are entirely submitted as follows: A1 two intact lymph nodes, A2 one lymph node serially sectioned, A3-A9 one lymph node serially sectioned. TN/mm/01/21/2022 Gross examination performed at [facility], [address], [place] [address] CLIA# [id number] Patient was still noting significant soreness and swelling at time of that visit. She presents today for recheck and states she is feeling much better. Has been doing arm ROM exercises as instructed and is tolerating her everyday activities with no issues. She denies any concerns at this visit. VITALS: Blood pressure 136/82, pulse 96, temperature 36.6 C (97.9 F), height 170.2 cm (5' 7), weight 97.5 kg (215 lb), last menstrual period 07/19/2008, SpO2 96 %. On examination, the incision is nicely healed. No erythema or tenderness, no masses or seroma noted Assessment IMPRESSION: s/p excision of enlarged right lymph node, benign pathology PLAN: -Continue arm ROM exercises -Massage scar site with vitamin E or aloe -Follow up with PCP -If any new concerns, notify us immediately. Otherwise, follow up as needed Diagnoses: (R59.9) Enlarged lymph nodes (primary encounter diagnosis) Mary Kate Gutiérrez PA-C documented in this encounter [facility] 01-30-2022 History of Presen t illness Narrative Patient presents with: Follow Up: Review pathology from lymph node excision. Ana Brown is a 66 year old female who presents for recheck of incision and review of pathology results. Patient underwent excisional biopsy of a right axillary lymph node by Dr. Peñaloza on 01/21/22. Pathology demonstrated: FINAL DIAGNOSIS A. Lymph nodes, right axillary, excisional biopsy: - Lymph node with fatty replacement and other reactive changes (see comment). 01/28/22 Diagnosis Comment The histologic sections, together with the immunohistochemical/ in situ hybridization studies, demonstrate lymph node with large areas showing fatty placement and a peripheral rim of preserved lymph node tissue showing reactive changes. There is no diagnostic evidence of involvement by lymphoma. Correlation with clinical findings and other relevant findings is recommended. 01/28/2022 Laboratory Developed Test (LDT) Disclaimer: Performance characteristics of immunohistochemical, immunofluorescent and chromogenic in-situ hybridization tests have been determined by the performing laboratory within [facility] [place] ([facility], [facility], [facility] or [facility]) in a manner consistent with CLIA requirements. One or more of these tests have not been cleared or approved by the FDA. [facility] is regulated under CLIA as qualified to perform high-complexity testing. These tests are used for clinical purposes. They should not be regarded as investigational or for research. Positive and negative controls stain appropriately. Microscopic Description The histologic sections demonstrate an enlarged lymph node largely replaced by adipose tissue showing a peripheral rim of preserved lymphoid architecture showing few follicles with reactive appearing germinal centers, paracortical areas with T-zone nodules and interfollicular small lymphocytes, plasma cells and few histiocytes. Immunohistochemical/ in situ hybridization stains were performed on sections from block A3 for further evaluation of the lymph node. CD20 shows numerous positive cells in the follicles and some scattered otherwise. CD3 shows moderately numerous positive small T cells predominantly outside the follicles. Cyclin D1 is negative in the lymphoid infiltrate. BCL6 highlights rare germinal center that are negative with BCL2. A multiplex, ultrasensitive in situ hybridization dual stain for kappa and lambda highlights the polytypic plasma cells and lymphoid cells. Gross Description A. AXILLARY LYMPH NODES RIGHT Received in formalin, labeled right axillary lymph nodes are two segments of yellow-schmitz fatty tissue aggregating to 5.2 x 4.0 x 1.8 cm. The specimen is imaged prior to dissection to reveal one biopsy clip marker. Dissecting demonstrates four schmitz fatty lymph nodes ranging in size from 0.2 to 3.7 cm in greatest dimension. The largest lymph node demonstrates fatty cut surfaces and contains a coil biopsy clip marker. The lymph nodes are entirely submitted as follows: A1 two intact lymph nodes, A2 one lymph node serially sectioned, A3-A9 one lymph node serially sectioned. TN/mm/01/21/2022 Gross examination performed at [facility], [address] [place] [address] CLIA# [id number] Patient notes the surrounding area is still feeling sore and swollen, but denies any new complaints since her initial post op visit. She is doing arm range of motion exercises as recommended previously. BP 137/80 Pulse 95 Temp 36.7 C (98 F) Wt 97.1 kg (214 lb) LMP 07/19/2008 SpO2 97% BMI 33.02 kg/m General: patient is alert, cooperative, pleasant and in no acute distress On examination, the incision site is c/d/I with no signs of infection or inflammation. +mild post-operative swelling and small seroma. Good range of motion of arm Assessment: s/p excision of enlarged right lymph node, benign pathology Plan: I have reviewed my findings with Dr. Peñaloza, who also participated in development of the following plan. Reviewed pathology report with patient. Patient was given opportunity to ask questions and have questions answered. Will plan for recheck of operative site in 1 month. Patient verbalized understanding of all above and agreed with the plan. Mary Kate Gutiérrez PA-C documented in this encounter [facility] 01-30-2022 Instructions Mary Kate Gutiérrez PA-C - 01/30/2022 9:43 AM EDT -Benign pathology -OK to massage repair site and perform ROM exercises with arm. OK to use vitamin E and/or aloe lotion -Recheck in 1 month or sooner if any new concerns documented in this encounter [facility] 01-29-2022 Miscellaneous Notes Called main lab [phone] for pathology result status, still in process, lab stated will call back with update of pathology if available. Mary Anne Jean LPN documented in this encounter [facility] 01-28-2022 History of Presen t illness Narrative FOLLOW UP VISIT - POST OP NAME: Ana Webster Kevin [facility] NO.: [id number] DATE OF SERVICE: 01/28/2022 : 1955 REFERRING PHYSICIAN: Ana Jimenez DO Ana is a patient I am following with Dr. Peñaloza for an enlarged right axillary lymph node. Per Dr. Peñaloza's office note from 01/16/22: The patient is a 66 year old female with a complaint of enlarged lymph node of her right axilla. They have been following this for more than a year but it has increased in size and her most recent mammogram and ultrasound. It was recommended that a biopsy be done. Patient states that she cannot feel this when she is in the shower with a lot of soap to aid in the exam. The patient has not been experiencing any night sweats. She has no family history of lymphoma. She does have a history of breast cancer in the family mom was in her 60s and 70s her sister is 68 and actually undergoing treatment for breast cancer and she has had an aunt who has had breast cancer.. On 12/09/2021 the patient underwent an ultrasound-guided needle core biopsy of an enlarged lymph node in her right axilla. Pathology report came back showing focal lymphoid tissue negative for metastatic carcinoma. Patient was seen by Dr. Parker who recommended that the lymph node be excised for further work-up. Dr. Peñaloza performed excision of right axillary lymph node on 01/21/22. The patient currently notes some soreness and swelling but no major complaints. her appetite has been good. she denies fever, chills or abdominal pain. she does note some mild incisional discomfort. Pathology still pending at time of this morning's office visit. VITALS: Blood pressure 120/81, pulse 98, temperature 36.9 C (98.4 F), height 171.5 cm (5' 7.5), weight 97.5 kg (215 lb), last menstrual period 07/19/2008, SpO2 96 %. On examination, the incision is c/d/I with mild post-operative swelling and ecchymosis. No signs of infection or inflammation. Range of motion of right arm is good Assessment IMPRESSION: Status post excision of enlarged right axillary lymph node, path report pending PLAN: If the patient notes any problems or signs of wound infections, she should contact me immediately. Diagnoses: (R59.9) Enlarged lymph nodes (primary encounter diagnosis) Return to Clinic: The patient is instructed to follow-up with me in 2 days for recheck and review of pathology. Mary Kate Gutiérrez PA-C documented in this encounter [facility] 01-28-2022 Instructions Mary Kate Gutiérrez PA-C - 01/28/2022 9:23 AM EDT -OK to gently massage scar -May remove steri-strips after a shower if they have not fallen off on their own over the next few days -Arm range of motion exercises as discussed -Follow up in 2 days for recheck/review pathology documented in this encounter [facility] 01-21-2022 History of Past i llness Narrative Problem Noted Date Resolved Date Lymph node enlargement 01/21/2022 2 documented as of this encounter (statuses as of 01/28/2022) [facility] History of Past illness Narrative* Problem Noted Date Resolved Date Lymph node enlargement 01/21/2022 2 documented as of this encounter (statuses as of 01/30/2022) [facility] History of Past illness Narrative* Problem Noted Date Resolved Date Lymph node enlargement 01/21/2022 2 documented as of this encounter (statuses as of 02/05/2022) [facility] History of Past illness Narrative* Problem Noted Date Resolved Date Lymph node enlargement 01/21/2022 2 documented as of this encounter (statuses as of 03/17/2022) [facility] History of Past illness Narrative* Problem Noted Date Resolved Date Lymph node enlargement 01/21/2022 2 documented as of this encounter (statuses as of 04/13/2022) [facility] NoteHNO ID: [id number] Author: Neto Corral APRN.CRNA Service: Anesthesiology Author Type: Nurse Skin Lifter [place] Type: Anesthesia Procedure Notes Filed: 01/21/2022 7:59 AM Note Text: ANESTHESIOLOGY PROCEDURE NOTE Airway General Information Procedure Start Time/Medication Administration: 01/21/2022 7:41 AM Procedure End Time: 01/21/2022 7:43 AM Patient location during procedure: OR Timeout Performed Pre-procedure: timeout performed Consent Obtained: Yes 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, 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 GROUNDING ENGINEER: Neto Corral APRN.GROUNDING ENGINEER Performed by: MARTIN Indications and Patient Condition Indications for airway management: anesthesia Preoxygenated: yes anesthesia circuit Patient position: sniffing Method: asleep Cricoid Pressure: No Manual In-Line Stabilization: No Difficult Mask: No Final Airway Details Final airway type: supraglottic airway Number of attempts at approach: 1 Final Supraglottic Airway: i-gel Size 4 Seal Adequate: yes Failed airway: no Unrecognized esophageal intubation: no Airway not difficult SIGNATURE: Neto Corral APRN.GROUNDING ENGINEER PATIENT NAME: Ana Brown DATE: January 21, 2022 TIME: 7:59 AM CSN: [id number] Miscellaneous Notes* Telephone Encounter - Valeria Felipe - 01/16/2022 3:58 PM EDT 01/21/22 Excision of Right Axillary lymph node Dr Pe[facility]aloza at [place] [facility] Note* Mary Anne Jean, AYLA - 01/16/2022 8:10 AM EDT REVIEW OF SYSTEMS: General: The patient notes fatigue, denies weight loss, denies weight gain, denies feeling hot, anddenies feelings of cold. Eyes: The patient denies glaucoma, denies eye injury/surgery, wears glasses or contacts. Ear/Nose/Throat: The patient notes allergies, denies hayfever, denies ear infections, and denies bloody noses. Cardiovascular: The patient denies chest pain, denies heart disease, denies high blood pressure,denies cardiac stent, denies prior heart attack, denies irregular heart beat, denies high cholesterol, denies poor circulation, denies heart failure, other cardiac issues, denies claudication, denies cold feet, denies peripheral arterial stent. Respiratory: The patient denies tuberculosis, denies pneumonia, denies frequent cough, denies pulmonary embolism, notes shortness of breath, and denies coughing up blood. Gastrointestinal: The patient denies difficulty swallowing, denies acid reflux, denies ulcers, denies vomiting, denies jaundice/hepatitis, denies gallbladder problems, denies black or tarry stools, notes hemorrhoids, denies bleeding from rectum, denies diverticulitis, notes constipation, notes diarrhea, denies loss of stool control, and denies hernias. Kidney/Bladder: The patient denies kidney stones, denies urine infections, and denies bloody urine. Skin: The patient notes a history of skin cancer, denies bleeding/changing moles, and denies a history of skin rash. Neurologic: The patient denies a history of epilepsy/convulsions, denies headaches, denies head/spinal injuries, and denies stroke/TIA. Psychiatric: The patient denies psychiatric medications, denies depression, and denies voices, denies substance abuse. Endocrine: The patient denies thyroid disorders, denies diabetes, and denies hormonal problems. Hematologic: The patient denies a history of bruising, denies bleeding, and denies anemia, denies blood clots. Infections: The patient denies a history of measles and mumps, denies rheumatic fever, and denies sexually transmitted diseases. Musculoskeletal: The patient denies back pain/injury, denies back problems, denies sciatica, notes knee/foot trouble, denies arthritis, or notes gout. When was patient's last Mammogram screening? 2021 Last Colonoscopy: 2011 Mary Anne Jean LPN [facility] History of Present illness Narrative* Rene Peñaloza MD - 01/16/2022 8:06 AM EDT Images from the original note were not included. HISTORY AND PHYSICAL Ana Brown 1955 REFERRING PHYSICIAN: Ana Jimenez DO CHIEF COMPLAINT: Consult (abnormal ultrasound, family history of breast cancer) HPI: The patient is a 66 year old female with a complaint of enlarged lymph node of her right axilla. They have been following this for more than a year but it has increased in size and her most recent mammogram and ultrasound. It was recommended that a biopsy be done. Patient states that she cannot feel this when she is in the shower with a lot of soap to aid in the exam. The patient has not been experiencing any night sweats. She has no family history of lymphoma. She does have a history of breast cancer in the family mom was in her 60s and 70s her sister is 68 and actually undergoing treatment for breast cancer and she has had an aunt who has had breast cancer.. On 12/09/2021 the patient underwent an ultrasound-guided needle core biopsy of an enlarged lymph node in her right axilla. Pathology report came back showing focal lymphoid tissue negative for metastatic carcinoma. Patient was seen by Dr. Parker who recommended that the lymph node be excised for further work-up. 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 No current facility-administered medications for this visit. ALLERGIES: Seasonal [Other] PERSONAL HISTORY: SOCIAL HISTORY Social History Tobacco Use Smoking status: Former Smoker Packs/day: 1.00 Years: 15.00 Pack years: 15.00 Types: Cigarettes Smokeless tobacco: Never Used Tobacco comment: quit 11 years ago Vaping Use Vaping Use: Never used Substance Use Topics Alcohol use: Yes Comment: Very Rarely Drug use: No FAMILY HISTORY: FAMILY HISTORY FAMILY HISTORY Problem Relation Age of Onset Breast Cancer Mother Heart Mother Mitral Valve Breast Cancer Sister Thyroid Sister GI Sister Breast Cancer Maternal Aunt REVIEW OF SYSTEMS: General: The patient notes fatigue, denies weight loss, denies weight gain, denies feeling hot, anddenies feelings of cold. Eyes: The patient denies glaucoma, denies eye injury/surgery, wears glasses or contacts. Ear/Nose/Throat: The patient notes allergies, denies hayfever, denies ear infections, and denies bloody noses. Cardiovascular: The patient denies chest pain, denies heart disease, denies high blood pressure,denies cardiac stent, denies prior heart attack, denies irregular heart beat, denies high cholesterol, denies poor circulation, denies heart failure, other cardiac issues, denies claudication, denies cold feet, denies peripheral arterial stent. Respiratory: The patient denies tuberculosis, denies pneumonia, denies frequent cough, denies pulmonary embolism, notes shortness of breath, and denies coughing up blood. Gastrointestinal: The patient denies difficulty swallowing, denies acid reflux, denies ulcers, denies vomiting, denies jaundice/hepatitis, denies gallbladder problems, denies black or tarry stools, notes hemorrhoids, denies bleeding from rectum, denies diverticulitis, notes constipation, notes diarrhea, denies loss of stool control, and denies hernias. Kidney/Bladder: The patient denies kidney stones, denies urine infections, and denies bloody urine. Skin: The patient notes a history of skin cancer, denies bleeding/changing moles, and denies a history of skin rash. Neurologic: The patient denies a history of epilepsy/convulsions, denies headaches, denies head/spinal injuries, and denies stroke/TIA. Psychiatric: The patient denies psychiatric medications, denies depression, and denies voices, denies substance abuse. Endocrine: The patient denies thyroid disorders, denies diabetes, and denies hormonal problems. Hematologic: The patient denies a history of bruising, denies bleeding, and denies anemia, denies blood clots. Infections: The patient denies a history of measles and mumps, denies rheumatic fever, and denies sexually transmitted diseases. Musculoskeletal: The patient denies back pain/injury, denies back problems, denies sciatica, notes knee/foot trouble, denies arthritis, or notes gout. When was patient's last Mammogram screening? 2021 Last Colonoscopy: 2011 PHYSICAL EXAMINATION: General: The patient is 66 year old female, well nourished, well hydrated in no acute distress. Thepatient is oriented to time, place, and person. VITALS: Blood pressure 130/88, pulse 71, temperature 36.7 C (98 F), height 170.2 cm (5' 7), .8 kg (220 lb), last menstrual period 07/19/2008, SpO2 94 %. HEENT: Normal cephalic, ataumatic, pupils are equally round, sclera are anicteric, mucous membranesare moist, oropharynx is clear. Neck has no masses, asymmetry or lymphadenopathy. Thyroid is unremarkable. Respiratory: Clear to auscultation and percussion. Normal respiratory excursion and pattern. Cardiac: Examination is regular rate and rhythm. Abdominal exam: Soft, nontender, with no palpable masses. No hepatosplenomegaly. No palpable hernias. Rectal exam: exam deferred Extremities: no clubbing, cyanosis or edema. No adenopathy. Other: Palpation in both axillas I cannot really feel this area there is a lot of fatty tissue and trying to identify a lymph node that is 2 cm is challenging. LABORATORY VALUES: As Noted RADIOLOGIC STUDIES: As Noted Assessment IMPRESSION: Enlarged lymph nodes (primary encounter diagnosis) PLAN: My plan is to do an excision of this lymph node in the right axillary area. Risk benefits to include bleeding and infection possible injury to surrounding vessels or nerves is a possibility. Patient had the opportunity ask questions and understood the procedure. The planned surgical procedurewas discussed extensively with the patient. The risks, benefits, anticipated outcomes and possible complications were mentioned. My staff has also explained the procedure in understandable terms and the patient was given the option to take printed material concerning the planned procedure. The patient had the opportunity to ask questions concerning the planned procedure. The patient freely consents to the planned procedure. Diagnoses: (R59.9) Enlarged lymph nodes (primary encounter diagnosis) A letter was sent to Dr. Ana Jimenez DO indicating the above finding for this patient. Return to Clinic: The patient is instructed to follow-up with me 1 week post operatively. CPT [place] [address] Rene Peñaloza III, MD documented in this encounterCity [facility] Miscellaneous Notes* Telephone Encounter - Lydia Doty LPN - 01/12/2022 5:33 PM EDT Message left on identified voicemail , no labs needed. Lydia Doty LPN * Telephone Encounter - Philip Kang DO - 01/12/2022 5:08 PM EDT No. Labs not needed. Philip Kang DO * Telephone Encounter - Waleska Coello LPN - 01/12/2022 3:53 PM EDT Patient has orders in for CBC/CMP/LDH. Patient asking if these need completed. Waleska Coello LPN * Telephone Encounter - Ida Romero Pss - 01/12/2022 3:36 PM EDT Patient called stating she had noticed lab orders on her my chart. She is asking if she needs them completed by a certain date. She states she was unaware that any were due. documented in this encounterCity [facility]08-26-[facility]22 History of Present illness Narrative* Philip Kang, DO - 01/09/2022 1:46 PM EDT Patient referred by Dr. Peñaloza for right axillary lymphadenopathy.. The impression and plan will be communicated by way of the shared electronic record or faxed under separate cover letter. HPI: The patient is a 66-year-old female with PMH significant for asthma (nightly MDI use). Family history significant for breast cancer: -Sister age 67 currently under my care for aggressive MBC. -Mother--Breast cancer age 70. Treated with lumpectomy, chemotherapy and radiation. of CHF at age 89. -Maternal aunt--Breast cancer about age 70. Alive at age 94. Patient originally underwent a right-sided diagnostic mammogram and breast ultrasound on 09/05/2020 for a palpable axillary lump. The mammogram demonstrated no dominant masses or suspicious calcification. There was small stable benign- appearing bilateral axillary lymph nodes. No change with when compared to the previous study of 02/07/2020. Ultrasound the same day on 09/05 2020 showed multiple rightaxillary lymph nodes with the largest measuring 1.7 x 0.8 x 0.5 cm. These were interpreted as beingbenign. The patient had an MRI of the breasts on 01/08/2021. The right breast was interpreted as being fattywith moderate background enhancement. There was no abnormal enhancing mass or areas of non-mass enhancement in the right breast. Left breast was fatty with moderate background enhancement there were no abnormal enhancing masses or areas of non-mass enhancement. There were no enlarged or abnormal lymph nodes noted. No abnormality in the visualized regions of the chest or liver. The patient had another right breast ultrasound on 05/20/2021. 3 lymph nodes were seen in the right axillary region. The largest measured 2.1 x 1.2 x 0.7 cm. These were interpreted as being essentiallystable category 2 BI-RADS. Patient had bilateral tomographic mammogram 10/17/2021. Stable findings were reported with no dominant mass or suspicious calcification. Stable small benign- appearing bilateral axillary lymph nodes. An ultrasound of the right breast and axilla was performed on 11/24/2021. The report noted that onceagain, 3 lymph nodes were visualized in the right axilla. The largest measured 2.6 x 2.17 x 1.6 cm noted to be slightly increased in size compared to previous examination. The echotexture was slightly increased and biopsy was recommended. Patient was referred to Dr. Peñaloza who performed an ultrasound-guided core needle biopsy of a lymph node in the right axilla on 12/09/2021. Pathology: A. Lymph node, right axillary, core needle biopsy: - Focal lymphoid tissue, negative for metastatic carcinoma (see comment). The core needle biopsy specimen shows primarily adipose tissue with focal lymphoid tissue composed of predominantly small lymphocytes, few histiocytes and occasional plasma cells and fibrous tissue compatible with portion of lymph node capsule. Immunohistochemical stains were performed on sections from block A1. Cytokeratin AE1/AE3 is negative for metastatic carcinoma. Immunohistochemical stains for CD20, CD3, CD5, cyclin D1 and LEF1 showedextremely scant tissue on the slides, precluding further evaluation. Overall, the findings demonstrate predominantly adipose tissue and focal lymphoid tissue. There is no evidence of metastatic carcinoma. There is insufficient lymphoid tissue present for evaluation oflymphoma. These findings could be seen with fatty replacement of lymph node. If there is clinical concern for lymphoma, a repeat possibly excisional biopsy might be of interest. Correlation with the clinical and imaging findings is recommended. Feels well in general. Has some chronic dyspnea with exertion she attributes to h/o asthma and being overweight. No constitutional symptoms. PAST MEDICAL HISTORY Diagnosis Date Allergy, unspecified not elsewhere classified Asthma Basal cell carcinoma PMH - PAST MEDICAL HISTORY OF Irregular bowel movements Solitary cyst of breast Squamous cell carcinoma of face PAST SURGICAL HISTORY Procedure Laterality Date BREAST ASPIRATION Right breast COLONOSCOPY FLX DX W/COLLJ SPEC WHEN PFRMD Colonoscopy PAST SURGICAL HISTORY OF x 5-6 Basil Cell Removed from face PAST SURGICAL HISTORY OF 12/09/2021 Right axillary lymph node biopsy ALLERGIES Allergen Reactions Seasonal [Other] Current Outpatient Medications Medication Sig ibuprofen (MOTRIN) 200 mg tablet Take 400 mg by mouth every 8 hours as needed. ASMANEX HFA 200 mcg/actuation HFA Inhale 2 Puffs as instructed once daily. cholecalciferol, vitamin D3, (VITAMIN D3 ORAL) Take 1 tablet by mouth once daily. No current facility-administered medications for this visit. Social History Tobacco Use Smoking status: Former Packs/day: 1.00 Years: 10.00 Pack years: 10.00 Types: Cigarettes Quit date: 1986 Years since quittin.6 Smokeless tobacco: Never Vaping Use Vaping Use: Never used Substance Use Topics Alcohol use: Yes Comment: Very Rarely Drug use: No ROS: Constitutional: See above. Neuro: Denies MOSS, vertigo, dizziness and imbalance. Denies symptoms of neuropathy. HEENT: No recent change in voice, vision or hearing. Resp: Denies cough, wheeze and hemoptysis. Denies shortness of breath at rest. Denies CHAUDHARI. CVS: Denies exertional chest pain, PND, orthopnea and LE edema. GI: Denies dysgeusia. Denies symptoms of stomatitis. Denies dysphagia and odynophagia. Denies reflux, n/v, change in bowel habits and abdominal pain. : Denies dysuria or gross hematuria. No symptoms of bladder outlet obstruction. Endo: Denies hot flashes. Denies polyuria and polydipsia. Denies heat and cold intolerance. Musculoskeletal: Denies bone, back, joint and muscular pain. Derm: Denies rash. Denies jaundice and diffuse pruritis. Heme: Denies unusual bleeding and unexplained bruising. Psych: Normal mood. PHYSICAL EXAM: Vitals: Blood pressure 122/63, pulse 68, temperature 36.9 C (98.4 F), temperature source Temporal, height 170.2 cm (5' 7), weight 100.7 kg (222 lb), last menstrual period 07/19/2008. Well-appearing and in no acute distress. EYES: Sclerae are anicteric bilaterally. ENT: Oral mucosa is unremarkable. There is no sign of thrush or mucositis. LYMPHATIC: There is no palpable cervical, supraclavicular or inguinal adenopathy. There is a firm, mobile LN in the high tail of the right breast. RESPIRATORY: Inspiratory breath sounds are of normal intensity in all van. No rales, wheezes or rhonchi. CARDIOVASCULAR: Rhythm is regular. 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 No mass or nodule appreciated in either breast. ABDOMEN: The abdomen is nondistended. No organomegaly. No tenderness. Extremities: No swelling or edema. SKIN: No jaundice or rash. No petechiae. 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 No focal motor weakness. ASSESSMENT/PLAN: (R59.0) Axillary lymphadenopathy (primary encounter diagnosis) Assessment: -The patient is a 66-year-old female who has a significant family history for breast cancer. Her sister declined genetic testing. The patient has a very slowly enlarging right axillary lymph node. Recent core biopsy negative for carcinoma and lymphoma. I recommend excisional biopsy. Plan: -Referral back to Dr. Peñaloza for excisional biopsy. I spent a total of 60 minutes on the date of the service which included preparing to see the patient, [id number] patient care, completing clinical documentation, obtaining and/or reviewing separately obtained history, performing a medically appropriate examination, counseling and educating the pat ient/family/caregiver, communicating with other HCPs (not separately reported), communicating results to the patient/family/caregiver, and care coordination (not separately reported). Philip Kang DO documented in this encounterCity Hospital08-18-2022 Miscellaneous Notes* Telephone Encounter - Lydia Doty LPN - 01/01/2022 4:38 PM EDT Pt. Aware of scheduled appt. With Dr. Kang. Lydia Doty LPN * Telephone Encounter - Lorenza Darling - 01/01/2022 1:14 PM EDT PT scheduled as directed below 1st attempt: LM for PT informing of Appointment. Requested that PT return call to confirm that they got the message. Will also send [facility] message informing PT of appointment. When PT calls back please let them know about their upcoming appointment and document. Thank you! Lorenza Darling * Telephone Encounter - Philip Kang DO - 01/01/2022 12:48 PM EDT Received new patient referral request from Dr. Jimenez. Please schedule patient to see me next at 10:10 AM. Let her know. Philip Kang DO documented in this encounterCity Hospital07-19-2022 Nurse Note* Mary Anne Jean, AYLA - 12/02/2021 8:51 AM EDT REVIEW OF SYSTEMS: General: The patient denies fatigue, denies weight loss, denies weight gain, denies feeling hot, and denies feelings of cold. Eyes: The patient denies glaucoma, denies eye injury/surgery, does not wear glasses or contacts. Ear/Nose/Throat: The patient notes allergies, denies hayfever, denies ear infections, and denies bloody noses. Cardiovascular: The patient denies chest pain, denies heart disease, denies high blood pressure,denies cardiac stent, denies prior heart attack, denies irregular heart beat, denies high cholesterol, denies poor circulation, denies heart failure, other cardiac issues, denies claudication, denies cold feet, denies peripheral arterial stent. Respiratory: The patient denies tuberculosis, denies pneumonia, denies frequent cough, denies pulmonary embolism, denies shortness of breath, and denies coughing up blood. Gastrointestinal: The patient denies difficulty swallowing, denies acid reflux, denies ulcers, denies vomiting, denies jaundice/hepatitis, denies gallbladder problems, denies black or tarry stools, denies hemorrhoids, denies bleeding from rectum, denies diverticulitis, denies constipation, denies diarrhea, denies loss of stool control, and denies hernias. Kidney/Bladder: The patient denies kidney stones, denies urine infections, and denies bloody urine. Skin: The patient notes a history of skin cancer, denies bleeding/changing moles, and denies a history of skin rash. Neurologic: The patient denies a history of epilepsy/convulsions, denies headaches, denies head/spinal injuries, and denies stroke/TIA. Psychiatric: The patient denies psychiatric medications, denies depression, and denies voices, denies substance abuse. Endocrine: The patient denies thyroid disorders, denies diabetes, and denies hormonal problems. Hematologic: The patient denies a history of bruising, denies bleeding, and denies anemia, denies blood clots. Infections: The patient denies a history of measles and mumps, denies rheumatic fever, and denies sexually transmitted diseases. Musculoskeletal: The patient denies back pain/injury, denies back problems, denies sciatica, deniesknee/foot trouble, denies arthritis, or denies gout. When was patient's last Mammogram screening? 2019 Last Colonoscopy: 2011 Mary Anne Jean LPN documented in this encounterCity Hospital07-19-2022 History of Present illness Narrative* Rene Peñaloza MD - 12/02/2021 8:40 AM EDT HISTORY AND PHYSICAL Ana Brown 1955 REFERRING PHYSICIAN: Ana Jimenez DO CHIEF COMPLAINT: Consult (abnormal ultrasound, family history of breast cancer) HPI: The patient is a 66 year old female with a complaint of enlarged lymph node of her right axilla. They have been following this for more than a year but it has increased in size and her most recent mammogram and ultrasound. It was recommended that a biopsy be done. Patient states that she cannot feel this when she is in the shower with a lot of soap to aid in the exam. The patient has not been experiencing any night sweats. She has no family history of lymphoma. She does have a history of breast cancer in the family mom was in her 60s and 70s her sister is 68 and actually undergoing treatment for breast cancer and she has had an aunt who has had breast cancer.. The patient is being seen by me today at the request of Dr. Ana Jimenez DO for my opinion and advice regarding Enlarged lymph nodes (primary encounter diagnosis). PAST MEDICAL HISTORY Diagnosis Date Allergy, unspecified not elsewhere classified Basal cell carcinoma PMH - PAST MEDICAL HISTORY OF Irregular bowel movements Solitary cyst of breast Squamous cell carcinoma of face PAST SURGICAL HISTORY Procedure Laterality Date BREAST ASPIRATION Right breast COLONOSCOPY FLX DX W/COLLJ SPEC WHEN PFRMD Colonoscopy PAST SURGICAL HISTORY OF x 5-6 Basil Cell Removed from face Current Outpatient Medications Medication Sig ASMANEX HFA 200 mcg/actuation HFA cholecalciferol, vitamin D3, (VITAMIN D3 ORAL) Take by mouth once daily. No current facility-administered medications for this visit. ALLERGIES: Seasonal [Other] PERSONAL HISTORY: Social History Tobacco Use Smoking status: Former Smoker Packs/day: 1.00 Years: 15.00 Pack years: 15.00 Types: Cigarettes Smokeless tobacco: Never Used Tobacco comment: quit 11 years ago Vaping Use Vaping Use: Never used Substance Use Topics Alcohol use: Yes Comment: Very Rarely Drug use: No FAMILY HISTORY: FAMILY HISTORY Problem Relation Age of Onset Breast Cancer Mother Heart Mother Mitral Valve Breast Cancer Sister Thyroid Sister GI Sister Breast Cancer Maternal Aunt REVIEW OF SYMPTOMS: The review of systems data was entered by the nurse and reviewed by me There are no exam notes on file for this visit. PHYSICAL EXAMINATION: General: The patient is 66 year old female, well nourished, well hydrated in no acute distress. Thepatient is oriented to time, place, and person. VITALS: Blood pressure 132/84, pulse 97, temperature 36.6 C (97.8 F), height 172.7 cm (5' 8), weight 100.2 kg (221 lb), last menstrual period 07/19/2008, SpO2 97 %. HEENT: Normal cephalic, ataumatic, pupils are equally round, sclera are anicteric, mucous membranesare moist, oropharynx is clear. Neck has no masses, asymmetry or lymphadenopathy. Thyroid is unremarkable. Respiratory: Clear to auscultation and percussion. Normal respiratory excursion and pattern. Cardiac: Examination is regular rate and rhythm. Abdominal exam: Soft, nontender, with no palpable masses. No hepatosplenomegaly. No palpable hernias. Rectal exam: exam deferred Extremities: no clubbing, cyanosis or edema. No adenopathy. Other: Palpation in both axillas I cannot really feel this area there is a lot of fatty tissue and trying to identify a lymph node that is 2 cm is challenging. LABORATORY VALUES: As Noted RADIOLOGIC STUDIES: As Noted Assessment IMPRESSION: Enlarged lymph nodes (primary encounter diagnosis) PLAN: I am going to attempt to do an ultrasound-guided biopsy of the enlarged lymph node to the right axilla. If I am unable to see it with my machine I may need to get her scheduled to have it done with a much larger and more powerful ultrasound machine. Diagnoses: (R59.9) Enlarged lymph nodes (primary encounter diagnosis) A letter was sent to Dr. Ana Jimenez DO indicating the above finding for this patient. Return to Clinic: The patient is instructed to follow-up with me 1 week post operatively. Rene Peñaloza III, MD documented in this encounterCity Hospital01-15-2021 Instructions* Name Dates Details Patient Instructions Start:31-May-2020 Instruction Type:Provider Instructions for Treatment How to Access Health Informa tion Online using Patient Portal and [employer]rd [employer] Apps Start:31-May-2020 Instruction Type:Patient Education How to access health informa tion online Start:10-Apr-2020 Instruction Type:Patient Education How to access health informa tion online - Detail Start:10-Apr-2020 Instruction Type:Patient Education Patient Instructions Start:10-Apr-2020 Instruction Type:Provider Instructions for Treatment How to access health informa tion online Indication:VITAMIN D DEFICIENCY Start:29-Apr-2015 Instruction Type:Patient Education How to access health informa tion online - Detail Indication:VITAMIN D DEFICIENCY Start:29-Apr-2015 Instruction Type:Patient Education Patient Instructions Indication:VITAMIN D DEFICIENCY Start:29-Apr-2015 Instruction Type:Provider Instructions for Treatment How to access health informa tion online Indication:Forgetfulness Start:11-Jan-2015 Instruction Type:Patient Education How to access health informa tion online - Detail Indication:Forgetfulness Start:11-Jan-2015 Instruction Type:Patient Education Patient Instructions Indication:Forgetfulness Start:11-Jan-2015 Instruction Type:Provider Instructions for Treatment Patient Instructions Start:12-Oct-2014 Instruction Type:Provider Instructions for Treatment Patient Instructions Start:17-Oct-2012 Instruction Type:Provider Instructions for Treatment Patient Instructions Start:29-Feb-2012 Instruction Type:Provider Instructions for Treatment [facility] Work Phone: Evaluation noteNo assessment information available [facility] Work Phone: Evaluation note* Diagnosis Enlarged lymph nodes- Primary Enlargement of lymph [facility] Diagnosis Axillary lymphadenopathy- Primary Enlargement of lymph nodes documented in this encounter [facility] note* Diagnosis Enlarged lymph nodes- Primary Enlargement of lymph nodes Lymph node enlargement Enlargement of lymph nodes documented in this encounter [facility] note* Diagnosis Enlarged lymph nodes- Primary Enlargement of lymph nodes documented in this encounter [facility] note* Diagnosis Enlarged lymph nodes- Primary Enlargement of lymph nodes documented in this encounter [facility] note* Diagnosis Impaired fasting glucose documented in this encounter [facility] Work Phone: Instructions* Name Dates Details How to Access Health Informa tion Online using Patient Portal and [employer] Apps Indication:Nonsmoker Start:03-Sep-2020 Instruction Type:Patient Education Patient Instructions Indication:Nonsmoker Start:03-Sep-2020 Instruction Type:Provider Instructions for Treatment Patient Instructions Indication:Nonsmoker Start:31-May-2020 Instruction Type:Provider Instructions for Treatment How to Access Health Informa tion Online using Patient Portal and [employer] Apps Indication:Nonsmoker Start:31-May-2020 Instruction Type:Patient Education How to access health informa tion online Indication:Impaired fasting glucose Start:10-Apr-2020 Instruction Type:Patient Education How to access health informa tion online - Detail Indication:Impaired fasting glucose Start:10-Apr-2020 Instruction Type:Patient Education Patient Instructions Indication:Impaired fasting glucose Start:10-Apr-2020 Instruction Type:Provider Instructions for Treatment How to access health informa tion online Indication:VITAMIN D DEFICIENCY Start:29-Apr-2015 Instruction Type:Patient Education How to access health informa tion online - Detail Indication:VITAMIN D DEFICIENCY Start:29-Apr-2015 Instruction Type:Patient Education Patient Instructions Indication:VITAMIN D DEFICIENCY Start:29-Apr-2015 Instruction Type:Provider Instructions for Treatment How to access health informa tion online Indication:Forgetfulness Start:11-Jan-2015 Instruction Type:Patient Education How to access health informa tion online - Detail Indication:Forgetfulness Start:11-Jan-2015 Instruction Type:Patient Education Patient Instructions Indication:Forgetfulness Start:11-Jan-2015 Instruction Type:Provider Instructions for Treatment Patient Instructions Indication:Impaired fasting glucose Start:12-Oct-2014 Instruction Type:Provider Instructions for Treatment Patient Instructions Indication:Impaired fasting glucose Start:17-Oct-2012 Instruction Type:Provider Instructions for Treatment Patient Instructions Indication:Impaired fasting glucose Start:29-Feb-2012 Instruction Type:Provider Instructions for Treatment [facility] Work Phone: Instructions* Name Dates Details How to Access Health Informa tion Online using Patient Portal and [employer] Apps Indication:Nonsmoker Start:03-Sep-2020 Instruction Type:Patient Education Patient Instructions Indication:Nonsmoker Start:03-Sep-2020 Instruction Type:Provider Instructions for Treatment Patient Instructions Indication:Nonsmoker Start:31-May-2020 Instruction Type:Provider Instructions for Treatment How to Access Health Informa tion Online using Patient Portal and [employer]rd [employer] Apps Indication:Nonsmoker Start:31-May-2020 Instruction Type:Patient Education How to access health informa tion online Indication:Impaired fasting glucose Start:10-Apr-2020 Instruction Type:Patient Education How to access health informa tion online - Detail Indication:Impaired fasting glucose Start:10-Apr-2020 Instruction Type:Patient Education Patient Instructions Indication:Impaired fasting glucose Start:10-Apr-2020 Instruction Type:Provider Instructions for Treatment How to access health informa tion online Indication:VITAMIN D DEFICIENCY Start:29-Apr-2015 Instruction Type:Patient Education How to access health informa tion online - Detail Indication:VITAMIN D DEFICIENCY Start:29-Apr-2015 Instruction Type:Patient Education Patient Instructions Indication:VITAMIN D DEFICIENCY Start:29-Apr-2015 Instruction Type:Provider Instructions for Treatment How to access health informa tion online Indication:Forgetfulness Start:11-Jan-2015 Instruction Type:Patient Education How to access health informa tion online - Detail Indication:Forgetfulness Start:11-Jan-2015 Instruction Type:Patient Education Patient Instructions Indication:Forgetfulness Start:11-Jan-2015 Instruction Type:Provider Instructions for Treatment Patient Instructions Indication:Impaired fasting glucose Start:12-Oct-2014 Instruction Type:Provider Instructions for Treatment Patient Instructions Indication:Impaired fasting glucose Start:17-Oct-2012 Instruction Type:Provider Instructions for Treatment Patient Instructions Indication:Impaired fasting glucose Start:29-Feb-2012 Instruction Type:Provider Instructions for Treatment [facility]; [facility] Work Phone: instructions* Name Dates Details Patient Instructions Indication:Axillary lymphadenopathy Start:06-May-2021 Instruction Type:Provider Instructions for Treatment How to Access Health Informa tion Online using Patient Portal and [employer] Apps Indication:Axillary lymphadenopathy Start:06-May-2021 Instruction Type:Patient Education Patient Instructions Indication:Cough Start:30-Apr-2021 Instruction Type:Provider Instructions for Treatment How to Access Health Informa tion Online using Patient Portal and [employer] Apps Indication:Cough Start:30-Apr-2021 Instruction Type:Patient Education Patient Instructions Indication:Impaired fasting glucose Start:07-Jan-2021 Instruction Type:Provider Instructions for Treatment How to Access Health Informa tion Online using Patient Portal and [employer] Apps Indication:Impaired fasting glucose Start:07-Jan-2021 Instruction Type:Patient Education How to Access Health Informa tion Online using Patient Portal and [employer] Apps Indication:Nonsmoker Start:03-Sep-2020 Instruction Type:Patient Education Patient Instructions Indication:Nonsmoker Start:03-Sep-2020 Instruction Type:Provider Instructions for Treatment Patient Instructions Indication:Nonsmoker Start:31-May-2020 Instruction Type:Provider Instructions for Treatment How to Access Health Informa tion Online using Patient Portal and [employer] Apps Indication:Nonsmoker Start:31-May-2020 Instruction Type:Patient Education How to access health informa tion online Indication:Impaired fasting glucose Start:10-Apr-2020 Instruction Type:Patient Education How to access health informa tion online - Detail Indication:Impaired fasting glucose Start:10-Apr-2020 Instruction Type:Patient Education Patient Instructions Indication:Impaired fasting glucose Start:10-Apr-2020 Instruction Type:Provider Instructions for Treatment How to access health informa tion online Indication:VITAMIN D DEFICIENCY Start:29-Apr-2015 Instruction Type:Patient Education How to access health informa tion online - Detail Indication:VITAMIN D DEFICIENCY Start:29-Apr-2015 Instruction Type:Patient Education Patient Instructions Indication:VITAMIN D DEFICIENCY Start:29-Apr-2015 Instruction Type:Provider Instructions for Treatment How to access health informa tion online Indication:Forgetfulness Start:11-Jan-2015 Instruction Type:Patient Education How to access health informa tion online - Detail Indication:Forgetfulness Start:11-Jan-2015 Instruction Type:Patient Education Patient Instructions Indication:Forgetfulness Start:11-Jan-2015 Instruction Type:Provider Instructions for Treatment Patient Instructions Indication:Impaired fasting glucose Start:12-Oct-2014 Instruction Type:Provider Instructions for Treatment Patient Instructions Indication:Impaired fasting glucose Start:17-Oct-2012 Instruction Type:Provider Instructions for Treatment Patient Instructions Indication:Impaired fasting glucose Start:29-Feb-2012 Instruction Type:Provider Instructions for Treatment [facility]; [facility] Work Phone: Instructions* Name Dates Details Patient Instructions Indication:Nonsmoker Start:16-Sep-2021 Instruction Type:Provider Instructions for Treatment How to Access Health Informa tion Online using Patient Portal and [employer] Apps Indication:Nonsmoker Start:16-Sep-2021 Instruction Type:Patient Education Patient Instructions Indication:Axillary lymphadenopathy Start:06-May-2021 Instruction Type:Provider Instructions for Treatment How to Access Health Informa tion Online using Patient Portal and [employer] Apps Indication:Axillary lymphadenopathy Start:06-May-2021 Instruction Type:Patient Education Patient Instructions Indication:Cough Start:30-Apr-2021 Instruction Type:Provider Instructions for Treatment How to Access Health Informa tion Online using Patient Portal and [employer] Apps Indication:Cough Start:30-Apr-2021 Instruction Type:Patient Education Patient Instructions Indication:Impaired fasting glucose Start:07-Jan-2021 Instruction Type:Provider Instructions for Treatment How to Access Health Informa tion Online using Patient Portal and [employer] Apps Indication:Impaired fasting glucose Start:07-Jan-2021 Instruction Type:Patient Education How to Access Health Informa tion Online using Patient Portal and [employer] Apps Indication:Nonsmoker Start:03-Sep-2020 Instruction Type:Patient Education Patient Instructions Indication:Nonsmoker Start:03-Sep-2020 Instruction Type:Provider Instructions for Treatment Patient Instructions Indication:Nonsmoker Start:31-May-2020 Instruction Type:Provider Instructions for Treatment How to Access Health Informa tion Online using Patient Portal and [employer] Apps Indication:Nonsmoker Start:31-May-2020 Instruction Type:Patient Education How to access health informa tion online Indication:Impaired fasting glucose Start:10-Apr-2020 Instruction Type:Patient Education How to access health informa tion online - Detail Indication:Impaired fasting glucose Start:10-Apr-2020 Instruction Type:Patient Education Patient Instructions Indication:Impaired fasting glucose Start:10-Apr-2020 Instruction Type:Provider Instructions for Treatment How to access health informa tion online Indication:VITAMIN D DEFICIENCY Start:29-Apr-2015 Instruction Type:Patient Education How to access health informa tion online - Detail Indication:VITAMIN D DEFICIENCY Start:29-Apr-2015 Instruction Type:Patient Education Patient Instructions Indication:VITAMIN D DEFICIENCY Start:29-Apr-2015 Instruction Type:Provider Instructions for Treatment How to access health informa tion online Indication:Forgetfulness Start:11-Jan-2015 Instruction Type:Patient Education How to access health informa tion online - Detail Indication:Forgetfulness Start:11-Jan-2015 Instruction Type:Patient Education Patient Instructions Indication:Forgetfulness Start:11-Jan-2015 Instruction Type:Provider Instructions for Treatment Patient Instructions Indication:Impaired fasting glucose Start:12-Oct-2014 Instruction Type:Provider Instructions for Treatment Patient Instructions Indication:Impaired fasting glucose Start:17-Oct-2012 Instruction Type:Provider Instructions for Treatment Patient Instructions Indication:Impaired fasting glucose Start:29-Feb-2012 Instruction Type:Provider Instructions for Treatment [facility]; [facility] Work Phone: Instructions* Name Dates Details Patient Instructions Indication:BMI 34.0-34.9,adult Start:03-Oct-2021 Instruction Type:Provider Instructions for Treatment How to Access Health Informa tion Online using Patient Portal and [employer] Apps Indication:BMI 34.0-34.9,adult Start:03-Oct-2021 Instruction Type:Patient Education Patient Instructions Indication:Nonsmoker Start:16-Sep-2021 Instruction Type:Provider Instructions for Treatment How to Access Health Informa tion Online using Patient Portal and [employer] Apps Indication:Nonsmoker Start:16-Sep-2021 Instruction Type:Patient Education Patient Instructions Indication:Axillary lymphadenopathy Start:06-May-2021 Instruction Type:Provider Instructions for Treatment How to Access Health Informa tion Online using Patient Portal and [employer] Apps Indication:Axillary lymphadenopathy Start:06-May-2021 Instruction Type:Patient Education Patient Instructions Indication:Cough Start:30-Apr-2021 Instruction Type:Provider Instructions for Treatment How to Access Health Informa tion Online using Patient Portal and [employer] Apps Indication:Cough Start:30-Apr-2021 Instruction Type:Patient Education Patient Instructions Indication:Impaired fasting glucose Start:07-Jan-2021 Instruction Type:Provider Instructions for Treatment How to Access Health Informa tion Online using Patient Portal and [employer] Apps Indication:Impaired fasting glucose Start:07-Jan-2021 Instruction Type:Patient Education How to Access Health Informa tion Online using Patient Portal and [employer] Apps Indication:Nonsmoker Start:03-Sep-2020 Instruction Type:Patient Education Patient Instructions Indication:Nonsmoker Start:03-Sep-2020 Instruction Type:Provider Instructions for Treatment Patient Instructions Indication:Nonsmoker Start:31-May-2020 Instruction Type:Provider Instructions for Treatment How to Access Health Informa tion Online using Patient Portal and [employer] Apps Indication:Nonsmoker Start:31-May-2020 Instruction Type:Patient Education How to access health informa tion online Indication:Impaired fasting glucose Start:10-Apr-2020 Instruction Type:Patient Education How to access health informa tion online - Detail Indication:Impaired fasting glucose Start:10-Apr-2020 Instruction Type:Patient Education Patient Instructions Indication:Impaired fasting glucose Start:10-Apr-2020 Instruction Type:Provider Instructions for Treatment How to access health informa tion online Indication:VITAMIN D DEFICIENCY Start:29-Apr-2015 Instruction Type:Patient Education How to access health informa tion online - Detail Indication:VITAMIN D DEFICIENCY Start:29-Apr-2015 Instruction Type:Patient Education Patient Instructions Indication:VITAMIN D DEFICIENCY Start:29-Apr-2015 Instruction Type:Provider Instructions for Treatment How to access health informa tion online Indication:Forgetfulness Start:11-Jan-2015 Instruction Type:Patient Education How to access health informa tion online - Detail Indication:Forgetfulness Start:11-Jan-2015 Instruction Type:Patient Education Patient Instructions Indication:Forgetfulness Start:11-Jan-2015 Instruction Type:Provider Instructions for Treatment Patient Instructions Indication:Impaired fasting glucose Start:12-Oct-2014 Instruction Type:Provider Instructions for Treatment Patient Instructions Indication:Impaired fasting glucose Start:17-Oct-2012 Instruction Type:Provider Instructions for Treatment Patient Instructions Indication:Impaired fasting glucose Start:29-Feb-2012 Instruction Type:Provider Instructions for Treatment [facility]; [facility] Work Phone: Instructions* Name Dates Details Patient Instructions Indication:BMI 34.0-34.9,adult Start:03-Oct-2021 Instruction Type:Provider Instructions for Treatment How to Access Health Informa tion Online using Patient Portal and [employer] Apps Indication:BMI 34.0-34.9,adult Start:03-Oct-2021 Instruction Type:Patient Education Patient Instructions Indication:Nonsmoker Start:16-Sep-2021 Instruction Type:Provider Instructions for Treatment How to Access Health Informa tion Online using Patient Portal and [employer] Apps Indication:Nonsmoker Start:16-Sep-2021 Instruction Type:Patient Education Patient Instructions Indication:Axillary lymphadenopathy Start:06-May-2021 Instruction Type:Provider Instructions for Treatment How to Access Health Informa tion Online using Patient Portal and [employer] Apps Indication:Axillary lymphadenopathy Start:06-May-2021 Instruction Type:Patient Education Patient Instructions Indication:Cough Start:30-Apr-2021 Instruction Type:Provider Instructions for Treatment How to Access Health Informa tion Online using Patient Portal and [employer] Apps Indication:Cough Start:30-Apr-2021 Instruction Type:Patient Education Patient Instructions Indication:Impaired fasting glucose Start:07-Jan-2021 Instruction Type:Provider Instructions for Treatment How to Access Health Informa tion Online using Patient Portal and [employer] Apps Indication:Impaired fasting glucose Start:07-Jan-2021 Instruction Type:Patient Education How to Access Health Informa tion Online using Patient Portal and [employer] Apps Indication:Nonsmoker Start:03-Sep-2020 Instruction Type:Patient Education Patient Instructions Indication:Nonsmoker Start:03-Sep-2020 Instruction Type:Provider Instructions for Treatment Patient Instructions Indication:Nonsmoker Start:31-May-2020 Instruction Type:Provider Instructions for Treatment How to Access Health Informa tion Online using Patient Portal and [employer] Apps Indication:Nonsmoker Start:31-May-2020 Instruction Type:Patient Education How to access health informa tion online Indication:Impaired fasting glucose Start:10-Apr-2020 Instruction Type:Patient Education How to access health informa tion online - Detail Indication:Impaired fasting glucose Start:10-Apr-2020 Instruction Type:Patient Education Patient Instructions Indication:Impaired fasting glucose Start:10-Apr-2020 Instruction Type:Provider Instructions for Treatment How to access health informa tion online Indication:VITAMIN D DEFICIENCY Start:29-Apr-2015 Instruction Type:Patient Education How to access health informa tion online - Detail Indication:VITAMIN D DEFICIENCY Start:29-Apr-2015 Instruction Type:Patient Education Patient Instructions Indication:VITAMIN D DEFICIENCY Start:29-Apr-2015 Instruction Type:Provider Instructions for Treatment How to access health informa tion online Indication:Forgetfulness Start:11-Jan-2015 Instruction Type:Patient Education How to access health informa tion online - Detail Indication:Forgetfulness Start:11-Jan-2015 Instruction Type:Patient Education Patient Instructions Indication:Forgetfulness Start:11-Jan-2015 Instruction Type:Provider Instructions for Treatment Patient Instructions Indication:Impaired fasting glucose Start:12-Oct-2014 Instruction Type:Provider Instructions for Treatment Patient Instructions Indication:Impaired fasting glucose Start:17-Oct-2012 Instruction Type:Provider Instructions for Treatment Patient Instructions Indication:Impaired fasting glucose Start:29-Feb-2012 Instruction Type:Provider Instructions for Treatment [facility]; [facility] Work Phone: Instructions* Name Dates Details Patient Instructions Indication:BMI 34.0-34.9,adult Start:03-Oct-2021 Instruction Type:Provider Instructions for Treatment How to Access Health Informa tion Online using Patient Portal and [employer] Apps Indication:BMI 34.0-34.9,adult Start:03-Oct-2021 Instruction Type:Patient Education Patient Instructions Indication:Nonsmoker Start:16-Sep-2021 Instruction Type:Provider Instructions for Treatment How to Access Health Informa tion Online using Patient Portal and [employer] Apps Indication:Nonsmoker Start:16-Sep-2021 Instruction Type:Patient Education Patient Instructions Indication:Axillary lymphadenopathy Start:06-May-2021 Instruction Type:Provider Instructions for Treatment How to Access Health Informa tion Online using Patient Portal and [employer] Apps Indication:Axillary lymphadenopathy Start:06-May-2021 Instruction Type:Patient Education Patient Instructions Indication:Cough Start:30-Apr-2021 Instruction Type:Provider Instructions for Treatment How to Access Health Informa tion Online using Patient Portal and [employer] Apps Indication:Cough Start:30-Apr-2021 Instruction Type:Patient Education Patient Instructions Indication:Impaired fasting glucose Start:07-Jan-2021 Instruction Type:Provider Instructions for Treatment How to Access Health Informa tion Online using Patient Portal and [employer] Apps Indication:Impaired fasting glucose Start:07-Jan-2021 Instruction Type:Patient Education How to Access Health Informa tion Online using Patient Portal and [employer] Apps Indication:Nonsmoker Start:03-Sep-2020 Instruction Type:Patient Education Patient Instructions Indication:Nonsmoker Start:03-Sep-2020 Instruction Type:Provider Instructions for Treatment Patient Instructions Indication:Nonsmoker Start:31-May-2020 Instruction Type:Provider Instructions for Treatment How to Access Health Informa tion Online using Patient Portal and [employer] Apps Indication:Nonsmoker Start:31-May-2020 Instruction Type:Patient Education How to access health informa tion online Indication:Impaired fasting glucose Start:10-Apr-2020 Instruction Type:Patient Education How to access health informa tion online - Detail Indication:Impaired fasting glucose Start:10-Apr-2020 Instruction Type:Patient Education Patient Instructions Indication:Impaired fasting glucose Start:10-Apr-2020 Instruction Type:Provider Instructions for Treatment How to access health informa tion online Indication:VITAMIN D DEFICIENCY Start:29-Apr-2015 Instruction Type:Patient Education How to access health informa tion online - Detail Indication:VITAMIN D DEFICIENCY Start:29-Apr-2015 Instruction Type:Patient Education Patient Instructions Indication:VITAMIN D DEFICIENCY Start:29-Apr-2015 Instruction Type:Provider Instructions for Treatment How to access health informa tion online Indication:Forgetfulness Start:11-Jan-2015 Instruction Type:Patient Education How to access health informa tion online - Detail Indication:Forgetfulness Start:11-Jan-2015 Instruction Type:Patient Education Patient Instructions Indication:Forgetfulness Start:11-Jan-2015 Instruction Type:Provider Instructions for Treatment Patient Instructions Indication:Impaired fasting glucose Start:12-Oct-2014 Instruction Type:Provider Instructions for Treatment Patient Instructions Indication:Impaired fasting glucose Start:17-Oct-2012 Instruction Type:Provider Instructions for Treatment Patient Instructions Indication:Impaired fasting glucose Start:29-Feb-2012 Instruction Type:Provider Instructions for Treatment [facility]; [facility] Work Phone: Instructions* Name Dates Details Patient Instructions Indication:BMI 35.0-35.9,adult Start:24-Dec-2021 Instruction Type:Provider Instructions for Treatment How to Access Health Informa tion Online using Patient Portal and [employer] Apps Indication:BMI 35.0-35.9,adult Start:24-Dec-2021 Instruction Type:Patient Education Patient Instructions Indication:BMI 34.0-34.9,adult Start:03-Oct-2021 Instruction Type:Provider Instructions for Treatment How to Access Health Informa tion Online using Patient Portal and [employer] Apps Indication:BMI 34.0-34.9,adult Start:03-Oct-2021 Instruction Type:Patient Education Patient Instructions Indication:Nonsmoker Start:16-Sep-2021 Instruction Type:Provider Instructions for Treatment How to Access Health Informa tion Online using Patient Portal and [employer] Apps Indication:Nonsmoker Start:16-Sep-2021 Instruction Type:Patient Education Patient Instructions Indication:Axillary lymphadenopathy Start:06-May-2021 Instruction Type:Provider Instructions for Treatment How to Access Health Informa tion Online using Patient Portal and [employer] Apps Indication:Axillary lymphadenopathy Start:06-May-2021 Instruction Type:Patient Education Patient Instructions Indication:Cough Start:30-Apr-2021 Instruction Type:Provider Instructions for Treatment How to Access Health Informa tion Online using Patient Portal and [employer] Apps Indication:Cough Start:30-Apr-2021 Instruction Type:Patient Education Patient Instructions Indication:Impaired fasting glucose Start:07-Jan-2021 Instruction Type:Provider Instructions for Treatment How to Access Health Informa tion Online using Patient Portal and [employer] Apps Indication:Impaired fasting glucose Start:07-Jan-2021 Instruction Type:Patient Education How to Access Health Informa tion Online using Patient Portal and [employer] Apps Indication:Nonsmoker Start:03-Sep-2020 Instruction Type:Patient Education Patient Instructions Indication:Nonsmoker Start:03-Sep-2020 Instruction Type:Provider Instructions for Treatment Patient Instructions Indication:Nonsmoker Start:31-May-2020 Instruction Type:Provider Instructions for Treatment How to Access Health Informa tion Online using Patient Portal and [employer] Apps Indication:Nonsmoker Start:31-May-2020 Instruction Type:Patient Education How to access health informa tion online Indication:Impaired fasting glucose Start:10-Apr-2020 Instruction Type:Patient Education How to access health informa tion online - Detail Indication:Impaired fasting glucose Start:10-Apr-2020 Instruction Type:Patient Education Patient Instructions Indication:Impaired fasting glucose Start:10-Apr-2020 Instruction Type:Provider Instructions for Treatment How to access health informa tion online Indication:VITAMIN D DEFICIENCY Start:29-Apr-2015 Instruction Type:Patient Education How to access health informa tion online - Detail Indication:VITAMIN D DEFICIENCY Start:29-Apr-2015 Instruction Type:Patient Education Patient Instructions Indication:VITAMIN D DEFICIENCY Start:29-Apr-2015 Instruction Type:Provider Instructions for Treatment How to access health informa tion online Indication:Forgetfulness Start:11-Jan-2015 Instruction Type:Patient Education How to access health informa tion online - Detail Indication:Forgetfulness Start:11-Jan-2015 Instruction Type:Patient Education Patient Instructions Indication:Forgetfulness Start:11-Jan-2015 Instruction Type:Provider Instructions for Treatment Patient Instructions Indication:Impaired fasting glucose Start:12-Oct-2014 Instruction Type:Provider Instructions for Treatment Patient Instructions Indication:Impaired fasting glucose Start:17-Oct-2012 Instruction Type:Provider Instructions for Treatment Patient Instructions Indication:Impaired fasting glucose Start:29-Feb-2012 Instruction Type:Provider Instructions for Treatment [facility]; [facility] Work Phone: Instructions* Name Dates Details Patient Instructions Indication:Nonsmoker Start:04-Feb-2022 Instruction Type:Provider Instructions for Treatment How to Access Health Informa tion Online using Patient Portal and [employer] Apps Indication:Nonsmoker Start:04-Feb-2022 Instruction Type:Patient Education Patient Instructions Indication:BMI 35.0-35.9,adult Start:24-Dec-2021 Instruction Type:Provider Instructions for Treatment How to Access Health Informa tion Online using Patient Portal and [employer] Apps Indication:BMI 35.0-35.9,adult Start:24-Dec-2021 Instruction Type:Patient Education Patient Instructions Indication:BMI 34.0-34.9,adult Start:03-Oct-2021 Instruction Type:Provider Instructions for Treatment How to Access Health Informa tion Online using Patient Portal and [employer] Apps Indication:BMI 34.0-34.9,adult Start:03-Oct-2021 Instruction Type:Patient Education Patient Instructions Indication:Nonsmoker Start:16-Sep-2021 Instruction Type:Provider Instructions for Treatment How to Access Health Informa tion Online using Patient Portal and [employer] Apps Indication:Nonsmoker Start:16-Sep-2021 Instruction Type:Patient Education Patient Instructions Indication:Axillary lymphadenopathy Start:06-May-2021 Instruction Type:Provider Instructions for Treatment How to Access Health Informa tion Online using Patient Portal and [employer] Apps Indication:Axillary lymphadenopathy Start:06-May-2021 Instruction Type:Patient Education Patient Instructions Indication:Cough Start:30-Apr-2021 Instruction Type:Provider Instructions for Treatment How to Access Health Informa tion Online using Patient Portal and [employer] Apps Indication:Cough Start:30-Apr-2021 Instruction Type:Patient Education Patient Instructions Indication:Impaired fasting glucose Start:07-Jan-2021 Instruction Type:Provider Instructions for Treatment How to Access Health Informa tion Online using Patient Portal and [employer] Apps Indication:Impaired fasting glucose Start:07-Jan-2021 Instruction Type:Patient Education How to Access Health Informa tion Online using Patient Portal and [employer] Apps Indication:Nonsmoker Start:03-Sep-2020 Instruction Type:Patient Education Patient Instructions Indication:Nonsmoker Start:03-Sep-2020 Instruction Type:Provider Instructions for Treatment Patient Instructions Indication:Nonsmoker Start:31-May-2020 Instruction Type:Provider Instructions for Treatment How to Access Health Informa tion Online using Patient Portal and [employer] Apps Indication:Nonsmoker Start:31-May-2020 Instruction Type:Patient Education How to access health informa tion online Indication:Impaired fasting glucose Start:10-Apr-2020 Instruction Type:Patient Education How to access health informa tion online - Detail Indication:Impaired fasting glucose Start:10-Apr-2020 Instruction Type:Patient Education Patient Instructions Indication:Impaired fasting glucose Start:10-Apr-2020 Instruction Type:Provider Instructions for Treatment How to access health informa tion online Indication:VITAMIN D DEFICIENCY Start:29-Apr-2015 Instruction Type:Patient Education How to access health informa tion online - Detail Indication:VITAMIN D DEFICIENCY Start:29-Apr-2015 Instruction Type:Patient Education Patient Instructions Indication:VITAMIN D DEFICIENCY Start:29-Apr-2015 Instruction Type:Provider Instructions for Treatment How to access health informa tion online Indication:Forgetfulness Start:11-Jan-2015 Instruction Type:Patient Education How to access health informa tion online - Detail Indication:Forgetfulness Start:11-Jan-2015 Instruction Type:Patient Education Patient Instructions Indication:Forgetfulness Start:11-Jan-2015 Instruction Type:Provider Instructions for Treatment Patient Instructions Indication:Impaired fasting glucose Start:12-Oct-2014 Instruction Type:Provider Instructions for Treatment Patient Instructions Indication:Impaired fasting glucose Start:17-Oct-2012 Instruction Type:Provider Instructions for Treatment Patient Instructions Indication:Impaired fasting glucose Start:29-Feb-2012 Instruction Type:Provider Instructions for Treatment [facility]; [facility] Work Phone: Instructions* Name Dates Details Patient Instructions Indication:BMI 35.0-35.9,adult Start:18-Feb-2022 Instruction Type:Provider Instructions for Treatment How to Access Health Informa tion Online using Patient Portal and [employer] Indication:BMI 35.0-35.9,adult Start:18-Feb-2022 Instruction Type:Patient Education Patient Instructions Indication:Nonsmoker Start:04-Feb-2022 Instruction Type:Provider Instructions for Treatment How to Access Health Informa tion Online using Patient Portal and [employer] Indication:Nonsmoker Start:04-Feb-2022 Instruction Type:Patient Education Patient Instructions Indication:BMI 35.0-35.9,adult Start:24-Dec-2021 Instruction Type:Provider Instructions for Treatment How to Access Health Informa tion Online using Patient Portal and [employer] Indication:BMI 35.0-35.9,adult Start:24-Dec-2021 Instruction Type:Patient Education Patient Instructions Indication:BMI 34.0-34.9,adult Start:03-Oct-2021 Instruction Type:Provider Instructions for Treatment How to Access Health Informa tion Online using Patient Portal and [employer] Indication:BMI 34.0-34.9,adult Start:03-Oct-2021 Instruction Type:Patient Education Patient Instructions Indication:Nonsmoker Start:16-Sep-2021 Instruction Type:Provider Instructions for Treatment How to Access Health Informa tion Online using Patient Portal and [employer] Indication:Nonsmoker Start:16-Sep-2021 Instruction Type:Patient Education Patient Instructions Indication:Axillary lymphadenopathy Start:06-May-2021 Instruction Type:Provider Instructions for Treatment How to Access Health Informa tion Online using Patient Portal and [employer] Indication:Axillary lymphadenopathy Start:06-May-2021 Instruction Type:Patient Education Patient Instructions Indication:Cough Start:30-Apr-2021 Instruction Type:Provider Instructions for Treatment How to Access Health Informa tion Online using Patient Portal and [employer] Indication:Cough Start:30-Apr-2021 Instruction Type:Patient Education Patient Instructions Indication:Impaired fasting glucose Start:07-Jan-2021 Instruction Type:Provider Instructions for Treatment How to Access Health Informa tion Online using Patient Portal and [employer] Apps Indication:Impaired fasting glucose Start:07-Jan-2021 Instruction Type:Patient Education How to Access Health Informa tion Online using Patient Portal and [employer] Indication:Nonsmoker Start:03-Sep-2020 Instruction Type:Patient Education Patient Instructions Indication:Nonsmoker Start:03-Sep-2020 Instruction Type:Provider Instructions for Treatment Patient Instructions Indication:Nonsmoker Start:31-May-2020 Instruction Type:Provider Instructions for Treatment How to Access Health Informa tion Online using Patient Portal and [employer] Indication:Nonsmoker Start:31-May-2020 Instruction Type:Patient Education How to access health informa tion online Indication:Impaired fasting glucose Start:10-Apr-2020 Instruction Type:Patient Education How to access health informa tion online - Detail Indication:Impaired fasting glucose Start:10-Apr-2020 Instruction Type:Patient Education Patient Instructions Indication:Impaired fasting glucose Start:10-Apr-2020 Instruction Type:Provider Instructions for Treatment How to access health informa tion online Indication:VITAMIN D DEFICIENCY Start:29-Apr-2015 Instruction Type:Patient Education How to access health informa tion online - Detail Indication:VITAMIN D DEFICIENCY Start:29-Apr-2015 Instruction Type:Patient Education Patient Instructions Indication:VITAMIN D DEFICIENCY Start:29-Apr-2015 Instruction Type:Provider Instructions for Treatment How to access health informa tion online Indication:Forgetfulness Start:11-Jan-2015 Instruction Type:Patient Education How to access health informa tion online - Detail Indication:Forgetfulness Start:11-Jan-2015 Instruction Type:Patient Education Patient Instructions Indication:Forgetfulness Start:11-Jan-2015 Instruction Type:Provider Instructions for Treatment Patient Instructions Indication:Impaired fasting glucose Start:12-Oct-2014 Instruction Type:Provider Instructions for Treatment Patient Instructions Indication:Impaired fasting glucose Start:17-Oct-2012 Instruction Type:Provider Instructions for Treatment Patient Instructions Indication:Impaired fasting glucose Start:29-Feb-2012 Instruction Type:Provider Instructions for Treatment [facility]; [facility] Work Phone: Instructions* Name Dates Details Patient Instructions Indication:BMI 35.0-35.9,adult Start:18-Feb-2022 Instruction Type:Provider Instructions for Treatment How to Access Health Informa tion Online using Patient Portal and [employer] Indication:BMI 35.0-35.9,adult Start:18-Feb-2022 Instruction Type:Patient Education Patient Instructions Indication:Nonsmoker Start:04-Feb-2022 Instruction Type:Provider Instructions for Treatment How to Access Health Informa tion Online using Patient Portal and [employer] Indication:Nonsmoker Start:04-Feb-2022 Instruction Type:Patient Education Patient Instructions Indication:BMI 35.0-35.9,adult Start:24-Dec-2021 Instruction Type:Provider Instructions for Treatment How to Access Health Informa tion Online using Patient Portal and [employer] Indication:BMI 35.0-35.9,adult Start:24-Dec-2021 Instruction Type:Patient Education Patient Instructions Indication:BMI 34.0-34.9,adult Start:03-Oct-2021 Instruction Type:Provider Instructions for Treatment How to Access Health Informa tion Online using Patient Portal and [employer] Indication:BMI 34.0-34.9,adult Start:03-Oct-2021 Instruction Type:Patient Education Patient Instructions Indication:Nonsmoker Start:16-Sep-2021 Instruction Type:Provider Instructions for Treatment How to Access Health Informa tion Online using Patient Portal and [employer] Indication:Nonsmoker Start:16-Sep-2021 Instruction Type:Patient Education Patient Instructions Indication:Axillary lymphadenopathy Start:06-May-2021 Instruction Type:Provider Instructions for Treatment How to Access Health Informa tion Online using Patient Portal and [employer] Indication:Axillary lymphadenopathy Start:06-May-2021 Instruction Type:Patient Education Patient Instructions Indication:Cough Start:30-Apr-2021 Instruction Type:Provider Instructions for Treatment How to Access Health Informa tion Online using Patient Portal and [employer] Indication:Cough Start:30-Apr-2021 Instruction Type:Patient Education Patient Instructions Indication:Impaired fasting glucose Start:07-Jan-2021 Instruction Type:Provider Instructions for Treatment How to Access Health Informa tion Online using Patient Portal and [employer] Indication:Impaired fasting glucose Start:07-Jan-2021 Instruction Type:Patient Education How to Access Health Informa tion Online using Patient Portal and [employer] Indication:Nonsmoker Start:03-Sep-2020 Instruction Type:Patient Education Patient Instructions Indication:Nonsmoker Start:03-Sep-2020 Instruction Type:Provider Instructions for Treatment Patient Instructions Indication:Nonsmoker Start:31-May-2020 Instruction Type:Provider Instructions for Treatment How to Access Health Informa tion Online using Patient Portal and [employer] Indication:Nonsmoker Start:31-May-2020 Instruction Type:Patient Education How to access health informa tion online Indication:Impaired fasting glucose Start:10-Apr-2020 Instruction Type:Patient Education How to access health informa tion online - Detail Indication:Impaired fasting glucose Start:10-Apr-2020 Instruction Type:Patient Education Patient Instructions Indication:Impaired fasting glucose Start:10-Apr-2020 Instruction Type:Provider Instructions for Treatment How to access health informa tion online Indication:VITAMIN D DEFICIENCY Start:29-Apr-2015 Instruction Type:Patient Education How to access health informa tion online - Detail Indication:VITAMIN D DEFICIENCY Start:29-Apr-2015 Instruction Type:Patient Education Patient Instructions Indication:VITAMIN D DEFICIENCY Start:29-Apr-2015 Instruction Type:Provider Instructions for Treatment How to access health informa tion online Indication:Forgetfulness Start:11-Jan-2015 Instruction Type:Patient Education How to access health informa tion online - Detail Indication:Forgetfulness Start:11-Jan-2015 Instruction Type:Patient Education Patient Instructions Indication:Forgetfulness Start:11-Jan-2015 Instruction Type:Provider Instructions for Treatment Patient Instructions Indication:Impaired fasting glucose Start:12-Oct-2014 Instruction Type:Provider Instructions for Treatment Patient Instructions Indication:Impaired fasting glucose Start:17-Oct-2012 Instruction Type:Provider Instructions for Treatment Patient Instructions Indication:Impaired fasting glucose Start:29-Feb-2012 Instruction Type:Provider Instructions for Treatment [facility]; [facility] Work Phone: Instructions* Name Dates Details Patient Instructions Indication:Impaired fasting glucose Start:05-Jun-2022 Instruction Type:Provider Instructions for Treatment How to Access Health Informa tion Online using Patient Portal and [employer] Apps Indication:Impaired fasting glucose Start:05-Jun-2022 Instruction Type:Patient Education Patient Instructions Indication:BMI 35.0-35.9,adult Start:18-Feb-2022 Instruction Type:Provider Instructions for Treatment How to Access Health Informa tion Online using Patient Portal and [employer] Indication:BMI 35.0-35.9,adult Start:18-Feb-2022 Instruction Type:Patient Education Patient Instructions Indication:Nonsmoker Start:04-Feb-2022 Instruction Type:Provider Instructions for Treatment How to Access Health Informa tion Online using Patient Portal and [employer] Indication:Nonsmoker Start:04-Feb-2022 Instruction Type:Patient Education Patient Instructions Indication:BMI 35.0-35.9,adult Start:24-Dec-2021 Instruction Type:Provider Instructions for Treatment How to Access Health Informa tion Online using Patient Portal and [employer] Indication:BMI 35.0-35.9,adult Start:24-Dec-2021 Instruction Type:Patient Education Patient Instructions Indication:BMI 34.0-34.9,adult Start:03-Oct-2021 Instruction Type:Provider Instructions for Treatment How to Access Health Informa tion Online using Patient Portal and [employer] Indication:BMI 34.0-34.9,adult Start:03-Oct-2021 Instruction Type:Patient Education Patient Instructions Indication:Nonsmoker Start:16-Sep-2021 Instruction Type:Provider Instructions for Treatment How to Access Health Informa tion Online using Patient Portal and [employer] Indication:Nonsmoker Start:16-Sep-2021 Instruction Type:Patient Education Patient Instructions Indication:Axillary lymphadenopathy Start:06-May-2021 Instruction Type:Provider Instructions for Treatment How to Access Health Informa tion Online using Patient Portal and [employer] Indication:Axillary lymphadenopathy Start:06-May-2021 Instruction Type:Patient Education Patient Instructions Indication:Cough Start:30-Apr-2021 Instruction Type:Provider Instructions for Treatment How to Access Health Informa tion Online using Patient Portal and [employer] Indication:Cough Start:30-Apr-2021 Instruction Type:Patient Education Patient Instructions Indication:Impaired fasting glucose Start:07-Jan-2021 Instruction Type:Provider Instructions for Treatment How to Access Health Informa tion Online using Patient Portal and [employer] Indication:Impaired fasting glucose Start:07-Jan-2021 Instruction Type:Patient Education How to Access Health Informa tion Online using Patient Portal and [employer] Apps Indication:Nonsmoker Start:03-Sep-2020 Instruction Type:Patient Education Patient Instructions Indication:Nonsmoker Start:03-Sep-2020 Instruction Type:Provider Instructions for Treatment Patient Instructions Indication:Nonsmoker Start:31-May-2020 Instruction Type:Provider Instructions for Treatment How to Access Health Informa tion Online using Patient Portal and [employer] Indication:Nonsmoker Start:31-May-2020 Instruction Type:Patient Education How to access health informa tion online Indication:Impaired fasting glucose Start:10-Apr-2020 Instruction Type:Patient Education How to access health informa tion online - Detail Indication:Impaired fasting glucose Start:10-Apr-2020 Instruction Type:Patient Education Patient Instructions Indication:Impaired fasting glucose Start:10-Apr-2020 Instruction Type:Provider Instructions for Treatment How to access health informa tion online Indication:VITAMIN D DEFICIENCY Start:29-Apr-2015 Instruction Type:Patient Education How to access health informa tion online - Detail Indication:VITAMIN D DEFICIENCY Start:29-Apr-2015 Instruction Type:Patient Education Patient Instructions Indication:VITAMIN D DEFICIENCY Start:29-Apr-2015 Instruction Type:Provider Instructions for Treatment How to access health informa tion online Indication:Forgetfulness Start:11-Jan-2015 Instruction Type:Patient Education How to access health informa tion online - Detail Indication:Forgetfulness Start:11-Jan-2015 Instruction Type:Patient Education Patient Instructions Indication:Forgetfulness Start:11-Jan-2015 Instruction Type:Provider Instructions for Treatment Patient Instructions Indication:Impaired fasting glucose Start:12-Oct-2014 Instruction Type:Provider Instructions for Treatment Patient Instructions Indication:Impaired fasting glucose Start:17-Oct-2012 Instruction Type:Provider Instructions for Treatment Patient Instructions Indication:Impaired fasting glucose Start:29-Feb-2012 Instruction Type:Provider Instructions for Treatment [facility]; [facility] Work Phone: Instructions* Name Dates Details Patient Instructions Indication:Dupuytren contracture Start:02-Oct-2022 Instruction Type:Provider Instructions for Treatment How to Access Health Informa tion Online using Patient Portal and [employer] Indication:Dupuytren contracture Start:02-Oct-2022 Instruction Type:Patient Education Patient Instructions Indication:VITAMIN D DEFICIENCY Start:02-Sep-2022 Instruction Type:Provider Instructions for Treatment How to Access Health Informa tion Online using Patient Portal and [employer] Apps Indication:VITAMIN D DEFICIENCY Start:02-Sep-2022 Instruction Type:Patient Education Patient Instructions Indication:Impaired fasting glucose Start:05-Jun-2022 Instruction Type:Provider Instructions for Treatment How to Access Health Informa tion Online using Patient Portal and [employer] Apps Indication:Impaired fasting glucose Start:05-Jun-2022 Instruction Type:Patient Education Patient Instructions Indication:BMI 35.0-35.9,adult Start:18-Feb-2022 Instruction Type:Provider Instructions for Treatment How to Access Health Informa tion Online using Patient Portal and [employer] Indication:BMI 35.0-35.9,adult Start:18-Feb-2022 Instruction Type:Patient Education Patient Instructions Indication:Nonsmoker Start:04-Feb-2022 Instruction Type:Provider Instructions for Treatment How to Access Health Informa tion Online using Patient Portal and [employer] Apps Indication:Nonsmoker Start:04-Feb-2022 Instruction Type:Patient Education Patient Instructions Indication:BMI 35.0-35.9,adult Start:24-Dec-2021 Instruction Type:Provider Instructions for Treatment How to Access Health Informa tion Online using Patient Portal and [employer] Indication:BMI 35.0-35.9,adult Start:24-Dec-2021 Instruction Type:Patient Education Patient Instructions Indication:BMI 34.0-34.9,adult Start:03-Oct-2021 Instruction Type:Provider Instructions for Treatment How to Access Health Informa tion Online using Patient Portal and [employer] Indication:BMI 34.0-34.9,adult Start:03-Oct-2021 Instruction Type:Patient Education Patient Instructions Indication:Nonsmoker Start:16-Sep-2021 Instruction Type:Provider Instructions for Treatment How to Access Health Informa tion Online using Patient Portal and [employer] Indication:Nonsmoker Start:16-Sep-2021 Instruction Type:Patient Education Patient Instructions Indication:Axillary lymphadenopathy Start:06-May-2021 Instruction Type:Provider Instructions for Treatment How to Access Health Informa tion Online using Patient Portal and [employer] Indication:Axillary lymphadenopathy Start:06-May-2021 Instruction Type:Patient Education Patient Instructions Indication:Cough Start:30-Apr-2021 Instruction Type:Provider Instructions for Treatment How to Access Health Informa tion Online using Patient Portal and [employer] Apps Indication:Cough Start:30-Apr-2021 Instruction Type:Patient Education Patient Instructions Indication:Impaired fasting glucose Start:07-Jan-2021 Instruction Type:Provider Instructions for Treatment How to Access Health Informa tion Online using Patient Portal and [employer] Apps Indication:Impaired fasting glucose Start:07-Jan-2021 Instruction Type:Patient Education How to Access Health Informa tion Online using Patient Portal and [employer] Indication:Nonsmoker Start:03-Sep-2020 Instruction Type:Patient Education Patient Instructions Indication:Nonsmoker Start:03-Sep-2020 Instruction Type:Provider Instructions for Treatment Patient Instructions Indication:Nonsmoker Start:31-May-2020 Instruction Type:Provider Instructions for Treatment How to Access Health Informa tion Online using Patient Portal and [employer] Indication:Nonsmoker Start:31-May-2020 Instruction Type:Patient Education How to access health informa tion online Indication:Impaired fasting glucose Start:10-Apr-2020 Instruction Type:Patient Education How to access health informa tion online - Detail Indication:Impaired fasting glucose Start:10-Apr-2020 Instruction Type:Patient Education Patient Instructions Indication:Impaired fasting glucose Start:10-Apr-2020 Instruction Type:Provider Instructions for Treatment How to access health informa tion online Indication:VITAMIN D DEFICIENCY Start:29-Apr-2015 Instruction Type:Patient Education How to access health informa tion online - Detail Indication:VITAMIN D DEFICIENCY Start:29-Apr-2015 Instruction Type:Patient Education Patient Instructions Indication:VITAMIN D DEFICIENCY Start:29-Apr-2015 Instruction Type:Provider Instructions for Treatment How to access health informa tion online Indication:Forgetfulness Start:11-Jan-2015 Instruction Type:Patient Education How to access health informa tion online - Detail Indication:Forgetfulness Start:11-Jan-2015 Instruction Type:Patient Education Patient Instructions Indication:Forgetfulness Start:11-Jan-2015 Instruction Type:Provider Instructions for Treatment Patient Instructions Indication:Impaired fasting glucose Start:12-Oct-2014 Instruction Type:Provider Instructions for Treatment Patient Instructions Indication:Impaired fasting glucose Start:17-Oct-2012 Instruction Type:Provider Instructions for Treatment Patient Instructions Indication:Impaired fasting glucose Start:29-Feb-2012 Instruction Type:Provider Instructions for Treatment [facility]; [facility] Work Phone: Instructions* Name Dates Details Patient Instructions Indication:Non-smoker Start:30-Nov-2022 Instruction Type:Provider Instructions for Treatment How to Access Health Informa tion Online using Patient Portal and [employer] Apps Indication:Non-smoker Start:30-Nov-2022 Instruction Type:Patient Education Patient Instructions Indication:Dupuytren contracture Start:02-Oct-2022 Instruction Type:Provider Instructions for Treatment How to Access Health Informa tion Online using Patient Portal and [employer] Indication:Dupuytren contracture Start:02-Oct-2022 Instruction Type:Patient Education Patient Instructions Indication:VITAMIN D DEFICIENCY Start:02-Sep-2022 Instruction Type:Provider Instructions for Treatment How to Access Health Informa tion Online using Patient Portal and [employer] Indication:VITAMIN D DEFICIENCY Start:02-Sep-2022 Instruction Type:Patient Education Patient Instructions Indication:Impaired fasting glucose Start:05-Jun-2022 Instruction Type:Provider Instructions for Treatment How to Access Health Informa tion Online using Patient Portal and [employer] Indication:Impaired fasting glucose Start:05-Jun-2022 Instruction Type:Patient Education Patient Instructions Indication:BMI 35.0-35.9,adult Start:18-Feb-2022 Instruction Type:Provider Instructions for Treatment How to Access Health Informa tion Online using Patient Portal and [employer] Indication:BMI 35.0-35.9,adult Start:18-Feb-2022 Instruction Type:Patient Education Patient Instructions Indication:Nonsmoker Start:04-Feb-2022 Instruction Type:Provider Instructions for Treatment How to Access Health Informa tion Online using Patient Portal and [employer] Indication:Nonsmoker Start:04-Feb-2022 Instruction Type:Patient Education Patient Instructions Indication:BMI 35.0-35.9,adult Start:24-Dec-2021 Instruction Type:Provider Instructions for Treatment How to Access Health Informa tion Online using Patient Portal and [employer] Indication:BMI 35.0-35.9,adult Start:24-Dec-2021 Instruction Type:Patient Education Patient Instructions Indication:BMI 34.0-34.9,adult Start:03-Oct-2021 Instruction Type:Provider Instructions for Treatment How to Access Health Informa tion Online using Patient Portal and [employer] Indication:BMI 34.0-34.9,adult Start:03-Oct-2021 Instruction Type:Patient Education Patient Instructions Indication:Nonsmoker Start:16-Sep-2021 Instruction Type:Provider Instructions for Treatment How to Access Health Informa tion Online using Patient Portal and [employer] Indication:Nonsmoker Start:16-Sep-2021 Instruction Type:Patient Education Patient Instructions Indication:Axillary lymphadenopathy Start:06-May-2021 Instruction Type:Provider Instructions for Treatment How to Access Health Informa tion Online using Patient Portal and [employer] Indication:Axillary lymphadenopathy Start:06-May-2021 Instruction Type:Patient Education Patient Instructions Indication:Cough Start:30-Apr-2021 Instruction Type:Provider Instructions for Treatment How to Access Health Informa tion Online using Patient Portal and [employer] Indication:Cough Start:30-Apr-2021 Instruction Type:Patient Education Patient Instructions Indication:Impaired fasting glucose Start:07-Jan-2021 Instruction Type:Provider Instructions for Treatment How to Access Health Informa tion Online using Patient Portal and [employer] Apps Indication:Impaired fasting glucose Start:07-Jan-2021 Instruction Type:Patient Education How to Access Health Informa tion Online using Patient Portal and [employer] Apps Indication:Nonsmoker Start:03-Sep-2020 Instruction Type:Patient Education Patient Instructions Indication:Nonsmoker Start:03-Sep-2020 Instruction Type:Provider Instructions for Treatment Patient Instructions Indication:Nonsmoker Start:31-May-2020 Instruction Type:Provider Instructions for Treatment How to Access Health Informa tion Online using Patient Portal and [employer] Apps Indication:Nonsmoker Start:31-May-2020 Instruction Type:Patient Education How to access health informa tion online Indication:Impaired fasting glucose Start:10-Apr-2020 Instruction Type:Patient Education How to access health informa tion online - Detail Indication:Impaired fasting glucose Start:10-Apr-2020 Instruction Type:Patient Education Patient Instructions Indication:Impaired fasting glucose Start:10-Apr-2020 Instruction Type:Provider Instructions for Treatment How to access health informa tion online Indication:VITAMIN D DEFICIENCY Start:29-Apr-2015 Instruction Type:Patient Education How to access health informa tion online - Detail Indication:VITAMIN D DEFICIENCY Start:29-Apr-2015 Instruction Type:Patient Education Patient Instructions Indication:VITAMIN D DEFICIENCY Start:29-Apr-2015 Instruction Type:Provider Instructions for Treatment How to access health informa tion online Indication:Forgetfulness Start:11-Jan-2015 Instruction Type:Patient Education How to access health informa tion online - Detail Indication:Forgetfulness Start:11-Jan-2015 Instruction Type:Patient Education Patient Instructions Indication:Forgetfulness Start:11-Jan-2015 Instruction Type:Provider Instructions for Treatment Patient Instructions Indication:Impaired fasting glucose Start:12-Oct-2014 Instruction Type:Provider Instructions for Treatment Patient Instructions Indication:Impaired fasting glucose Start:17-Oct-2012 Instruction Type:Provider Instructions for Treatment Patient Instructions Indication:Impaired fasting glucose Start:29-Feb-2012 Instruction Type:Provider Instructions for Treatment [facility]; [facility] Work Phone: Instructions* Name Dates Details Patient Instructions Indication:Unspecified Diagnosis Start:08-Dec-2022 Instruction Type:Provider Instructions for Treatment How to Access Health Informa tion Online using Patient Portal and [employer] Apps Indication:Unspecified Diagnosis Start:08-Dec-2022 Instruction Type:Patient Education Patient Instructions Indication:Non-smoker Start:30-Nov-2022 Instruction Type:Provider Instructions for Treatment How to Access Health Informa tion Online using Patient Portal and [employer] Apps Indication:Non-smoker Start:30-Nov-2022 Instruction Type:Patient Education Patient Instructions Indication:Dupuytren contracture Start:02-Oct-2022 Instruction Type:Provider Instructions for Treatment How to Access Health Informa tion Online using Patient Portal and [employer] Apps Indication:Dupuytren contracture Start:02-Oct-2022 Instruction Type:Patient Education Patient Instructions Indication:VITAMIN D DEFICIENCY Start:02-Sep-2022 Instruction Type:Provider Instructions for Treatment How to Access Health Informa tion Online using Patient [email or web address] and [employer] Apps Indication:VITAMIN D DEFICIENCY Start:02-Sep-2022 Instruction Type:Patient Education Patient Instructions Indication:Impaired fasting glucose Start:05-Jun-2022 Instruction Type:Provider Instructions for Treatment How to Access Health Informa tion Online using Patient [email or web address] and [employer] Apps Indication:Impaired fasting glucose Start:05-Jun-2022 Instruction Type:Patient Education Patient Instructions Indication:BMI 35.0-35.9,adult Start:18-Feb-2022 Instruction Type:Provider Instructions for Treatment How to Access Health Informa tion Online using Patient Portal and [employer] Apps Indication:BMI 35.0-35.9,adult Start:18-Feb-2022 Instruction Type:Patient Education Patient Instructions Indication:Nonsmoker Start:04-Feb-2022 Instruction Type:Provider Instructions for Treatment How to Access Health Informa tion Online using Patient [email or web address] and [employer] Apps Indication:Nonsmoker Start:04-Feb-2022 Instruction Type:Patient Education Patient Instructions Indication:BMI 35.0-35.9,adult Start:24-Dec-2021 Instruction Type:Provider Instructions for Treatment How to Access Health Informa tion Online using Patient [email or web address] and [employer] Apps Indication:BMI 35.0-35.9,adult Start:24-Dec-2021 Instruction Type:Patient Education Patient Instructions Indication:BMI 34.0-34.9,adult Start:03-Oct-2021 Instruction Type:Provider Instructions for Treatment How to Access Health Informa tion Online using Patient [email or web address] and [employer] Apps Indication:BMI 34.0-34.9,adult Start:03-Oct-2021 Instruction Type:Patient Education Patient Instructions Indication:Nonsmoker Start:16-Sep-2021 Instruction Type:Provider Instructions for Treatment How to Access Health Informa tion Online using Patient Portal and [employer] Apps Indication:Nonsmoker Start:16-Sep-2021 Instruction Type:Patient Education Patient Instructions Indication:Axillary lymphadenopathy Start:06-May-2021 Instruction Type:Provider Instructions for Treatment How to Access Health Informa tion Online using Patient Portal and [employer] Apps Indication:Axillary lymphadenopathy Start:06-May-2021 Instruction Type:Patient Education Patient Instructions Indication:Cough Start:30-Apr-2021 Instruction Type:Provider Instructions for Treatment How to Access Health Informa tion Online using Patient Portal and [employer] Apps Indication:Cough Start:30-Apr-2021 Instruction Type:Patient Education Patient Instructions Indication:Impaired fasting glucose Start:07-Jan-2021 Instruction Type:Provider Instructions for Treatment How to Access Health Informa tion Online using Patient Portal and [employer] Apps Indication:Impaired fasting glucose Start:07-Jan-2021 Instruction Type:Patient Education How to Access Health Informa tion Online using Patient Portal and [employer] Apps Indication:Nonsmoker Start:03-Sep-2020 Instruction Type:Patient Education Patient Instructions Indication:Nonsmoker Start:03-Sep-2020 Instruction Type:Provider Instructions for Treatment Patient Instructions Indication:Nonsmoker Start:31-May-2020 Instruction Type:Provider Instructions for Treatment How to Access Health Informa tion Online using Patient Portal and [employer] Apps Indication:Nonsmoker Start:31-May-2020 Instruction Type:Patient Education How to access health informa tion online Indication:Impaired fasting glucose Start:10-Apr-2020 Instruction Type:Patient Education How to access health informa tion online - Detail Indication:Impaired fasting glucose Start:10-Apr-2020 Instruction Type:Patient Education Patient Instructions Indication:Impaired fasting glucose Start:10-Apr-2020 Instruction Type:Provider Instructions for Treatment How to access health informa tion online Indication:VITAMIN D DEFICIENCY Start:29-Apr-2015 Instruction Type:Patient Education How to access health informa tion online - Detail Indication:VITAMIN D DEFICIENCY Start:29-Apr-2015 Instruction Type:Patient Education Patient Instructions Indication:VITAMIN D DEFICIENCY Start:29-Apr-2015 Instruction Type:Provider Instructions for Treatment How to access health informa tion online Indication:Forgetfulness Start:11-Jan-2015 Instruction Type:Patient Education How to access health informa tion online - Detail Indication:Forgetfulness Start:11-Jan-2015 Instruction Type:Patient Education Patient Instructions Indication:Forgetfulness Start:11-Jan-2015 Instruction Type:Provider Instructions for Treatment Patient Instructions Indication:Impaired fasting glucose Start:12-Oct-2014 Instruction Type:Provider Instructions for Treatment Patient Instructions Indication:Impaired fasting glucose Start:17-Oct-2012 Instruction Type:Provider Instructions for Treatment Patient Instructions Indication:Impaired fasting glucose Start:29-Feb-2012 Instruction Type:Provider Instructions for Treatment [facility]; [facility] Work Phone: Instructions* Name Dates Details Patient Instructions Indication:Abscess Start:08-Dec-2022 Instruction Type:Provider Instructions for Treatment How to Access Health Informa tion Online using Patient Portal and [employer] Apps Indication:Abscess Start:08-Dec-2022 Instruction Type:Patient Education Patient Instructions Indication:Non-smoker Start:30-Nov-2022 Instruction Type:Provider Instructions for Treatment How to Access Health Informa tion Online using Patient Portal and [employer] Apps Indication:Non-smoker Start:30-Nov-2022 Instruction Type:Patient Education Patient Instructions Indication:Dupuytren contracture Start:02-Oct-2022 Instruction Type:Provider Instructions for Treatment How to Access Health Informa tion Online using Patient Portal and [employer] Apps Indication:Dupuytren contracture Start:02-Oct-2022 Instruction Type:Patient Education Patient Instructions Indication:VITAMIN D DEFICIENCY Start:02-Sep-2022 Instruction Type:Provider Instructions for Treatment How to Access Health Informa tion Online using Patient Portal and [employer] Apps Indication:VITAMIN D DEFICIENCY Start:02-Sep-2022 Instruction Type:Patient Education Patient Instructions Indication:Impaired fasting glucose Start:05-Jun-2022 Instruction Type:Provider Instructions for Treatment How to Access Health Informa tion Online using Patient Portal and [employer] Apps Indication:Impaired fasting glucose Start:05-Jun-2022 Instruction Type:Patient Education Patient Instructions Indication:BMI 35.0-35.9,adult Start:18-Feb-2022 Instruction Type:Provider Instructions for Treatment How to Access Health Informa tion Online using Patient Portal and [employer] Apps Indication:BMI 35.0-35.9,adult Start:18-Feb-2022 Instruction Type:Patient Education Patient Instructions Indication:Nonsmoker Start:04-Feb-2022 Instruction Type:Provider Instructions for Treatment How to Access Health Informa tion Online using Patient Portal and [employer] Apps Indication:Nonsmoker Start:04-Feb-2022 Instruction Type:Patient Education Patient Instructions Indication:BMI 35.0-35.9,adult Start:24-Dec-2021 Instruction Type:Provider Instructions for Treatment How to Access Health Informa tion Online using Patient Portal and [employer] Apps Indication:BMI 35.0-35.9,adult Start:24-Dec-2021 Instruction Type:Patient Education Patient Instructions Indication:BMI 34.0-34.9,adult Start:03-Oct-2021 Instruction Type:Provider Instructions for Treatment How to Access Health Informa tion Online using Patient Portal and [employer] Indication:BMI 34.0-34.9,adult Start:03-Oct-2021 Instruction Type:Patient Education Patient Instructions Indication:Nonsmoker Start:16-Sep-2021 Instruction Type:Provider Instructions for Treatment How to Access Health Informa tion Online using Patient Portal and [employer] Apps Indication:Nonsmoker Start:16-Sep-2021 Instruction Type:Patient Education Patient Instructions Indication:Axillary lymphadenopathy Start:06-May-2021 Instruction Type:Provider Instructions for Treatment How to Access Health Informa tion Online using Patient Portal and [employer] Apps Indication:Axillary lymphadenopathy Start:06-May-2021 Instruction Type:Patient Education Patient Instructions Indication:Cough Start:30-Apr-2021 Instruction Type:Provider Instructions for Treatment How to Access Health Informa tion Online using Patient Portal and [employer] Apps Indication:Cough Start:30-Apr-2021 Instruction Type:Patient Education Patient Instructions Indication:Impaired fasting glucose Start:07-Jan-2021 Instruction Type:Provider Instructions for Treatment How to Access Health Informa tion Online using Patient Portal and [employer] Apps Indication:Impaired fasting glucose Start:07-Jan-2021 Instruction Type:Patient Education How to Access Health Informa tion Online using Patient Portal and [employer] Apps Indication:Nonsmoker Start:03-Sep-2020 Instruction Type:Patient Education Patient Instructions Indication:Nonsmoker Start:03-Sep-2020 Instruction Type:Provider Instructions for Treatment Patient Instructions Indication:Nonsmoker Start:31-May-2020 Instruction Type:Provider Instructions for Treatment How to Access Health Informa tion Online using Patient Portal and [employer] Indication:Nonsmoker Start:31-May-2020 Instruction Type:Patient Education How to access health informa tion online Indication:Impaired fasting glucose Start:10-Apr-2020 Instruction Type:Patient Education How to access health informa tion online - Detail Indication:Impaired fasting glucose Start:10-Apr-2020 Instruction Type:Patient Education Patient Instructions Indication:Impaired fasting glucose Start:10-Apr-2020 Instruction Type:Provider Instructions for Treatment How to access health informa tion online Indication:VITAMIN D DEFICIENCY Start:29-Apr-2015 Instruction Type:Patient Education How to access health informa tion online - Detail Indication:VITAMIN D DEFICIENCY Start:29-Apr-2015 Instruction Type:Patient Education Patient Instructions Indication:VITAMIN D DEFICIENCY Start:29-Apr-2015 Instruction Type:Provider Instructions for Treatment How to access health informa tion online Indication:Forgetfulness Start:11-Jan-2015 Instruction Type:Patient Education How to access health informa tion online - Detail Indication:Forgetfulness Start:11-Jan-2015 Instruction Type:Patient Education Patient Instructions Indication:Forgetfulness Start:11-Jan-2015 Instruction Type:Provider Instructions for Treatment Patient Instructions Indication:Impaired fasting glucose Start:12-Oct-2014 Instruction Type:Provider Instructions for Treatment Patient Instructions Indication:Impaired fasting glucose Start:17-Oct-2012 Instruction Type:Provider Instructions for Treatment Patient Instructions Indication:Impaired fasting glucose Start:29-Feb-2012 Instruction Type:Provider Instructions for Treatment [facility]; [facility] Work Phone: Instructions* Name Dates Details Patient Instructions Indication:Non-smoker Start:21-Dec-2022 Instruction Type:Provider Instructions for Treatment How to Access Health Informa tion Online using Patient Portal and [employer] Apps Indication:Non-smoker Start:21-Dec-2022 Instruction Type:Patient Education Patient Instructions Indication:Cellulitis Start:11-Dec-2022 Instruction Type:Provider Instructions for Treatment How to Access Health Informa tion Online using Patient Portal and [employer] Apps Indication:Cellulitis Start:11-Dec-2022 Instruction Type:Patient Education Patient Instructions Indication:Abscess Start:08-Dec-2022 Instruction Type:Provider Instructions for Treatment How to Access Health Informa tion Online using Patient Portal and [employer] Apps Indication:Abscess Start:08-Dec-2022 Instruction Type:Patient Education Patient Instructions Indication:Non-smoker Start:30-Nov-2022 Instruction Type:Provider Instructions for Treatment How to Access Health Informa tion Online using Patient Portal and [employer] Apps Indication:Non-smoker Start:30-Nov-2022 Instruction Type:Patient Education Patient Instructions Indication:Dupuytren contracture Start:02-Oct-2022 Instruction Type:Provider Instructions for Treatment How to Access Health Informa tion Online using Patient Portal and [employer] Indication:Dupuytren contracture Start:02-Oct-2022 Instruction Type:Patient Education Patient Instructions Indication:VITAMIN D DEFICIENCY Start:02-Sep-2022 Instruction Type:Provider Instructions for Treatment How to Access Health Informa tion Online using Patient Portal and [employer] Indication:VITAMIN D DEFICIENCY Start:02-Sep-2022 Instruction Type:Patient Education Patient Instructions Indication:Impaired fasting glucose Start:05-Jun-2022 Instruction Type:Provider Instructions for Treatment How to Access Health Informa tion Online using Patient Portal and [employer] Indication:Impaired fasting glucose Start:05-Jun-2022 Instruction Type:Patient Education Patient Instructions Indication:BMI 35.0-35.9,adult Start:18-Feb-2022 Instruction Type:Provider Instructions for Treatment How to Access Health Informa tion Online using Patient Portal and [employer] Indication:BMI 35.0-35.9,adult Start:18-Feb-2022 Instruction Type:Patient Education Patient Instructions Indication:Nonsmoker Start:04-Feb-2022 Instruction Type:Provider Instructions for Treatment How to Access Health Informa tion Online using Patient Portal and [employer] Indication:Nonsmoker Start:04-Feb-2022 Instruction Type:Patient Education Patient Instructions Indication:BMI 35.0-35.9,adult Start:24-Dec-2021 Instruction Type:Provider Instructions for Treatment How to Access Health Informa tion Online using Patient Portal and [employer] Indication:BMI 35.0-35.9,adult Start:24-Dec-2021 Instruction Type:Patient Education Patient Instructions Indication:BMI 34.0-34.9,adult Start:03-Oct-2021 Instruction Type:Provider Instructions for Treatment How to Access Health Informa tion Online using Patient Portal and [employer] Indication:BMI 34.0-34.9,adult Start:03-Oct-2021 Instruction Type:Patient Education Patient Instructions Indication:Nonsmoker Start:16-Sep-2021 Instruction Type:Provider Instructions for Treatment How to Access Health Informa tion Online using Patient Portal and [employer] Indication:Nonsmoker Start:16-Sep-2021 Instruction Type:Patient Education Patient Instructions Indication:Axillary lymphadenopathy Start:06-May-2021 Instruction Type:Provider Instructions for Treatment How to Access Health Informa tion Online using Patient Portal and [employer] Indication:Axillary lymphadenopathy Start:06-May-2021 Instruction Type:Patient Education Patient Instructions Indication:Cough Start:30-Apr-2021 Instruction Type:Provider Instructions for Treatment How to Access Health Informa tion Online using Patient Portal and [employer] Indication:Cough Start:30-Apr-2021 Instruction Type:Patient Education Patient Instructions Indication:Impaired fasting glucose Start:07-Jan-2021 Instruction Type:Provider Instructions for Treatment How to Access Health Informa tion Online using Patient Portal and [employer] Indication:Impaired fasting glucose Start:07-Jan-2021 Instruction Type:Patient Education How to Access Health Informa tion Online using Patient Portal and [employer] Apps Indication:Nonsmoker Start:03-Sep-2020 Instruction Type:Patient Education Patient Instructions Indication:Nonsmoker Start:03-Sep-2020 Instruction Type:Provider Instructions for Treatment Patient Instructions Indication:Nonsmoker Start:31-May-2020 Instruction Type:Provider Instructions for Treatment How to Access Health Informa tion Online using Patient Portal and [employer] Indication:Nonsmoker Start:31-May-2020 Instruction Type:Patient Education How to access health informa tion online Indication:Impaired fasting glucose Start:10-Apr-2020 Instruction Type:Patient Education How to access health informa tion online - Detail Indication:Impaired fasting glucose Start:10-Apr-2020 Instruction Type:Patient Education Patient Instructions Indication:Impaired fasting glucose Start:10-Apr-2020 Instruction Type:Provider Instructions for Treatment How to access health informa tion online Indication:VITAMIN D DEFICIENCY Start:29-Apr-2015 Instruction Type:Patient Education How to access health informa tion online - Detail Indication:VITAMIN D DEFICIENCY Start:29-Apr-2015 Instruction Type:Patient Education Patient Instructions Indication:VITAMIN D DEFICIENCY Start:29-Apr-2015 Instruction Type:Provider Instructions for Treatment How to access health informa tion online Indication:Forgetfulness Start:11-Jan-2015 Instruction Type:Patient Education How to access health informa tion online - Detail Indication:Forgetfulness Start:11-Jan-2015 Instruction Type:Patient Education Patient Instructions Indication:Forgetfulness Start:11-Jan-2015 Instruction Type:Provider Instructions for Treatment Patient Instructions Indication:Impaired fasting glucose Start:12-Oct-2014 Instruction Type:Provider Instructions for Treatment Patient Instructions Indication:Impaired fasting glucose Start:17-Oct-2012 Instruction Type:Provider Instructions for Treatment Patient Instructions Indication:Impaired fasting glucose Start:29-Feb-2012 Instruction Type:Provider Instructions for Treatment [facility]; [facility] Work Phone: Instructions* Name Dates Details Patient Instructions Indication:Skin infection, bacterial Start:19-Jan-2023 Instruction Type:Provider Instructions for Treatment How to Access Health Informa tion Online using Patient Portal and [employer] Apps Indication:Skin infection, bacterial Start:19-Jan-2023 Instruction Type:Patient Education Patient Instructions Indication:Non-smoker Start:21-Dec-2022 Instruction Type:Provider Instructions for Treatment How to Access Health Informa tion Online using Patient Portal and [employer] Apps Indication:Non-smoker Start:21-Dec-2022 Instruction Type:Patient Education Patient Instructions Indication:Cellulitis Start:11-Dec-2022 Instruction Type:Provider Instructions for Treatment How to Access Health Informa tion Online using Patient Portal and [employer] Apps Indication:Cellulitis Start:11-Dec-2022 Instruction Type:Patient Education Patient Instructions Indication:Abscess Start:08-Dec-2022 Instruction Type:Provider Instructions for Treatment How to Access Health Informa tion Online using Patient Portal and [employer] Apps Indication:Abscess Start:08-Dec-2022 Instruction Type:Patient Education Patient Instructions Indication:Non-smoker Start:30-Nov-2022 Instruction Type:Provider Instructions for Treatment How to Access Health Informa tion Online using Patient Portal and [employer] Apps Indication:Non-smoker Start:30-Nov-2022 Instruction Type:Patient Education Patient Instructions Indication:Dupuytren contracture Start:02-Oct-2022 Instruction Type:Provider Instructions for Treatment How to Access Health Informa tion Online using Patient Portal and [employer] Apps Indication:Dupuytren contracture Start:02-Oct-2022 Instruction Type:Patient Education Patient Instructions Indication:VITAMIN D DEFICIENCY Start:02-Sep-2022 Instruction Type:Provider Instructions for Treatment How to Access Health Informa tion Online using Patient Portal and [employer] Apps Indication:VITAMIN D DEFICIENCY Start:02-Sep-2022 Instruction Type:Patient Education Patient Instructions Indication:Impaired fasting glucose Start:05-Jun-2022 Instruction Type:Provider Instructions for Treatment How to Access Health Informa tion Online using Patient Portal and [employer] Apps Indication:Impaired fasting glucose Start:05-Jun-2022 Instruction Type:Patient Education Patient Instructions Indication:BMI 35.0-35.9,adult Start:18-Feb-2022 Instruction Type:Provider Instructions for Treatment How to Access Health Informa tion Online using Patient Portal and [employer] Indication:BMI 35.0-35.9,adult Start:18-Feb-2022 Instruction Type:Patient Education Patient Instructions Indication:Nonsmoker Start:04-Feb-2022 Instruction Type:Provider Instructions for Treatment How to Access Health Informa tion Online using Patient Portal and [employer] Indication:Nonsmoker Start:04-Feb-2022 Instruction Type:Patient Education Patient Instructions Indication:BMI 35.0-35.9,adult Start:24-Dec-2021 Instruction Type:Provider Instructions for Treatment How to Access Health Informa tion Online using Patient Portal and [employer] Indication:BMI 35.0-35.9,adult Start:24-Dec-2021 Instruction Type:Patient Education Patient Instructions Indication:BMI 34.0-34.9,adult Start:03-Oct-2021 Instruction Type:Provider Instructions for Treatment How to Access Health Informa tion Online using Patient Portal and [employer] Indication:BMI 34.0-34.9,adult Start:03-Oct-2021 Instruction Type:Patient Education Patient Instructions Indication:Nonsmoker Start:16-Sep-2021 Instruction Type:Provider Instructions for Treatment How to Access Health Informa tion Online using Patient Portal and [employer] Indication:Nonsmoker Start:16-Sep-2021 Instruction Type:Patient Education Patient Instructions Indication:Axillary lymphadenopathy Start:06-May-2021 Instruction Type:Provider Instructions for Treatment How to Access Health Informa tion Online using Patient Portal and [employer] Indication:Axillary lymphadenopathy Start:06-May-2021 Instruction Type:Patient Education Patient Instructions Indication:Cough Start:30-Apr-2021 Instruction Type:Provider Instructions for Treatment How to Access Health Informa tion Online using Patient Portal and [employer] Indication:Cough Start:30-Apr-2021 Instruction Type:Patient Education Patient Instructions Indication:Impaired fasting glucose Start:07-Jan-2021 Instruction Type:Provider Instructions for Treatment How to Access Health Informa tion Online using Patient Portal and [employer] Indication:Impaired fasting glucose Start:07-Jan-2021 Instruction Type:Patient Education How to Access Health Informa tion Online using Patient Portal and [employer] Indication:Nonsmoker Start:03-Sep-2020 Instruction Type:Patient Education Patient Instructions Indication:Nonsmoker Start:03-Sep-2020 Instruction Type:Provider Instructions for Treatment Patient Instructions Indication:Nonsmoker Start:31-May-2020 Instruction Type:Provider Instructions for Treatment How to Access Health Informa tion Online using Patient Portal and [employer] Indication:Nonsmoker Start:31-May-2020 Instruction Type:Patient Education How to access health informa tion online Indication:Impaired fasting glucose Start:10-Apr-2020 Instruction Type:Patient Education How to access health informa tion online - Detail Indication:Impaired fasting glucose Start:10-Apr-2020 Instruction Type:Patient Education Patient Instructions Indication:Impaired fasting glucose Start:10-Apr-2020 Instruction Type:Provider Instructions for Treatment How to access health informa tion online Indication:VITAMIN D DEFICIENCY Start:29-Apr-2015 Instruction Type:Patient Education How to access health informa tion online - Detail Indication:VITAMIN D DEFICIENCY Start:29-Apr-2015 Instruction Type:Patient Education Patient Instructions Indication:VITAMIN D DEFICIENCY Start:29-Apr-2015 Instruction Type:Provider Instructions for Treatment How to access health informa tion online Indication:Forgetfulness Start:11-Jan-2015 Instruction Type:Patient Education How to access health informa tion online - Detail Indication:Forgetfulness Start:11-Jan-2015 Instruction Type:Patient Education Patient Instructions Indication:Forgetfulness Start:11-Jan-2015 Instruction Type:Provider Instructions for Treatment Patient Instructions Indication:Impaired fasting glucose Start:12-Oct-2014 Instruction Type:Provider Instructions for Treatment Patient Instructions Indication:Impaired fasting glucose Start:17-Oct-2012 Instruction Type:Provider Instructions for Treatment Patient Instructions Indication:Impaired fasting glucose Start:29-Feb-2012 Instruction Type:Provider Instructions for Treatment [facility]; [facility] Work Phone: Instructions* Name Dates Details Patient Instructions Indication:Skin infection, bacterial Start:19-Jan-2023 Instruction Type:Provider Instructions for Treatment How to Access Health Informa tion Online using Patient Portal and [employer] Indication:Skin infection, bacterial Start:19-Jan-2023 Instruction Type:Patient Education Patient Instructions Indication:Non-smoker Start:21-Dec-2022 Instruction Type:Provider Instructions for Treatment How to Access Health Informa tion Online using Patient Portal and [employer] Indication:Non-smoker Start:21-Dec-2022 Instruction Type:Patient Education Patient Instructions Indication:Cellulitis Start:11-Dec-2022 Instruction Type:Provider Instructions for Treatment How to Access Health Informa tion Online using Patient Portal and [employer] Indication:Cellulitis Start:11-Dec-2022 Instruction Type:Patient Education Patient Instructions Indication:Abscess Start:08-Dec-2022 Instruction Type:Provider Instructions for Treatment How to Access Health Informa tion Online using Patient Portal and [employer] Apps Indication:Abscess Start:08-Dec-2022 Instruction Type:Patient Education Patient Instructions Indication:Non-smoker Start:30-Nov-2022 Instruction Type:Provider Instructions for Treatment How to Access Health Informa tion Online using Patient Portal and [employer] Apps Indication:Non-smoker Start:30-Nov-2022 Instruction Type:Patient Education Patient Instructions Indication:Dupuytren contracture Start:02-Oct-2022 Instruction Type:Provider Instructions for Treatment How to Access Health Informa tion Online using Patient Portal and [employer] Indication:Dupuytren contracture Start:02-Oct-2022 Instruction Type:Patient Education Patient Instructions Indication:VITAMIN D DEFICIENCY Start:02-Sep-2022 Instruction Type:Provider Instructions for Treatment How to Access Health Informa tion Online using Patient [email or web address] and [employer] Indication:VITAMIN D DEFICIENCY Start:02-Sep-2022 Instruction Type:Patient Education Patient Instructions Indication:Impaired fasting glucose Start:05-Jun-2022 Instruction Type:Provider Instructions for Treatment How to Access Health Informa tion Online using Patient Portal and [employer] Indication:Impaired fasting glucose Start:05-Jun-2022 Instruction Type:Patient Education Patient Instructions Indication:BMI 35.0-35.9,adult Start:18-Feb-2022 Instruction Type:Provider Instructions for Treatment How to Access Health Informa tion Online using Patient Portal and [employer] Indication:BMI 35.0-35.9,adult Start:18-Feb-2022 Instruction Type:Patient Education Patient Instructions Indication:Nonsmoker Start:04-Feb-2022 Instruction Type:Provider Instructions for Treatment How to Access Health Informa tion Online using Patient Portal and [employer] Indication:Nonsmoker Start:04-Feb-2022 Instruction Type:Patient Education Patient Instructions Indication:BMI 35.0-35.9,adult Start:24-Dec-2021 Instruction Type:Provider Instructions for Treatment How to Access Health Informa tion Online using Patient Portal and [employer] Indication:BMI 35.0-35.9,adult Start:24-Dec-2021 Instruction Type:Patient Education Patient Instructions Indication:BMI 34.0-34.9,adult Start:03-Oct-2021 Instruction Type:Provider Instructions for Treatment How to Access Health Informa tion Online using Patient Portal and [employer] Indication:BMI 34.0-34.9,adult Start:03-Oct-2021 Instruction Type:Patient Education Patient Instructions Indication:Nonsmoker Start:16-Sep-2021 Instruction Type:Provider Instructions for Treatment How to Access Health Informa tion Online using Patient Portal and [employer] Indication:Nonsmoker Start:16-Sep-2021 Instruction Type:Patient Education Patient Instructions Indication:Axillary lymphadenopathy Start:06-May-2021 Instruction Type:Provider Instructions for Treatment How to Access Health Informa tion Online using Patient Portal and [employer] Indication:Axillary lymphadenopathy Start:06-May-2021 Instruction Type:Patient Education Patient Instructions Indication:Cough Start:30-Apr-2021 Instruction Type:Provider Instructions for Treatment How to Access Health Informa tion Online using Patient Portal and [employer] Indication:Cough Start:30-Apr-2021 Instruction Type:Patient Education Patient Instructions Indication:Impaired fasting glucose Start:07-Jan-2021 Instruction Type:Provider Instructions for Treatment How to Access Health Informa tion Online using Patient Portal and [employer] Indication:Impaired fasting glucose Start:07-Jan-2021 Instruction Type:Patient Education How to Access Health Informa tion Online using Patient Portal and [employer] Indication:Nonsmoker Start:03-Sep-2020 Instruction Type:Patient Education Patient Instructions Indication:Nonsmoker Start:03-Sep-2020 Instruction Type:Provider Instructions for Treatment Patient Instructions Indication:Nonsmoker Start:31-May-2020 Instruction Type:Provider Instructions for Treatment How to Access Health Informa tion Online using Patient Portal and [employer] Indication:Nonsmoker Start:31-May-2020 Instruction Type:Patient Education How to access health informa tion online Indication:Impaired fasting glucose Start:10-Apr-2020 Instruction Type:Patient Education How to access health informa tion online - Detail Indication:Impaired fasting glucose Start:10-Apr-2020 Instruction Type:Patient Education Patient Instructions Indication:Impaired fasting glucose Start:10-Apr-2020 Instruction Type:Provider Instructions for Treatment How to access health informa tion online Indication:VITAMIN D DEFICIENCY Start:29-Apr-2015 Instruction Type:Patient Education How to access health informa tion online - Detail Indication:VITAMIN D DEFICIENCY Start:29-Apr-2015 Instruction Type:Patient Education Patient Instructions Indication:VITAMIN D DEFICIENCY Start:29-Apr-2015 Instruction Type:Provider Instructions for Treatment How to access health informa tion online Indication:Forgetfulness Start:11-Jan-2015 Instruction Type:Patient Education How to access health informa tion online - Detail Indication:Forgetfulness Start:11-Jan-2015 Instruction Type:Patient Education Patient Instructions Indication:Forgetfulness Start:11-Jan-2015 Instruction Type:Provider Instructions for Treatment Patient Instructions Indication:Impaired fasting glucose Start:12-Oct-2014 Instruction Type:Provider Instructions for Treatment Patient Instructions Indication:Impaired fasting glucose Start:17-Oct-2012 Instruction Type:Provider Instructions for Treatment Patient Instructions Indication:Impaired fasting glucose Start:29-Feb-2012 Instruction Type:Provider Instructions for Treatment [facility]; [facility] Work Phone: Instructions* Name Dates Details Patient Instructions Indication:BMI 36.0-36.9,adult Start:25-Jan-2023 Instruction Type:Provider Instructions for Treatment How to Access Health Informa tion Online using Patient Portal and [employer] Indication:BMI 36.0-36.9,adult Start:25-Jan-2023 Instruction Type:Patient Education Patient Instructions Indication:Skin infection, bacterial Start:19-Jan-2023 Instruction Type:Provider Instructions for Treatment How to Access Health Informa tion Online using Patient Portal and [employer] Indication:Skin infection, bacterial Start:19-Jan-2023 Instruction Type:Patient Education Patient Instructions Indication:Non-smoker Start:21-Dec-2022 Instruction Type:Provider Instructions for Treatment How to Access Health Informa tion Online using Patient Portal and [employer] Apps Indication:Non-smoker Start:21-Dec-2022 Instruction Type:Patient Education Patient Instructions Indication:Cellulitis Start:11-Dec-2022 Instruction Type:Provider Instructions for Treatment How to Access Health Informa tion Online using Patient Portal and [employer] Apps Indication:Cellulitis Start:11-Dec-2022 Instruction Type:Patient Education Patient Instructions Indication:Abscess Start:08-Dec-2022 Instruction Type:Provider Instructions for Treatment How to Access Health Informa tion Online using Patient Portal and [employer] Apps Indication:Abscess Start:08-Dec-2022 Instruction Type:Patient Education Patient Instructions Indication:Non-smoker Start:30-Nov-2022 Instruction Type:Provider Instructions for Treatment How to Access Health Informa tion Online using Patient Portal and [employer] Indication:Non-smoker Start:30-Nov-2022 Instruction Type:Patient Education Patient Instructions Indication:Dupuytren contracture Start:02-Oct-2022 Instruction Type:Provider Instructions for Treatment How to Access Health Informa tion Online using Patient Portal and [employer] Indication:Dupuytren contracture Start:02-Oct-2022 Instruction Type:Patient Education Patient Instructions Indication:VITAMIN D DEFICIENCY Start:02-Sep-2022 Instruction Type:Provider Instructions for Treatment How to Access Health Informa tion Online using Patient Portal and [employer] Indication:VITAMIN D DEFICIENCY Start:02-Sep-2022 Instruction Type:Patient Education Patient Instructions Indication:Impaired fasting glucose Start:05-Jun-2022 Instruction Type:Provider Instructions for Treatment How to Access Health Informa tion Online using Patient Portal and [employer] Indication:Impaired fasting glucose Start:05-Jun-2022 Instruction Type:Patient Education Patient Instructions Indication:BMI 35.0-35.9,adult Start:18-Feb-2022 Instruction Type:Provider Instructions for Treatment How to Access Health Informa tion Online using Patient Portal and [employer] Indication:BMI 35.0-35.9,adult Start:18-Feb-2022 Instruction Type:Patient Education Patient Instructions Indication:Nonsmoker Start:04-Feb-2022 Instruction Type:Provider Instructions for Treatment How to Access Health Informa tion Online using Patient Portal and [employer] Indication:Nonsmoker Start:04-Feb-2022 Instruction Type:Patient Education Patient Instructions Indication:BMI 35.0-35.9,adult Start:24-Dec-2021 Instruction Type:Provider Instructions for Treatment How to Access Health Informa tion Online using Patient Portal and [employer] Indication:BMI 35.0-35.9,adult Start:24-Dec-2021 Instruction Type:Patient Education Patient Instructions Indication:BMI 34.0-34.9,adult Start:03-Oct-2021 Instruction Type:Provider Instructions for Treatment How to Access Health Informa tion Online using Patient Portal and [employer] Indication:BMI 34.0-34.9,adult Start:03-Oct-2021 Instruction Type:Patient Education Patient Instructions Indication:Nonsmoker Start:16-Sep-2021 Instruction Type:Provider Instructions for Treatment How to Access Health Informa tion Online using Patient Portal and [employer] Indication:Nonsmoker Start:16-Sep-2021 Instruction Type:Patient Education Patient Instructions Indication:Axillary lymphadenopathy Start:06-May-2021 Instruction Type:Provider Instructions for Treatment How to Access Health Informa tion Online using Patient Portal and [employer] Indication:Axillary lymphadenopathy Start:06-May-2021 Instruction Type:Patient Education Patient Instructions Indication:Cough Start:30-Apr-2021 Instruction Type:Provider Instructions for Treatment How to Access Health Informa tion Online using Patient Portal and [employer] Indication:Cough Start:30-Apr-2021 Instruction Type:Patient Education Patient Instructions Indication:Impaired fasting glucose Start:07-Jan-2021 Instruction Type:Provider Instructions for Treatment How to Access Health Informa tion Online using Patient Portal and [employer] Indication:Impaired fasting glucose Start:07-Jan-2021 Instruction Type:Patient Education How to Access Health Informa tion Online using Patient Portal and [employer] Indication:Nonsmoker Start:03-Sep-2020 Instruction Type:Patient Education Patient Instructions Indication:Nonsmoker Start:03-Sep-2020 Instruction Type:Provider Instructions for Treatment Patient Instructions Indication:Nonsmoker Start:31-May-2020 Instruction Type:Provider Instructions for Treatment How to Access Health Informa tion Online using Patient Portal and [employer] Indication:Nonsmoker Start:31-May-2020 Instruction Type:Patient Education How to access health informa tion online Indication:Impaired fasting glucose Start:10-Apr-2020 Instruction Type:Patient Education How to access health informa tion online - Detail Indication:Impaired fasting glucose Start:10-Apr-2020 Instruction Type:Patient Education Patient Instructions Indication:Impaired fasting glucose Start:10-Apr-2020 Instruction Type:Provider Instructions for Treatment How to access health informa tion online Indication:VITAMIN D DEFICIENCY Start:29-Apr-2015 Instruction Type:Patient Education How to access health informa tion online - Detail Indication:VITAMIN D DEFICIENCY Start:29-Apr-2015 Instruction Type:Patient Education Patient Instructions Indication:VITAMIN D DEFICIENCY Start:29-Apr-2015 Instruction Type:Provider Instructions for Treatment How to access health informa tion online Indication:Forgetfulness Start:11-Jan-2015 Instruction Type:Patient Education How to access health informa tion online - Detail Indication:Forgetfulness Start:11-Jan-2015 Instruction Type:Patient Education Patient Instructions Indication:Forgetfulness Start:11-Jan-2015 Instruction Type:Provider Instructions for Treatment Patient Instructions Indication:Impaired fasting glucose Start:12-Oct-2014 Instruction Type:Provider Instructions for Treatment Patient Instructions Indication:Impaired fasting glucose Start:17-Oct-2012 Instruction Type:Provider Instructions for Treatment Patient Instructions Indication:Impaired fasting glucose Start:29-Feb-2012 Instruction Type:Provider Instructions for Treatment [facility]; [facility] Work Phone: Instructions* Name Dates Details Patient Instructions Indication:BMI 36.0-36.9,adult Start:25-Jan-2023 Instruction Type:Provider Instructions for Treatment How to Access Health Informa tion Online using Patient Portal and [employer] Apps Indication:BMI 36.0-36.9,adult Start:25-Jan-2023 Instruction Type:Patient Education Patient Instructions Indication:Skin infection, bacterial Start:19-Jan-2023 Instruction Type:Provider Instructions for Treatment How to Access Health Informa tion Online using Patient Portal and [employer] Indication:Skin infection, bacterial Start:19-Jan-2023 Instruction Type:Patient Education Patient Instructions Indication:Non-smoker Start:21-Dec-2022 Instruction Type:Provider Instructions for Treatment How to Access Health Informa tion Online using Patient Portal and [employer] Apps Indication:Non-smoker Start:21-Dec-2022 Instruction Type:Patient Education Patient Instructions Indication:Cellulitis Start:11-Dec-2022 Instruction Type:Provider Instructions for Treatment How to Access Health Informa tion Online using Patient Portal and [employer] Indication:Cellulitis Start:11-Dec-2022 Instruction Type:Patient Education Patient Instructions Indication:Abscess Start:08-Dec-2022 Instruction Type:Provider Instructions for Treatment How to Access Health Informa tion Online using Patient Portal and [employer] Indication:Abscess Start:08-Dec-2022 Instruction Type:Patient Education Patient Instructions Indication:Non-smoker Start:30-Nov-2022 Instruction Type:Provider Instructions for Treatment How to Access Health Informa tion Online using Patient Portal and [employer] Apps Indication:Non-smoker Start:30-Nov-2022 Instruction Type:Patient Education Patient Instructions Indication:Dupuytren contracture Start:02-Oct-2022 Instruction Type:Provider Instructions for Treatment How to Access Health Informa tion Online using Patient Portal and [employer] Indication:Dupuytren contracture Start:02-Oct-2022 Instruction Type:Patient Education Patient Instructions Indication:VITAMIN D DEFICIENCY Start:02-Sep-2022 Instruction Type:Provider Instructions for Treatment How to Access Health Informa tion Online using Patient [email or web address] and [employer] Indication:VITAMIN D DEFICIENCY Start:02-Sep-2022 Instruction Type:Patient Education Patient Instructions Indication:Impaired fasting glucose Start:05-Jun-2022 Instruction Type:Provider Instructions for Treatment How to Access Health Informa tion Online using Patient [email or web address] and [employer] Indication:Impaired fasting glucose Start:05-Jun-2022 Instruction Type:Patient Education Patient Instructions Indication:BMI 35.0-35.9,adult Start:18-Feb-2022 Instruction Type:Provider Instructions for Treatment How to Access Health Informa tion Online using Patient [email or web address] and [employer] Indication:BMI 35.0-35.9,adult Start:18-Feb-2022 Instruction Type:Patient Education Patient Instructions Indication:Nonsmoker Start:04-Feb-2022 Instruction Type:Provider Instructions for Treatment How to Access Health Informa tion Online using Patient [email or web address] and [employer] Indication:Nonsmoker Start:04-Feb-2022 Instruction Type:Patient Education Patient Instructions Indication:BMI 35.0-35.9,adult Start:24-Dec-2021 Instruction Type:Provider Instructions for Treatment How to Access Health Informa tion Online using Patient Portal and [employer] Indication:BMI 35.0-35.9,adult Start:24-Dec-2021 Instruction Type:Patient Education Patient Instructions Indication:BMI 34.0-34.9,adult Start:03-Oct-2021 Instruction Type:Provider Instructions for Treatment How to Access Health Informa tion Online using Patient [email or web address] and [employer] Indication:BMI 34.0-34.9,adult Start:03-Oct-2021 Instruction Type:Patient Education Patient Instructions Indication:Nonsmoker Start:16-Sep-2021 Instruction Type:Provider Instructions for Treatment How to Access Health Informa tion Online using Patient [email or web address] and [employer] Indication:Nonsmoker Start:16-Sep-2021 Instruction Type:Patient Education Patient Instructions Indication:Axillary lymphadenopathy Start:06-May-2021 Instruction Type:Provider Instructions for Treatment How to Access Health Informa tion Online using Patient Portal and [employer] Indication:Axillary lymphadenopathy Start:06-May-2021 Instruction Type:Patient Education Patient Instructions Indication:Cough Start:30-Apr-2021 Instruction Type:Provider Instructions for Treatment How to Access Health Informa tion Online using Patient Portal and [employer] Indication:Cough Start:30-Apr-2021 Instruction Type:Patient Education Patient Instructions Indication:Impaired fasting glucose Start:07-Jan-2021 Instruction Type:Provider Instructions for Treatment How to Access Health Informa tion Online using Patient Portal and [employer] Indication:Impaired fasting glucose Start:07-Jan-2021 Instruction Type:Patient Education How to Access Health Informa tion Online using Patient Portal and [employer] Indication:Nonsmoker Start:03-Sep-2020 Instruction Type:Patient Education Patient Instructions Indication:Nonsmoker Start:03-Sep-2020 Instruction Type:Provider Instructions for Treatment Patient Instructions Indication:Nonsmoker Start:31-May-2020 Instruction Type:Provider Instructions for Treatment How to Access Health Informa tion Online using Patient Portal and [employer] Indication:Nonsmoker Start:31-May-2020 Instruction Type:Patient Education How to access health informa tion online Indication:Impaired fasting glucose Start:10-Apr-2020 Instruction Type:Patient Education How to access health informa tion online - Detail Indication:Impaired fasting glucose Start:10-Apr-2020 Instruction Type:Patient Education Patient Instructions Indication:Impaired fasting glucose Start:10-Apr-2020 Instruction Type:Provider Instructions for Treatment How to access health informa tion online Indication:VITAMIN D DEFICIENCY Start:29-Apr-2015 Instruction Type:Patient Education How to access health informa tion online - Detail Indication:VITAMIN D DEFICIENCY Start:29-Apr-2015 Instruction Type:Patient Education Patient Instructions Indication:VITAMIN D DEFICIENCY Start:29-Apr-2015 Instruction Type:Provider Instructions for Treatment How to access health informa tion online Indication:Forgetfulness Start:11-Jan-2015 Instruction Type:Patient Education How to access health informa tion online - Detail Indication:Forgetfulness Start:11-Jan-2015 Instruction Type:Patient Education Patient Instructions Indication:Forgetfulness Start:11-Jan-2015 Instruction Type:Provider Instructions for Treatment Patient Instructions Indication:Impaired fasting glucose Start:12-Oct-2014 Instruction Type:Provider Instructions for Treatment Patient Instructions Indication:Impaired fasting glucose Start:17-Oct-2012 Instruction Type:Provider Instructions for Treatment Patient Instructions Indication:Impaired fasting glucose Start:29-Feb-2012 Instruction Type:Provider Instructions for Treatment [facility]; [facility] Work Phone: Instructions* Name Dates Details Patient Instructions Indication:BMI 37.0-37.9, adult Start:18-Mar-2023 Instruction Type:Provider Instructions for Treatment How to Access Health Informa tion Online using Patient Portal and [employer]rd [employer] Apps Indication:BMI 37.0-37.9, adult Start:18-Mar-2023 Instruction Type:Patient Education Patient Instructions Indication:BMI 36.0-36.9,adult Start:25-Jan-2023 Instruction Type:Provider Instructions for Treatment How to Access Health Informa tion Online using Patient Portal and [employer]rd [employer] Apps Indication:BMI 36.0-36.9,adult Start:25-Jan-2023 Instruction Type:Patient Education Patient Instructions Indication:Skin infection, bacterial Start:19-Jan-2023 Instruction Type:Provider Instructions for Treatment How to Access Health Informa tion Online using Patient Portal and [employer]rd [employer] Apps Indication:Skin infection, bacterial Start:19-Jan-2023 Instruction Type:Patient Education Patient Instructions Indication:Non-smoker Start:21-Dec-2022 Instruction Type:Provider Instructions for Treatment How to Access Health Informa tion Online using Patient Portal and [employer]rd [employer] Apps Indication:Non-smoker Start:21-Dec-2022 Instruction Type:Patient Education Patient Instructions Indication:Cellulitis Start:11-Dec-2022 Instruction Type:Provider Instructions for Treatment How to Access Health Informa tion Online using Patient Portal and [employer]rd [employer] Apps Indication:Cellulitis Start:11-Dec-2022 Instruction Type:Patient Education Patient Instructions Indication:Abscess Start:08-Dec-2022 Instruction Type:Provider Instructions for Treatment How to Access Health Informa tion Online using Patient Portal and [employer] Apps Indication:Abscess Start:08-Dec-2022 Instruction Type:Patient Education Patient Instructions Indication:Non-smoker Start:30-Nov-2022 Instruction Type:Provider Instructions for Treatment How to Access Health Informa tion Online using Patient Portal and [employer] Apps Indication:Non-smoker Start:30-Nov-2022 Instruction Type:Patient Education Patient Instructions Indication:Dupuytren contracture Start:02-Oct-2022 Instruction Type:Provider Instructions for Treatment How to Access Health Informa tion Online using Patient Portal and [employer]rd [employer] Apps Indication:Dupuytren contracture Start:02-Oct-2022 Instruction Type:Patient Education Patient Instructions Indication:VITAMIN D DEFICIENCY Start:02-Sep-2022 Instruction Type:Provider Instructions for Treatment How to Access Health Informa tion Online using Patient Portal and [employer] Apps Indication:VITAMIN D DEFICIENCY Start:02-Sep-2022 Instruction Type:Patient Education Patient Instructions Indication:Impaired fasting glucose Start:05-Jun-2022 Instruction Type:Provider Instructions for Treatment How to Access Health Informa tion Online using Patient Portal and [employer] Apps Indication:Impaired fasting glucose Start:05-Jun-2022 Instruction Type:Patient Education Patient Instructions Indication:BMI 35.0-35.9,adult Start:18-Feb-2022 Instruction Type:Provider Instructions for Treatment How to Access Health Informa tion Online using Patient Portal and [employer] Apps Indication:BMI 35.0-35.9,adult Start:18-Feb-2022 Instruction Type:Patient Education Patient Instructions Indication:Nonsmoker Start:04-Feb-2022 Instruction Type:Provider Instructions for Treatment How to Access Health Informa tion Online using Patient Portal and [employer] Apps Indication:Nonsmoker Start:04-Feb-2022 Instruction Type:Patient Education Patient Instructions Indication:BMI 35.0-35.9,adult Start:24-Dec-2021 Instruction Type:Provider Instructions for Treatment How to Access Health Informa tion Online using Patient Portal and [employer] Apps Indication:BMI 35.0-35.9,adult Start:24-Dec-2021 Instruction Type:Patient Education Patient Instructions Indication:BMI 34.0-34.9,adult Start:03-Oct-2021 Instruction Type:Provider Instructions for Treatment How to Access Health Informa tion Online using Patient Portal and [employer] Apps Indication:BMI 34.0-34.9,adult Start:03-Oct-2021 Instruction Type:Patient Education Patient Instructions Indication:Nonsmoker Start:16-Sep-2021 Instruction Type:Provider Instructions for Treatment How to Access Health Informa tion Online using Patient Portal and [employer] Apps Indication:Nonsmoker Start:16-Sep-2021 Instruction Type:Patient Education Patient Instructions Indication:Axillary lymphadenopathy Start:06-May-2021 Instruction Type:Provider Instructions for Treatment How to Access Health Informa tion Online using Patient Portal and [employer] Apps Indication:Axillary lymphadenopathy Start:06-May-2021 Instruction Type:Patient Education Patient Instructions Indication:Cough Start:30-Apr-2021 Instruction Type:Provider Instructions for Treatment How to Access Health Informa tion Online using Patient Portal and [employer]rd [employer] Apps Indication:Cough Start:30-Apr-2021 Instruction Type:Patient Education Patient Instructions Indication:Impaired fasting glucose Start:07-Jan-2021 Instruction Type:Provider Instructions for Treatment How to Access Health Informa tion Online using Patient Portal and [employer] Apps Indication:Impaired fasting glucose Start:07-Jan-2021 Instruction Type:Patient Education How to Access Health Informa tion Online using Patient Portal and [employer] Apps Indication:Nonsmoker Start:03-Sep-2020 Instruction Type:Patient Education Patient Instructions Indication:Nonsmoker Start:03-Sep-2020 Instruction Type:Provider Instructions for Treatment Patient Instructions Indication:Nonsmoker Start:31-May-2020 Instruction Type:Provider Instructions for Treatment How to Access Health Informa tion Online using Patient Portal and [employer] Apps Indication:Nonsmoker Start:31-May-2020 Instruction Type:Patient Education How to access health informa tion online Indication:Impaired fasting glucose Start:10-Apr-2020 Instruction Type:Patient Education How to access health informa tion online - Detail Indication:Impaired fasting glucose Start:10-Apr-2020 Instruction Type:Patient Education Patient Instructions Indication:Impaired fasting glucose Start:10-Apr-2020 Instruction Type:Provider Instructions for Treatment How to access health informa tion online Indication:VITAMIN D DEFICIENCY Start:29-Apr-2015 Instruction Type:Patient Education How to access health informa tion online - Detail Indication:VITAMIN D DEFICIENCY Start:29-Apr-2015 Instruction Type:Patient Education Patient Instructions Indication:VITAMIN D DEFICIENCY Start:29-Apr-2015 Instruction Type:Provider Instructions for Treatment How to access health informa tion online Indication:Forgetfulness Start:11-Jan-2015 Instruction Type:Patient Education How to access health informa tion online - Detail Indication:Forgetfulness Start:11-Jan-2015 Instruction Type:Patient Education Patient Instructions Indication:Forgetfulness Start:11-Jan-2015 Instruction Type:Provider Instructions for Treatment Patient Instructions Indication:Impaired fasting glucose Start:12-Oct-2014 Instruction Type:Provider Instructions for Treatment Patient Instructions Indication:Impaired fasting glucose Start:17-Oct-2012 Instruction Type:Provider Instructions for Treatment Patient Instructions Indication:Impaired fasting glucose Start:29-Feb-2012 Instruction Type:Provider Instructions for Treatment [facility]; [facility] Work Phone: Family History No Family History Records FoundUnknown Family Member Name Dates Details Family Members In General Comments:dads side of family alot of heart disease Status:Active Father Comments:living age88- pacem christoph- skin cancer- Status:Active Mother Comments:living age 87- [address] cancer in her 70s- age 89- chf Status:Active Unknown Family Member Name Dates Details Family Members In General Comments:dads side of family alot of heart disease Status:Active Father Comments: age 94- pa cemaker- skin cancer-brain hemmorrhage Status:Active Mother Comments:living age [address]- [address] cancer in her 70s- age 89- chf Status:Active sister breast cancer- age 66 Status:Active Unknown Family Member Name Dates Details Family Members In General Comments:dads side of family alot of heart disease Status:Active Father Comments: age 94- pa cemaker- skin cancer-brain hemmorrhage Status:Active Mother Comments:living age [address]- [address] cancer in her 70s- age 89- chf Status:Active sister breast cancer- age 66 Status:Active Unknown Family Member Name Dates Details Family Members In General Comments:dads side of family alot of heart disease Status:Active Father Comments: age 94- pa cemaker- skin cancer-brain hemmorrhage Status:Active Mother Comments:living age [address]- [address] cancer in her 70s- age 89- chf Status:Active sister breast cancer- age 66 Status:Active Unknown Family Member Name Dates Details Family Members In General Comments:dads side of family alot of heart disease Status:Active Father Comments:living age88- pacem christoph- skin cancer- Status:Active Mother Comments:living age [address]- [address] cancer in her 70s- age 89- chf Status:Active Unknown Family Member Name Dates Details Family Members In General Comments:dads side of family alot of heart disease Status:Active Father Comments: age 94- pa cemaker- skin cancer-brain hemmorrhage Status:Active Mother Comments:living age [address]- [address] cancer in her 70s- age 89- chf Status:Active sister breast cancer- age 66 Status:Active Unknown Family Member Name Dates Details Family Members In General Comments:dads side of family alot of heart disease Status:Active Father Comments: age 94- pa cemaker- skin cancer-brain hemmorrhage Status:Active Mother Comments:living age [address]- [address] cancer in her 70s- age 89- chf Status:Active sister breast cancer- age 66 Status:Active Unknown Family Member Name Dates Details Family Members In General Comments:dads side of family alot of heart disease Status:Active Father Comments: age 94- pa cemaker- skin cancer-brain hemmorrhage Status:Active Mother Comments:living age [address]- [address] cancer in her 70s- age 89- chf Status:Active sister breast cancer- age 66 Status:Active Unknown Family Member Name Dates Details Family Members In General Comments:dads side of family alot of heart disease Status:Active Father Comments: age 94- pa cemaker- skin cancer-brain hemmorrhage Status:Active Mother Comments:living age [address]- [address] cancer in her 70s- age 89- chf Status:Active sister breast cancer- age 66 Status:Active Unknown Family Member Name Dates Details Family Members In General Comments:dads side of family alot of heart disease Status:Active Father Comments: age 94- pa cemaker- skin cancer-brain hemmorrhage Status:Active Mother Comments:living age [address]- [address] cancer in her 70s- age 89- chf Status:Active sister breast cancer- age 66 Status:Active Unknown Family Member Name Dates Details Family Members In General Comments:dads side of family alot of heart disease Status:Active Father Comments: age 94- pa cemaker- skin cancer-brain hemmorrhage Status:Active Mother Comments:living age [address]- [address] cancer in her 70s- age 89- chf Status:Active sister breast cancer- age 66 Status:Active Unknown Family Member Name Dates Details Family Members In General Comments:dads side of family alot of heart disease Status:Active Father Comments: age 94- pa cemaker- skin cancer-brain hemmorrhage Status:Active Mother Comments:living age [address]- [address] cancer in her 70s- age 89- chf Status:Active sister breast cancer- age 66 Status:Active Unknown Family Member Name Dates Details Family Members In General Comments:dads side of family alot of heart disease Status:Active Father Comments: age 94- pa cemaker- skin cancer-brain hemmorrhage Status:Active Mother Comments:living age [address]- [address] cancer in her 70s- age 89- chf Status:Active sister breast cancer- age 66 Status:Active Unknown Family Member Name Dates Details Family Members In General Comments:dads side of family alot of heart disease Status:Active Father Comments: age 94- pa cemaker- skin cancer-brain hemmorrhage Status:Active Mother Comments:living age [address]- [address] cancer in her 70s- age 89- chf Status:Active sister breast cancer- age 66 Status:Active Unknown Family Member Name Dates Details Family Members In General Comments:dads side of family alot of heart disease Status:Active Father Comments: age 94- pa cemaker- skin cancer-brain hemmorrhage Status:Active Mother Comments:living age [address]- [address] cancer in her 70s- age 89- chf Status:Active sister breast cancer- age 66 Status:Active Unknown Family Member Name Dates Details Family Members In General Comments:dads side of family alot of heart disease Status:Active Father Comments: age 94- pa cemaker- skin cancer-brain hemmorrhage Status:Active Mother Comments:living age [address]- [address] cancer in her 70s- age 89- chf Status:Active sister breast cancer- age 66 Status:Active Unknown Family Member Name Dates Details Family Members In General Comments:dads side of family alot of heart disease Status:Active Father Comments: age 94- pa cemaker- skin cancer-brain hemmorrhage Status:Active Mother Comments:living age [address]- [address] cancer in her 70s- age 89- chf Status:Active sister breast cancer- age 66 Status:Active Unknown Family Member Name Dates Details Family Members In General Comments:dads side of family alot of heart disease Status:Active Father Comments: age 94- pa cemaker- skin cancer-brain hemmorrhage Status:Active Mother Comments:living age [address]- [address] cancer in her 70s- age 89- chf Status:Active sister breast cancer- age 66 Status:Active Unknown Family Member Name Dates Details Family Members In General Comments:dads side of family alot of heart disease Status:Active Father Comments: age 94- pa cemaker- skin cancer-brain hemmorrhage Status:Active Mother Comments:living age [address]- [address] cancer in her 70s- age 89- chf Status:Active sister breast cancer- age 66 Status:Active Unknown Family Member Name Dates Details Family Members In General Comments:dads side of family alot of heart disease Status:Active Father Comments: age 94- pa cemaker- skin cancer-brain hemmorrhage Status:Active Mother Comments:living age [address]- [address] cancer in her 70s- age 89- chf Status:Active sister breast cancer- age 66 Status:Active Unknown Family Member Name Dates Details Family Members In General Comments:dads side of family alot of heart disease Status:Active Father Comments: age 94- pa cemaker- skin cancer-brain hemmorrhage Status:Active Mother Comments:living age [address]- [address] cancer in her 70s- age 89- chf Status:Active sister breast cancer- age 66 Status:Active Unknown Family Member Name Dates Details Family Members In General Comments:dads side of family alot of heart disease Status:Active Father Comments: age 94- pa cemaker- skin cancer-brain hemmorrhage Status:Active Mother Comments:living age [address]- [address] cancer in her 70s- age 89- chf Status:Active sister breast cancer- age 66 Status:Active Unknown Family Member Name Dates Details Family Members In General Comments:dads side of family alot of heart disease Status:Active Father Comments: age 94- pa cemaker- skin cancer-brain hemmorrhage Status:Active Mother Comments:living age [address]- [address] cancer in her 70s- age 89- chf Status:Active sister breast cancer- age 66 Status:Active Unknown Family Member Name Dates Details Family Members In General Comments:dads side of family alot of heart disease Status:Active Father Comments: age 94- pa cemaker- skin cancer-brain hemmorrhage Status:Active Mother Comments:living age [address]- [address] cancer in her 70s- age 89- chf Status:Active sister breast cancer- age 66 Status:Active Unknown Family Member Name Dates Details Family Members In General Comments:dads side of family alot of heart disease Status:Active Father Comments: age 94- pa cemaker- skin cancer-brain hemmorrhage Status:Active Mother Comments:living age [address]- [address] cancer in her 70s- age 89- chf Status:Active sister breast cancer- age 66 Status:Active Unknown Family Member Name Dates Details Family Members In General Comments:dads side of family alot of heart disease Status:Active Father Comments: age 94- pa cemaker- skin cancer-brain hemmorrhage Status:Active Mother Comments:living age [address]- [address] cancer in her 70s- age 89- chf Status:Active sister breast cancer- age 66 Status:Active Unknown Family Member Name Dates Details Family Members In General Comments:dads side of family alot of heart disease Status:Active Father Comments: age 94- pa cemaker- skin cancer-brain hemmorrhage Status:Active Mother Comments:living age [address]- [address] cancer in her 70s- age 89- chf Status:Active sister breast cancer- age 66 Status:Active Unknown Family Member Name Dates Details Family Members In General Comments:dads side of family alot of heart disease Status:Active Father Comments: age 94- pa cemaker- skin cancer-brain hemmorrhage Status:Active Mother Comments:living age [address]- [address] cancer in her 70s- age 89- chf Status:Active sister breast cancer- age 66 Status:Active Unknown Family Member Name Dates Details Family Members In General Comments:dads side of family alot of heart disease Status:Active Father Comments: age 94- pa cemaker- skin cancer-brain hemmorrhage Status:Active Mother Comments:living age [address]- [address] cancer in her 70s- age 89- chf Status:Active sister breast cancer- age 66 Status:Active Unknown Family Member Name Dates Details Family Members In General Comments:dads side of family alot of heart disease Status:Active Father Comments: age 94- pa cemaker- skin cancer-brain hemmorrhage Status:Active Mother Comments:living age [address]- [address] cancer in her 70s- age 89- chf Status:Active sister breast cancer- age 66 Status:Active Instructions Name Dates Details How to access health informa tion online Indication:VITAMIN D DEFICIENCY Start:29-Apr-2015 Instruction Type:Patient Education How to access health informa tion online - Detail Indication:VITAMIN D DEFICIENCY Start:29-Apr-2015 Instruction Type:Patient Education Patient Instructions Indication:VITAMIN D DEFICIENCY Start:29-Apr-2015 Instruction Type:Provider Instructions for Treatment How to access health [facility] [employer] online Indication:Forgetfulness Start:11-Jan-2015 Instruction Type:Patient Education How to access health informa tion online - Detail Indication:Forgetfulness Start:11-Jan-2015 Instruction Type:Patient Education Patient Instructions Indication:Forgetfulness Start:11-Jan-2015 Instruction Type:Provider Instructions for Treatment Patient Instructions Indication:Impaired fasting glucose Start:12-Oct-2014 Instruction Type:Provider Instructions for Treatment Patient Instructions Indication:Impaired fasting glucose Start:17-Oct-2012 Instruction Type:Provider Instructions for Treatment Patient Instructions Indication:Impaired fasting glucose Start:29-Feb-2012 Instruction Type:Provider Instructions for Treatment Name Dates Details How to access health informa [employer] online Indication:Impaired fasting glucose Start:10-Apr-2020 Instruction Type:Patient Education How to access health informa tion online - Detail Indication:Impaired fasting glucose Start:10-Apr-2020 Instruction Type:Patient Education Patient Instructions Indication:Impaired fasting glucose Start:10-Apr-2020 Instruction Type:Provider Instructions for Treatment How to access [employer] online Indication:VITAMIN D DEFICIENCY Start:29-Apr-2015 Instruction Type:Patient Education How to access health informa tion online - Detail Indication:VITAMIN D DEFICIENCY Start:29-Apr-2015 Instruction Type:Patient Education Patient Instructions Indication:VITAMIN D DEFICIENCY Start:29-Apr-2015 Instruction Type:Provider Instructions for Treatment How to access health informa [employer] online Indication:Forgetfulness Start:11-Jan-2015 Instruction Type:Patient Education How to access health informa tion online - Detail Indication:Forgetfulness Start:11-Jan-2015 Instruction Type:Patient Education Patient Instructions Indication:Forgetfulness Start:11-Jan-2015 Instruction Type:Provider Instructions for Treatment Patient Instructions Indication:Impaired fasting glucose Start:12-Oct-2014 Instruction Type:Provider Instructions for Treatment Patient Instructions Indication:Impaired fasting glucose Start:17-Oct-2012 Instruction Type:Provider Instructions for Treatment Patient Instructions Indication:Impaired fasting glucose Start:29-Feb-2012 Instruction Type:Provider Instructions for Treatment Name Dates Details How to access health informa tion online Indication:Impaired fasting glucose Start:10-Apr-2020 Instruction Type:Patient Education How to access health informa tion online - Detail Indication:Impaired fasting glucose Start:10-Apr-2020 Instruction Type:Patient Education Patient Instructions Indication:Impaired fasting glucose Start:10-Apr-2020 Instruction Type:Provider Instructions for Treatment How to access health informa tion online Indication:VITAMIN D DEFICIENCY Start:29-Apr-2015 Instruction Type:Patient Education How to access health informa tion online - Detail Indication:VITAMIN D DEFICIENCY Start:29-Apr-2015 Instruction Type:Patient Education Patient Instructions Indication:VITAMIN D DEFICIENCY Start:29-Apr-2015 Instruction Type:Provider Instructions for Treatment How to access health informa tion online Indication:Forgetfulness Start:11-Jan-2015 Instruction Type:Patient Education How to access health informa tion online - Detail Indication:Forgetfulness Start:11-Jan-2015 Instruction Type:Patient Education Patient Instructions Indication:Forgetfulness Start:11-Jan-2015 Instruction Type:Provider Instructions for Treatment Patient Instructions Indication:Impaired fasting glucose Start:12-Oct-2014 Instruction Type:Provider Instructions for Treatment Patient Instructions Indication:Impaired fasting glucose Start:17-Oct-2012 Instruction Type:Provider Instructions for Treatment Patient Instructions Indication:Impaired fasting glucose Start:29-Feb-2012 Instruction Type:Provider Instructions for Treatment Name Dates Details Patient Instructions Indication:Nonsmoker Start:31-May-2020 Instruction Type:Provider Instructions for Treatment How to Access Health Informa tion Online using Patient Portal and [employer] Apps Indication:Nonsmoker Start:31-May-2020 Instruction Type:Patient Education How to access health informa tion online Indication:Impaired fasting glucose Start:10-Apr-2020 Instruction Type:Patient Education How to access health informa tion online - Detail Indication:Impaired fasting glucose Start:10-Apr-2020 Instruction Type:Patient Education Patient Instructions Indication:Impaired fasting glucose Start:10-Apr-2020 Instruction Type:Provider Instructions for Treatment How to access health informa tion online Indication:VITAMIN D DEFICIENCY Start:29-Apr-2015 Instruction Type:Patient Education How to access health informa tion online - Detail Indication:VITAMIN D DEFICIENCY Start:29-Apr-2015 Instruction Type:Patient Education Patient Instructions Indication:VITAMIN D DEFICIENCY Start:29-Apr-2015 Instruction Type:Provider Instructions for Treatment How to access health informa tion online Indication:Forgetfulness Start:11-Jan-2015 Instruction Type:Patient Education How to access health informa tion online - Detail Indication:Forgetfulness Start:11-Jan-2015 Instruction Type:Patient Education Patient Instructions Indication:Forgetfulness Start:11-Jan-2015 Instruction Type:Provider Instructions for Treatment Patient Instructions Indication:Impaired fasting glucose Start:12-Oct-2014 Instruction Type:Provider Instructions for Treatment Patient Instructions Indication:Impaired fasting glucose Start:17-Oct-2012 Instruction Type:Provider Instructions for Treatment Patient Instructions Indication:Impaired fasting glucose Start:29-Feb-2012 Instruction Type:Provider Instructions for Treatment Name Dates Details How to access health informa tion online Indication:VITAMIN D DEFICIENCY Start:29-Apr-2015 Instruction Type:Patient Education How to access health informa tion online - Detail Indication:VITAMIN D DEFICIENCY Start:29-Apr-2015 Instruction Type:Patient Education Patient Instructions Indication:VITAMIN D DEFICIENCY Start:29-Apr-2015 Instruction Type:Provider Instructions for Treatment How to access health informa tion online Indication:Forgetfulness Start:11-Jan-2015 Instruction Type:Patient Education How to access health informa tion online - Detail Indication:Forgetfulness Start:11-Jan-2015 Instruction Type:Patient Education Patient Instructions Indication:Forgetfulness Start:11-Jan-2015 Instruction Type:Provider Instructions for Treatment Patient Instructions Indication:Impaired fasting glucose Start:12-Oct-2014 Instruction Type:Provider Instructions for Treatment Patient Instructions Indication:Impaired fasting glucose Start:17-Oct-2012 Instruction Type:Provider Instructions for Treatment Patient Instructions Indication:Impaired fasting glucose Start:29-Feb-2012 Instruction Type:Provider Instructions for Treatment Name Dates Details How to access health informa tion online Indication:Impaired fasting glucose Start:10-Apr-2020 Instruction Type:Patient Education How to access health informa tion online - Detail Indication:Impaired fasting glucose Start:10-Apr-2020 Instruction Type:Patient Education Patient Instructions Indication:Impaired fasting glucose Start:10-Apr-2020 Instruction Type:Provider Instructions for Treatment How to access health informa tion online Indication:VITAMIN D DEFICIENCY Start:29-Apr-2015 Instruction Type:Patient Education How to access health informa tion online - Detail Indication:VITAMIN D DEFICIENCY Start:29-Apr-2015 Instruction Type:Patient Education Patient Instructions Indication:VITAMIN D DEFICIENCY Start:29-Apr-2015 Instruction Type:Provider Instructions for Treatment How to access health informa tion online Indication:Forgetfulness Start:11-Jan-2015 Instruction Type:Patient Education How to access health informa tion online - Detail Indication:Forgetfulness Start:11-Jan-2015 Instruction Type:Patient Education Patient Instructions Indication:Forgetfulness Start:11-Jan-2015 Instruction Type:Provider Instructions for Treatment Patient Instructions Indication:Impaired fasting glucose Start:12-Oct-2014 Instruction Type:Provider Instructions for Treatment Patient Instructions Indication:Impaired fasting glucose Start:17-Oct-2012 Instruction Type:Provider Instructions for Treatment Patient Instructions Indication:Impaired fasting glucose Start:29-Feb-2012 Instruction Type:Provider Instructions for Treatment Name Dates Details Patient Instructions Indication:Nonsmoker Start:31-May-2020 Instruction Type:Provider Instructions for Treatment How to Access Health Informa tion Online using Patient Portal and [employer] Apps Indication:Nonsmoker Start:31-May-2020 Instruction Type:Patient Education How to access health informa tion online Indication:Impaired fasting glucose Start:10-Apr-2020 Instruction Type:Patient Education How to access health informa tion online - Detail Indication:Impaired fasting glucose Start:10-Apr-2020 Instruction Type:Patient Education Patient Instructions Indication:Impaired fasting glucose Start:10-Apr-2020 Instruction Type:Provider Instructions for Treatment How to access health informa tion online Indication:VITAMIN D DEFICIENCY Start:29-Apr-2015 Instruction Type:Patient Education How to access health informa tion online - Detail Indication:VITAMIN D DEFICIENCY Start:29-Apr-2015 Instruction Type:Patient Education Patient Instructions Indication:VITAMIN D DEFICIENCY Start:29-Apr-2015 Instruction Type:Provider Instructions for Treatment How to access health informa tion online Indication:Forgetfulness Start:11-Jan-2015 Instruction Type:Patient Education How to access health informa tion online - Detail Indication:Forgetfulness Start:11-Jan-2015 Instruction Type:Patient Education Patient Instructions Indication:Forgetfulness Start:11-Jan-2015 Instruction Type:Provider Instructions for Treatment Patient Instructions Indication:Impaired fasting glucose Start:12-Oct-2014 Instruction Type:Provider Instructions for Treatment Patient Instructions Indication:Impaired fasting glucose Start:17-Oct-2012 Instruction Type:Provider Instructions for Treatment Patient Instructions Indication:Impaired fasting glucose Start:29-Feb-2012 Instruction Type:Provider Instructions for Treatment Advance Directives No Advanced Directives Records Found Name Dates Details Immunization Registry [place] - Effective on 05/31/2020. Expiration date unspecified Effective:31-May-2020 Name Dates Details Immunization Registry [place] - Effective on 05/31/2020. Expiration date unspecified Effective:31-May-2020 Name Dates Details Immunization Registry [place] - Effective on 05/31/2020. Expiration date unspecified Effective:31-May-2020 Name Dates Details Immunization Registry [place] - Effective on 05/31/2020. Expiration date unspecified Effective:31-May-2020 Name Dates Details Immunization Registry [place] - Effective on 05/31/2020. Expiration date unspecified Effective:31-May-2020 Name Dates Details Immunization Registry [place] - Effective on 05/31/2020. Expiration date unspecified Effective:31-May-2020 Name Dates Details Immunization Registry [place] - Effective on 05/31/2020. Expiration date unspecified Effective:31-May-2020 Name Dates Details Immunization Registry [place] - Effective on 05/31/2020. Expiration date unspecified Effective:31-May-2020 Name Dates Details Immunization Registry [place] - Effective on 05/31/2020. Expiration date unspecified Effective:31-May-2020 Advance Directive Response Recorded Date/ Time Living Will No September 03, 2020 9:48am Power of Front End Developer No September 03 9:48am Name Dates Details Immunization Registry [place] - Effective on 05/31/2020. Expiration date unspecified Effective:31-May-2020 Advance Directive Response Recorded Date/ Time Name of Medical Power of Front End Developer December 12, 2021 8:06pm Living Will Yes December 12, 2021 8:06pm Power of Front End Developer Yes December 12 8:06pm Name Dates Details Immunization Registry [place] - Effective on 05/31/2020. Expiration date unspecified Effective:31-May-2020 Name Dates Details Immunization Registry [place] - Effective on 05/31/2020. Expiration date unspecified Effective:31-May-2020 Name Dates Details Immunization Registry [place] - Effective on 05/31/2020. Expiration date unspecified Effective:31-May-2020 Name Dates Details Immunization Registry [place] - Effective on 05/31/2020. Expiration date unspecified Effective:31-May-2020 Advance Directive Response Recorded Date/ Time Living Will Yes December 12, 2021 7:06pm Power of Front End Developer Yes December 12 7:06pm Name Dates Details Immunization Registry [place] - Effective on 05/31/2020. Expiration date unspecified Effective:31-May-2020 Advance Directive Response Recorded Date/ Time Living Will Yes December 12, 2021 8:06pm Power of Front End Developer Yes December 12 8:06pm Name Dates Details Immunization Registry [place] - Effective on 05/31/2020. Expiration date unspecified Effective:31-May-2020 Name Dates Details Immunization Registry [place] - Effective on 05/31/2020. Expiration date unspecified Effective:31-May-2020 Name Dates Details Immunization Registry [place] - Effective on 05/31/2020. Expiration date unspecified Effective:31-May-2020 Name Dates Details Immunization Registry [place] - Effective on 05/31/2020. Expiration date unspecified Effective:31-May-2020 Name Dates Details Immunization Registry [place] - Effective on 05/31/2020. Expiration date unspecified Effective:31-May-2020 Name Dates Details Immunization Registry [place] - Effective on 05/31/2020. Expiration date unspecified Effective:31-May-2020 Name Dates Details Immunization Registry [place] - Effective on 05/31/2020. Expiration date unspecified Effective:31-May-2020 Name Dates Details Immunization Registry [place] - Effective on 05/31/2020. Expiration date unspecified Effective:31-May-2020 Name Dates Details Immunization Registry [place] - Effective on 05/31/2020. Expiration date unspecified Effective:31-May-2020 Chief Complaint and Reason for Visit Chief Complaint XRAY SCREENING Chief Complaint XRAY SCREENING AXILLARY LYMPHEDEMOPATHY RIGHT Chief Complaint XRAY SCREENING AXILLARY LYMPHEDEMOPATHY RIGHT R RING FINGER INJURY Chief Complaint RT RING FINGER DISLO CATION. DR TO FAX RX Chief Complaint POSTMENOPAUSAL, THYR OID NODULE CHAUDHARI CHAUDHARI Summary Purpose Reason for Referral Specialty Diagnoses / Procedures Referred By Dann daley Referred To Contact Radiology Diagnoses Impaired fasting glucose Procedures CT cardiac scoring wo IV contrast Fast, Ana Bee, DO [address] [address] Referral ID Status Reason Start Date Expiration Date Visits Requested Visits Authorized [id number] Authorized Perform Procedure 09/13/2023 09/12/2024 1 1 Additional Source Comments Goals (unrecognized section and content) Goals may be documented in a n alternate sectionGoals may be documented in an alternate sectionGoals may be documented in an alternate sectionGoals may be documented in an alternate sectionGoals may be documented in an alternate section Source Comments (unrecognize d section and content) In the event this informatio n is protected by the Federal Confidentiality of Alcohol and Drug Abuse Patient Records regulations: The Federal rules restrict any use of the information to criminally investigate or prosecute any alcohol or drug abuse patient.[facility] the event this information is protected by the Federal Confidentiality of Alcohol and Drug Abuse Patient Records regulations: The Federal rules restrict any use of the information to criminally investigate or prosecute any alcohol or drug abuse patient.[facility] HospitalIn the event this information is protected by the Federal Confidentiality of Alcohol and Drug Abuse Patient Records regulations: The Federal rules restrict any use of the information to criminally investigate or prosecute any alcohol or drug abuse patient.[facility] the event this information is protected by the Federal Confidentiality of Alcohol and Drug Abuse Patient Records regulations: The Federal rules restrict any use of the information to criminally investigate or prosecute any alcohol or drug abuse patient.[facility] the event this information is protected by the Federal Confidentiality of Alcohol and Drug Abuse Patient Records regulations: The Federal rules restrict any use of the information to criminally investigate or prosecute any alcohol or drug abuse patient.[facility] the event this information is protected by the Federal Confidentiality of Alcohol and Drug Abuse Patient Records regulations: The Federal rules restrict any use of the information to criminally investigate or prosecute any alcohol or drug abuse patient.[facility] the event this information is protected by the Federal Confidentiality of Alcohol and Drug Abuse Patient Records regulations: The Federal rules restrict any use of the information to criminally investigate or prosecute any alcohol or drug abuse patient.[facility] Hospital[facility] the event this information is protected by the Federal Confidentiality of Alcohol and Drug Abuse Patient Records regulations: The Federal rules restrict any use of the information to criminally investigate or prosecute any alcohol or drug abuse patient.[facility]In the event this information is protected by the Federal Confidentiality of Alcohol and Drug Abuse Patient Records regulations: The Federal rules restrict any use of the information to criminally investigate or prosecute any alcohol or drug abuse patient.[facility] HospitalIn the event this information is protected by the Federal Confidentiality of Alcohol and Drug Abuse Patient Records regulations: The Federal rules restrict any use of the information to criminally investigate or prosecute any alcohol or drug abuse patient.[facility] Reason for Visit (unrecogniz ed section and content) Reason Comments Consult abnormal ultrasound, family history of breast cancer Reason Comments Appointment Reason Comments New Patient Evaluation Reason Comments Patient Question Reason Comments Follow Up Right axilla lymph n ode biopsy results Reason Comments Post Op Excision of an enlar ged lymph node, Right Axilla Reason Comments Follow Up Review pathology fro m lymph node excision. Reason Comments Results Reason Comments Follow Up Right axillary biops y f/u Reason Comments 01/21/22 Dr. Peñaloza Excision of Right Axi llary lymph node Specialty Diagnoses / Procedures Referred By Dann daley Referred To Contact Radiology Diagnoses Impaired fasting glucose Procedures CT cardiac scoring wo IV contrast Angel, Ana Bee DO [address] [facility] [address] [place] [address] Referral ID Status Reason Start Date Expiration Date Visits Requested Visits Authorized [id number] Authorized Perform Procedure 09/13/2023 09/12/2024 1 1 Care Teams (unrecognized sec tion and content) Masonry Supervisor Relationship Specialty Start Date End Date Ana Jimenez DO [address] [facility] [address] [place] [address] PCP - General Internal Medicine 11/27/21 Masonry Supervisor Relationship Specialty Start Date End Date Ana Jimenez DO [address] [place] [address] PCP - General Internal Medicine 11/27/21 Masonry Supervisor Relationship Specialty Start Date End Date Ana Jimenez DO [address] [facility] [address] [place] [address] PCP - General Internal Medicine 11/27/21 Masonry Supervisor Relationship Specialty Start Date End Date Ana Jimenez DO [address] [facility] [address] [place] [address] PCP - General Internal Medicine 11/27/21 Masonry Supervisor Relationship Specialty Start Date End Date Ana Jimenez DO [address] [facility] [address] [place] [address] PCP - General Internal Medicine 11/27/21 Masonry Supervisor Relationship Specialty Start Date End Date Ana Jimenez DO [address] [facility] [address] [place] [address] PCP - General Internal Medicine 11/27/21 Team Status: Active Member Role Status Dates Dr. Natalie Howard MD Family Provider Active Dr. Ana Jimenez DO Primary Care Provider Active Team Status: Active Member Role Status Dates Dr. Ana Jimenez DO Primary Care Provider, Other Provi burke Active Dr. Kamilah Merida MD Attending Provider Active Team Status: Active Member Role Status Dates Dr. Ana Jimenez DO Primary Care Provider, Attending Ju[employer] ibarra Active Team Status: Inactive Member Role Status Dates Dr. Ana Jimenez DO Primary Care Provider, Attending Juventino ibarra Active Masonry Supervisor Relationship Specialty Start Date End Date Angel Ana A, DO [address] [facility] [address] [place] [address] PCP - General Internal Medicine 09/20/23 INFORMATION SOURCE (unrecogn ized section and content) DATE CREATED AUTHOR 02/14/2022 [facility] DATE CREATED AUTHOR AUTHOR'S ORGANIZ ATION 08/24/2022 [facility] DATE CREATED AUTHOR AUTHOR'S ORGANIZ ATION 07/25/2023 [facility] DATE CREATED AUTHOR AUTHOR'S ORGANIZ ATION 12/01/2023 [facility] DATE CREATED AUTHOR AUTHOR'S ORGANIZ ATION 10/30/2024 [facility] FOR RECORDS PERTAINING TO PATIENTS WHO ARE OR HAVE BEEN ENROLLED IN A CHEMICAL DEPENDENCY/SUBSTANCEABUSE PROGRAM, SOME INFORMATION MAY BE OMITTED. This clinical summary was aggregated from multiple sources. Caution should be exercised in using it in the provision of clinical care. This summary normalizes information from multiple sources, and as a consequence, information in this document may materially change the coding, format and clinical context of patient data. In addition, data may be omitted in some cases. CLINICAL DECISIONS SHOULD BE BASED ON THE PRIMARY CLINICAL RECORDS. [employer] provides no warranty or guarantee of the accuracy or completeness of information in this document.
== END | disposition home or self-care (01) ==
LOC: OPBD 07:19
PROVIDERS: PCP Internal Medicine; Referring Provider Internal Medicine; Visit Provider Internal Medicine
DX: Z12.31 Encounter for screening mammogram for malignant neoplasm of breast (principal); Z78.0 Asymptomatic menopausal state
CPT/HCPCS: 77063; 77067; 77080

== ENCOUNTER → 2025-04-25 | Outpatient (CLI) | payer MEDICARE, BC, SELFPAY ==
[2025-04-25 10:39] LABS: Creatinine, Urine (random) 96.50 mg/dL (28.00-217.00); Microalbumin,Random Urine < 12.0 mg/L (<20 mg/L)
[2025-04-25 10:54] LABS: AST(SGOT) 22 U/L (<=31); Alanine Aminotransfer ALT/SGPT 28 U/L (<=34); Albumin, Serum 4.1 g/dL (3.4-4.8); Alkaline Phosphatase 73 U/L (35-104); Anion Gap 10 (5-15); BUN 23 mg/dL (4-19); BUN/Creat Ratio 23.9 RATIO (10-20); Calcium,Total 9.4 mg/dL (7.6-11.0); Carbon Dioxide 26.1 mmol/L (21.0-32.0); Chloride 105 mmol/L (98-108); Cholesterol 142 mg/dL (<=200); Globulin 3.0 g/dL (2.2-4.2); Glucose 100 mg/dL (70-99); Low Density Lipoprotein Calc. 62 mg/dL; Potassium 4.5 mmol/L (3.3-5.1); Triglycerides 67 mg/dL; Very Low Density Lipoprotein 13 mg/dL (5-40); Vitamin D,25 Hydroxy 74.2 ng/mL (30-100); cholesterol:hdl ratio screen 2.12
== END | disposition home or self-care (01) ==
LOC: MTLAB 08:31
PROVIDERS: PCP Internal Medicine; Referring Provider Internal Medicine; Visit Provider Internal Medicine
DX: R73.09 Other abnormal glucose (principal); E78.5 Hyperlipidemia, unspecified; E04.1 Nontoxic single thyroid nodule; E55.9 Vitamin D deficiency, unspecified
CPT/HCPCS: 36415; 80053; 80061; 82043; 82306; 82570; 83036; 84443